=== PATIENT | female | born 1965 | race Caucasian/White ===

== ENCOUNTER 2019-12-19 11:20 | Outpatient (CLI) | payer OTHER, SELFPAY ==
--- NOTE | ~2019-12-19 | CT_ITS ---
EXAMINATION: CT lung screening EXAM DATE: 12/19/2019 12:18 INDICATION: Personal history of nicotine dependence. TECHNIQUE: Spiral low dose CT of the chest without contrast. Axial, coronal and sagittal images were reviewed. The dose-length product (DLP) for this examination was 58.56 mGy-cm. The exposure was ta ilored according to patient size (auto mA exposure control), and iterative reconstruction (ASIR) was used as additional dose reduction technique. Comparison is made to prior examination from 12/26/2017. FINDINGS: The lungs are clear. Tracheobronchial tree is patent. There is no mediastinal, hilar o r axillary lymphadenopathy. There are no pleural or pericardial effusions. There is no pneumothor ax. Heart normal in size. There is mild coronary arterial calcification, arterial sclerosis. Uppe r abdomen is unremarkable. There is mild to moderate thoracic spondylosis without osteoblastic or o steolytic lesions identified. IMPRESSION: Lung-RADS category 1, negative (<1%chance of malignancy); recommend continued LDCT screen ing in 1 year. Reviewed, dictated and finalized at location B. IMPRESSION: Lung-RADS category 1, negative (<1%chance of malignancy); recommend continued LDCT screening in 1 year.
== END 2019-12-19 11:21 | disposition home or self-care (01) ==
PROVIDERS: PCP Internal Medicine; Visit Provider Clinical Nurse Specialist
DX: Z12.2 Encounter for screening for malignant neoplasm of respiratory organs (principal); F17.210 Nicotine dependence, cigarettes, uncomplicated
CPT/HCPCS: G0297

== ENCOUNTER 2020-01-05 15:54 | Outpatient (CLI) | payer OTHER, SELFPAY ==
[2020-01-05 16:32] LABS: Basophils Absolute Auto 0.1 K/mm3 (0.0-0.1); Basophils Percent Auto 0.8 % (0.2-1.2); Eosinophils Absolute Auto 0.2 K/mm3 (0-0.3); Eosinophils Percent Auto 3.5 % (0-4.4); Hematocrit 35.7 % (37.0-47.0); Hemoglobin 12.1 g/dL (12.0-15.0); Immature Granulocyte Absolute 0.01 K/mm3 (0.00-0.031); Immature Granulocyte Percent A 0.2 % (0-0.5); Lymphocytes Absolute Auto 2.16 K/mm3 (0.9-3.2); Lymphocytes Percent Auto 32.9 % (18.3-44.2); Mean Corpuscular HGB Conc 33.9 g/dl (32-36); Mean Corpuscular Hemoglobin 33.6 pg (26-34); Mean Corpuscular Volume 99.2 fl (80-100); Monocytes Absolute Auto 0.7 K/mm3 (0.1-0.6); Monocytes Percent Auto 10.1 % (2.6-8.5); Neutrophils Absolute Auto 3.5 K/mm3 (1.3-6.7); Neutrophils Percent Auto 52.5 % (45.5-73.1); Platelet Count Result 352 k/mm3 (150-375); Red Cell Distribution Width 12.1 % (11.5-14.5); White Blood Count 6.6 K/mm3 (4.5-10.0)
[2020-01-05 16:42] LABS: Alanine Aminotransferase 24 U/L (4-35); Albumin Level 4.3 g/dL (3.5-5.1); Alkaline Phosphatase 68 U/L (38-126); Anion Gap 4 mmol/L (8-16); Aspartate Amino Transferase 31 U/L (14-36); Bilirubin,Total 0.3 mg/dL (0.2-1.3); Blood Urea Nitrogen 17 mg/dL (7-17); Calcium 9.4 mg/dL (8.4-10.2); Carbon Dioxide 31 mmol/L (22-30); Chloride 103 mmol/L (98-107); Cholesterol 207 mg/dL (0-200); Estimated Glomerular Filt Rate > 60; Glucose 113 mg/dL (65-105); HDL Direct 73 mg/dL; Potassium 4.8 mmol/L (3.4-5.0); Sodium 138 mmol/L (137-145); Triglycerides 124 mg/dL (<150)
[2020-01-05 16:46] LABS: Rheumatoid Factor < 8.6 IU/ML (<12)
[2020-01-05 16:53] LABS: LDL Cholesterol Direct 120 mg/dL
[2020-01-05 16:57] LABS: Erythrocyte Sedimentation Rate 26 mm/hr (0-20)
[2020-01-05 17:12] LABS: Thyroid Stimulating Hormone 0.169 uIU/mL (0.465-4.680)
[2020-01-05 17:30] LABS: Vitamin D 25 Hydroxy 46.4 ng/mL
== END 2020-01-05 15:55 | disposition home or self-care (01) ==
LOC: ANHLAB 15:59
PROVIDERS: PCP Internal Medicine; Visit Provider Clinical Nurse Specialist
DX: E03.9 Hypothyroidism, unspecified (principal); I10 Essential (primary) hypertension; E55.9 Vitamin D deficiency, unspecified; M25.50 Pain in unspecified joint
CPT/HCPCS: 36415; 80053; 80061; 82306; 84443; 85025; 85652; 86038; 86430

== ENCOUNTER → 2020-02-17 16:40 | Outpatient (CLI) | payer OTHER, SELFPAY ==
--- NOTE | ~2020-02-17 | MM_ITS ---
EXAMINATION: MM screening alesha BI w rita HISTORY: Screening mammogram TECHNIQUE: Craniocaudal and mediolateral oblique 3-D tomosynthesis images were obtained and synthetic 2-D images were generated. CAD analysis was submitted and interpreted. COMPARISON: 06/06/2018 bilateral digital screening mammogram BREAST PARENCHYMAL COMPOSITION: The breasts are heterogeneously dense, which may obscure small masses . FINDINGS: There is no evidence of suspicious mass, calcification, or architectural distortion to sugg est malignancy in either breast. There has been no suspicious interval change. IMPRESSION: 1. No mammographic evidence of malignancy. 2. Recommend routine screening mammography in one year. BI-RADS Category 1: Negative Reviewed, dictated and finalized at location A. F PROJECTIONIST
== END ==
PROVIDERS: PCP Internal Medicine; Visit Provider Obstetrics & Gynecology
DX: Z12.31 Encounter for screening mammogram for malignant neoplasm of breast (principal)
CPT/HCPCS: 77063; 77067

== ENCOUNTER 2020-02-18 16:16 | Outpatient (CLI) | payer OTHER, SELFPAY ==
[2020-02-18 17:21] LABS: Erythrocyte Sedimentation Rate 28 mm/hr (0-20)
== END 2020-02-18 16:17 | disposition home or self-care (01) ==
LOC: ANHLAB 16:17
PROVIDERS: PCP Internal Medicine; Visit Provider Clinical Nurse Specialist
DX: M25.50 Pain in unspecified joint (principal); E05.90 Thyrotoxicosis, unspecified without thyrotoxic crisis or storm
CPT/HCPCS: 36415; 84443; 85652

== ENCOUNTER 2020-02-23 16:11 | Outpatient (CLI) | payer OTHER, SELFPAY ==
[2020-02-23 16:43] LABS: CRP < 0.5 mg/dL (<1.0)
[2020-02-23 17:05] LABS: Erythrocyte Sedimentation Rate 44 mm/hr (0-20)
== END 2020-02-23 16:12 | disposition home or self-care (01) ==
LOC: ANHLAB 16:13
PROVIDERS: PCP Internal Medicine; Visit Provider Clinical Nurse Specialist
DX: R70.0 Elevated erythrocyte sedimentation rate (principal)
CPT/HCPCS: 36415; 85652; 86140

== ENCOUNTER 2020-05-16 16:54 | Outpatient (CLI) | payer OTHER, SELFPAY ==
[2020-05-16 17:44] LABS: Erythrocyte Sedimentation Rate 23 mm/hr (0-20)
[2020-05-16 18:18] LABS: Free T4 Free Thyroxine 1.24 ng/mL (0.78-2.19)
[2020-05-19 07:58] LABS: Triiodothyronine T3 Free 3.4 pg/mL (2.3-4.2)
== END 2020-05-16 16:55 | disposition home or self-care (01) ==
LOC: ANHLAB 16:56
PROVIDERS: PCP Internal Medicine; Visit Provider Clinical Nurse Specialist
DX: E03.9 Hypothyroidism, unspecified (principal); R70.0 Elevated erythrocyte sedimentation rate
CPT/HCPCS: 36415; 84439; 84443; 84481; 85652

== ENCOUNTER 2020-10-02 10:07 | Outpatient (NON) | payer OTHER, SELFPAY | END 2020-10-02 10:08 | disposition home or self-care (01) | LOC: ANHLAB 10:10 | PROVIDERS: PCP Internal Medicine; Visit Provider Obstetrics & Gynecology | DX: R39.9 Unspecified symptoms and signs involving the genitourinary system (principal) | CPT/HCPCS: 87077; 87086; 87088; 87186 ==

== ENCOUNTER 2020-10-05 14:30 | Outpatient (CLI) | payer OTHER, MEDICAID, SELFPAY ==
[2020-10-05 14:51] LABS: Basophils Absolute Auto 0.1 K/mm3 (0.0-0.1); Eosinophils Absolute Auto 0.1 K/mm3 (0-0.3); Eosinophils Percent Auto 1.2 % (0-4.4); Hematocrit 35.9 % (37.0-47.0); Hemoglobin 12.1 g/dL (12.0-15.0); Immature Granulocyte Absolute 0.01 K/mm3 (0.00-0.031); Immature Granulocyte Percent A 0.2 % (0-0.5); Lymphocytes Absolute Auto 1.17 K/mm3 (0.9-3.2); Lymphocytes Percent Auto 24.3 % (18.3-44.2); Mean Corpuscular HGB Conc 33.7 g/dl (32-36); Mean Corpuscular Hemoglobin 32.4 pg (26-34); Mean Corpuscular Volume 96.2 fl (80-100); Monocytes Absolute Auto 0.6 K/mm3 (0.1-0.6); Monocytes Percent Auto 12.7 % (2.6-8.5); Neutrophils Absolute Auto 2.9 K/mm3 (1.3-6.7); Neutrophils Percent Auto 60.6 % (45.5-73.1); Platelet Count Result 338 k/mm3 (150-375); Red Blood Count 3.73 M/mm3 (4.2-5.4); Red Cell Distribution Width 12.6 % (11.5-14.5); White Blood Count 4.8 K/mm3 (4.5-10.0)
[2020-10-05 15:01] LABS: Anion Gap 8 mmol/L (8-16); Blood Urea Nitrogen 8 mg/dL (7-17); Calcium 9.9 mg/dL (8.4-10.2); Carbon Dioxide 28 mmol/L (22-30); Chloride 98 mmol/L (98-107); Estimated Glomerular Filt Rate > 60; Glucose 126 mg/dL (65-110); Potassium 4.3 mmol/L (3.4-5.0); Sodium 134 mmol/L (137-145)
== END 2020-10-05 14:31 | disposition home or self-care (01) ==
LOC: ANHLAB 14:33
PROVIDERS: PCP Internal Medicine; Visit Provider Clinical Nurse Specialist
DX: E03.9 Hypothyroidism, unspecified (principal); I10 Essential (primary) hypertension
CPT/HCPCS: 36415; 80048; 84443; 85025

== ENCOUNTER 2020-10-10 07:47 | Observation (INO) | payer OTHER, MEDICAID, SELFPAY ==
[2020-10-10] VITALS (9 sets, daily range): BP systolic 132–148; BP diastolic 70–86; PULSE 65–94; RESP 15–18; TEMP 36.3–37.4; O2SAT 97–100
--- NOTE | ~2020-10-10 | CT_ITS ---
EXAMINATION: CT brain wo con DATE: 10/10/2020 12:37 INDICATION: Headache TECHNIQUE: Computed tomography (CT) of the head was performed without intravenous contrast. Sagittal and coronal reconstructions were performed. The mA was adjusted according to patient size. Iterative reconstruction technique was employed. The dose-length product was 605.33 mGy-cm. COMPARISON: None FINDINGS: No acute intracranial hemorrhage, acute infarction or abnormal extra axial fluid collection. There is mild scattered white matter hypoattenuation consistent with chronic small vessel ischemic disease. V entricles are normal and symmetric. No mass/mass effect. The orbits, paranasal sinuses and mastoid ai r cells are normal. IMPRESSION: 1. Mild scattered white matter hypoattenuation consistent with chronic small vessel ischemic disease. No other acute intracranial process. Reviewed, dictated and finalized at location A. IMPRESSION: 1. Mild scattered white matter hypoattenuation consistent with chronic small ve ssel ischemic disease. No other acute intracranial process.
--- NOTE | ~2020-10-10 | XR_ITS ---
XR knee RT min 4V 10/10/2020 09:09 Indication: Right knee pain. Cellulitis. Prior surgery in 2012. Procedure: 4 views right knee Comparison: Comparison to multiple prior studies sequentially, with oldest reviewed study dated 07/14. Findings: There are screws and cerclage wires transfixing the patella. There are multiple loose tay s superior to the patella. There is a small joint effusion. There is moderate prepatellar and infrapa tellar soft tissue. There is a punctate foreign body in the anterior soft tissues below the patella. This is unchanged. No acute fracture or traumatic malalignment. No soft tissue gas. There is mild ost eoarthritis of the right knee. Impression: 1: Moderate prepatellar and infrapatellar soft tissue swelling, consistent with history of cellulitis . 2: No acute osseous abnormality. Reviewed, dictated and finalized at location A. Impression: 1: Moderate prepatellar and infrapatellar soft tissue swelling, consistent with history of cellulitis. 2: No acute osseous abnormality.
--- NOTE | ~2020-10-10 | XR_ITS ---
EXAMINATION: XR chest 2V 10/10/2020 09:09 INDICATION: Macrobid allergic reaction. PROCEDURE: 2 view chest COMPARISON: 08/04/2019 FINDINGS: The lungs are clear. The cardiomediastinal silhouette is within normal limits. There are no pleural effusions. There is no pneumothorax suspected. The lungs are hyperinflated which is cons istent with, but not diagnostic of chronic obstructive pulmonary disease. IMPRESSION: 1: NO ACUTE CARDIOPULMONARY DISEASE. Reviewed, dictated and finalized at location A.
[2020-10-10] MEDS: KETOROLAC 30 MG/ML VIAL (*BKC) IV PUSH (08:58)
[2020-10-10] MEDS: SODIUM CHLORIDE 0.9% IV 1,000 ML 999 ML IV CONT (08:59)
--- NOTE | 2020-10-10 09:02 | ED.GENADULT ---
HPI - General Adult General Chief complaint: Headache Stated complaint: ?DEHYDRATED Time Seen by Provider: 10/10/20 08:16 Source: patient Limitations: no limitations History of Present Illness HPI narrative: Patient is 54 years old white female presented to the ED with headache, joints pain all over, neck pain, started immediately after starting Macrobid antibiotic for urinary tract infection 8 days ago. Patient is telling me that she is allergic to a long list of stuff. Patient denies any fever, chills, nausea, vomiting, shortness of breath, chest pain or abdominal pain. Patient also reports some redness and tenderness at the right knee anteriorly. Started 2 days ago. Patient is fully vaccinated for COVID-19. Related Data Home Medications Medication Instructions Recorded Confirmed cider vinegr-apple tablet PO 12/10/19 10/05/20 iwgxeg-wftukgr-B5-min#32 300 mg-50 mg-200 mg tablet cinnamon bark 500 mg capsule 500 mg PO DAILY 12/10/19 10/05/20 ibuprofen 200 mg capsule 200 mg PO Q6H PRN 12/10/19 10/05/20 metoprolol tartrate 25 mg tablet 25 mg PO BID tablet 12/10/19 10/05/20 milk thistle 175 mg tablet 175 mg PO DAILY tablet 12/10/19 10/05/20 goxiqxce-ymrsoyc-eadz-lutein tablet mcg PO 12/10/19 10/05/20 estradiol 4 mcg vaginal insert, in See Rx Instructions VAGINAL 07/31/20 10/05/20 a starter dose pack .COMPLEX Allergies Allergy/AdvReac Type Severity Reaction Status Date / Time ampicillin Allergy Unknown Hives Verified 10/10/20 07:56 cephalexin Allergy Unknown Hives Verified 10/10/20 07:56 clindamycin Allergy Unknown Anaphylaxis Verified 10/10/20 07:56 codeine Allergy Unknown Swelling Verified 10/10/20 07:56 Penicillins Allergy Unknown Hives Verified 10/10/20 07:56 Sulfa (Sulfonamide Allergy Unknown Hives Verified 10/10/20 07:56 Antibiotics) tetracycline Allergy Unknown Hives Verified 10/10/20 07:56 Tetracyclines Allergy Unknown Hives Verified 10/10/20 07:56 amlodipine AdvReac Intermediate joint pain Verified 10/10/20 07:56 lisinopril AdvReac Intermediate Cough Verified 10/10/20 07:56 losartan AdvReac Intermediate Joint pain Verified 08/18/20 09:09 BUPROPION HCL Allergy Unknown Hives Uncoded 08/18/20 09:09 Review of Systems Review of Systems: Narrative: CONSTITUTIONAL: Denies fever, chills, or sweats. EYES: Denies visual changes, redness, or discharge. ENT: Denies rhinorrhea, congestion, sore throat, or otalgia. CARDIOVASCULAR: Denies chest pain, palpitations, or edema. RESPIRATORY: Denies cough or dyspnea. GASTROINTESTINAL: Denies abdominal pain, nausea, vomiting, or diarrhea. GENITOURINARY: Denies dysuria or hematuria. SKIN: Denies rash or itching. MUSCULOSKELETAL: Denies back pain, joint pain, or myalgia. NEUROLOGIC: Denies headache, numbness, or weakness. PSYCHIATRIC: Denies anxiety or depression. [facility] Past Medical History Medical History Acid reflux Allergies Colitis ESR raised History of chronic bronchitis History of open fracture Right knee cap Hypertension Hypothyroidism IBS (irritable bowel syndrome) Inflammatory arthritis Thyroid disorder Surgical History Surgical History H/O section x 3 1984, 1986, 1990 H/O knee surgery Right knee x 2 History of adenoidectomy History of endometrial ablation History of placement of ear tubes History of tonsillectomy History of tubal ligation [place] teeth removed Family History Family History Father Family history of Parkinson's disease Lewy body dementia Hypertension Mother Family history of lupus erythematosus, Onset Age: 54 Sjogren-Tabatha syndrome Aneurysm Hypothyroidism Grandparent Acute myocardial infarction Family history of cardiac disorder Cervical cancer HIV (human immunodeficiency virus infection) Heart disease Hypertension Rheumatoid arthritis Si
[2020-10-10 09:09] LABS: Basophils Percent Auto 0.4 % (0.2-1.2); Eosinophils Percent Auto 0.3 % (0-4.4); Hematocrit 35.6 % (37.0-47.0); Hemoglobin 12.3 g/dL (12.0-15.0); Immature Granulocyte Absolute 0.03 K/mm3 (0.00-0.031); Immature Granulocyte Percent A 0.4 % (0-0.5); Lymphocytes Absolute Auto 0.85 K/mm3 (0.9-3.2); Lymphocytes Percent Auto 11.5 % (18.3-44.2); Mean Corpuscular HGB Conc 34.6 g/dl (32-36); Mean Corpuscular Hemoglobin 32.5 pg (26-34); Mean Corpuscular Volume 94.2 fl (80-100); Mean Platelet Volume 9.3 fl (7.4-10.4); Monocytes Absolute Auto 0.4 K/mm3 (0.1-0.6); Monocytes Percent Auto 5.1 % (2.6-8.5); Neutrophils Absolute Auto 6.1 K/mm3 (1.3-6.7); Neutrophils Percent Auto 82.3 % (45.5-73.1); Platelet Count Result 260 k/mm3 (150-375); Red Blood Count 3.78 M/mm3 (4.2-5.4); Red Cell Distribution Width 12.2 % (11.5-14.5); White Blood Count 7.4 K/mm3 (4.5-10.0)
[2020-10-10 09:26] LABS: Alanine Aminotransferase 48 U/L (4-35); Albumin Level 4.3 g/dL (3.5-5.1); Alkaline Phosphatase 80 U/L (38-126); Anion Gap 9 mmol/L (8-16); Aspartate Amino Transferase 38 U/L (14-36); Bilirubin,Total 0.6 mg/dL (0.2-1.3); Blood Urea Nitrogen 5 mg/dL (7-17); CRP 6.9 mg/dL (<1.0); Calcium 9.1 mg/dL (8.4-10.2); Carbon Dioxide 28 mmol/L (22-30); Chloride 90 mmol/L (98-107); Estimated CRCL calculation 74 ml/min; Estimated Glomerular Filt Rate > 60; Glucose 111 mg/dL (65-110); Potassium 3.3 mmol/L (3.4-5.0); Sodium 127 mmol/L (137-145)
[2020-10-10 10:07] LABS: Erythrocyte Sedimentation Rate 46 mm/hr (0-20)
[2020-10-10 10:07] LABS: Lactic Acid Reflex 0.6 mmol/L (0.7-2.1)
[2020-10-10 10:41] LABS: Add Urine Microscopic? YES; Appearance Urine Cloudy (Clear); Bacteria Urine Trace /hpf; Bilirubin Urine Negative (Negative); Blood Urine Negative (Negative); Color Urine Yellow (Yellow); Glucose Urine UA Negative (Negative); Ketones Urine 1+ mg/dL (Negative); Leukocyte Esterase Ur Negative LEU/UL (Negative); Mucus Urine Rare /lpf; Nitrate Urine Negative (Negative); Protein Urine 1+ mg/dL (Negative); RBC Urine 0-2 /hpf (0-2); Specific Grav Ur 1.015 (1.001-1.035); Squamous Epithelial Cell Urine Many /hpf (Few)
[2020-10-10] MEDS: POTASSIUM CHLORIDE 20 MEQ PACKET (FOR LIQUID) 40 MEQ PO (11:01)
--- NOTE | 2020-10-10 14:30 | PM.IMHP ---
H&P: HPI History of Present Illness Date/Time: 10/10/20 14:30 Chief Complaint: Multiple complaints. Narrative: This is a 54-year-old female with history of migraine headaches, hypertension, hypothyroidism, and anxiety presented to the emergency department earlier today via private vehicle with multiple complaints. She last felt in her usual state of health on Friday and spent the day using a push mower to cut her grass, estimating that she was outside for about 4 hours. Friday morning she was feeling dizzy and lightheaded and had dry heaves in addition to a diffuse headache and worsening of her chronic neck and back pain. She assumed that she was dehydrated from the day before and push the fluids, including drinking water, Pedialyte, and Gatorade. On Friday she developed chills and yesterday and while in the shower shaving she began having pain around the right knee at which time she noticed that it was red and swollen. She continues to have a pretty significant, throbbing headache with some light sensitivity as well. She has not had a fever to her knowledge. Appetite has been okay. No nausea or vomiting. She denies diarrhea and dysuria. No joint pain with flexion or extension of the right knee Though she mentions crepitus. She has no history of cellulitis or multidrug resistant organisms Review of Systems Review of Systems: Narrative: 12 systems were reviewed with pertinent positives and negatives as per HPI. No cold or flu symptoms. She denies exposure to those positive for COVID-19. No cough or shortness of breath. She has been taking ibuprofen and acetaminophen without a whole lot of benefit and her headache. Except as documented, all other systems were reviewed and are negative. [facility] Past Medical History Medical History (Updated 10/11/20 @ 19:18 by Rosenda Cruz PA-C) Acid reflux Allergies Colitis History of chronic bronchitis History of open fracture Right patella. Hypertension Hypothyroidism IBS (irritable bowel syndrome) Inflammatory arthritis Thyroid disorder Surgical History Surgical History H/O section x 3 1984, 1986, 1990 H/O knee surgery Right knee x 2 History of adenoidectomy History of endometrial ablation History of placement of ear tubes History of tonsillectomy History of tubal ligation [place] teeth removed Family History Family History Father Family history of Parkinson's disease Lewy body dementia Hypertension Mother Family history of lupus erythematosus, Onset Age: 54 Sjogren-Tabatha syndrome Aneurysm Hypothyroidism Grandparent Acute myocardial infarction Family history of cardiac disorder Cervical cancer HIV (human immunodeficiency virus infection) Heart disease Hypertension Rheumatoid arthritis Sibling Diabetes mellitus Hypertension Daughter Sjogren-Tabatha syndrome Rheumatoid arthritis Other Family history of arthritis Family history of cardiovascular disease Family history of rheumatoid arthritis Social History Social History Smoking packs per day: 0.5 Smoking cigarettes per day: 10.0 Smoking status: Current every day smoker Alcohol intake: never Substance use: never Gender identity (if verbalized by the patient): Female Spiritual care concerns: No Meds Home Medications and Allergies Home Medications Medication Instructions Recorded Confirmed Type cinnamon bark 500 mg capsule 500 mg PO DAILY 12/10/19 10/10/20 History metoprolol tartrate 25 mg tablet 25 mg PO BID tablet 12/10/19 10/10/20 History albuterol sulfate 90 mcg/actuation 1 puff INHALATION Q4H PRN #18 g 06/08/20 10/10/20 Rx aerosol inhaler omeprazole 40 mg capsule,delayed 40 mg PO DAILY #90 cap 08/07/20 10/10/20 Rx release levothyroxine 88 mcg tablet 88 mcg PO DAILY #90 ta
[2020-10-10] MEDS: SODIUM CHLORIDE 0.9% IV 1,000 ML 125 ML IV CONT (15:42)
--- NOTE | 2020-10-10 18:39 | ADMGEN ---
This patient, Claire Zayas, was admitted to 2 Medical Room 260-01. Patient/family oriented to hospital policies and general routines including ID bracelet, bed and alarms, visiting hours, pain management, procedures, bathroom and other care routines, personal items, smoking policy, room service/diet, and visiting hours. Information on how to activate the Rapid Response Team has been discussed. Patient/Family are encouraged to report perceived risks to care and to ask questions if they do not understand what they are told or what they should do.
[2020-10-10] MEDS: POTASSIUM CHLORIDE 20 MEQ TABLET.ER 40 MEQ PO (18:43)
[2020-10-10 19:58] LABS: Glucose Point of Care 151 mg/dl (65-105)
[2020-10-11] MEDS: SODIUM CHLORIDE 0.9% IV 1,000 ML 125 ML IV CONT (02:01)
[2020-10-11 05:25] VITALS: BP 143/82; PULSE 82; RESP 20; TEMP 36.1; O2SAT 99
[2020-10-11 05:56] LABS: Anion Gap 9 mmol/L (8-16); Blood Urea Nitrogen 4 mg/dL (7-17); Calcium 8.9 mg/dL (8.4-10.2); Carbon Dioxide 23 mmol/L (22-30); Chloride 101 mmol/L (98-107); Estimated CRCL calculation 87 ml/min; Estimated Glomerular Filt Rate > 60; Glucose 93 mg/dL (65-110); Magnesium 1.6 mg/dL (1.6-2.3); Sodium 133 mmol/L (137-145)
[2020-10-11] MEDS: LEVOTHYROXINE SODIUM 88 MCG TABLET PO (06:12)
[2020-10-11] MEDS: MAGNESIUM SULF 2 GM/WATER 50ML 2 GM/50 ML BAG IVPB (08:34)
[2020-10-11 08:35] VITALS: PULSE 63
[2020-10-11] MEDS: PANTOPRAZOLE 40 MG TABLET PO (08:35)
[2020-10-11] MEDS: FLUoxetine HCL 20 MG CAPSULE 40 MG PO (08:35)
[2020-10-11] MEDS: METOPROLOL TARTRATE 25 MG TABLET PO (08:35)
--- NOTE | 2020-10-11 12:15 | PM.DS ---
DS: Admitting Diagnosis Admitting Diagnosis cellulitis of right knee DS: Discharge Diagnosis Discharge Diagnosis (1) Cellulitis of knee, right: Code(s): L03.115 - Cellulitis of right lower limb Status: Acute Assessment and Plan: Started on IV vancomycin due to history of multiple drug allergies. On my evaluation, cellulitis was significantly improved with minimal erythema and no tenderness. Continue with p.o. Levaquin to complete a 7 day course. Encouraged close monitoring of the area to ensure improvement. (2) Headache: Qualifiers: Headache chronicity pattern: unspecified pattern Headache type: unspecified Intractability: not intractable Qualified Code(s): R51.9 - Headache, unspecified Code(s): R51.9 - Headache, unspecified Status: Acute Assessment and Plan: Head CT with no acute intracranial findings. May have been related to dehydration. Supportive care provided with headache improvement. (3) Hyponatremia: Code(s): E87.1 - Hypo-osmolality and hyponatremia Status: Acute Assessment and Plan: Sodium 127 on arrival. Improved with IV fluid rehydration. Encourage oral fluid intake. (4) Hypokalemia: Code(s): E87.6 - Hypokalemia Status: Acute Assessment and Plan: Improved with supplementation. (5) Hypertension: Qualifiers: Hypertension type: essential hypertension Qualified Code(s): I10 - Essential (primary) hypertension Code(s): I10 - Essential (primary) hypertension Status: Acute Assessment and Plan: Blood pressures reviewed and were generally stable. Continue metoprolol. (6) Hypothyroidism: Qualifiers: Hypothyroidism type: unspecified Qualified Code(s): E03.9 - Hypothyroidism, unspecified Code(s): E03.9 - Hypothyroidism, unspecified Status: Acute Assessment and Plan: TSH within normal limits. Continue levothyroxine. DS: Summary Hospital Course Hospital Course: Date of admission: 10/10/2020 date of discharge: 10/11/2020 Claire Zayas is a 54-year-old female with a history of multiple drug allergies, hypertension, IBS, and hypothyroidism who presented to the emergency department on 10/10/2020 with complaint of headache and right knee tenderness and redness. upon presentation to the emergency department, her vital signs were stable, WBC 7.4, additional CBC unremarkable, sodium 127, potassium 3.3, chloride 90, CO2 28, BUN 5, creatinine 0.6, glucose 111, lactic 0.6, CRP 6.9, CXR with no acute findings, knee x-ray with moderate soft tissue swelling and no acute osseous findings, and head CT with chronic small-vessel ischemic disease and no acute intracranial findings. She was admitted to the hospitalist service for further evaluation and management. Please see above for further details. She was treated with IV antibiotics for right knee cellulitis which did improve. She will continue oral antibiotics at home. Given her overall improvement, she was determined to no longer require inpatient care and was felt to be stable for discharge. We discussed worrisome signs and symptoms for which to return and she was educated on her medications. She was discharged in hemodynamically stable condition on 10/11/2020. Status at Discharge Functional status at discharge: independent ambulation Overall status at discharge: patient is back to baseline Time Spent with Patient Time attestation: Total time spent providing and/or coordinating discharge services: 45 minutes Time spent: Greater than 30 minutes Exam Narrative: Exam Narrative: Ms. Zayas is a well-nourished, well-appearing 54-year-old female who is lying supine in bed. She appears comfortable and is in NARD. Neuro: awake, alert and oriented x4, speech clear, no focal neuro deficits noted HEENMT: normocephalic, atraumatic, EOMI, sclerae anicteric, moist oral mucosa Neck: sup
== END 2020-10-11 13:58 | disposition home or self-care (01) ==
LOC: ANHED 12:21 → ANH3MEDSUR 14:33 → ANH2MED 16:32
PROVIDERS: Admitting Provider Internal Medicine; Emergency Provider Emergency Medicine; PCP Internal Medicine; Visit Provider Hospitalist
DX: L03.115 Cellulitis of right lower limb (principal); R51.9 Headache, unspecified; I10 Essential (primary) hypertension; E03.9 Hypothyroidism, unspecified; E87.1 Hypo-osmolality and hyponatremia; E87.6 Hypokalemia; F17.210 Nicotine dependence, cigarettes, uncomplicated
CPT/HCPCS: 36415; 70450; 71046; 73564; 80048; 80053; 81001; 82948; 83605; 83735; 85025; 85652; 86140; 87040; 96361; 96365; 96366; 96367; 96375; 99285; A9270; G0378; J0131; J1885; J3370; J3475; J7030

== ENCOUNTER 2020-10-18 08:04 | Outpatient (CLI) | payer OTHER, MEDICAID, SELFPAY ==
[2020-10-18 08:43] LABS: Add Urine Microscopic? YES; Appearance Urine Cloudy (Clear); Bacteria Urine Trace /hpf; Bilirubin Urine Negative (Negative); Blood Urine Negative (Negative); Color Urine Yellow (Yellow); Glucose Urine UA Negative (Negative); Ketones Urine Negative (Negative); Leukocyte Esterase Ur Negative LEU/UL (NEGATIVE); Mucus Urine Rare /lpf; Nitrate Urine Negative (Negative); Protein Urine Negative (Negative); RBC Urine 0-2 /hpf (0-2); Specific Grav Ur 1.017 (1.001-1.035); Squamous Epithelial Cell Urine Many /hpf (Few); Urobilinogen Urine Negative mg/dL (<2.0); WBC Urine 0-3 /hpf (0-3)
[2020-10-18 08:48] LABS: Anion Gap 8 mmol/L (8-16); Blood Urea Nitrogen 10 mg/dL (7-17); Calcium 9.5 mg/dL (8.4-10.2); Carbon Dioxide 26 mmol/L (22-30); Chloride 99 mmol/L (98-107); Estimated Glomerular Filt Rate > 60; Glucose 83 mg/dL (65-110); Magnesium 1.9 mg/dL (1.6-2.3); Potassium 4.6 mmol/L (3.4-5.0); Sodium 133 mmol/L (137-145)
[2020-10-18 10:17] LABS: Erythrocyte Sedimentation Rate 44 mm/hr (0-20)
== END 2020-10-18 08:05 | disposition home or self-care (01) ==
PROVIDERS: PCP Internal Medicine; Referring Provider Physician Assistant; Visit Provider Internal Medicine
DX: L03.115 Cellulitis of right lower limb (principal); E87.1 Hypo-osmolality and hyponatremia; E87.6 Hypokalemia; E83.42 Hypomagnesemia; N39.0 Urinary tract infection, site not specified
CPT/HCPCS: 36415; 80048; 81001; 83735; 85652

== ENCOUNTER 2020-10-27 14:25 | Outpatient (CLI) | payer OTHER, MEDICAID, SELFPAY ==
--- NOTE | ~2020-10-27 | XR_ITS ---
XR sacroiliac joints min 3V DATE: 10/27/2020 15:04 INDICATION: Low back pain TECHNIQUE: AP and bilateral oblique views of sacroiliac joints COMPARISON: None FINDINGS: Moderate degenerative disc disease at L3-4. Severe degenerative disc disease at L4-5 and L5-S1. The pubic symphysis and sacroiliac joints appear normal. No ankylosis or erosive change, fracture or dislocation at the sacroiliac joints. Hip joint spaces appear symmetric and relatively well preserved . IMPRESSION: Normal sacroiliac joints Multilevel degenerative disc disease of the lumbar/lumbosacral spine Reviewed, dictated and finalized at Location A. Reviewed, dictated and finalized at location A.
--- NOTE | ~2020-10-27 | XR_ITS ---
EXAMINATION: HAND-ESTEPHANIA ARTHRITIS 3+VIEWS DATE: 10/27/2020 15:03 INDICATION: Unspecified osteoarthritis. TECHNIQUE: Posteroanterior, lateral, and oblique views of the left and of the right hands as well as a ballcatchers view of both hands were obtained. COMPARISON: None. FINDINGS: There appears to be dorsal subluxation and fragmentation of the right lunate which could represent se quela of either chronic trauma or osteonecrosis. There is secondary proximal migration of the capitat e along the volar margin of the lunate. There appears to be volar intercalated segment instability (V DEEP) at the left carpus with decreased scapholunate angle and increased dorsal angulation of the capi warren relative to the lunate however specificities decreased by some obliquity to the wrist on the lat eral projection. Moderate osteoarthritis at the right wrist and first carpal metacarpal joints. Mild osteoarthritis at the right wrist and first carpal metacarpal, bilateral mid carpal joints and multip le bilateral metacarpophalangeal and interphalangeal joints. IMPRESSION: 1. Dorsal subluxation and fragmentation of the right lunate suggesting either sequela of old trauma o r osteonecrosis. 2. Suggestion of volar intercalated segment instability (VISI) at the left wrist although assessment is limited by suboptimal positioning on the lateral projection. Could consider dedicated radiographs of the left wrist for more definitive determination. 3. Moderate osteoarthritis at the right wrist and first carpal metacarpal joints and mild polyarticul ar osteoarthritis, much of the remaining left and right hands. Reviewed, dictated and finalized at location A. IMPRESSION: 1. Dorsal subluxation and fragmentation of the right lunate suggesting either s equela of old trauma or osteonecrosis. 2. Suggestion of volar intercalated segment instability (VISI) at the left wris t although assessment is limited by suboptimal positioning on the lateral proje ction. Could consider dedicated radiographs of the left wrist for more definiti ve determination. 3. Moderate osteoarthritis at the right wrist and first carpal metacarpal joint s and mild polyarticular osteoarthritis, much of the remaining left and right h ands.
[2020-10-27 15:20] LABS: CRP < 0.5 mg/dL (<1.0)
[2020-10-27 17:25] LABS: Erythrocyte Sedimentation Rate 26 mm/hr (0-20)
[2020-10-30 11:24] LABS: SM Antibody <1.0; SM/RNP Antibody <1.0; SS-A <1.0; SS-B <1.0
[2020-10-31 03:41] LABS: Thyroid Peroxidase Antibodies 259 IU/mL (<9)
[2020-11-01 10:32] LABS: Anti Cyclic Citrullinated Pept <16 Units (<20)
[2020-11-01 13:52] LABS: Thyroid Stimulating Immunoglob <89 % baseline (<140)
== END 2020-10-27 14:26 | disposition home or self-care (01) ==
PROVIDERS: PCP Internal Medicine; Visit Provider Internal Medicine
DX: M19.90 Unspecified osteoarthritis, unspecified site (principal); R70.0 Elevated erythrocyte sedimentation rate; M19.041 Primary osteoarthritis, right hand; M19.042 Primary osteoarthritis, left hand; M51.36 Other intervertebral disc degeneration, lumbar region
CPT/HCPCS: 36415; 72202; 73130; 84445; 85652; 86140; 86200; 86225; 86235; 86376

== ENCOUNTER 2020-11-03 09:36 | Outpatient (NON) | payer OTHER, MEDICAID, SELFPAY | END 2020-11-03 09:37 | disposition home or self-care (01) | PROVIDERS: PCP Internal Medicine; Visit Provider Obstetrics & Gynecology | DX: R39.9 Unspecified symptoms and signs involving the genitourinary system (principal) | CPT/HCPCS: 87077; 87086; 87088 ==

== ENCOUNTER 2020-11-27 16:24 | Outpatient (CLI) | payer OTHER, MEDICAID, SELFPAY ==
[2020-11-27 20:28] LABS: Anion Gap 9 mmol/L (8-16); Blood Urea Nitrogen 13 mg/dL (7-17); Calcium 9.2 mg/dL (8.4-10.2); Carbon Dioxide 27 mmol/L (22-30); Chloride 93 mmol/L (98-107); Estimated Glomerular Filt Rate > 60; Glucose 96 mg/dL (65-110); Potassium 4.6 mmol/L (3.4-5.0); Sodium 129 mmol/L (137-145)
== END 2020-11-27 16:25 | disposition home or self-care (01) ==
LOC: ANHLAB 16:27
PROVIDERS: PCP Internal Medicine; Visit Provider Internal Medicine
DX: E87.6 Hypokalemia (principal)
CPT/HCPCS: 36415; 80048

== ENCOUNTER 2020-12-19 16:18 | Outpatient (CLI) | payer OTHER, MEDICAID, SELFPAY ==
[2020-12-19 17:08] LABS: Anion Gap 9 mmol/L (8-16); Blood Urea Nitrogen 14 mg/dL (7-17); Calcium 9.9 mg/dL (8.4-10.2); Carbon Dioxide 29 mmol/L (22-30); Chloride 94 mmol/L (98-107); Estimated Glomerular Filt Rate > 60; Glucose 145 mg/dL (65-110); Potassium 4.4 mmol/L (3.4-5.0); Sodium 132 mmol/L (137-145)
== END 2020-12-19 16:19 | disposition home or self-care (01) ==
LOC: ANHLAB 16:21
PROVIDERS: PCP Internal Medicine; Visit Provider Clinical Nurse Specialist
DX: E87.1 Hypo-osmolality and hyponatremia (principal)
CPT/HCPCS: 36415; 80048

== ENCOUNTER 2020-12-30 12:16 | Outpatient (CLI) | payer OTHER, MEDICAID, SELFPAY ==
--- NOTE | ~2020-12-30 | MR_ITS ---
EXAMINATION: MR hand LT wo/w con DATE: 12/30/2020 14:56 INDICATION: Left hand osteoarthritis and pain. TECHNIQUE: Magnetic resonance imaging (MRI) of the left was performed without and with 11 mL MultiHan ce intravenous contrast. Sequences included axial T1-weighted FS FSE, axial, coronal, and sagittal T2 -weighted FS FSE and T1-weighted FSE, and postcontrast axial and coronal T1-weighted FS FSE. COMPARISON: Left hand radiographs 10/27/2020 FINDINGS: The proximal carpal row is not included in the imaging volume. Bone alignment is normal. No fracture. There is a type II lunate. There is chondromalacia involving proximal hamate with subchond ral edema-like marrow signal intensity. There is mild osteoarthritis of triscaphe joint and first car pometacarpal joint. There is enhancing synovitis involving the radiocarpal and midcarpal compartments , first carpometacarpal joint, and first metacarpophalangeal joint. The flexor tendons and pulleys ar e normal. The extensor tendons are normal. IMPRESSION: 1. Mild polyarticular osteoarthritis with enhancing synovitis. Reviewed, dictated and finalized at location A.
--- NOTE | ~2020-12-30 | MR_ITS ---
EXAMINATION: MR hand RT wo/w con DATE: 12/30/2020 14:56 INDICATION: Unspecified osteoarthritis, unspecified site. TECHNIQUE: Magnetic resonance imaging (MRI) of the right hand was performed without and with 11 mL Mu ltiHance intravenous contrast. Sequences included axial T1-weighted FS FSE and axial, coronal, and sa gittal T2-weighted FS FSE, T1-weighted FSE, and postcontrast T1-weighted FS FSE. COMPARISON: Right hand radiographs 10/27/2020 FINDINGS: The proximal carpal row is included on the outsoles channel opener images, but not the other sequences. Bone alignment is normal. There is volume loss and fragmentation of lunate. There is bone marrow edema inv olving most of the bones in the visualized portion of the carpus. There is enhancing synovitis involv ing the midcarpal compartment, first carpometacarpal joint, and first metacarpophalangeal joint. Ther e is severe osteoarthritis of first carpometacarpal joint with joint effusion. There is mild osteoart hritis of first metacarpophalangeal joint. The interphalangeal joints are unremarkable by MRI. The fl exor tendons and pulleys are normal. The extensor tendons are normal. IMPRESSION: 1. Osteonecrosis and fragmentation of lunate. 2. Polyarticular osteoarthritis, worst in the carpus, with enhancing synovitis. Note that the proxima l carpal row was not included in the imaging volume. Reviewed, dictated and finalized at location A. IMPRESSION: 1. Osteonecrosis and fragmentation of lunate. 2. Polyarticular osteoarthritis, worst in the carpus, with enhancing synovitis. Note that the proximal carpal row was not included in the imaging volume.
== END 2020-12-30 12:17 | disposition home or self-care (01) ==
PROVIDERS: PCP Internal Medicine; Visit Provider Internal Medicine
DX: M19.041 Primary osteoarthritis, right hand (principal); M19.042 Primary osteoarthritis, left hand
CPT/HCPCS: 73220; A9577

== ENCOUNTER 2021-01-17 11:38 | Outpatient (CLI) | payer OTHER, MEDICAID, SELFPAY ==
[2021-01-17 12:43] LABS: Sodium 133 mmol/L (137-145)
== END 2021-01-17 11:39 | disposition home or self-care (01) ==
LOC: ANHLAB 11:42
PROVIDERS: PCP Internal Medicine; Visit Provider Nurse Practitioner
DX: E87.6 Hypokalemia (principal)
CPT/HCPCS: 36415; 84295

== ENCOUNTER 2021-02-01 17:04 | Outpatient (CLI) | payer OTHER, MEDICAID, SELFPAY ==
[2021-02-01 17:32] LABS: Anion Gap 9 mmol/L (8-16); Blood Urea Nitrogen 15 mg/dL (7-17); Calcium 9.7 mg/dL (8.4-10.2); Carbon Dioxide 28 mmol/L (22-30); Chloride 91 mmol/L (98-107); Estimated Glomerular Filt Rate > 60; Glucose 95 mg/dL (65-110); Potassium 4.2 mmol/L (3.4-5.0); Sodium 128 mmol/L (137-145)
== END 2021-02-01 17:05 | disposition home or self-care (01) ==
LOC: ANHLAB 17:06
PROVIDERS: PCP Internal Medicine; Visit Provider Clinical Nurse Specialist
DX: E87.1 Hypo-osmolality and hyponatremia (principal)
CPT/HCPCS: 36415; 80048

== ENCOUNTER 2021-02-12 14:30 | Outpatient (RCR) | payer OTHER, MEDICAID, SELFPAY ==
--- NOTE | 2021-01-25 16:39 | PTOPEVAL ---
INITIAL PHYSICAL THERAPY EVALUATION and PLAN OF CARE Thank you for referring Claire Zayas to [facility].? Claire is scheduled to be seen for physical therapy? 1x/week for 6 weeks. Please review, sign, date and return this plan of care JERAMY. I agree with and certify that the following plan of care is medically necessary. Referring Physician Date Admitting Provider: Attending Provider: Rick Rose MD Referring Provider: *PT Outpatient Evaluation Start: 01/25/21 15:13 Freq: Status: Active Protocol: Document 01/25/21 15:10 SARIKA (Rec: 01/25/21 16:39 SARIKA [id number]) Therapy Assessment Status Assessment Status Assessment Status Evaluation Outpatient Past Medical History Past Medical History Source of Past Medical History Recalled from Previous Visit, Confirmed with Patient/Family Neurological History Hx Migraine Yes Cardiovascular History Hx Hypertension Yes Respiratory History Hx Pneumonia Yes Gastrointestinal History Hx Gastroesophageal Reflux Disease Yes Hx Irritable Bowel Yes: microscopic colitis Genitourinary History Hx Urinary Tract Infection Yes Musculoskeletal History Hx Orthopedic Surgery Yes: R patella ORIF 2011 Hematological History Hx Anemia Yes Endocrine History Hx Hypothyroidism Yes HEENT History Hx Tonsillectomy Yes: 1968 Integumentary History Hx Skin Disorders No Significant History Reproductive History Hx Section Yes: x3 - tubal ligation 1990 at last C section Hx Post Menopausal Yes Psychosocial History Hx Anxiety Yes Evaluation Information Problem Diagnosis dyspareunia, pelvic floor dysfunction, urinary frequency Onset within last 8 months Subjective Information When she began to have Query Text:As Reported By Patient/ intercourse again within last Family 8 months - noticed decrease in lubrication/discomfort present. With intercourse - will have discomfort with insertion and penetration - insertion is worse. Also getting increase in urinary frequency - mainly at night 3- 4 times/night. Usually no urinary leakage - but if waits too long may have difficulty getting to the bathroom without leaking. Occasionally
--- NOTE | 2021-02-19 16:52 | PCPTNOTE ---
PHYSICAL THERAPY DISCHARGE NOTE Attending Provider: Rick Rose MD Patient:Claire Zayas Date of :1965 Claire was participating in physical therapy with a diagnosis of pelvic floor dysfunction. She called and cancelled her remaining appointments because she is doing better. She will be discharged at this time. Patient?s initial visit was on 01/25/2021 had a total of 2 visits. Thank you for referring this patient to [facility]. Please review, sign, date and return this discharge summary JERAMY. I have been updated about the patient's current status and I agree with discharge from the above service at this time. Referring Physician Date
== END 2021-02-20 10:25 | disposition home or self-care (01) ==
LOC: ANHPT 14:30
PROVIDERS: PCP Internal Medicine; Visit Provider Urology
DX: N81.89 Other female genital prolapse (principal)
CPT/HCPCS: 97110; 97140; 97162

== ENCOUNTER 2021-03-01 17:30 | Outpatient (CLI) | payer OTHER, MEDICAID, SELFPAY ==
[2021-03-01 17:59] LABS: Anion Gap 9 mmol/L (8-16); Blood Urea Nitrogen 13 mg/dL (7-17); Calcium 9.8 mg/dL (8.4-10.2); Carbon Dioxide 32 mmol/L (22-30); Chloride 93 mmol/L (98-107); Estimated Glomerular Filt Rate > 60; Glucose 128 mg/dL (65-110); Potassium 4.2 mmol/L (3.4-5.0); Sodium 134 mmol/L (137-145)
== END 2021-03-01 17:31 | disposition home or self-care (01) ==
LOC: ANHLAB 17:31
PROVIDERS: PCP Internal Medicine; Visit Provider Clinical Nurse Specialist
DX: E87.1 Hypo-osmolality and hyponatremia (principal)
CPT/HCPCS: 36415; 80048

== ENCOUNTER → 2021-03-12 14:45 | Outpatient (CLI) | payer OTHER, MEDICAID, SELFPAY ==
--- NOTE | ~2021-03-12 | DEXA_ITS ---
Bone Density Report Name: JOSÉ DOUGLAS Age: 55 Sex: Female Ethnicity: White Date of : 1965 Indication: postmenopausal; screening for osteoporosis; height loss; prior fracture; Referring Provider: TO CARMEN Study: Bone densitometry was performed. Exam Date: March 12, 2021 Accession number: [id number] Bone Density: Region BMD T-score Z-score Classification AP Spine (L1-L4) 1.093 0.4 1.6 Normal Femoral Neck (Left) 0.728 -1.1 0.1 Osteopenia Total Hip (Left) 0.898 -0.4 0.4 Normal Femoral Neck (Right) 0.723 -1.1 0.0 Osteopenia Total Hip (Right) 0.858 -0.7 0.1 Normal Total Hip Mean 0.878 -0.6 0.3 Normal World Health Organization criteria for BMD impression classify patients as: Normal (T-score at or above -1.0), Osteopenia (T-score between -1.0 and -2.5), or Osteoporosis (T-score at or below -2.5). 10-year Fracture Risk(1): Major Osteoporotic Fracture 14% Hip Fracture 1.8% Reported Risk Factors: [place] (), Neck BMD=0.723, BMI=24.5, previous fracture, smoking, alcohol use (1) FRAX(R) Version 3.08. Fracture probability calculated for an untreated patient. Fracture probability may be lower if the patient has received treatment. Clinical Information Provided by Patient: Has had a low trauma fracture Smokes Has 3 or more alcoholic drinks per day Has used the following medications: Vitamin D, Calcium Patient maximum height was 63.5 Menopause Age: 34 Does not regularly consume dairy products Drinks caffeinated beverages Onset of menses at age 11 Number of children 3 Missed period for more than 6 months in a row Impression: The patient has low bone mass, based on the Left Femoral Neck T-score. The patient has an estimated ten-year risk of hip fracture of 1.8% and an estimated ten-year risk of major fracture of 14%, based on the WHO FRAX algorithm. The patient has risk factors, including: smoking, excessive alcohol use, previous fracture. Discussion: BONE DENSITY IS LOW AT ONE OR MORE SKELETAL SITES. This patient's lowest T-score is low at one or more skeletal sites. It meets the World Health Organization's (WHO) criteria for ?low bone mass? (T-score between -1.0 and -2.5). The patient's 10-year risk of fracture as calculated by FRAX is less than the threshold where pharmacological therapy is recommended by the National Osteoporosis Foundation (NOF). However, all treatment decisions require clinical judgment and consideration of individual patient factors, including patient preferences, comorbidities, previous drug use, risk factors not captured in the FRAX model (e.g., frailty, falls, vitamin D deficiency, increased bone turnover, interval significant decline in bone density) and possible under or overestimation of fracture risk by FRAX. The patient should follow a heal
--- NOTE | ~2021-03-12 | MM_ITS ---
EXAMINATION: MM screening alesha BI w rita HISTORY: Screening TECHNIQUE: Craniocaudal and mediolateral oblique 3-D tomosynthesis images were obtained and synthetic 2-D images were generated. CAD analysis was submitted and interpreted. COMPARISON: Comparison to multiple prior studies sequentially, with oldest reviewed study dated 06/06. BREAST PARENCHYMAL COMPOSITION: The breasts are heterogeneously dense, which may obscure small masses . FINDINGS: There is no evidence of suspicious mass, calcification, or architectural distortion to sugg est malignancy in either breast. There has been no suspicious interval change. IMPRESSION: 1. No mammographic evidence of malignancy. 2. Recommend routine screening mammography in one year. BI-RADS Category 1: Negative Reviewed, dictated and finalized at location A. ETENCY EVALUATED NURSE AIDE
== END ==
PROVIDERS: PCP Internal Medicine; Visit Provider Obstetrics & Gynecology
DX: Z12.31 Encounter for screening mammogram for malignant neoplasm of breast (principal); Z78.0 Asymptomatic menopausal state; M85.851 Other specified disorders of bone density and structure, right thigh; M85.852 Other specified disorders of bone density and structure, left thigh
CPT/HCPCS: 77063; 77067; 77080

== ENCOUNTER 2021-05-01 14:57 | Emergency (ER) | payer OTHER, MEDICAID, SELFPAY ==
[2021-05-01 15:06] VITALS: BP 127/81; PULSE 120; RESP 19; TEMP 36.4; O2SAT 100
[2021-05-01 17:32] VITALS: BP 132/87; PULSE 100; RESP 18; TEMP 36.6; O2SAT 98
--- NOTE | 2021-05-01 17:58 | ED.GENADULT ---
HPI - General Adult General Chief complaint: Recheck/Abnormal Lab/Rx Stated complaint: dehydration Time Seen by Provider: 05/01/21 17:49 Source: RN notes reviewed History of Present Illness HPI narrative: Patient presents emergency department from home for dehydration. Patient says she has a history of chronic diarrhea having approximately 15 episodes a day since last September she is followed by Dr. Mendez for this. States over the past several days she has been having muscle cramping and feeling more dehydrated she states this is consistent with her previous episodes of dehydration and hyponatremia she denies any fevers or chills chest pain shortness of breath vomiting or any other symptoms Related Data Home Medications Medication Instructions Recorded Confirmed cinnamon bark 500 mg capsule 500 mg PO DAILY 12/10/19 12/18/20 metoprolol tartrate 25 mg tablet 25 mg PO BID tablet 12/10/19 12/18/20 Allergies Allergy/AdvReac Type Severity Reaction Status Date / Time ampicillin Allergy Unknown Hives Verified 01/11/21 15:44 cephalexin Allergy Unknown Hives Verified 01/11/21 15:44 clindamycin Allergy Unknown Anaphylaxis Verified 01/11/21 15:44 codeine Allergy Unknown Swelling Verified 01/11/21 15:44 Penicillins Allergy Unknown Hives Verified 01/11/21 15:44 Sulfa (Sulfonamide Allergy Unknown Hives Verified 01/11/21 15:44 Antibiotics) tetracycline Allergy Unknown Hives Verified 01/11/21 15:44 Tetracyclines Allergy Unknown Hives Verified 01/11/21 15:44 amlodipine AdvReac Intermediate joint pain Verified 01/11/21 15:44 lisinopril AdvReac Intermediate Cough Verified 01/11/21 15:44 losartan AdvReac Intermediate Joint pain Verified 01/11/21 15:44 nitrofurantoin AdvReac Joint Pain Verified 01/11/21 15:44 [From Macrobid] BUPROPION HCL Allergy Unknown Hives Uncoded 01/11/21 15:44 Review of Systems Review of Systems: Gen.: Denies fevers or chills ENT: Denies congestion Respiratory: Denies shortness of breath or cough CV: Denies chest pain or palpitations GI: Reports lower abdominal pain and diarrhea denies nausea vomiting denies burning, urgency, frequency or hematuria Musculoskeletal: Denies back pain reports muscle cramping Neuro: Denies numbness, tingling, weakness or focal weakness Skin: Denies rash Except as documented, all other systems reviewed and negative [facility] Past Medical History Medical History Acid reflux Allergies Anxiety Arthritis Colitis Colon cancer screening GERD with esophagitis History of chronic bronchitis History of open fracture Right patella. Hypertension Hypothyroidism IBS (irritable bowel syndrome) Inflammatory arthritis Thyroid disorder Surgical History Surgical History H/O section x 3 1984, 1986, 1990 H/O knee surgery Right knee x 2 History of adenoidectomy History of endometrial ablation History of placement of ear tubes History of tonsillectomy History of tubal ligation [place] teeth removed Family History Family History Father Family history of Parkinson's disease Lewy body dementia Hypertension Mother Family history of lupus erythematosus, Onset Age: 54 Sjogren-Tabatha syndrome Aneurysm Hypothyroidism Grandparent Acute myocardial infarction Family history of cardiac disorder Cervical cancer HIV (human immunodeficiency virus infection) Heart disease Hypertension Rheumatoid arthritis Sibling Diabetes mellitus Hypertension Daughter Sjogren-Tabatha syndrome Rheumatoid arthritis Other Crohn disease Other Family history of arthritis Family history of cardiovascular disease Family history of rheumatoid arthritis Social History Social History Smoking packs per day: 0.5 Smoking cigarette
[2021-05-01 18:41] LABS: Basophils Absolute Auto 0.1 K/mm3 (0.0-0.1); Basophils Percent Auto 0.4 % (0.2-1.2); Eosinophils Percent Auto 0.2 % (0-4.4); Hematocrit 39.6 % (37.0-47.0); Hemoglobin 13.7 g/dL (12.0-15.0); Immature Granulocyte Absolute 0.04 K/mm3 (0.00-0.031); Immature Granulocyte Percent A 0.3 % (0-0.5); Lymphocytes Absolute Auto 0.37 K/mm3 (0.9-3.2); Lymphocytes Percent Auto 2.9 % (18.3-44.2); Mean Corpuscular HGB Conc 34.6 g/dl (32-36); Mean Corpuscular Hemoglobin 33.4 pg (26-34); Mean Corpuscular Volume 96.6 fl (80-100); Mean Platelet Volume 9.5 fl (7.4-10.4); Monocytes Absolute Auto 0.5 K/mm3 (0.1-0.6); Monocytes Percent Auto 4.1 % (2.6-8.5); Neutrophils Absolute Auto 11.6 K/mm3 (1.3-6.7); Neutrophils Percent Auto 92.1 % (45.5-73.1); Platelet Count Result 414 k/mm3 (150-375); Red Cell Distribution Width 12.6 % (11.5-14.5); White Blood Count 12.6 K/mm3 (4.5-10.0)
[2021-05-01] MEDS: SODIUM CHLORIDE 0.9% IV 1,000 ML 999 ML IV CONT (18:45)
[2021-05-01 18:47] LABS: Add Urine Microscopic? YES; Appearance Urine Clear (Clear); Bilirubin Urine Negative (Negative); Blood Urine Negative (Negative); Color Urine Amber (Yellow); Glucose Urine UA Negative (Negative); Hyaline Casts Urine 20-29 /lpf; Ketones Urine 1+ mg/dL (Negative); Leukocyte Esterase Ur Negative LEU/UL (Negative); Mucus Urine Moderate /lpf; Nitrate Urine Negative (Negative); Protein Urine 2+ mg/dL (Negative); Specific Grav Ur 1.025 (1.001-1.035); Squamous Epithelial Cell Urine Occasional /hpf (Few)
[2021-05-01 18:58] LABS: Alanine Aminotransferase 29 U/L (4-35); Albumin Level 4.9 g/dL (3.5-5.1); Alkaline Phosphatase 85 U/L (38-126); Anion Gap 12 mmol/L (8-16); Aspartate Amino Transferase 40 U/L (14-36); Bilirubin,Total 1.1 mg/dL (0.2-1.3); Blood Urea Nitrogen 17 mg/dL (7-17); Calcium 10.1 mg/dL (8.4-10.2); Carbon Dioxide 25 mmol/L (22-30); Chloride 96 mmol/L (98-107); Estimated CRCL calculation 56 ml/min; Estimated Glomerular Filt Rate > 60; Glucose 123 mg/dL (65-110); Lipase 41 U/L (23-300); Magnesium 1.5 mg/dL (1.6-2.3); Potassium 3.6 mmol/L (3.4-5.0); Sodium 133 mmol/L (137-145)
--- NOTE | 2021-05-01 19:20 | PC.NURSE ---
Assumed care of pt at this time. Pt alert and upright on stretcher, with c/o head and neck pain from her position of sleeping. Pt updated on POC.
[2021-05-01 19:25] VITALS: BP 115/72; PULSE 108; RESP 16; O2SAT 100
[2021-05-01] MEDS: MAGNESIUM SULF 2 GM/WATER 50ML 2 GM/50 ML BAG IVPB (19:25)
[2021-05-01 20:24] VITALS: BP 153/78; PULSE 102; RESP 16; O2SAT 100
== END 2021-05-01 20:27 | disposition home or self-care (01) ==
PROVIDERS: Emergency Provider Emergency Medicine; PCP Internal Medicine
DX: E86.0 Dehydration (principal); K52.9 Noninfective gastroenteritis and colitis, unspecified; E83.42 Hypomagnesemia; E03.9 Hypothyroidism, unspecified; I10 Essential (primary) hypertension; E07.9 Disorder of thyroid, unspecified; K21.00 Gastro-esophageal reflux disease with esophagitis, without bleeding; F17.210 Nicotine dependence, cigarettes, uncomplicated
CPT/HCPCS: 36415; 80053; 81001; 83690; 83735; 85025; 96361; 96365; 96367; 99284; J0131; J3475; J7030

== ENCOUNTER 2021-05-21 14:05 | Outpatient (CLI) | payer OTHER, MEDICAID, SELFPAY ==
[2021-05-21 16:33] LABS: Hemoglobin A1C 5.1 % (<5.7)
[2021-05-21 17:01] LABS: Free T4 Free Thyroxine 1.45 ng/mL (0.78-2.19); Vitamin D 25 Hydroxy 50.3 ng/mL
== END 2021-05-21 14:06 | disposition home or self-care (01) ==
LOC: ANHWCLAB 14:08
PROVIDERS: PCP Internal Medicine; Referring Provider Internal Medicine Endocrinology, Diabetes & Metabolism; Visit Provider Internal Medicine Endocrinology, Diabetes & Metabolism
DX: E03.9 Hypothyroidism, unspecified (principal); M85.80 Other specified disorders of bone density and structure, unspecified site; R79.89 Other specified abnormal findings of blood chemistry; R73.09 Other abnormal glucose
CPT/HCPCS: 36415; 82306; 83036; 84439; 84443

== ENCOUNTER 2021-06-04 00:46 | Day surgery (SDC) | payer OTHER, MEDICAID, SELFPAY ==
[2021-05-24 13:33] VITALS: BMI 23.8
--- NOTE | 2021-05-28 12:18 | PC.NURSE ---
SPOKE WITH PATIENT , NO CHANGES SINCE INTERVIEW. REVIEWED TIMES AND DATE.
--- NOTE | 2021-06-02 12:57 | WPDANESEPPF ---
Anes - Initial Pre Proc Eval Procedure: Operation Date: 06/04/21 13:00 Proposed Procedures p Colonoscopy - Iftikhar Abad MD Date/Time: 06/02/21 12:57 Surgeon: Iftikhar Abad MD Pre Op Diagnosis: Diarrhea Patient Data Age: 55 Gender: F Height: 1.57 m Weight: 59 kg Allergies Allergy/AdvReac Type Severity Reaction Status Date / Time ampicillin Allergy Unknown Hives Verified 06/04/21 10:20 cephalexin Allergy Unknown Hives Verified 06/04/21 10:20 clindamycin Allergy Unknown Anaphylaxis Verified 06/04/21 10:20 codeine Allergy Unknown Swelling Verified 06/04/21 10:20 Penicillins Allergy Unknown Hives Verified 06/04/21 10:20 Sulfa (Sulfonamide Allergy Unknown Hives Verified 06/04/21 10:20 Antibiotics) tetracycline Allergy Unknown Hives Verified 06/04/21 10:20 Tetracyclines Allergy Unknown Hives Verified 06/04/21 10:20 amlodipine AdvReac Intermediate joint pain Verified 06/04/21 10:20 lisinopril AdvReac Intermediate Cough Verified 06/04/21 10:20 losartan AdvReac Intermediate Joint pain Verified 06/04/21 10:20 nitrofurantoin AdvReac Joint Pain Verified 06/04/21 10:20 [From Macrobid] BUPROPION HCL Allergy Unknown Hives Uncoded 05/24/21 13:30 Home Medications Medication Instructions Recorded Confirmed Type cinnamon bark 500 mg capsule 500 mg PO DAILY 12/10/19 05/24/21 History metoprolol tartrate 25 mg tablet 25 mg PO BID tablet 12/10/19 05/24/21 History albuterol sulfate 90 mcg/actuation 1 puff INHALATION Q4H PRN #18 g 06/08/20 05/24/21 Rx aerosol inhaler magnesium oxide 400 mg PO DAILY #14 tablet 10/11/20 05/24/21 Rx cranberry extract 200 mg capsule 200 mg PO DAILY #30 cap 11/03/20 05/24/21 Rx ciprofloxacin HCl 250 mg tablet 250 mg PO ONCE #30 tablet 11/16/20 05/24/21 Rx omeprazole 40 mg capsule,delayed 40 mg PO DAILY #90 cap 02/07/21 05/24/21 Rx release levothyroxine 88 mcg tablet 88 mcg PO DAILY #90 tablet 03/12/21 05/24/21 Rx budesonide-formoterol HFA 160 2 puff INHALATION Q12H PRN #10.2 g 04/10/21 05/24/21 Rx mcg-4.5 mcg/actuation aerosol inhaler calcium carbonate 500 mg-vitamin 1 tablet PO DAILY #90 tablet 05/21/21 05/24/21 Rx D3 10 mcg (400 unit) tablet fluoxetine 40 mg capsule 40 mg PO DAILY 05/21/21 05/24/21 History Patient hx anesthesia problems: none Family hx anesthesia problems: none Results Review: All pre-operative results and documents have been reviewed as part of the pre-operative evaluation. [facility] Past Medical History Medical History (Updated 06/02/21 @ 12:57 by Thom Gutierrez DO) Acid reflux Allergies Anxiety Arthritis Colitis Colon cancer screening GERD with esophagitis History of chronic bronchitis History of open fracture Right patella. Hypertension Hypothyroidism IBS (irritable bowel syndrome) Inflammatory arthritis Tachycardia Thyroid disorder Surgical History Surgical History H/O section x 3 1984, 1986, 1990 H/O knee surgery Right knee x 2 History of adenoidectomy History of endometrial ablation History of placement of ear tubes History of tonsillectomy History of tubal ligation [place] teeth removed Family History Family History Father Family history of Parkinson's disease Lewy body dementia Hypertension Mother Family history of lupus erythematosus, Onset Age: 54 Sjogren-Tabatha syndrome Aneurysm Hypothyroidism Grandparent Acute myocardial infarction Family history of cardiac disorder Cervical cancer HIV (human immunodeficiency virus infection) Heart disease Hypertension Rheumatoid arthritis Sibling Diabetes mellitus Hypertension Daughter Sjogren-Tabatha syndrome Rheumatoid arthritis Other Crohn disease Other Family history of arthritis Family history of cardiovascular disease Family history of rheumatoid arthritis Social Hi
[2021-06-04 10:22] VITALS: BP 146/97; PULSE 94; RESP 20; TEMP 36.3; O2SAT 95
--- NOTE | 2021-06-04 10:34 | PM.HPGS ---
History of Present Illness History of Present Illness Consent: Risks, benefits, and alternatives have been discussed and questions answered. Patient agrees to proceed with procedure. Chief complaint: Diarrhea Narrative: Claire Zayas is a 55 year old female here for colonoscopy, had intermittent diarrhea since her 30's, had colonoscopy over 10 years ago and remembers that diagnosed with microscopic colitis, took a medication for 3 months but does not remember name Review of Systems Constitutional: Constitutional: Denies headache(s) and Denies weakness Eyes: Eyes: Denies blurry vision ENT: Reports Normal hearing present, Denies headache(s) and Denies neck pain Cardiovascular: Cardiovascular: Denies chest pain and Denies dyspnea Respiratory: Respiratory: Denies dyspnea Gastrointestinal: Gastrointestinal: Reports no additional gastrointestinal complaints Genitourinary: Genitourinary: Denies dysuria Musculoskeletal: Musculoskeletal: Denies neck pain Integumentary/Breasts: Skin/Breast: Denies dry skin Neurologic: Reports Normal hearing present, Denies headache(s) and Denies weakness Psychiatric: Psychiatric: Denies anxiety Endocrine: Endocrine: Denies change in body appearance Hematologic/Lymphatic: Hematologic/Lymphatic: Denies easy bleeding Allergic/Immunologic: Allergic/Immunologic: Denies urticaria PMFSH Past Medical History Medical History (Updated 06/02/21 @ 12:57 by Thom Gutierrez DO) Acid reflux Allergies Anxiety Arthritis Colitis Colon cancer screening GERD with esophagitis History of chronic bronchitis History of open fracture Right patella. Hypertension Hypothyroidism IBS (irritable bowel syndrome) Inflammatory arthritis Tachycardia Thyroid disorder Surgical History Surgical History H/O section x 3 1984, 1986, 1990 H/O knee surgery Right knee x 2 History of adenoidectomy History of endometrial ablation History of placement of ear tubes History of tonsillectomy History of tubal ligation [place] teeth removed Family History Family History Father Family history of Parkinson's disease Lewy body dementia Hypertension Mother Family history of lupus erythematosus, Onset Age: 54 Sjogren-Tabatha syndrome Aneurysm Hypothyroidism Grandparent Acute myocardial infarction Family history of cardiac disorder Cervical cancer HIV (human immunodeficiency virus infection) Heart disease Hypertension Rheumatoid arthritis Sibling Diabetes mellitus Hypertension Daughter Sjogren-Tabatha syndrome Rheumatoid arthritis Other Crohn disease Other Family history of arthritis Family history of cardiovascular disease Family history of rheumatoid arthritis Social History Social History Smoking packs per day: 0.5 Smoking cigarettes per day: 10.0 Years smoked: 30 Smoking pack-years: 15.00 Smoking status: Current every day smoker Tobacco type: cigarettes Alcohol intake: current Drinks per week: 28 Alcohol use details: 3-4 a day. Beer Substance use: never Substance use type: does not use Living arrangements: alone Gender identity (if verbalized by the patient): Female Spiritual care concerns: No Meds Home Medications and Allergies Home Medications Medication Instructions Recorded Confirmed Type cinnamon bark 500 mg capsule 500 mg PO DAILY 12/10/19 05/24/21 History metoprolol tartrate 25 mg tablet 25 mg PO BID tablet 12/10/19 05/24/21 History albuterol sulfate 90 mcg/actuation 1 puff INHALATION Q4H PRN #18 g 06/08/20 05/24/21 Rx aerosol inhaler magnesium oxide 400 mg PO DAILY #14 tablet 10/11/20 05/24/21 Rx cranberry extract 200 mg capsule 200 mg PO DAILY #30 cap 11/03/20 05/24/21 Rx ciprofloxacin HCl 250 mg tablet 250 mg PO ONCE #3
[2021-06-04] MEDS: LACTATED RINGERS 1,000 ML 150 ML IV CONT (10:37)
[2021-06-04 10:57] VITALS: BP 119/80; PULSE 76; RESP 12; O2SAT 100
[2021-06-04 11:07] VITALS: BP 147/84; PULSE 64; RESP 20; O2SAT 100
[2021-06-04 11:17] VITALS: BP 158/77; PULSE 66; RESP 17; O2SAT 100
== END 2021-06-04 11:25 | disposition home or self-care (01) ==
PROVIDERS: PCP Internal Medicine; Visit Provider Internal Medicine Gastroenterology
PROC: 0DJD8ZZ Inspection of Lower Intestinal Tract, Via Natural or Artificial Opening Endoscopic (ICD-10-PCS; CPT 45378; principal; 2021-06-04 13:00)
DX: Z12.11 Encounter for screening for malignant neoplasm of colon (principal); K52.831 Collagenous colitis; K52.832 Lymphocytic colitis; K64.8 Other hemorrhoids; I10 Essential (primary) hypertension; E03.9 Hypothyroidism, unspecified; K21.9 Gastro-esophageal reflux disease without esophagitis; F41.9 Anxiety disorder, unspecified; J42 Unspecified chronic bronchitis; Z79.51 Long term (current) use of inhaled steroids; F17.210 Nicotine dependence, cigarettes, uncomplicated
CPT/HCPCS: 45380; 88305; J7120

== ENCOUNTER 2021-06-11 10:38 | Outpatient (CLI) | payer OTHER, MEDICAID, SELFPAY ==
--- NOTE | ~2021-06-11 | US_ITS ---
EXAMINATION: US thyroid EXAM DATE: 06/11/2021 11:02 INDICATION: Evaluate thyroid. TECHNIQUE: Multiple grayscale and Doppler images of the thyroid were obtained (by a technologist who performed the scan) and subsequently reviewed. Individual nodules and recommendations may be reporte d in accordance with TI-RADS system as designated by the 2017 ACR White Paper TI-RADS committee. The re is no prior study for comparison. FINDINGS: The right thyroid lobe measures 3.9 x 0.8 x 0.9 cm, the left measuring 3.7 x 1.3 x 0.9 cm. There is d iffusely heterogeneous thyroid echogenicity with mildly hypervascular parenchyma. No definite focal n odule identified. IMPRESSION: 1. Mildly hypervascular but normal-sized thyroid. Reviewed, dictated and finalized at location B.
== END 2021-06-11 10:39 | disposition home or self-care (01) ==
LOC: ANHIMG 10:42
PROVIDERS: PCP Internal Medicine; Visit Provider Internal Medicine Endocrinology, Diabetes & Metabolism
DX: R13.10 Dysphagia, unspecified (principal); E03.9 Hypothyroidism, unspecified
CPT/HCPCS: 76536

== ENCOUNTER 2021-06-27 11:58 | Outpatient (CLI) | payer OTHER, MEDICAID, SELFPAY ==
[2021-06-27 18:20] LABS: Anion Gap 7 mmol/L (8-16); Blood Urea Nitrogen 7 mg/dL (7-17); Calcium 9.8 mg/dL (8.4-10.2); Carbon Dioxide 31 mmol/L (22-30); Chloride 91 mmol/L (98-107); Estimated Glomerular Filt Rate > 60; Glucose 105 mg/dL (65-110); Potassium 4.2 mmol/L (3.4-5.0); Sodium 129 mmol/L (137-145)
== END 2021-06-27 11:59 | disposition home or self-care (01) ==
LOC: ANHBWCLAB 12:00
PROVIDERS: PCP Internal Medicine; Visit Provider Clinical Nurse Specialist
DX: E87.1 Hypo-osmolality and hyponatremia (principal)
CPT/HCPCS: 36415; 80048

== ENCOUNTER 2021-07-04 16:52 | Outpatient (CLI) | payer OTHER, MEDICAID, SELFPAY ==
[2021-07-04 17:15] LABS: Anion Gap 6 mmol/L (8-16); Blood Urea Nitrogen 20 mg/dL (7-17); Carbon Dioxide 27 mmol/L (22-30); Chloride 97 mmol/L (98-107); Estimated Glomerular Filt Rate 57; Glucose 102 mg/dL (65-110); Potassium 4.1 mmol/L (3.4-5.0); Sodium 130 mmol/L (137-145)
== END 2021-07-04 16:53 | disposition home or self-care (01) ==
PROVIDERS: PCP Internal Medicine; Visit Provider Clinical Nurse Specialist
DX: E87.1 Hypo-osmolality and hyponatremia (principal)
CPT/HCPCS: 36415; 80048

== ENCOUNTER 2021-07-05 17:02 | Outpatient (CLI) | payer OTHER, MEDICAID, SELFPAY ==
[2021-07-05 18:04] LABS: Sodium Urine Random 36 meq/L
[2021-07-07 22:23] LABS: Osmolality, Urine 197 mOsm/kg (50-1200)
== END 2021-07-05 17:03 | disposition home or self-care (01) ==
LOC: ANHLAB 17:04
PROVIDERS: PCP Internal Medicine; Visit Provider Clinical Nurse Specialist
DX: E87.1 Hypo-osmolality and hyponatremia (principal)
CPT/HCPCS: 83935; 84300

== ENCOUNTER 2021-08-11 18:26 | Emergency (ER) | payer OTHER, MEDICAID, SELFPAY ==
[2021-08-11 18:27] VITALS: BP 181/94; PULSE 77; RESP 16; TEMP 35.7; O2SAT 100
--- NOTE | 2021-08-11 18:44 | ED.GENADULT ---
HPI - General Adult General Chief complaint: Unspecified Stated complaint: thinks sodium is low Time Seen by Provider: 08/11/21 18:34 History of Present Illness HPI narrative: 55-year-old female presents the emergency room for evaluation of feeling like her sodium is low . Patient states that she has a chronic hyponatremia, and has required IV fluids in the past. Patient states that prior to arrival, she was outside working on her yard. Patient states that she did not properly hydrate herself while she was outside. Presently patient states she is lightheaded, with a headache, has muscle cramps, nauseated, and is experiencing a dry mouth. Patient denies chest pain, shortness of breath, palpitations, abdominal pain. Patient states that she has never had a seizure related to her hyponatremia. Patient is currently alert and oriented x4. Related Data Home Medications Medication Instructions Recorded Confirmed cinnamon bark 500 mg capsule 500 mg PO DAILY 12/10/19 07/19/21 metoprolol tartrate 25 mg tablet 25 mg PO BID 12/10/19 07/19/21 Allergies Allergy/AdvReac Type Severity Reaction Status Date / Time ampicillin Allergy Unknown Hives Verified 08/11/21 18:53 cephalexin Allergy Unknown Hives Verified 08/11/21 18:53 clindamycin Allergy Unknown Anaphylaxis Verified 08/11/21 18:53 codeine Allergy Unknown Swelling Verified 08/11/21 18:53 Penicillins Allergy Unknown Hives Verified 08/11/21 18:53 Sulfa (Sulfonamide Allergy Unknown Hives Verified 08/11/21 18:53 Antibiotics) tetracycline Allergy Unknown Hives Verified 08/11/21 18:53 Tetracyclines Allergy Unknown Hives Verified 08/11/21 18:53 amlodipine AdvReac Intermediate joint pain Verified 08/11/21 18:53 lisinopril AdvReac Intermediate Cough Verified 08/11/21 18:53 losartan AdvReac Intermediate Joint pain Verified 07/19/21 15:28 nitrofurantoin AdvReac Joint Pain Verified 07/19/21 15:28 [From Macrobid] BUPROPION HCL Allergy Unknown Hives Uncoded 05/24/21 13:30 Review of Systems Review of Systems: CONSTITUTIONAL: Denies fever, chills, or sweats. EYES: Denies visual changes, redness, or discharge. ENT: Denies rhinorrhea, congestion, sore throat, or otalgia. CARDIOVASCULAR: Denies chest pain, palpitations, or edema. RESPIRATORY: Denies cough or dyspnea. GASTROINTESTINAL: Reports nausea GENITOURINARY: Denies dysuria or hematuria. SKIN: Denies rash or itching. MUSCULOSKELETAL: Reports myalgias NEUROLOGIC: Reports headache, dizziness PSYCHIATRIC: Denies anxiety or depression. [facility] Past Medical History Medical History Acid reflux Allergies Anxiety Arthritis Bloating Colitis Colon cancer screening GERD with esophagitis History of chronic bronchitis History of open fracture Right patella. Hypertension Hypothyroidism IBS (irritable bowel syndrome) Inflammatory arthritis Microscopic colitis Tachycardia Thyroid disorder Surgical History Surgical History H/O section x 3 1984, 1986, 1990 H/O knee surgery Right knee x 2 History of adenoidectomy History of endometrial ablation History of placement of ear tubes History of tonsillectomy History of tubal ligation [place] teeth removed Family History Family History Father Family history of Parkinson's disease Lewy body dementia Hypertension Mother Family history of lupus erythematosus, Onset Age: 54 Sjogren-Tabatha syndrome Aneurysm Hypothyroidism Grandparent Acute myocardial infarction Family history of cardiac disorder Cervical cancer HIV (human immunodeficiency virus infection) Heart disease Hypertension Rheumatoid arthritis Sibling Diabetes mellitus Hypertension Daughter Sjogren-Tabatha syndrome Rheumatoid arthritis Other Crohn disease Other Family history of arthritis Family history of cardiov
[2021-08-11 18:52] LABS: Basophils Absolute Auto 0.1 K/mm3 (0.0-0.1); Basophils Percent Auto 0.7 % (0.2-1.2); Eosinophils Absolute Auto 0.1 K/mm3 (0-0.3); Eosinophils Percent Auto 0.6 % (0-4.4); Hemoglobin 11.9 g/dL (12.0-15.0); Immature Granulocyte Absolute 0.04 K/mm3 (0.00-0.031); Immature Granulocyte Percent A 0.4 % (0-0.5); Lymphocytes Absolute Auto 2.07 K/mm3 (0.9-3.2); Lymphocytes Percent Auto 19.4 % (18.3-44.2); Mean Corpuscular Hemoglobin 33.4 pg (26-34); Mean Corpuscular Volume 95.5 fl (80-100); Monocytes Absolute Auto 0.6 K/mm3 (0.1-0.6); Monocytes Percent Auto 5.5 % (2.6-8.5); Neutrophils Absolute Auto 7.8 K/mm3 (1.3-6.7); Neutrophils Percent Auto 73.4 % (45.5-73.1); Platelet Count Result 344 k/mm3 (150-375); Red Blood Count 3.56 M/mm3 (4.2-5.4); Red Cell Distribution Width 12.9 % (11.5-14.5); White Blood Count 10.7 K/mm3 (4.5-10.0)
[2021-08-11] MEDS: ONDANSETRON INJ 4 MG/2 ML VIAL IV PUSH (19:01)
[2021-08-11 19:03] LABS: Appearance Urine Clear (Clear); Bilirubin Urine Negative (Negative); Color Urine Yellow (Yellow); Glucose Urine UA Negative (Negative); Ketones Urine Negative (Negative); Leukocyte Esterase Ur Negative LEU/UL (Negative); Nitrate Urine Negative (Negative); Protein Urine Negative (Negative); Specific Grav Ur 1.015 (1.001-1.035); Urobilinogen Urine 0.2 mg/dL (<2.0)
[2021-08-11 19:05] LABS: Alanine Aminotransferase 65 U/L (6-35); Alkaline Phosphatase 78 U/L (38-126); Anion Gap 11 mmol/L (8-16); Aspartate Amino Transferase 80 U/L (14-36); Bilirubin,Total 0.8 mg/dL (0.2-1.3); Blood Urea Nitrogen 9 mg/dL (7-17); Calcium 9.1 mg/dL (8.4-10.2); Carbon Dioxide 23 mmol/L (22-30); Chloride 89 mmol/L (98-107); Estimated CRCL calculation 60 ml/min; Estimated Glomerular Filt Rate > 60; Glucose 96 mg/dL (65-110); Potassium 4.2 mmol/L (3.4-5.0); Sodium 123 mmol/L (137-145)
[2021-08-11] MEDS: SODIUM CHLORIDE 0.9% IV 1,000 ML 999 ML (19:05)
[2021-08-11 19:09] LABS: RBC Urine 0-2 /hpf (0-2); Squamous Epithelial Cell Urine Occasional /hpf (Few); WBC Urine 0-3 /hpf
[2021-08-11 19:12] LABS: Add Urine Microscopic? YES; Blood Urine Trace-Intact (Negative)
--- NOTE | 2021-08-11 19:25 | PC.NURSE ---
Pt up to rest room. No c/o pain or discomfort cont waiting labs.
--- NOTE | 2021-08-11 19:30 | PC.NURSE ---
Pt cont to report nausea. ERMD advised.
--- NOTE | 2021-08-11 19:48 | ECG_ITS ---
Measurements Intervals [place] Rate: 84 P: 59 NC: 132 QRS: 54 QRSD: 85 T: 55 QT: 425 QTc: 502 Interpretive Statements SINUS RHYTHM VOLTAGE CRITERIA FOR LVH BORDERLINE ECG Electronically Signed On 08-11-2021 21:06:56 CDT by Chance Shepard D.O.
[2021-08-11 20:13] LABS: Troponin I < 0.012 ng/mL (0.000-0.034)
[2021-08-11 21:32] VITALS: BP 144/74; PULSE 81; RESP 20; O2SAT 100
[2021-08-11 21:36] LABS: Anion Gap 6 mmol/L (8-16); Blood Urea Nitrogen 8 mg/dL (7-17); Calcium 8.4 mg/dL (8.4-10.2); Carbon Dioxide 25 mmol/L (22-30); Chloride 99 mmol/L (98-107); Estimated CRCL calculation 60 ml/min; Estimated Glomerular Filt Rate > 60; Glucose 86 mg/dL (65-110); Potassium 4.4 mmol/L (3.4-5.0); Sodium 130 mmol/L (137-145)
[2021-08-11 22:16] VITALS: BP 148/80; PULSE 80; RESP 20; O2SAT 96
== END 2021-08-11 22:17 | disposition home or self-care (01) ==
PROVIDERS: Emergency Provider Nurse Practitioner Family; PCP Internal Medicine
DX: E87.1 Hypo-osmolality and hyponatremia (principal); I10 Essential (primary) hypertension; E03.9 Hypothyroidism, unspecified; K58.9 Irritable bowel syndrome, unspecified; K21.00 Gastro-esophageal reflux disease with esophagitis, without bleeding; M19.90 Unspecified osteoarthritis, unspecified site; F17.210 Nicotine dependence, cigarettes, uncomplicated; R94.31 Abnormal electrocardiogram [ECG] [EKG]
CPT/HCPCS: 36415; 80048; 80053; 81001; 84484; 85025; 93005; 96361; 96374; 99284; J2405; J7030

== ENCOUNTER 2021-08-17 16:49 | Outpatient (CLI) | payer OTHER, MEDICAID, SELFPAY ==
[2021-08-17 17:48] LABS: Basophils Absolute Auto 0.1 K/mm3 (0.0-0.1); Basophils Percent Auto 0.9 % (0.2-1.2); Eosinophils Absolute Auto 0.1 K/mm3 (0-0.3); Eosinophils Percent Auto 1.9 % (0-4.4); Hematocrit 33.1 % (37.0-47.0); Hemoglobin 11.4 g/dL (12.0-15.0); Immature Granulocyte Absolute 0.02 K/mm3 (0.00-0.031); Immature Granulocyte Percent A 0.3 % (0-0.5); Lymphocytes Absolute Auto 1.98 K/mm3 (0.9-3.2); Lymphocytes Percent Auto 30.7 % (18.3-44.2); Mean Corpuscular HGB Conc 34.4 g/dl (32-36); Mean Corpuscular Hemoglobin 33.5 pg (26-34); Mean Corpuscular Volume 97.4 fl (80-100); Mean Platelet Volume 9.8 fl (7.4-10.4); Monocytes Absolute Auto 0.7 K/mm3 (0.1-0.6); Monocytes Percent Auto 10.5 % (2.6-8.5); Neutrophils Absolute Auto 3.6 K/mm3 (1.3-6.7); Neutrophils Percent Auto 55.7 % (45.5-73.1); Platelet Count Result 341 k/mm3 (150-375); Red Cell Distribution Width 13.1 % (11.5-14.5); White Blood Count 6.5 K/mm3 (4.5-10.0)
[2021-08-17 17:58] LABS: Alanine Aminotransferase 36 U/L (6-35); Albumin Level 4.6 g/dL (3.5-5.1); Alkaline Phosphatase 66 U/L (38-126); Anion Gap 7 mmol/L (8-16); Aspartate Amino Transferase 38 U/L (14-36); Bilirubin,Total 0.3 mg/dL (0.2-1.3); Blood Urea Nitrogen 17 mg/dL (7-17); Calcium 10.5 mg/dL (8.4-10.2); Carbon Dioxide 31 mmol/L (22-30); Chloride 92 mmol/L (98-107); Estimated Glomerular Filt Rate > 60; Glucose 101 mg/dL (65-110); Potassium 4.4 mmol/L (3.4-5.0); Sodium 130 mmol/L (137-145)
== END 2021-08-17 16:50 | disposition home or self-care (01) ==
LOC: ANHLAB 16:50
PROVIDERS: PCP Internal Medicine; Visit Provider Clinical Nurse Specialist
DX: E87.1 Hypo-osmolality and hyponatremia (principal)
CPT/HCPCS: 36415; 80053; 85025

== ENCOUNTER 2021-09-03 11:59 | Outpatient (CLI) | payer OTHER, MEDICAID, SELFPAY ==
[2021-09-03 12:40] LABS: Anion Gap 4 mmol/L (8-16); Blood Urea Nitrogen 8 mg/dL (7-17); Calcium 9.3 mg/dL (8.4-10.2); Carbon Dioxide 32 mmol/L (22-30); Chloride 95 mmol/L (98-107); Estimated Glomerular Filt Rate > 60; Glucose 97 mg/dL (65-110); Potassium 4.2 mmol/L (3.4-5.0); Sodium 131 mmol/L (137-145)
== END 2021-09-03 12:00 | disposition home or self-care (01) ==
PROVIDERS: PCP Internal Medicine; Visit Provider Clinical Nurse Specialist
DX: E87.1 Hypo-osmolality and hyponatremia (principal)
CPT/HCPCS: 36415; 80048

== ENCOUNTER 2021-09-13 17:17 | Outpatient (CLI) | payer OTHER, MEDICAID, SELFPAY ==
--- NOTE | ~2021-09-13 | XR_ITS ---
EXAMINATION: XR chest 2V DATE: 09/13/2021 17:44 INDICATION: Hyponatremia TECHNIQUE: PA and lateral views of the chest are obtained. COMPARISON: 10/10/2020 FINDINGS: The lungs are free of acute opacities. No pleural effusion or pneumothorax. The cardiomedia stinal silhouette is normal. There is severe thoracic spondylosis. IMPRESSION: 1. No acute cardiopulmonary abnormality. Reviewed, dictated and finalized at location F.
[2021-09-13 18:11] LABS: Albumin Level 4.6 g/dL (3.5-5.1); Anion Gap 7 mmol/L (8-16); Blood Urea Nitrogen 16 mg/dL (7-17); Calcium 9.3 mg/dL (8.4-10.2); Carbon Dioxide 28 mmol/L (22-30); Chloride 96 mmol/L (98-107); Estimated Glomerular Filt Rate > 60; Glucose 92 mg/dL (65-110); Phosphorus 5.2 mg/dL (2.5-4.5); Potassium 4.1 mmol/L (3.4-5.0); Sodium 131 mmol/L (137-145)
[2021-09-13 18:43] LABS: Creatinine Urine 37.9 mg/dL; Total Protein Urine Random 14 mg/dL; Ur Ttl Prot Creatinine Ratio 0.37 mg/mg (0-0.20)
[2021-09-13 18:47] LABS: Sodium Urine Random 55 meq/L
[2021-09-13 19:23] LABS: Cortisol Random < 0.16 ug/dL
[2021-09-16 14:16] LABS: Kappa\\Lambda Light Chains 0.82 (0.26-1.65); Lambda Light Chain 21.5 mg/L (5.7-26.3); Osmolality, Urine 328 mOsm/kg (50-1200)
[2021-09-17 14:47] LABS: Total Protein/Creatinine Ratio 135 mg/g creat (21-161)
[2021-09-17 15:28] LABS: Albumin 4.3 g/dL (3.8-4.8); Alpha 1 Globulin 0.3 g/dL (0.2-0.3); Alpha 2 Globulin 0.6 g/dL (0.5-0.9); Beta 1 Globulin 0.5 g/dL (0.4-0.6); Gamma Globulin 1.1 g/dL (0.8-1.7); Protein, Total 7.1 g/dL (6.1-8.1)
== END 2021-09-13 17:18 | disposition home or self-care (01) ==
LOC: ANHLAB 17:20
PROVIDERS: PCP Internal Medicine; Visit Provider Internal Medicine Nephrology
DX: E87.1 Hypo-osmolality and hyponatremia (principal)
CPT/HCPCS: 36415; 71046; 80069; 82533; 82570; 83883; 83930; 83935; 84155; 84156; 84165; 84166; 84300

== ENCOUNTER 2021-09-21 13:04 | Outpatient (CLI) | payer OTHER, MEDICAID, SELFPAY | END 2021-09-21 13:05 | disposition home or self-care (01) | LOC: ANHBWCLAB 13:06 | PROVIDERS: PCP Internal Medicine; Visit Provider Student in an Organized Health Care Education/Training Program | DX: R39.9 Unspecified symptoms and signs involving the genitourinary system (principal) | CPT/HCPCS: 87086; 87088 ==

== ENCOUNTER 2021-10-23 17:13 | Outpatient (CLI) | payer OTHER, MEDICAID, SELFPAY ==
[2021-10-23 17:38] LABS: Alanine Aminotransferase 36 U/L (6-35); Albumin Level 4.7 g/dL (3.5-5.1); Alkaline Phosphatase 69 U/L (38-126); Anion Gap 6 mmol/L (8-16); Aspartate Amino Transferase 45 U/L (14-36); Bilirubin,Total 0.7 mg/dL (0.2-1.3); Blood Urea Nitrogen 14 mg/dL (7-17); Calcium 9.8 mg/dL (8.4-10.2); Carbon Dioxide 33 mmol/L (22-30); Chloride 90 mmol/L (98-107); Estimated Glomerular Filt Rate > 60; Glucose 108 mg/dL (65-110); Potassium 3.7 mmol/L (3.4-5.0); Sodium 129 mmol/L (137-145)
== END 2021-10-23 17:14 | disposition home or self-care (01) ==
PROVIDERS: PCP Internal Medicine; Visit Provider Obstetrics & Gynecology
DX: E83.52 Hypercalcemia (principal)
CPT/HCPCS: 36415; 80053

== ENCOUNTER 2021-11-29 11:50 | Outpatient (NON) | payer OTHER, MEDICAID, SELFPAY | END 2021-11-29 11:51 | disposition home or self-care (01) | PROVIDERS: PCP Internal Medicine; Referring Provider Obstetrics & Gynecology; Visit Provider Obstetrics & Gynecology | DX: R39.9 Unspecified symptoms and signs involving the genitourinary system (principal) | CPT/HCPCS: 87077; 87086; 87186 ==

== ENCOUNTER 2021-12-10 11:20 | Outpatient (CLI) | payer OTHER, MEDICAID, SELFPAY ==
[2021-12-10 19:27] LABS: Anion Gap 11 mmol/L (8-16); Blood Urea Nitrogen 9 mg/dL (7-17); Calcium 9.3 mg/dL (8.4-10.2); Carbon Dioxide 29 mmol/L (22-30); Chloride 96 mmol/L (98-107); Estimated Glomerular Filt Rate > 60; Glucose 84 mg/dL (65-110); Potassium 4.6 mmol/L (3.4-5.0); Sodium 136 mmol/L (137-145)
[2021-12-10 19:41] LABS: Free T4 Free Thyroxine 1.43 ng/mL (0.78-2.19)
[2021-12-10 20:50] LABS: Sodium Urine Random 57 meq/L
[2021-12-12 15:19] LABS: Osmolality, Urine 349 mOsm/kg (50-1200)
== END 2021-12-10 11:21 | disposition home or self-care (01) ==
LOC: ANHGOSHLAB 11:24
PROVIDERS: PCP Internal Medicine; Visit Provider Internal Medicine Endocrinology, Diabetes & Metabolism
DX: E03.9 Hypothyroidism, unspecified (principal); E87.1 Hypo-osmolality and hyponatremia
CPT/HCPCS: 36415; 80048; 83935; 84300; 84439; 84443

== ENCOUNTER 2021-12-31 06:27 | Outpatient (RCR) | payer OTHER, MEDICAID, SELFPAY | END 2022-03-31 23:59 | disposition home or self-care (01) | LOC: ANHVASCINF 06:27 | PROVIDERS: PCP Internal Medicine; Visit Provider Internal Medicine Endocrinology, Diabetes & Metabolism | DX: E87.1 Hypo-osmolality and hyponatremia (principal); E27.40 Unspecified adrenocortical insufficiency; R42 Dizziness and giddiness | CPT/HCPCS: J0834 ==

== ENCOUNTER 2021-12-31 07:57 | Outpatient (CLI) | payer OTHER, MEDICAID, SELFPAY ==
[2021-12-31 09:16] LABS: Cortisol Baseline 0.18 ug/dL
[2021-12-31 10:31] LABS: Cortisol 30 Minute 7.75 ug/dL
== END 2021-12-31 07:58 | disposition home or self-care (01) ==
LOC: ANHLAB 08:00
PROVIDERS: PCP Internal Medicine; Visit Provider Internal Medicine Endocrinology, Diabetes & Metabolism
DX: E87.1 Hypo-osmolality and hyponatremia (principal); E27.40 Unspecified adrenocortical insufficiency; R42 Dizziness and giddiness; R39.9 Unspecified symptoms and signs involving the genitourinary system
CPT/HCPCS: 36415; 82533; 87086; 87088; 96372

== ENCOUNTER 2022-01-08 07:01 | Outpatient (CLI) | payer OTHER, MEDICAID, SELFPAY ==
[2022-01-08 07:25] LABS: Anion Gap 8 mmol/L (8-16); Blood Urea Nitrogen 9 mg/dL (7-17); Calcium 9.9 mg/dL (8.4-10.2); Carbon Dioxide 29 mmol/L (22-30); Chloride 98 mmol/L (98-107); Estimated Glomerular Filt Rate > 60; Glucose 118 mg/dL (65-110); Potassium 4.5 mmol/L (3.4-5.0); Sodium 135 mmol/L (137-145)
[2022-01-11 11:51] LABS: DHEA-Sulfate 99 mcg/dL (8-188)
[2022-01-15 19:30] LABS: Adrenocorticotropic Hormone 94 pg/mL (6-50)
== END 2022-01-08 07:02 | disposition home or self-care (01) ==
LOC: ANHLAB 07:03
PROVIDERS: PCP Internal Medicine; Visit Provider Internal Medicine Endocrinology, Diabetes & Metabolism
DX: E27.40 Unspecified adrenocortical insufficiency (principal)
CPT/HCPCS: 36415; 80048; 82024; 82533; 82627

== ENCOUNTER → 2022-03-25 13:21 | Outpatient (CLI) | payer OTHER, MEDICAID, SELFPAY ==
--- NOTE | ~2022-03-25 | MM_ITS ---
EXAMINATION: MM screening alesha BI w rita HISTORY: Screening mammogram TECHNIQUE: Craniocaudal and mediolateral oblique 3-D tomosynthesis images were obtained and synthetic 2-D images were generated. CAD analysis was submitted and interpreted. COMPARISON: 03/12/2021, 02/17/2020, 06/06/2018 bilateral screening mammogram examinations BREAST PARENCHYMAL COMPOSITION: The breasts are heterogeneously dense, which may obscure small masses . FINDINGS: There is no evidence of suspicious mass, calcification, or architectural distortion to sugg est malignancy in either breast. There has been no suspicious interval change. IMPRESSION: 1. No mammographic evidence of malignancy. 2. Recommend routine screening mammography in one year. BI-RADS Category 1: Negative Reviewed, dictated and finalized at location A. COLLECTOR
== END ==
PROVIDERS: PCP Internal Medicine; Visit Provider Obstetrics & Gynecology
DX: Z12.31 Encounter for screening mammogram for malignant neoplasm of breast (principal)
CPT/HCPCS: 77063; 77067

== ENCOUNTER → 2022-04-09 13:27 | Outpatient (CLI) | payer OTHER, MEDICAID, SELFPAY ==
--- NOTE | ~2022-04-09 | XR_ITS ---
EXAMINATION: XR_CERV2-3V_CR DATE: 04/09/2022 13:55 INDICATION: Neck pain. Right arm pain. TECHNIQUE: 3 views of cervical spine were obtained. COMPARISON: None. FINDINGS: There is 11 degrees levoscoliosis of cervicothoracic spine. There is mild kyphosis of cervi kristyn spine. There is 1 mm anterolisthesis of C3 on C4 and C4 on C5 and 1 mm retrolisthesis of C5 on C6 and C6 on C7. Vertebral body heights are normal. There is mildly decreased disc height at C3-C4 and C4-C5 and severely decreased disc height at C5-C6 and C6-C7. There is multilevel uncovertebral joint osteoarthritis, severe on the left at C5-C6 and bilaterally at C6-C7. There is multilevel facet joint osteoarthritis, severe on the left at C3-C4 and on the right at C4-C5. There is mild central canal s tenosis at C3-C4, C4-C5, C5-C6, and C6-C7. No prevertebral soft tissue swelling. IMPRESSION: 1. Severe cervical spondylosis. 2. Cervicothoracic levoscoliosis. Reviewed, dictated and finalized at location A. GER CREDIT COLLECTIONS
== END ==
PROVIDERS: PCP Clinical Nurse Specialist; Visit Provider Clinical Nurse Specialist
DX: M47.812 Spondylosis without myelopathy or radiculopathy, cervical region (principal); M41.83 Other forms of scoliosis, cervicothoracic region
CPT/HCPCS: 72040

== ENCOUNTER → 2022-04-13 10:18 | Outpatient (CLI) | payer OTHER, MEDICAID, SELFPAY ==
--- NOTE | ~2022-04-13 | MR_ITS ---
EXAMINATION: MR cervical spine wo con DATE: 04/13/2022 11:01 INDICATION: Neck pain radiating to the right shoulder. Cervical spondylosis. TECHNIQUE: Magnetic resonance imaging (MRI) of the cervical spine was performed without intravenous c ontrast. Sequences included sagittal T2-weighted FSE, sagittal T2-weighted FS FSE, sagittal T1-weight ed FSE, axial MERGE, and axial T2-weighted FSE. COMPARISON: Cervical spine radiographs 04/09/2022 FINDINGS: There is 3 degrees levocurvature of cervicothoracic spine. There is mild kyphosis of cervic al spine. Vertebral body heights are normal. There is mildly decreased disc height at C3-C4 and sever marcio decreased disc height at C5-C6 and C6-C7. There is severe thoracic spondylosis. The spinal cord s ignal intensity is normal. The following disc levels are specifically discussed: C2-C3: The disc does not extend beyond the endplate margin. There is no uncovertebral joint osteoarth ritis. There is severe right and mild left facet joint osteoarthritis. There is mild right neural for aminal stenosis. There is no central canal stenosis. C3-C4: The disc is bulging. There is mild right and severe left uncovertebral joint osteoarthritis. T here is moderate right and severe left facet joint osteoarthritis. There is mild right and moderate l eft neural foraminal stenosis. There is mild central canal stenosis with ventral indentation of the s [place] cord. C4-C5: There is a central protrusion. There is severe right and mild left uncovertebral joint osteoar thritis. There is severe right and mild left facet joint osteoarthritis. There is moderate right neur al foraminal stenosis. There is mild central canal stenosis. C5-C6: The disc is bulging. There is moderate right and severe left uncovertebral joint osteoarthriti s. There is severe right and moderate left facet joint osteoarthritis. There is moderate left neural foraminal stenosis. There is mild central canal stenosis. C6-C7: The disc is bulging. There is severe bilateral uncovertebral joint osteoarthritis. There is mo derate right and severe left facet joint osteoarthritis. There is mild right and moderate left neural foraminal stenosis. There is mild central canal stenosis. C7-T1: The disc is bulging. There is severe bilateral uncovertebral joint osteoarthritis. There is se good bilateral facet joint osteoarthritis. There is mild bilateral neural foraminal stenosis. There i s no central canal stenosis. IMPRESSION: 1. Severe cervical spondylosis. Reviewed, dictated and finalized at location A. ROPOLOGIST PHYSICAL
== END ==
PROVIDERS: PCP Internal Medicine; Visit Provider Clinical Nurse Specialist
DX: M47.812 Spondylosis without myelopathy or radiculopathy, cervical region (principal)
CPT/HCPCS: 72141

== ENCOUNTER 2022-05-27 12:30 | Outpatient (RCR) | payer OTHER, MEDICAID, SELFPAY ==
--- NOTE | 2022-04-30 17:30 | BUPTOPEVAL1 ---
Assessment and note entered by Kalpana Turcios, PT Evaluation Information Assessment Status Evaluation Diagnosis cervical radiculopathy, spondylosis without myelopathy Onset recent flare up 5-6 weeks ago Subjective Information Pt states saw neurosurgery ~20 years ago for this issue but declined surgery at the time. Has not been back to surgeon since [place]. Pt has seen chiropractor for this issue most recently 3 years ago. Has not seen PT for this issue previously Reports issue goes down right side of neck, shoulder, into elbow and fingers. Tingling and pain Reported Pain Level Pain Score 4: Self Report Additional Pain Score Comments Doesn't really have much discomfort on left side Assessment PT Clinical Summary Pt presents with chronic history of cervical issues spanningback 20 years. States has sought chirpopractic in the past but not physical therapy . Recently reports had a flare up started 5-6 weeks ago without traumatic incident. Reports pain will start in right side of neck, into shoulder, down the back of the neck and into fingers. Evaluation shows poor quality of movement with cervical range of motion testing, decreased lateral flexion bilat, reduction of symptoms with manual cervical traction, poor scapular positioning, significant kyphotic and scolitic alignment in thoracic spine, likely leg length discrepancy effecting the kinematic chain superiorly. Pt will benefit from physical therapy for hands-on balancing of spinal mobility and neuromuscular reeducation to improve supportive postures, to reduce pain, and improve pt function with less pain. Plan of Care Interventions Electrical Stimulation,Hot Pack/Cold Pack,Manual Therapy,Mechanical Traction,Neuro Re-education, Patient/Caregiver Educati,Therapeutic Activities, Therapeutic Exercise,Self-Care/Home Management, Ultrasound PT Services Indicated Yes These treatments will address the objective and functional deficits as defined above. The patient will be advanced safely and appropriately in order for the patient to progress towards his/her prior level of function. Additional exercises will be introduced and as well as a comprehensive home exercise program upon discharge, if needed, ?to ensure carryover of functional gains achieved in the clinic. This treatment plan has been reviewed and agreement upon by the patient.
--- NOTE | 2022-04-30 17:31 | BUPTOPEVAL1 ---
Assessment and note entered by Kalpana Turcios, PT Evaluation Information Assessment Status Evaluation Diagnosis cervical radiculopathy, spondylosis without myelopathy Onset recent flare up 5-6 weeks ago Subjective Information Pt states saw neurosurgery ~20 years ago for this issue but declined surgery at the time. Has not been back to surgeon since this point. Pt has seen chiropractor for this issue most recently 3 years ago. Has not seen PT for this issue previously Reports issue goes down right side of neck, shoulder, into elbow and fingers. Tingling and pain Reported Pain Level Pain Score 4: Self Report Additional Pain Score Comments Doesn't really have much discomfort on left side Assessment PT Clinical Summary Pt presents with chronic history of cervical issues spanning back 20 years. States has sought chiropractic in the past but not physical therapy . Recently reports had a flare up started 5-6 weeks ago without traumatic incident. Reports pain will start in right side of neck, into shoulder, down the back of the neck and into fingers. Evaluation shows poor quality of movement with cervical range of motion testing, decreased lateral flexion bilat, reduction of symptoms with manual cervical traction, poor scapular positioning, significant kyphotic and scolitic alignment in thoracic spine, likely leg length discrepancy effecting the kinematic chain superiorly. Pt will benefit from physical therapy for hands-on balancing of spinal mobility and neuromuscular reeducation to improve supportive postures, to reduce pain, and improve pt function with less pain. Plan of Care Interventions Electrical Stimulation,Hot Pack/Cold Pack,Manual Therapy,Mechanical Traction,Neuro Re-education, Patient/Caregiver Educati,Therapeutic Activities, Therapeutic Exercise,Self-Care/Home Management, Ultrasound PT Services Indicated Yes Treatment Frequency and 2x weekly x 4 weeks Duration These treatments will address the objective and functional deficits as defined above. The patient will be advanced safely and appropriately in order for the patient to progress towards his/her prior level of function. Additional exercises will be introduced and as well as a comprehensive home exercise program upon discharge, if needed, ?to ensure carryover of functional gains achieved in the clini
--- NOTE | 2022-05-30 08:16 | PCPTNOTE ---
Patient called & cancelled scheduled appointment this date due to being unable to make it.
--- NOTE | 2022-06-03 15:28 | PCPTNOTE ---
pt called and canceled today's reevaluation; reason was not given;
--- NOTE | 2022-07-02 15:22 | PCPTNOTE ---
PHYSICAL THERAPY DISCHARGE 07-02-22 Attending Provider: MILES Ahuja Patient:Claire Zayas Date of :1965 Claire has not returned for any further treatments since 05/27/2022, therefore she will be discharged at this time. She has received 4 PT sessions, from April 30 to May 27, and called/canceled 2 treatment sessions. The goals were not addressed. Thank you for referring this patient to [facility].
== END 2022-07-29 23:59 | disposition home or self-care (01) ==
LOC: ANHPT 12:30
PROVIDERS: PCP Internal Medicine; Visit Provider Clinical Nurse Specialist
DX: M54.12 Radiculopathy, cervical region (principal); M47.812 Spondylosis without myelopathy or radiculopathy, cervical region
CPT/HCPCS: 97014; 97110; 97140; 97162; G0283

== ENCOUNTER 2022-06-05 08:12 | Emergency (ER) | payer OTHER, MEDICAID, SELFPAY ==
--- NOTE | ~2022-06-05 | XR_ITS ---
Clinical Indication: Hypertension, dizziness PA and lateral views of the chest: Comparison: 09/13/2021 Findings: The lungs are clear, without evidence of focal consolidation or pleural effusion. Cardiome diastinal silhouette is within normal limits. Bones and soft tissues are unremarkable. Impression: Normal chest. Reviewed, dictated and finalized at [facility]. Impression: Normal chest.
--- NOTE | 2022-06-05 08:25 | ED.DIZZY ---
HPI - Dizziness General Chief Complaint: Dizziness Stated Complaint: dizzy/lightheaded Time Seen by Provider: 06/05/22 08:17 Source: patient and RN notes reviewed Mode of arrival: ambulatory Limitations: no limitations History of Present Illness HPI Narrative: This is a 56 year old female with history of hypertension and chronic pain who presents for evaluation of dizziness. Patient states she was standing up in a meeting when she became dizzy. She felt like she was going to pass out, so she sat down. She reports feeling sweaty and having right leg pain that the time. She reports her right leg pain is from her chronic back pain. She denies chest pain, sob, palpitations at the time. She reports feeling better. She denies history of syncope or cardiac disease. Related Data Home Medications Medication Instructions Recorded Confirmed cinnamon bark 500 mg capsule 500 mg PO DAILY 12/10/19 05/27/22 metoprolol tartrate 25 mg tablet 37.5 mg PO BID 09/03/21 05/27/22 Allergies Allergy/AdvReac Type Severity Reaction Status Date / Time ampicillin Allergy Unknown Hives Verified 05/27/22 10:58 bupropion Allergy Unknown Hives Verified 06/05/22 08:32 cephalexin Allergy Unknown Hives Verified 05/27/22 10:58 clindamycin Allergy Unknown Anaphylaxis Verified 05/27/22 10:58 codeine Allergy Unknown Swelling Verified 05/27/22 10:58 Penicillins Allergy Unknown Hives Verified 05/27/22 10:58 Sulfa (Sulfonamide Allergy Unknown Hives Verified 05/27/22 10:58 Antibiotics) tetracycline Allergy Unknown Hives Verified 05/27/22 10:58 Tetracyclines Allergy Unknown Hives Verified 05/27/22 10:58 amlodipine AdvReac Intermediate joint pain Verified 05/27/22 10:58 lisinopril AdvReac Intermediate Cough Verified 05/27/22 10:58 losartan AdvReac Intermediate Joint pain Verified 05/27/22 10:58 nitrofurantoin AdvReac Joint Pain Verified 05/27/22 10:58 [From Macrobid] Review of Systems Constitutional: Constitutional: Denies weakness Cardiovascular: Cardiovascular: Denies syncope, Denies rapid heart rate, Denies irregular heart rhythm, Denies leg edema and Denies dyspnea Respiratory: Respiratory: Denies chest congestion, Denies hemoptysis, Denies excessive phlegm production and Denies dyspnea Gastrointestinal: Gastrointestinal: Denies abdominal pain, Denies hematochezia, Reports diarrhea (chronic diarrhea) and Denies vomiting Genitourinary: Genitourinary: Denies hematuria and Denies dysuria Musculoskeletal: Musculoskeletal: Denies joint swelling, Denies loss of height and Denies muscle weakness Neurologic: Reports dizziness, Denies syncope, Denies focal weakness and Denies weakness PMFSH Past Medical History Medical History Acid reflux Adrenal insufficiency Allergies Anxiety Arthritis Bloating Chondromalacia Colitis Colon cancer screening Essential hypertension GERD with esophagitis Heart palpitations History of chronic bronchitis History of open fracture Right patella. Hypertension Hypothyroidism IBS (irritable bowel syndrome) Inflammatory arthritis Lung nodule Microscopic colitis Other chronic pain Post-traumatic osteoarthritis of right knee Smoking Tachycardia Thyroid disorder Tobacco abuse Surgical History Surgical History H/O section x 3 1984, 1986, 1990 H/O knee surgery Right knee x 2 History of adenoidectomy History of endometrial ablation History of placement of ear tubes History of tonsillectomy History of tubal ligation [place] teeth removed Family History Family History Father Family history of Parkinson's disease Lewy body dementia Hypertension Mother Family history of lupus erythematosus, Onset Age: 54 Sjogren-Tabatha syndrome Aneurysm Hypothyroidism Grandparent Acute myocardial infarction Family history of cardiac diso
--- NOTE | 2022-06-05 08:30 | ECG_ITS ---
Measurements Intervals [place] Rate: 73 P: 41 NH: 121 QRS: 59 QRSD: 88 T: 60 QT: 410 QTc: 453 Interpretive Statements SINUS RHYTHM BASELINE WANDER- I, II, III, V5 NORMAL ECG COMPARED TO ECG 08/11/2021 20:28:31 NO SIGNIFICANT CHANGES Electronically Signed On 06-05-2022 8:52:29 CDT by Chance Shepard D.O.
[2022-06-05 08:31] VITALS: BP 103/70; PULSE 77; RESP 18; TEMP 36.7; O2SAT 99
[2022-06-05 08:53] VITALS: BP 142/73; BP 143/82; PULSE 76; PULSE 86
[2022-06-05 08:54] VITALS: BP 130/84; PULSE 89
[2022-06-05] MEDS: SODIUM CHLORIDE 0.9% IV 1,000 ML 999 ML IV CONT (08:56)
[2022-06-05 09:06] LABS: Basophils Absolute Auto 0.1 K/mm3 (0.0-0.1); Basophils Percent Auto 1.4 % (0.2-1.2); Eosinophils Absolute Auto 0.2 K/mm3 (0-0.3); Eosinophils Percent Auto 2.2 % (0-4.4); Hematocrit 31.9 % (37.0-47.0); Immature Granulocyte Absolute 0.02 K/mm3 (0.00-0.031); Immature Granulocyte Percent A 0.3 % (0-0.5); Lymphocytes Absolute Auto 1.85 K/mm3 (0.9-3.2); Mean Corpuscular HGB Conc 34.5 g/dl (32-36); Mean Corpuscular Hemoglobin 33.3 pg (26-34); Mean Corpuscular Volume 96.7 fl (80-100); Mean Platelet Volume 9.1 fl (7.4-10.4); Monocytes Absolute Auto 0.6 K/mm3 (0.1-0.6); Monocytes Percent Auto 8.6 % (2.6-8.5); Neutrophils Absolute Auto 4.6 K/mm3 (1.3-6.7); Neutrophils Percent Auto 62.5 % (45.5-73.1); Platelet Count Result 318 k/mm3 (150-375); Red Cell Distribution Width 12.9 % (11.5-14.5); White Blood Count 7.4 K/mm3 (4.5-10.0)
[2022-06-05 09:16] LABS: Alanine Aminotransferase 28 U/L (6-35); Albumin Level 4.5 g/dL (3.5-5.1); Alkaline Phosphatase 61 U/L (38-126); Anion Gap 5 mmol/L (8-16); Aspartate Amino Transferase 34 U/L (14-36); Bilirubin,Total 0.6 mg/dL (0.2-1.3); Blood Urea Nitrogen 10 mg/dL (7-17); Calcium 9.4 mg/dL (8.4-10.2); Carbon Dioxide 30 mmol/L (22-30); Chloride 102 mmol/L (98-107); Estimated CRCL calculation 53 ml/min; Estimated Glomerular Filt Rate > 60; Glucose 76 mg/dL (65-110); Magnesium 1.6 mg/dL (1.6-2.3); Potassium 4.1 mmol/L (3.4-5.0); Sodium 137 mmol/L (137-145)
[2022-06-05 09:17] LABS: Partial Thromboplastin Time 29.6 SECONDS (22.3-36.8); Prothrombin Time 13.1 Seconds (11.1-14.7)
[2022-06-05 09:27] LABS: Troponin I < 0.012 ng/mL (0.000-0.034)
[2022-06-05 10:16] VITALS: BP 163/83; PULSE 70; RESP 15; O2SAT 100
== END 2022-06-05 11:18 | disposition home or self-care (01) ==
PROVIDERS: Emergency Provider General Practice; PCP Internal Medicine
DX: R42 Dizziness and giddiness (principal); K21.9 Gastro-esophageal reflux disease without esophagitis; I10 Essential (primary) hypertension; F17.210 Nicotine dependence, cigarettes, uncomplicated; Z79.51 Long term (current) use of inhaled steroids
CPT/HCPCS: 36415; 71046; 80053; 83735; 84484; 85025; 85610; 85730; 93005; 96360; 96361; 99283; J7030

== ENCOUNTER 2022-06-17 07:30 | Outpatient (CLI) | payer OTHER, MEDICAID, SELFPAY ==
[2022-06-17 08:30] LABS: Anion Gap 6 mmol/L (8-16); Blood Urea Nitrogen 9 mg/dL (7-17); Calcium 9.2 mg/dL (8.4-10.2); Carbon Dioxide 29 mmol/L (22-30); Chloride 100 mmol/L (98-107); Estimated Glomerular Filt Rate > 60; Glucose 88 mg/dL (65-110); Sodium 135 mmol/L (137-145)
[2022-06-17 08:46] LABS: Sodium Urine Random 106 meq/L
[2022-06-17 08:47] LABS: Free T4 Free Thyroxine 1.54 ng/mL (0.78-2.19)
[2022-06-17 08:59] LABS: Thyroid Stimulating Hormone 0.895 uIU/mL (0.465-4.680)
[2022-06-19 19:07] LABS: Osmolality, Urine 497 mOsm/kg (50-1200)
[2022-06-20 05:03] LABS: Adrenocorticotropic Hormone <5 pg/mL (6-50)
== END 2022-06-17 07:31 | disposition home or self-care (01) ==
LOC: ANHLAB 07:31
PROVIDERS: PCP Internal Medicine; Visit Provider Internal Medicine Endocrinology, Diabetes & Metabolism
DX: E03.9 Hypothyroidism, unspecified (principal); E87.1 Hypo-osmolality and hyponatremia; K52.839 Microscopic colitis, unspecified; R19.7 Diarrhea, unspecified
CPT/HCPCS: 36415; 80048; 82024; 82533; 83930; 83935; 84300; 84439; 84443

== ENCOUNTER → 2022-07-17 17:00 | Outpatient (CLI) | payer OTHER, MEDICAID, SELFPAY ==
--- NOTE | ~2022-07-17 | XR_ITS ---
Lumbosacral Spine: AP and lateral views Clinical History: Pain Findings: The normal lordotic curve is maintained. No fracture or subluxation evident. There is sever e degenerative disc narrowing at L4-L5 and L5-S1, with facet arthropathy at these levels. The sacroil iac joints are normally outlined. Impression: Advanced degenerative spondylosis at L4-L5 and L5-S1, as detailed above. Reviewed, dictated and finalized at location . Impression: Advanced degenerative spondylosis at L4-L5 and L5-S1, as detailed above.
== END ==
PROVIDERS: PCP Internal Medicine; Visit Provider Nurse Practitioner Family
DX: M47.896 Other spondylosis, lumbar region (principal); M47.897 Other spondylosis, lumbosacral region
CPT/HCPCS: 72100

== ENCOUNTER 2022-07-27 13:28 | Outpatient (CLI) | payer OTHER, MEDICAID, SELFPAY ==
--- NOTE | ~2022-07-27 | MR_ITS ---
EXAMINATION: MR lumbar spine wo con DATE: 07/27/2022 14:08 INDICATION: LUMBAR RADICULOPATHY . TECHNIQUE: Magnetic resonance imaging (MRI) of the lumbar spine was performed without intravenous con trast. Sequences included sagittal T2-weighted FSE, sagittal T2-weighted FS FSE, sagittal T1-weighted FSE, and axial T2-weighted FSE. COMPARISON: X-ray L-spine 07/17/2022 FINDINGS: The last fully formed and hydrated disc is designated L5-S1. The marrow signal is benign an d inhomogenous, possibly due to an element of red marrow conversion. Conus terminates at L1. Multilev el loss of disc height and hydration, severe at L4-5 and L5-S1. Clumping of the distal nerve roots. T he following disc levels are specifically discussed: T11-T12: Moderate diffuse bulge. There is mild facet joint osteoarthritis. There is no neural foramin al stenosis. There is no central canal stenosis. T12-L1: Moderate diffuse bulge with a 5 mm left paracentral extrusion. There is mild facet joint oste oarthritis. There is no right and mild left neural foraminal stenosis. There is no central canal sten osis. L1-L2: Moderate diffuse bulge with a 6 mm left paracentral extrusion. There is moderate facet joint o steoarthritis. There is no right and moderate left neural foraminal stenosis. There is no central can al stenosis. L2-L3: Moderate diffuse bulge. There is moderate facet joint osteoarthritis. There is mild bilateral neural foraminal stenosis. There is mild central canal stenosis. L3-L4: Severe diffuse bulge. There is moderate facet joint osteoarthritis. There is mild bilateral ne ural foraminal stenosis. There is moderate central canal stenosis. L4-L5: Moderate diffuse bulge. There is moderate facet joint osteoarthritis. There is severe right an d moderate left neural foraminal stenosis. There is moderate central canal stenosis. L5-S1: Moderate diffuse bulge There is mild facet joint osteoarthritis. There is severe bilateral david ral foraminal stenosis. There is moderate central canal stenosis. IMPRESSION: 1. Moderate central canal stenosis at L3-4 through L5-S1. 2. Severe neural foraminal narrowing on the right at L4-5 and bilaterally at L5-S1. 3. Lumbar arachnoiditis. 4. Multilevel moderate facet arthropathy. 5. Multilevel moderate-severe degenerative disc disease. 6. Left paracentral disc extrusions at T12-L1 and L1-L2 Reviewed, dictated and finalized at location K. IMPRESSION: 1. Moderate central canal stenosis at L3-4 through L5-S1. 2. Severe neural foraminal narrowing on the right at L4-5 and bilaterally at L5 -S1. 3. Lumbar arachnoiditis. 4. Multilevel moderate facet arthropathy. 5. Multilevel moderate-severe degenerative disc disease. 6. Left paracentral disc extrusions at T12-L1 and L1-L2
== END 2022-07-27 13:29 | disposition home or self-care (01) ==
PROVIDERS: PCP Internal Medicine; Visit Provider Nurse Practitioner Family
DX: M54.16 Radiculopathy, lumbar region (principal); M51.36 Other intervertebral disc degeneration, lumbar region
CPT/HCPCS: 72148

== ENCOUNTER 2022-08-01 11:15 | Outpatient (RCR) | payer OTHER, MEDICAID, SELFPAY ==
--- NOTE | 2022-07-25 14:49 | PTOPEVAL1 ---
Assessment and note entered by Christofer Turcios, PT Evaluation Information Assessment Status Evaluation Diagnosis lumbar radiculopathy Subjective Information Patient reports her back being a chronic issue, but the patient and her boyfriend, Ko took a 5 mile walk and since then the pain has been more severe and started to go down the L hip. Patient has been using heating pads, TENs unit, IBU, and doctor recently gave her Cyclobenzaprine, which is helping her sleep, all other activities bother her. Has an MRI scheduled for FridayJuly 27. Assessment PT Clinical Summary Claire is a 56 year old female coming into the clinic with a diagnosis of lumbar radiculopathy. She has weakness in her hips, tight back muscles and painful palpation of the L PSIS. Patient had a leg length discrepancy until corrected with a Muscle energy technique. Physical therapist will work on back stretches, core and hip strengthening , along with modalities and manual therapy for pain control and alignment correction. Plan of Care Interventions Electrical Stimulation,Gait Training,Hot Pack/Cold Pack,Manual Therapy,Neuro Re-education,Patient/ Caregiver Education,Therapeutic Activities, Therapeutic Exercise,Ultrasound Other Interventions cupping, taping, and IASTM PT Services Indicated Yes Treatment Frequency and 1-2x/wk for 4 weeks Duration These treatments will address the objective and functional deficits as defined above. The patient will be advanced safely and appropriately in order for the patient to progress towards his/her prior level of function. Additional exercises will be introduced and as well as a comprehensive home exercise program upon discharge, if needed, ?to ensure carryover of functional gains achieved in the clinic. This treatment plan has been reviewed and agreement upon by the patient.
--- NOTE | 2022-08-08 14:31 | PTOPDC ---
Assessment and note entered by Christofer Turcios, PT Evaluation Information Assessment Status Discharge - Pt Not Presen Diagnosis lumbar radiculopathy Subjective Information Patient calls in and states her HEP is working and she would like to cancel all of her remaining scheduled appointments. Assessment PT Clinical Summary Claire is a 56 year old female coming into the clinic with back pain with radiating symptoms on the LLE. She was evaluated on 07/24/22 and attended one other visit. Unable to assess goals. Discharged from physical therapy per her request . Plan of Care PT Services Indicated No
== END 2022-08-09 09:00 | disposition home or self-care (01) ==
LOC: ANHPT 11:15
PROVIDERS: PCP Internal Medicine; Visit Provider Clinical Nurse Specialist
DX: M54.16 Radiculopathy, lumbar region (principal); M54.59 Other low back pain
CPT/HCPCS: 97110; 97140; 97161

== ENCOUNTER 2022-12-10 09:11 | Outpatient (CLI) | payer OTHER, MEDICAID, SELFPAY ==
[2022-12-10 09:35] LABS: Basophils Absolute Auto 0.1 K/mm3 (0.0-0.1); Basophils Percent Auto 1.1 % (0.2-1.2); Eosinophils Absolute Auto 0.2 K/mm3 (0-0.3); Eosinophils Percent Auto 2.7 % (0-4.4); Hematocrit 34.9 % (37.0-47.0); Hemoglobin 11.8 g/dL (12.0-15.0); Immature Granulocyte Absolute 0.02 K/mm3 (0.00-0.031); Immature Granulocyte Percent A 0.3 % (0-0.5); Lymphocytes Absolute Auto 1.94 K/mm3 (0.9-3.2); Lymphocytes Percent Auto 29.6 % (18.3-44.2); Mean Corpuscular HGB Conc 33.8 g/dl (32-36); Mean Corpuscular Volume 97.5 fl (80-100); Mean Platelet Volume 9.2 fl (7.4-10.4); Monocytes Absolute Auto 0.8 K/mm3 (0.1-0.6); Monocytes Percent Auto 11.7 % (2.6-8.5); Neutrophils Absolute Auto 3.6 K/mm3 (1.3-6.7); Neutrophils Percent Auto 54.6 % (45.5-73.1); Platelet Count Result 331 k/mm3 (150-375); Red Blood Count 3.58 M/mm3 (4.2-5.4); Red Cell Distribution Width 11.8 % (11.5-14.5); White Blood Count 6.6 K/mm3 (4.5-10.0)
[2022-12-10 09:43] LABS: Alanine Aminotransferase 26 U/L (6-35); Albumin Level 4.9 g/dL (3.5-5.1); Alkaline Phosphatase 72 U/L (38-126); Anion Gap 8 mmol/L (8-16); Aspartate Amino Transferase 36 U/L (14-36); Bilirubin,Total 1.1 mg/dL (0.2-1.3); Blood Urea Nitrogen 9 mg/dL (7-17); Calcium 9.6 mg/dL (8.4-10.2); Carbon Dioxide 29 mmol/L (22-30); Chloride 94 mmol/L (98-107); Cholesterol 266 mg/dL (0-200); Estimated Glomerular Filt Rate > 60; Glucose 108 mg/dL (65-110); HDL Direct 100 mg/dL; Potassium 3.6 mmol/L (3.4-5.0); Sodium 131 mmol/L (137-145); Triglycerides 73 mg/dL (<150)
[2022-12-10 09:54] LABS: LDL Cholesterol Direct 138 mg/dL
[2022-12-10 10:08] LABS: Free T4 Free Thyroxine 1.63 ng/mL (0.78-2.19); Vitamin D 25 Hydroxy 66.5 ng/mL
== END 2022-12-10 09:12 | disposition home or self-care (01) ==
LOC: ANHLAB 09:14
PROVIDERS: PCP Internal Medicine; Visit Provider Clinical Nurse Specialist
DX: E03.9 Hypothyroidism, unspecified (principal); I10 Essential (primary) hypertension; R79.89 Other specified abnormal findings of blood chemistry
CPT/HCPCS: 36415; 80053; 80061; 82306; 84439; 84443; 85025

== ENCOUNTER 2023-05-08 15:43 | Outpatient (CLI) | payer OTHER, SELFPAY ==
--- NOTE | ~2023-05-08 | MM_ITS ---
EXAMINATION: MM screening alesha BI w rita HISTORY: Screening TECHNIQUE: Craniocaudal and mediolateral oblique 3-D tomosynthesis images were obtained and synthetic 2-D images were generated. CAD analysis was submitted and interpreted. COMPARISON: Comparison to multiple prior studies sequentially, with oldest reviewed study dated 06/06. BREAST PARENCHYMAL COMPOSITION: There are scattered areas of fibroglandular density. FINDINGS: There is no evidence of suspicious mass, calcification, or architectural distortion to sugg est malignancy in either breast. There has been no suspicious interval change. IMPRESSION: 1. No mammographic evidence of malignancy. 2. Recommend routine screening mammography in one year. BI-RADS Category 1: Negative Reviewed, dictated and finalized at location A. REL SALES LEADER
== END 2023-05-08 15:44 | disposition home or self-care (01) ==
PROVIDERS: PCP Internal Medicine; Visit Provider Internal Medicine Endocrinology, Diabetes & Metabolism
DX: Z12.31 Encounter for screening mammogram for malignant neoplasm of breast (principal)
CPT/HCPCS: 77063; 77067

== ENCOUNTER 2023-05-12 12:45 | Outpatient (CLI) | payer OTHER, SELFPAY ==
--- NOTE | ~2023-05-12 | DEXA_ITS ---
Bone Density Report Name: JOSÉ DOUGLAS Age: 57 Sex: Female Ethnicity: White Date of : 1965 Indication: postmenopausal; screening for osteoporosis; height loss; inflammatory bowel disease; Referring Provider: MANE MOTT Study: Bone densitometry was performed. Exam Date: May 12, 2023 Accession number: [id number] Bone Density: Region BMD T-score Z-score Classification AP Spine(L1-L4) 1.143 0.9 2.2 Normal Femoral Neck (Left) 0.632 -2.0 -0.7 Osteopenia Total Hip (Left) 0.811 -1.1 -0.2 Osteopenia Femoral Neck (Right) 0.620 -2.1 -0.8 Osteopenia Total Hip (Right) 0.750 -1.6 -0.7 Osteopenia Total Hip Mean 0.780 -1.4 -0.5 Osteopenia World Health Organization criteria for BMD impression classify patients as: Normal (T-score at or above -1.0), Osteopenia (T-score between -1.0 and -2.5), or Osteoporosis (T-score at or below -2.5). 10-year Fracture Risk(1): Major Osteoporotic Fracture 12% Hip Fracture 3.2% Reported Risk Factors: [place] (), Neck BMD=0.620, BMI=24.9, smoking, alcohol use (1) FRAX(R) Version 3.08. Fracture probability calculated for an untreated patient. Fracture probability may be lower if the patient has received treatment. Clinical Information Provided by Patient: Smokes Has 3 or more alcoholic drinks per day Has used the following medications: Vitamin D, Calcium Has the following medical conditions: Inflammatory bowel diseases Patient maximum height was 63.5 Menopause Age: 33 Drinks caffeinated beverages Onset of menses at age 11 Number of children 3 Missed period for more than 6 months in a row Impression: The patient has low bone mass, based on the Right Femoral Neck T-score. The patient has an estimated ten-year risk of hip fracture of 3.2% and an estimated ten-year risk of major fracture of 12%, based on the WHO FRAX algorithm. The patient has risk factors, including: smoking, excessive alcohol use. Discussion: BONE DENSITY IS LOW AT ONE OR MORE SKELETAL SITES. THE PATIENT'S BMD AND CLINICAL RISK FACTORS CONTRIBUTE TO THIS PATIENT'S INCREASED RISK OF FRACTURE. This patient's lowest T-score is low at one or more skeletal sites. It meets the World Health Organization's (WHO) criteria for ?low bone mass? (T-score between -1.0 and -2.5). The patient's 10-year risk of hip fracture as calculated by FRAX exceeds the threshold where pharmacological therapy is recommended by the National Osteoporosis Foundation (NOF). However, all treatment decisions require clinical judgment and consideration of individual patient factors, including patient preferences, comorbidities, previous drug use, risk factors not captured in the FRAX model (e.g., frailty, falls, vitamin D deficiency, increased bone turnover, interval significant decline in bone density) a
== END 2023-05-12 12:46 | disposition home or self-care (01) ==
LOC: ANHIMG 12:48
PROVIDERS: PCP Internal Medicine; Visit Provider Internal Medicine Endocrinology, Diabetes & Metabolism
DX: M85.80 Other specified disorders of bone density and structure, unspecified site (principal); M85.852 Other specified disorders of bone density and structure, left thigh; M85.851 Other specified disorders of bone density and structure, right thigh
CPT/HCPCS: 77080

== ENCOUNTER 2023-09-29 16:55 | Outpatient (CLI) | payer BC, MEDICAID, SELFPAY ==
[2023-09-29 19:03] LABS: Anion Gap 9 mmol/L (4-12); Blood Urea Nitrogen 15 mg/dL (7-17); Calcium 9.6 mg/dL (8.4-10.2); Carbon Dioxide 25 mmol/L (22-30); Chloride 98 mmol/L (98-107); Estimated Glomerular Filt Rate > 60; Glucose 97 mg/dL (65-110); Potassium 3.9 mmol/L (3.4-5.0); Sodium 132 mmol/L (137-145)
== END 2023-09-29 16:56 | disposition home or self-care (01) ==
LOC: ANHLAB 16:57
PROVIDERS: PCP Internal Medicine; Visit Provider Clinical Nurse Specialist
DX: E87.1 Hypo-osmolality and hyponatremia (principal)
CPT/HCPCS: 36415; 80048

== ENCOUNTER 2023-11-13 10:05 | Emergency (ER) | payer BC, MEDICAID, SELFPAY ==
[2023-11-13 10:24] VITALS: BP 184/86; PULSE 76; RESP 16; TEMP 36.6; O2SAT 100
[2023-11-13 10:56] LABS: Basophils Absolute Auto 0.1 K/mm3 (0.0-0.1); Basophils Percent Auto 0.7 % (0.2-1.2); Eosinophils Absolute Auto 0.2 K/mm3 (0-0.3); Hemoglobin 11.7 g/dL (12.0-15.0); Immature Granulocyte Absolute 0.02 K/mm3 (0.00-0.031); Immature Granulocyte Percent A 0.2 % (0-0.5); Lymphocytes Absolute Auto 1.76 K/mm3 (0.9-3.2); Lymphocytes Percent Auto 20.6 % (18.3-44.2); Mean Corpuscular HGB Conc 34.4 g/dl (32-36); Mean Corpuscular Hemoglobin 33.7 pg (26-34); Mean Platelet Volume 9.5 fl (7.4-10.4); Monocytes Absolute Auto 0.7 K/mm3 (0.1-0.6); Monocytes Percent Auto 7.8 % (2.6-8.5); Neutrophils Absolute Auto 5.9 K/mm3 (1.3-6.7); Neutrophils Percent Auto 68.7 % (45.5-73.1); Platelet Count Result 333 k/mm3 (150-375); Red Blood Count 3.47 M/mm3 (4.2-5.4); White Blood Count 8.6 K/mm3 (4.5-10.0)
[2023-11-13 11:09] LABS: Alanine Aminotransferase 15 U/L (6-35); Albumin Level 4.7 g/dL (3.5-5.1); Alkaline Phosphatase 71 U/L (38-126); Anion Gap 10 mmol/L (4-12); Aspartate Amino Transferase 27 U/L (14-36); Bilirubin,Total 0.6 mg/dL (0.2-1.3); Blood Urea Nitrogen 15 mg/dL (7-17); Calcium 9.6 mg/dL (8.4-10.2); Carbon Dioxide 27 mmol/L (22-30); Chloride 93 mmol/L (98-107); Estimated CRCL calculation 52 ml/min; Estimated Glomerular Filt Rate > 60; Glucose 103 mg/dL (65-110); Potassium 4.4 mmol/L (3.4-5.0); Sodium 130 mmol/L (137-145)
[2023-11-13 11:19] LABS: Add Urine Microscopic? NO; Appearance Urine Clear (Clear); Bilirubin Urine Negative (Negative); Blood Urine Negative (Negative); Color Urine Yellow (Yellow); Glucose Urine UA Negative (Negative); Ketones Urine Negative (Negative); Leukocyte Esterase Ur Negative LEU/UL (Negative); Nitrate Urine Negative (Negative); Protein Urine Negative (Negative); Specific Grav Ur 1.005 (1.001-1.035); Urobilinogen Urine 0.2 mg/dL (<2.0)
[2023-11-13] MEDS: SODIUM CHLORIDE 0.9% IV 1,000 ML 999 ML IV CONT (11:34)
[2023-11-13 11:39] LABS: Influenza A QL RT-PCR Negative (Negative); Influenza B QL RT-PCR Negative (Negative); RSV RNA, RT-PCR Negative (Negative); SARS-CoV-2 RNA PCR Negative (Negative)
[2023-11-13 13:07] VITALS: BP 150/88; BP 152/81; PULSE 68; PULSE 74
[2023-11-13 13:08] VITALS: BP 147/87; PULSE 71
--- NOTE | 2023-11-13 13:12 | ED.GENADULT ---
HPI - General Adult General Chief complaint: Recheck/Abnormal Lab/Rx Stated complaint: I have a chronic low sodium problem Time Seen by Provider: 11/13/23 10:27 History of Present Illness HPI narrative: 57-year-old female with history of hyponatremia present to the emergency department for evaluation for intermittent lightheaded dizziness. Patient states this morning she had onset of a headache that was behind her left eye. Patient states symptoms lasted approximately 30 minutes. Patient states her sodium is always below 135. patient states she follows a low-sodium diet order control her blood pressure. Patient states she normally has a blood pressure with a systolic of 150 and is unable to take blood pressure medications. Related Data Allergies Allergy/AdvReac Type Severity Reaction Status Date / Time ampicillin Allergy Unknown Hives Verified 11/13/23 10:05 bupropion Allergy Unknown Hives Verified 11/13/23 10:05 cephalexin Allergy Unknown Hives Verified 11/13/23 10:05 clindamycin Allergy Unknown Anaphylaxis Verified 11/13/23 10:05 codeine Allergy Unknown Swelling Verified 11/13/23 10:05 Penicillins Allergy Unknown Hives Verified 11/13/23 10:05 Sulfa (Sulfonamide Allergy Unknown Hives Verified 11/13/23 10:05 Antibiotics) tetracycline Allergy Unknown Hives Verified 11/13/23 10:05 Tetracyclines Allergy Unknown Hives Verified 11/13/23 10:05 amlodipine AdvReac Intermediate joint pain Verified 11/13/23 10:05 lisinopril AdvReac Intermediate Cough Verified 11/13/23 10:05 losartan AdvReac Intermediate Joint pain Verified 11/13/23 10:05 nitrofurantoin AdvReac Joint Pain Verified 11/13/23 10:05 [From Macrobid] Review of Systems Review of Systems: All systems reviewed & are unremarkable except as noted in HPI and below PMFSH Past Medical History Medical History Acid reflux Adrenal insufficiency Allergies Anxiety Arthritis Bloating Chondromalacia Colitis Colon cancer screening Contusion of knee, left Essential hypertension GERD with esophagitis Heart palpitations History of chronic bronchitis History of open fracture Right patella. Hypertension Hypothyroidism IBS (irritable bowel syndrome) Inflammatory arthritis Lung nodule Microscopic colitis NSAID long-term use Other chronic pain Patellofemoral arthritis of left knee Patellofemoral arthritis of right knee Post-traumatic osteoarthritis of right knee Smoking Tachycardia Thyroid disorder Tobacco abuse Surgical History Surgical History H/O section x 3 1984, 1986, 1990 H/O knee surgery Right knee x 2 History of adenoidectomy History of endometrial ablation History of placement of ear tubes History of tonsillectomy History of tubal ligation [place] teeth removed Family History Family History Father Family history of Parkinson's disease Lewy body dementia Hypertension Mother Family history of lupus erythematosus, Onset Age: 54 Sjogren-Tabatha syndrome Aneurysm Hypothyroidism Grandparent Acute myocardial infarction Family history of cardiac disorder Cervical cancer HIV (human immunodeficiency virus infection) Heart disease Hypertension Rheumatoid arthritis Sibling Diabetes mellitus Hypertension Daughter Sjogren-Tabatha syndrome Rheumatoid arthritis Other Crohn disease Other Family history of arthritis Family history of cardiovascular disease Family history of rheumatoid arthritis Social History Social History Smoking packs per day: 0.5 Smoking cigarettes per day: 10.0 Years smoked: 30 Smoking pack-years: 15.00 Smoking status: Former smoker Tobacco type: cigarettes Alcohol intake: current Drinks per week: 28 Alcohol use details: 3-4 a day. B
--- NOTE | 2023-11-13 13:21 | PC.NURSE ---
Patient ambulating in hallway on cellphone with steady gait.
[2023-11-13 13:30] VITALS: RESP 18; O2SAT 100
[2023-11-13 13:31] VITALS: RESP 18
== END 2023-11-13 13:32 | disposition home or self-care (01) ==
PROVIDERS: Emergency Provider Emergency Medicine; PCP Internal Medicine
DX: G44.009 Cluster headache syndrome, unspecified, not intractable (principal); E87.1 Hypo-osmolality and hyponatremia; Z20.822 Contact with and (suspected) exposure to COVID-19; I10 Essential (primary) hypertension; E27.40 Unspecified adrenocortical insufficiency; E03.9 Hypothyroidism, unspecified; K21.00 Gastro-esophageal reflux disease with esophagitis, without bleeding; K58.9 Irritable bowel syndrome, unspecified; M19.90 Unspecified osteoarthritis, unspecified site; Z87.891 Personal history of nicotine dependence
CPT/HCPCS: 36415; 80053; 81003; 85025; 87637; 96360; 99283; J7030

== ENCOUNTER 2023-12-12 11:23 | Outpatient (CLI) | payer BC, MEDICAID, SELFPAY ==
[2023-12-12 14:30] LABS: Erythrocyte Sedimentation Rate 19 mm/hr (0-20)
[2023-12-12 14:37] LABS: CRP < 0.5 mg/dL (<1.0)
[2023-12-12 14:38] LABS: Rheumatoid Factor < 12.0 IU/ML (<12)
[2023-12-12 15:12] LABS: Parathyroid Intact < 14.5 pg/mL (14.5-75.2)
[2023-12-12 17:10] LABS: Vitamin D 25 Hydroxy 55.8 ng/mL
[2023-12-15 15:33] LABS: ANA Cascade Screen NEGATIVE (NEGATIVE)
== END 2023-12-12 11:24 | disposition home or self-care (01) ==
LOC: ANHGOSHLAB 11:25
PROVIDERS: Internal Medicine Endocrinology, Diabetes & Metabolism; PCP Internal Medicine; Visit Provider Clinical Nurse Specialist
DX: M19.90 Unspecified osteoarthritis, unspecified site (principal); E03.9 Hypothyroidism, unspecified; E87.1 Hypo-osmolality and hyponatremia; M85.80 Other specified disorders of bone density and structure, unspecified site; R79.89 Other specified abnormal findings of blood chemistry; Z91.89 Other specified personal risk factors, not elsewhere classified; G62.9 Polyneuropathy, unspecified
CPT/HCPCS: 36415; 82306; 83970; 85652; 86038; 86140; 86225; 86235; 86364; 86430

== ENCOUNTER 2024-01-08 12:40 | Outpatient (CLI) | payer BC, MEDICAID, SELFPAY ==
--- NOTE | ~2024-01-08 | MR_ITS ---
Procedure: MR lumbar spine wo con Ordering provider: MILES Ahuja History: . M54.16 - Radiculopathy, lumbar region . Comparison: July 31, 2022---* Technique: MRI thoracic spine without contrast. FINDINGS: SPINAL CORD: Normal. The cord ends at the level of L1. VERTEBRAL BODIES: Normal height and alignment. No compression fracture. Normal marrow signal. Endplat e changes are seen at the level of L1-L2. DISK SPACES: Narrowing at the levels of T11-T12, L1-L2, L2-L3, L4-L5 and L5-S1. T12-L1: No spinal canal stenosis. Thickening of the ligamenta flava. L1-L2: No spinal canal stenosis. L2-L3: No spinal canal stenosis. Thickening of the Ligamenta flava. L3-L4: moderate spinal canal stenosis. Mild diffuse disc bulge with thickening of the ligamenta flava . L4-L5: Severe spinal canal stenosis. Diffuse disc bulge with thickening of the ligamenta flava. Bilat eral narrowing of the foramina with root compression. L5-S1: Moderate spinal canal stenosis. Central disc protrusion. Bilateral nerve root compression the foramina. PARASPINOUS SOFT TISSUES: Normal. IMPRESSION: No compression fracture Multilevel degenerative disc disease with variable degrees of spinal canal stenosis, intervertebral f oraminal narrowing and with nerve root compression. No significant change from previous examination. Reviewed, dictated and finalized at location A. IMPRESSION: No compression fracture Multilevel degenerative disc disease with variable degrees of spinal canal sten osis, intervertebral foraminal narrowing and with nerve root compression. No significant change from previous examination.
--- NOTE | ~2024-01-08 | MR_ITS ---
EXAMINATION: MR cervical spine wo con DATE: 01/08/2024 13:22 INDICATION: Cervical radiculopathy. TECHNIQUE: Magnetic resonance imaging (MRI) of the cervical spine was performed without intravenous c ontrast. COMPARISON: Cervical spine MRI 04/13/2022 FINDINGS: There is 2 mm anterolisthesis of C3 on C4 and C4 on C5. Vertebral body heights are normal. There is severely decreased disc height at C5-C6, C6-C7, and C7 on T1. The spinal cord signal intensi ty is normal. The following disc levels are specifically discussed: C2-C3: The disc does not extend beyond the endplate margin. There is no uncovertebral joint osteoarth ritis. There is severe right and mild left facet joint osteoarthritis. There is mild right neural for aminal stenosis. There is no central canal stenosis. C3-C4: The disc is bulging. There is moderate right and severe left uncovertebral joint osteoarthriti s. There is moderate right and severe left facet joint osteoarthritis. There is moderate bilateral ne ural foraminal stenosis. There is mild central canal stenosis. C4-C5: There is a central extrusion. There is mild bilateral uncovertebral joint osteoarthritis. Ther e is severe right and mild left facet joint osteoarthritis. There is mild right neural foraminal sten osis. There is mild central canal stenosis. C5-C6: The disc is bulging. There is moderate right and severe left uncovertebral joint osteoarthriti s. There is severe right and moderate left facet joint osteoarthritis. There is moderate left neural foraminal stenosis. There is mild central canal stenosis. C6-C7: The disc is bulging. There is severe bilateral uncovertebral joint osteoarthritis. There is mi ld right and severe left facet joint osteoarthritis. There is mild right and moderate left neural for aminal stenosis. There is mild central canal stenosis. C7-T1: The disc is bulging. There is severe bilateral uncovertebral joint osteoarthritis. There is se good bilateral facet joint osteoarthritis. There is moderate right and mild left neural foraminal amanda nosis. There is mild central canal stenosis. IMPRESSION: 1. Severe cervical spondylosis, stable from 04/13/2022. Reviewed, dictated and finalized at location A.
== END 2024-01-08 12:41 | disposition home or self-care (01) ==
LOC: MICIMG 12:41
PROVIDERS: PCP Internal Medicine; Visit Provider Clinical Nurse Specialist
DX: M47.22 Other spondylosis with radiculopathy, cervical region (principal); M51.369 Other intervertebral disc degeneration, lumbar region without mention of lumbar back pain or lower extremity pain
CPT/HCPCS: 72141; 72148

== ENCOUNTER 2024-01-16 16:14 | Outpatient (CLI) | payer BC, MEDICAID, SELFPAY ==
[2024-01-16 16:38] LABS: Albumin Level 4.5 g/dL (3.5-5.1); Anion Gap 8 mmol/L (4-12); Blood Urea Nitrogen 17 mg/dL (7-17); Calcium 9.5 mg/dL (8.4-10.2); Carbon Dioxide 26 mmol/L (22-30); Chloride 98 mmol/L (98-107); Estimated Glomerular Filt Rate 46; Glucose 94 mg/dL (65-110); Phosphorus 4.8 mg/dL (2.5-4.5); Potassium 4.2 mmol/L (3.4-5.0); Sodium 132 mmol/L (137-145)
[2024-01-16 16:49] LABS: Parathyroid Intact 18.2 pg/mL (14.5-75.2)
[2024-01-19 09:59] LABS: Ionized Calcium 5.1 mg/dL (4.7-5.5)
== END 2024-01-16 16:15 | disposition home or self-care (01) ==
LOC: ANHLAB 16:16
PROVIDERS: PCP Internal Medicine; Visit Provider Internal Medicine Endocrinology, Diabetes & Metabolism
DX: R79.89 Other specified abnormal findings of blood chemistry (principal)
CPT/HCPCS: 36415; 80069; 82330; 83970

== ENCOUNTER 2024-04-02 13:28 | Outpatient (CLI) | payer OTHER, MEDICAID, SELFPAY ==
[2024-04-02 17:48] LABS: Basophils Absolute Auto 0.1 K/mm3 (0.0-0.1); Basophils Percent Auto 1.2 % (0.2-1.2); Eosinophils Absolute Auto 0.2 K/mm3 (0-0.3); Eosinophils Percent Auto 1.7 % (0-4.4); Hematocrit 32.7 % (37.0-47.0); Hemoglobin 10.7 g/dL (12.0-15.0); Immature Granulocyte Absolute 0.02 K/mm3 (0.00-0.031); Immature Granulocyte Percent A 0.2 % (0-0.5); Immature Reticulocyte Fraction 11.8 % (3.0-15.9); Lymphocytes Absolute Auto 2.64 K/mm3 (0.9-3.2); Lymphocytes Percent Auto 27.1 % (18.3-44.2); Mean Corpuscular HGB Conc 32.7 g/dl (32-36); Mean Corpuscular Hemoglobin 32.1 pg (26-34); Mean Corpuscular Volume 98.2 fl (80-100); Mean Platelet Volume 10.6 fl (7.4-10.4); Monocytes Absolute Auto 0.7 K/mm3 (0.1-0.6); Monocytes Percent Auto 6.7 % (2.6-8.5); Neutrophils Absolute Auto 6.1 K/mm3 (1.3-6.7); Neutrophils Percent Auto 63.1 % (45.5-73.1); Platelet Count Result 283 k/mm3 (150-375); Red Blood Count 3.33 M/mm3 (4.2-5.4); Red Cell Distribution Width 12.4 % (11.5-14.5); Reticulocyte Hemoglobin Conten 36.7 pg (28.2-36.6); Reticulocyte Percent 1.15 % (0.7-4.3); Reticulocytes Absolute 0.04 10^6/uL (0.02-0.10); White Blood Count 9.7 K/mm3 (4.5-10.0)
[2024-04-02 18:53] LABS: Iron 104 ug/dL (37-170)
[2024-04-02 19:03] LABS: Percent Iron Saturation 30 % (20-50)
[2024-04-02 20:00] LABS: Folic Acid 14.8 ng/mL (2.76->20)
[2024-04-05 10:03] LABS: Anion Gap 11 mmol/L (4-12); Blood Urea Nitrogen 13 mg/dL (7-17); Calcium 9.6 mg/dL (8.4-10.2); Carbon Dioxide 23 mmol/L (22-30); Chloride 101 mmol/L (98-107); Estimated Glomerular Filt Rate 53; Glucose 112 mg/dL (65-110); Potassium 4.5 mmol/L (3.4-5.0); Sodium 135 mmol/L (137-145)
--- OUTSIDE RECORDS SUMMARY | 2024-04-08 06:57 | XMS_ITS | Data Portability ---
Author Organization DIANNA Milli [facility]AEFFER Address [address] [place] [address] Assessment No assessment recorded. Plan of Treatment Reminders Order Date Submit Date Provider Last Modified By Organization Details Last Modified Time Details Appointments None recorded. Lab TSH + free T4, serum 2015 016 [facility], [address] [place] [address], [id number], 6 04:30:57 Referral None recorded. Procedures None recorded. Surgeries None recorded. Imaging None recorded. Medication Orders naproxen 500 mg tablet 2015 016 [facility] [place], [address], 6 04:31:12 Patient TargetsNo targets recorded. Patient InstructionsNo instructions recorded. Reason for Referral None Reported. Results Created Date Observation Date Name Description Value Unit Range Abnormal Flag Note LastModifiedBy Organization Detail LastModifiedTime 01/17/20 16 01/18/2016 TSH + free T4, serum TSH 0.510 uIU/m L 0.450- 4.500 Not Available [facility] ([facility]) [address] [place], [address], 01/18/2016 06:12:42 01/17/20 16 01/18/2016 TSH + free T4, serum T4,free(dire ct) 1.64 NG/dL 0.82-1 .77 Not Available [facility] ([facility]) [address] [place], [address], 01/18/2016 06:12:42 01/17/20 16 01/17/2016 nayeli javier note please note COMMEN T THE DATE AND/O R TIME OF COLLE CTION WAS NOT INDIC ATED ON THE REQUI SITIO N REQUI RED BY STATE AND [place] LAW. THE DATE OF RECEI PT OF THE SPECI MEN WAS USED THE COLLE CTION DATE IF NOT SUPPL IED. Not Available [facility] ([facility]) [address] [facility], [place], [address], 01/18/2016 06:12:42 01/12/20 16 01/07/2016 XR, chest , 2 view No observ ation record ed. [email or web address] Not Available 2015 16:31:43 Result Notes None recorded. Problems Name Problem SNOMED Code Status Onset Date Resolution Date Notes Provider Name and Address Organization Details Recorded Time Crohn's disease of large bowel 8558856 Active 2011 Location : None;Sev erity: Moderate ;Progres s: Stable;A dded By: Brennen Beaver;Add to Current Problems : NO Not Available [facility] 7 08:03:24 Allergic rhinitis caused by pollen 15710736 Completed 201110/24/2011 Location : None;Sev erity: Moderate ;Progres s: Stable;A dded By: Brennen Beaver;Add to Current Problems : NO Not Available [facility] 7 08:03:24 Displace ment of lumbar interver tebral disc without myelopat hy 95565321 Active 2011 Location : None;Sev erity: Moderate ;Progres s: Stable;A dded By: Brennen Beaver;Add to Current Problems : NO [facility] Available [facility] 7 08:03:24 Acute upper respirat ory infectio n of multiple sites Completed 201507/27/2015 Location : None;Sev erity: Moderate ;Progres s: Stable;A dded By: Sandhya Kaur;Add to Current Problems : YES Not Available [facility] 7 08:03:24 Eruption [id number] Completed 201111/15/2011 Location : None;Sev erity: Moderate ;Progres s: Stable;A dded By: Sydney Knight;Add to Current Problems : NO Not Available [facility] 7 08:03:24 Contact dermatit is 79026340 Completed 201111/15/2011 Location : None;Sev erity: Moderate ;Progres s: Stable;A dded By: Sydney Knight;Add to Current Problems : NO Not Available [facility] 7 08:03:24 Elevated blood-pr essure reading without diagnosi s of hyperten oanh 122761934 Completed 201309/11/2013 Location : None;Sev erity: Moderate ;Progres s: Stable;A dded By: Sydney Knight;Add to Current Problems : NO Not Available [facility] 7 08:03:24 Anal fissure [id number] Completed 201112/27/2011 Location : None;Sev erity: Moderate ;Progres s: Stable;A dded By: Brennen Beaver;Add to Current Problems : NO Not Available [facility] 7 08:03:25 Acute upper respirat ory infectio n 29398429 Completed 201212/26/2012 Location : None;Sev erity: Moderate ;Progres s: Stable;A dded By: Brennen Beaver;Add to Current Problems : NO Not Available [facility] 7 08:03:25 Palpitat ions 05776530 Completed 201212/26/2012 Location : None;Sev erity: Moderate ;Progres s: Stable;A dded By: Brennen Beaver;Add to Current Problems : NO Not Available [facility] 7 08:03:25 Screenin g for malignan t neoplasm of colon Active 2014 Location : None;Sev erity: Moderate ;Progres s: Stable;A dded By: Brennen Beaver;Add to Current Problems : YES Not Available [facility] 7 08:03:25 Viral screenin g Completed 201407/31/2014 Location : None;Sev erity: Moderate ;Progres s: Stable;A dded By: Brennen Beaver;Add to Current Problems : YES Not Available [facility] 7 08:03:25 Hypothyr oidism 67691872 Active 2015 Location : None;Sev erity: Moderate ;Progres s: Stable;A dded By: Brennen Beaver;Add to Current Problems : YES Not Available [facility] 7 08:03:25 Tobacco dependen ce syndrome 75779586 Completed 201508/25/2015 Location : None;Sev erity: Moderate ;Progres s: Stable;A dded By: Brennen Beaver;Add to Current Problems : YES Not Available [facility] 7 08:03:25 Cough 51865699 Completed 201508/25/2015 Location : None;Sev erity: Moderate ;Progres s: Stable;A dded By: Brennen Beaver;Add to Current Problems : YES Not Available [facility] 7 08:03:25 Precordi al pain 76870561 Completed 201508/25/2015 Location : None;Sev erity: Moderate ;Progres s: Stable;A dded By: Brennen Beaver;Add to Current Problems : YES Not Available [facility] 7 08:03:25 Acute frontal sinusiti s 22188232 Completed 201508/25/2015 Location : None;Sev erity: Moderate ;Progres s: Stable;A dded By: Brennen Beaver;Add to Current Problems : YES Not Available [facility] 7 08:03:25 Precordi al pain [id number] Completed 201212/26/2012 Location : None;Sev erity: Moderate ;Progres s: Stable;A dded By: Hillary Seth; Add to Current Problems : NO Not Available [facility] 7 08:03:26 Benign essentia l hyperten oanh 5856072 Active 2015 Location : None;Sev erity: Moderate ;Progres s: Stable;A dded By: Trina Torres i;Otto dd to Current Problems : NO Not Available [facility] 7 08:03:26 Multiple joint pain 63559763 Active 2011 Location : None;Sev erity: Moderate ;Progres s: Stable;A dded By: Trina Torres i;A dd to Current Problems : YES Not Available [facility] 7 08:03:26 Chronic ulcerati ve enteroco litis 38997308 Active 2011 Location : None;Sev erity: Moderate ;Progres s: Stable;A dded By: Karma Palencia;Add to Current Problems : NO Not Available [facility] 7 08:03:26 Hypo-osm olality and or hyponatr emia 547696902 Completed 201410/28/2014 Location : None;Sev erity: Moderate ;Progres s: Stable;A dded By: Karma Palencia;Add to Current Problems : YES Not Available [facility] 7 08:03:26 Pain in thoracic spine 071043985 Completed 201411/06/2014 Location : None;Sev erity: Moderate ;Progres s: Stable;A dded By: Karma Palencia;Add to Current Problems : YES Not Available [facility] 7 08:03:26 Tobacco dependen ce syndrome 34845034 Completed 201411/06/2014 Location : None;Sev erity: Moderate ;Progres s: Stable;A dded By: Karma Palencia;Add to Current Problems : YES Not Available [facility] 7 08:03:26 Essentia l hyperten oanh 43839899 Active 2014 Location : None;Sev erity: Moderate ;Progres s: Stable;A dded By: Karma Palencia;Add to Current Problems : YES Not Available [facility] 7 08:03:26 Gastroes ophageal reflux disease 703832076 Active 2011 Location : None;Sev erity: Moderate ;Progres s: Stable;A dded By: Karma Palencia;Add to Current Problems : YES Not Available [facility] 7 08:03:26 Dysuria 82882471 Completed 201206/26/2012 Location : None;Sev erity: Moderate ;Progres s: Stable;A dded By: Sandhya Gaming;Add to Current Problems : NO Not Available [facility] 7 08:03:27 Elevated blood-pr essure reading without diagnosi s of hyperten oanh 957085411 Active 2012 Location : None;Sev erity: Moderate ;Progres s: Stable;A dded By: Sandhya Gaming;Add to Current Problems : NO Not Available [facility] 7 08:03:27 Ra hematuri a 783952657 Active 2012 Location : None;Sev erity: Moderate ;Progres s: Stable;A dded By: Nabila Salmeron;Add to Current Problems : NO Not Available [facility] 7 08:03:27 Knee pain Completed 201211/09/2012 Location : None;Sev erity: Moderate ;Progres s: Stable;A dded By: Nabila Salmeron;Add to Current Problems : NO Not Available [facility] 7 08:03:27 Problem Notes None recorded. Procedures Surgical History Date Name Laterality Status Provider Name and Address Organization Details Recorded Time Knee Surgery completed [place] - [facility] 01/17/2016 11:29:04 Tubal Ligation completed [place] [facility] [place] 01/17/2016 11:29:25 delivery completed [place] - [facility] 01/17/2016 11:29:33 Imaging Results Imaging Date Name Status LastModified by Organiz ation Details LastModified Time 01/07/2016 XR, chest, 2 view completed [email or web address] Information not available 01/12/2016 16:31:43 Procedure Notes None recorded. Medical Equipment None Reported. Allergies Allergen ID Allergen Name Allergen Category Reaction Reaction Severity Criticality Documentation Date Start Date Code Code System Note Provider Name and Address Organization Details Recorded Time [id number] 2824e cephalexi n monohydra te medicatio n Not available Not available Not available 03/20/20162011 24120 8 RxNorm Sever ity: Moder ate; Comme nt: Aller gy Type: Aller gy; Not Available Not Available Not Available [id number] [id number] 2824e tetracycl ine hydrochlo ride medicatio n Not available Not available Not available 03/20/20162011 07713 6 RxNorm Sever ity: Moder ate; Comme nt: Aller gy Type: Aller gy; Not Available Not Available Not Available [id number] [id number] 2824e Feldene medicatio n Not available Not available Not available 03/20/20162011 93475 8 RxNorm Sever ity: Moder ate; Comme nt: Aller gy Type: Aller gy; Not Available Not Available Not Available [id number] 076914835 [id number] 2824e Wellbutri n medicatio n Not available Not available Not available 03/20/20162011 44490 RxNorm Sever ity: Moder ate; Comme nt: Aller gy Type: Aller gy; Not Available Not Available Not Available [id number] [id number] [id number] 2824e Effexor medicatio n Not available Not available Not available 03/20/20162011 66072 2 RxNorm Sever ity: Moder ate; Comme nt: Aller gy Type: Adver se React ion; Not Available Not Available Not Available [id number] [id number] 2824e clindamyc in hydrochlo ride medicatio n Not available Not available Not available 03/20/20162011 72739 RxNorm Sever ity: Moder ate; Comme nt: Aller gy Type: Aller gy; Not Available Not Available Not Available [id number] 078913204 [id number] 2824e iodine medicatio n Not available Not available Not available 03/20/20162011 5933 RxNorm Sever ity: Moder ate; Comme nt: Aller gy Type: Aller gy; Not Available Not Available Not Available [id number] 7667585m4 2824e Product containin g penicilli n and antibioti c (product) medicatio n Not available Not available Not available 03/20/20162012 26221 05 SNOMED Sever ity: Moder ate; Comme nt: Aller gy Type: Aller gy; Not Available Not Available Not Available [id number] lisinopri l medicatio n cough rash moderate moderate Not available 03/20/20162014 75313 RxNorm React ion: cough ;Gen[place] rity: Moder ate; Comme nt: Aller gy Type: Adver se React ion; Not Available Not Available Not Available [id number] 2824e Norvasc medicatio n Not available Not available Not available 03/20/20162014 67813 RxNorm React ion: nause a, vomit ing;S everi ty: Moder ate; Comme nt: Aller gy Type: Aller gy; Not Available Not Available Not Available [id number] [id number] 2824e ampicilli n trihydrat e medicatio n Not available Not available Not available 03/20/20162011 32786 5 RxNorm Sever ity: Moder ate; Comme nt: Aller gy Type: Aller gy; Not Available Not Available Not Available Medications Name Sig Start Date Stop Date Status Note LastModified by Organization Details LastModified Time hydrochlo rothiazid e 50 mg tablet Take 1 tablet(s ) by mouth daily 09/01 completed RxNorm: 909402;A llow Substitu tion: True Not Available Not Available Not Available ranitidin e 300 mg tablet TAKE ONE TABLET BY MOUTH TWICE DAILY 2015 active Not Available Not Available Not Avai lable lisinopri l 20 mg tablet ONE DAILY 10/27 completed RxNorm: 876520;A llow Substitu tion: True Not Available Not Available Not Available Synthroid 125 mcg tablet Take 1 tablet(s ) by mouth daily 01/01 completed Allow Substitu tion: True Not Available Not Available Not Available Nifedical XL 30 mg tablet,ex tended release Take 1 tablet every day by oral route. active Not Available Not Available No t Available Zithromax Z-Luis 250 mg tablet Take 2 tablet(s ) by mouth on day 1 then 1 tablet every day for the next 4 days. 09/23 completed Allow Substitu tion: True Not Available Not Available Not Available Diflucan 150 mg tablet Take 1 tablet(s ) by mouth once 07/25 completed RxNorm: 244800;A llow Substitu tion: True Not Available Not Available Not Available nifedipin e ER 30 mg tablet,ex tended release TAKE ONE TABLET BY MOUTH ONCE DAILY 2017 active Routine appt and ok Not Available Not Available Not Available amlodipin e 5 mg tablet Take 1 tablet(s ) by mouth daily 09/07 completed RxNorm: 992993;A llow Substitu tion: True Not Available Not Available Not Available omeprazol e 40 mg capsule,d elayed release TAKE ONE CAPSULE BY MOUTH ONCE DAILY 2016 active Appt within 3 mos Not Available Not Available Not Available meloxicam 7.5 mg tablet Take 1 tab twice daily 10/09 completed RxNorm: 895058;A llow Substitu tion: True Not Available Not Available Not Available levothyro xine 100 mcg tablet TAKE ONE TABLET BY MOUTH ONCE DAILY IN THE MORNING ON AN EMPTY STOMACH. 2016 active Appt in 6 mos Not Available Not Available Not Available Cipro 500 mg tablet Take 1 tablet(s ) by mouth q12h for 7 days 07/02 completed RxNorm: 698660;A llow Substitu tion: True Not Available Not Available Not Available ranitidin e 300 mg capsule Take 1 capsule every day by oral route. active Not Available Not Available No t Available lisinopri l 10 mg tablet Take 1 tab daily 09/22 completed RxNorm: 176557;A llow Substitu tion: True Not Available Not Available Not Available ibuprofen 400 mg tablet Take bid 2012 active RxNorm: 755904;A llow Substitu tion: True Not Available Not Available Not Available hydrochlo rothiazid e 12.5 mg capsule Take 1 capsule( s) by mouth daily 09/08 completed RxNorm: 956177;A llow Substitu tion: True Not Available Not Available Not Available hydrochlo rothiazid e 25 mg tablet one po daily 06/01 completed RxNorm: 930079;A llow Substitu tion: True Not Available Not Available Not Available fluticaso ne propionat e 50 mcg/actua tion nasal spray,rosa pension 2 spray(s) in each nostril daily 2015 active RxNorm: 047447;A llow Substitu tion: True Not Available Not Available Not Available naproxen 500 mg tablet Take 1 tablet twice a day by oral route. 2015 active Not Available Not Available Not Avai lable levothyro xine 112 mcg tablet Take 1 tablet(s ) by mouth daily 11/26 completed RxNorm: 797357;A llow Substitu tion: True Not Available Not Available Not Available Cozaar 50 mg tablet Take 1 tablet(s ) by mouth daily 04/24 completed RxNorm: 771167;A llow Substitu tion: True Not Available Not Available Not Available cyclobenz aprine 5 mg tablet TAKE ONE TABLET BY MOUTH ONCE DAILY AT BEDTIME NEEDED 2015 active Not Available Not Available Not Avai lable Zyrtec 10 mg chewable tablet I tab daily prn 10/09 completed RxNorm: 219961;A llow Substitu tion: True Not Available Not Available Not Available Pentasa 500 mg capsule,c ontrolled release Take 2 capsule( s) by mouth qid 06/01 completed RxNorm: 681240;A llow Substitu tion: True Not Available Not Available Not Available levothyro xine 125 mcg capsule Take 1 capsule( s) by mouth daily before breakfas t. 11/26 completed Allow Substitu tion: True Not Available Not Available Not Available levothyro xine 112 mcg capsule Take 1 capsule( s) by mouth daily before breakfas t. 11/23 completed Allow Substitu tion: True Not Available Not Available Not Available levothyro xine 100 mcg capsule Take 1 capsule every day by oral route. active Not Available Not Available No t Available Vitals Date Recorded Body weight Provider Name an d Address Organization Details Last Updated DateTime 01/17/2016 70702.79 [facility] 11:32:33 Date Recorded Body height Body mass index (BMI) Provider Name and Address Organization Details Last Updated DateTime 01/17/2016 162.56 cm 24.6 kg/m2 [facility] 11:32:45 Date Recorded Heart rate Provider Name an d Address Organization Details Last Updated DateTime 01/17/2016 104 /min [facility] 01/17/2016 11:33:29 Date Recorded Systolic blood pressure Diastolic blood pressure Provider Name and Address Organization Details Last Updated DateTime 01/17/2016 130 mm[Hg] 80 mm[Hg] [facility] 11:33:24 Social History None recorded. Functional Status None recorded. Mental Status None recorded. Family History Relationship Description Onset Age of this Age Resolved Age Notes LastModified by Organization Details LastModified Time Brother Hypertensive disorder hreedma Not available 2015 11:30:17 Father Hypertensive disorder hreedma Not available 2015 11:30:17 Medical History Condition Response Acid Reflux (GERD) Y High Blood Pressure Y Thyroid Problems Y Gynecological HistoryNo gynecological history recorded. Obstetrics History GPAL:G 0 P 0 0 0 0 Immunizations Vaccine Type Date Status Note Provider Nam e and Address Organization Details Recorded Time Td (adult), 2 Lf tetanus toxoid, preservative free, adsorbed 2 completed Not Available [facility] 03/20/2016 05:55:53 Influenza, split virus, trivalent, preservative 8 completed Not Available [facility] 03/20/2016 05:55:53 Past Encounters Encounter ID Performer Location Encounter Start Date Encounter Closed Date Diagnosis/Indication Diagnosis SNOMED-CT Code Diagnosis ICD10 Code Diagnosis [id number] [facility] [address] [place]AN[place] ORTIZ [id number] 01/17/2016 11:20:52 01/22/2016 16:36:42 Hypothyroidism 82909157 E03.9 Chronic back pain 127731 002 M54.9 Health Concerns Section Related Observation LastModified by Organization Detai ls LastModified Time None Recorded Concern Status LastModified by Organization Details LastModified Time None Recorded Advance Directives Directive None Recorded Payers Encounter Date Sequence Insurance Name Policy Number Policy Heart Covered Member ID Heart Member ID Guarantor Name 01/17/2016 1 [employer] - DOS PRIOR TO 20 - [facility] [employer] [id number] [id number] Notes Date Note Type Note Provider Name and Address Organization Details Recorded Time 01/17/2016 text/html Hypertension F/UReported bypatient.Associat ed Symptoms:no dizziness; no lightheadedness; no chest pain; no shortness of breath; no palpitations; no edema; no calf pain with exertion Lifestyle:regular exercise; limiting/avoiding salt Medications:taking medications as directed; no side effects from medicationNotes:We nt to ER twice, cardiac enzymes and CXR clear. CMP and CBC normal, second xray clear. Urinalysis normal. Pain was bilateral thoracic paraspinal muscles. Taking 3 otc naproxyn QHS and 2 in AM. Takes it with omeprazole and ranitidine DIANNA Calderon - [facility] [place] 01/17/2016 12:22:22 OBGyn Episode No OBEpisode recorded.
== END 2024-04-02 13:29 | disposition home or self-care (01) ==
LOC: ANHGOSHLAB 13:30
PROVIDERS: PCP Internal Medicine; Visit Provider Clinical Nurse Specialist
DX: R74.8 Abnormal levels of other serum enzymes (principal); D64.9 Anemia, unspecified; E87.5 Hyperkalemia
CPT/HCPCS: 36415; 80048; 82607; 82728; 82746; 83540; 83550; 85025; 85046

== ENCOUNTER 2024-04-16 13:44 | Outpatient (CLI) | payer OTHER, MEDICAID, SELFPAY ==
--- NOTE | ~2024-04-16 | CT_ITS ---
EXAMINATION:CT lung screening DATE: 04/16/2024 14:15 INDICATION: Personal history of nicotine dependence. Smoker who quit 1 year ago with 33 pack year his tory. TECHNIQUE: Computed tomography (CT) of the chest was performed without intravenous contrast. Automate d exposure control and iterative reconstruction technique were employed. The dose-length product (DLP ) was 56.33 mGy-cm. COMPARISON: Chest CT 12/19/2019 FINDINGS: There is mild emphysema. There are a few 1-2 mm nodules in the lungs. There is minimal atel ectasis on the right. No pleural effusion. The heart size is normal. There are coronary artery calcif ications. No pericardial effusion. There is severe cervical and thoracic spondylosis. IMPRESSION: 1. Lung-RADS category 2: Benign appearance or behavior. Continue annual screening with noncontrast lo w-dose chest CT in 12 months. Reviewed, dictated and finalized at location A. [facility] IMPRESSION: 1. Lung-RADS category 2: Benign appearance or behavior. Continue annual screeni ng with noncontrast low-dose chest CT in 12 months.
--- OUTSIDE RECORDS SUMMARY | 2024-04-16 13:55 | XMS_ITS | Data Portability ---
Author Organization [facility] Address [address] [place] [address] Care Team Providers Care [employer]ed [employer] Boards Pinner Name Role Phone OSIRIS RAMIREZSEY Primary Care Provider Assessment No assessment recorded. Plan of Treatment Reminders Order Date Submit Date Provider Last Modified By Organization Details Last Modified Time Details Appointments None recorded. Lab None recorded. Referral None recorded. Procedures None recorded. Surgeries None recorded. Imaging None recorded. Medication Orders Imvexxy Maintenance Pack 10 mcg vaginal insert 2023 024 [id number], [address], [place], [place], [id number], 4 16:16:34 Patient TargetsNo targets recorded. Patient InstructionsNo instructions recorded. Reason for Referral None Reported. Results Created Date Observation Date Name Description Value Unit Range Abnormal Flag Note LastModifiedBy Organization Detail LastModifiedTime 07/18/19 24 07/18/2023 IMAGE GUIDE D PAP AND HPV REGAR DLESS image guided Pap, HPV regardless of Pap result SEE RESULT S BELOW abnormal CASE REPOR T: Cytol ogy Gynec ologi kelly Repor t Case: [id number] [place] g Provi oniel: Oziel Marie MD Colle cted: 07/17 1524 Order ing Locat ion: [place] [facility] Recei melody: 07/20 0752 First Scree n: [place] [facility] Patho logis t: Adeel souza , Melissa Bergeron MD Speci men: Rita ying Pap - Image d, Cervi x STATE MENT OF ADEQU ACY: Satis facto ry for evalu ation Trans forma tion zone compo nent absen t ----- ----- ----- ----- ----- ----- ----- ----- ----- ----- ----- ----- ----- ----- ----- ----- ----- ---- FINAL DIAGN OSIS: Epith elial Cell Abnor malit y, Squam ous Cell: Atypi kelly Squam ous Cells of Undet ermin ed Cara tanner (ASC- [place]). Elect antonina andersen by Melissa Palma MD on 024 at 1:29 PM ----- ----- ----- ----- ----- ----- ----- ----- ----- ----- ----- ----- ----- ----- ----- ----- ----- ---- HPV RESUL TS: HPV mRNA E6/E7 : No HPV mRNA Detec mandy NOTE: This high risk HPV mRNA assay detec ts fourt een high- risk HPV types (16, 18, 31, 33, 35, 39, 45, 51, 52, 56, 58, 59, 66, 68) witho ut diffe renti ation . COMME NT: This speci men was revie wed by a Cytot echno logis t and/o r Patho logis t (as indic ated in this repor t) after evalu ation using the Thinp rep Imagi ng Syste m. CLINI KELLY INFOR MATIO N: Menst rual Statu s: LMP (if appli cable ): Clini kelly Histo ry/Pr eviou s Pap: Type of Neopl sandoval (if appli cable ): Cara marie Clini kelly Findi ngs: Other Histo ry: Hormo chloe (if appli cable ): SUGGE STED FOLLO W-UP: Follo w up as warra nted, based on curre nt guide lines and indiv idual patie nt consi derat ions. Not Available [facility] (Lab) [address], [place], [address], 07/23/2023 14:32:52 07/18/19 24 07/18/2023 TRICH OMONA S VAGIN FATOUMATA (RRNA ) trichomonas vaginalis ribosomal RNA (rrna) Negati ve negati ve Not Available [facility] (Lab) [address], [place], [address], 07/23/2023 14:32:53 07/18/19 24 07/18/2023 CT/GC (ANUPAM) , THINP REP VIAL chlamydia trachomatis, PCR Negati ve negati ve Not Available [facility] (Lab) [address], [place], [address], 07/23/2023 14:32:54 07/18/19 24 07/18/2023 CT/GC (ANUPAM) , THINP REP VIAL neisseria gonorrhoeae, PCR Negati ve negati ve Not Available [facility] (Lab) [address], [place], [address], 07/23/2023 14:32:54 Result Notes None recorded. Procedures Surgical History Date Name Laterality Status Provider Name and Address Organization Details Recorded Time 4 Date of Last Mammogram completed [facility] 07/18/2023 12:06:52 4 Most Recent Bone Density completed [facility] 07/18/2023 12:06:52 3 completed [facility] 07/18/2023 12:06:52 3 Date of Last Colonoscopy completed [facility] 07/18/2023 12:06:52 2 Date of Last Pap Smear completed [facility] 07/18/2023 12:06:52 5 Caesarean Section completed [facility] 07/18/2023 12:07:20 Colposcopy completed [facility] 07/18/2023 12:07:20 tonsilectomy/ad enoids completed [facility] 07/18/2023 12:07:20 Imaging Results None recorded. Procedure Notes None recorded. Medical Equipment None Reported. Allergies Allergen ID Allergen Name Allergen Category Reaction Reaction Severity Criticality Documentation Date Start Date Code Code System Note Provider Name and Address Organization Details Recorded Time 22232 ampicilli n medicatio n rash Not available Not available 07/18/2023 733 RxNorm Augustina Swayne [facility] 4 12:05:54 44364 cephalexi n medicatio n rash Not available Not available 07/18/2023 2231 RxNorm Augustina Swayne [facility] 4 12:05:54 72985 nitrofura ntoin medicatio n anaphylax is Not available Not available 07/18/2023 7454 RxNorm Augustina Swayne [facility] 4 12:05:54 03519 Bactrim medicatio n rash Not available Not available 07/18/2023 13332 9 RxNorm Augustina Swayne [facility] 4 12:05:54 20409 Macrobid medicatio n anaphylax is Not available Not available 07/18/2023 59882 1 RxNorm Augustina Swayne [facility] 4 12:07:42 Medications Name Sig Start Date Stop Date Status Note LastModified by Organization Details LastModified Time cyclobenzap rine 10 mg tablet TAKE 1 TABLET BY MOUTH AT BEDTIME NEEDED 07/17 completed Not Available Not Available Not Available sulfasalazi ne 500 mg tablet TAKE 1/2 A TABLET EVERY 6 HOURS WITH FOOD 07/17 completed Not Available Not Available Not Available azithromyci n 250 mg tablet TAKE 2 TABLETS BY MOUTH TODAY, THEN TAKE 1 TABLET DAILY FOR 4 DAYS DIRECTED 07/17 completed Not Available Not Available Not Available amlodipine 5 mg tablet TAKE 1 TABLET (5 MG TOTAL) BY MOUTH DAILY. 07/17 completed Not Available Not Available Not Available omeprazole 40 mg capsule,del ayed release TAKE 1 CAPSULE BY MOUTH EVERY DAY active Not Available Not Available No t Available levothyroxi ne 88 mcg tablet TAKE 1 TABLET BY MOUTH ONCE DAILY active Not Available Not Available No t Available diclofenac sodium 75 mg tablet,celina yed release TAKE 1 TABLET BY MOUTH TWICE A DAY FOR 30 DAYS 07/17 completed Not Available Not Available Not Available methylpredn isolone 4 mg tablets in a dose pack TAKE 6 TABLETS ON DAY 1 DIRECTED ON PACKAGE AND DECREASE BY 1 TAB EACH DAY FOR A TOTAL OF 6 DAYS 07/17 completed Not Available Not Available Not Available albuterol sulfate HFA 90 mcg/actuati on aerosol inhaler INHALE 1 PUFF BY MOUTH EVERY 4 HOURS NEEDED FOR SHORTNESS OF BREATH OR WHEEZING active Not Available Not Available No t Available fluticasone propionate 50 mcg/actuati on nasal spray,suspe nsion INSTILL 1 SPRAY INTRANASA LLY EVERY 12 HRS INTO EACH NOSTRIL active Not Available Not Available No t Available cyclobenzap rine 5 mg tablet TAKE 1 TABLET BY MOUTH EVERYDAY AT BEDTIME active Not Available Not Available No t Available cholestyram ine (with sugar) 4 gram powder for susp in a packet PLEASE SEE ATTACHED FOR DETAILED DIRECTION S 07/17 completed Not Available Not Available Not Available metoprolol tartrate 25 mg tablet TAKE ONE AND ONE-HALF TABLETS BY MOUTH TWICE DAILY active Not Available Not Available No t Available milk thistle active Not Available Not Available Not Available metoprolol succinate active Not Available Not Available No t Available apple cider vinegar active Not Available Not Available Not Available Symbicort 160 mcg-4.5 mcg/actuati on HFA aerosol inhaler INHALE 2 PUFFS BY MOUTH EVERY 12 HOURS NEEDED FOR SHORTNESS OF BREATH active Not Available Not Available No t Available levothyroxi ne (bulk) 07/17 completed Not Available Not Available Not Available Acid Wall Taper Helper (omeprazole ) active Not Available Not Available Not Available Adult One Daily Multivitami n active Not Available Not Available Not Available Imvexxy Maintenance Pack 10 mcg vaginal insert active Not Available Not Available Not Available Vitals Date Recorded Body height Body weight Systolic blood pressure Diastolic blood pressure Provider Name and Address Organization Details Last Updated DateTime 07/18/2023 156.21 cm 46768.41 g 133 mm[Hg] 84 mm[Hg] Augustina Yen [facility] 07/18/2023 12:05:44 Social History Question Answer Notes LastModified by Organizat ion Details LastModified Time What Is Your Level Of Alcohol Consumption? Occasional Information not available 07/18/2023 Are You Blind Or Do You Have Difficulty Seeing? No Information n ot available 07/18/2023 What Is Your Level Of Caffeine Consumption? Moderate Information not available 07/18/2023 How Much Tobacco Do You Chew? None Information not available 07/18/2023 In The 14 Days Before Symptom Onset, Have You Had Close Contact With A Laboratory-confirm ed COVID-19 While That Case Was Ill? No Information n ot available 07/18/2023 In The 14 Days Before Symptom Onset, Have You Had Close Contact With A Person Who Is Under Investigation For COVID-19 While That Person Was Ill? No Information not available 07/18/2023 Have You Been To An Area Known To Be High Risk For COVID-19? No Information not available 07/18/2023 Are You Deaf Or Do You Have Serious Difficulty Hearing? Yes Information not available 07/18/2023 What Type Of Diet Are You Following? REGULAR Information n ot available 07/18/2023 What Is The Highest Grade Or Level Of School You Have Completed Or The Highest Degree You Have Received? 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 No Information not available 07/18/2023 Do You Use Protection During Sex? No Information not available 07/18/2023 Do You Use Your Seat Belt Or Car Seat Routinely? Yes Information not available 07/18/2023 Do You Have Smoke And Carbon Monoxide Detectors In Your Home? Yes Information not available 07/18/2023 At What Age Did You Start Smoking Tobacco? 28 Information not available 07/18/2023 How Much Tobacco Do You Smoke? 0.5 PPD Information not available 07/18/2023 Do You Feel Stressed (tense, Restless, Nervous, Or Anxious, Or Unable To Sleep At Night)? [id number] Information not available 07/18/2023 Do You Use Any Illicit Or Recreational Drugs? No Information not available 07/18/2023 Do You Use Sunscreen Routinely? Yes Information not available 07/18/2023 How Many Years Have You Smoked Tobacco? 28 Information not available 07/18/2023 Have You Used IV Drugs? No Information not available 07/18/2023 Sex: Unknown Functional Status Question Answer Note LastModified by Organization D etails LastModified Time Are you able to walk? YESWOREST Information not available 07/18/2023 What is your exercise level? Moderate Information not available 07/18/2023 Mental Status None recorded. Family History Relationship Description Onset Age of this Age Resolved Age Notes LastModified by Organization Details LastModified Time Mother Disorder of thyroid gland dswayne Not available 2023 12:06:04 Mother Anxiety disorder dswayne Not available 2023 12:06:04 Mother Hypertensive disorder dswayne Not available 2023 12:06:04 Maternal Aunt Disorder of thyroid gland dswayne Not available 2023 12:06:04 Maternal Grandmother Disorder of thyroid gland dswayne Not available 2023 12:06:04 Brother Hypertensive disorder dswayne Not available 2023 12:06:04 Father Hypertensive disorder dswayne Not available 2023 12:06:04 Medical History Condition Response Allergies (Food, seasonal, environmental ) N Other N Blood Transfusion N Breast Cancer N Drug/Latex Allergies/Reactions N Lung Disease N Dermatologic Disorders N Defects or Inherited Disease N Breast Problem N Gestational Diabetes N Hematologic disorders N Anesthesia Complications N History of STI N Deep Vein Thrombosis N Polycystic ovary syndrome N Anxiety Disorder N Autoimmune disease N Arthritis N Polyps N Infertility N History of abnormal pap N Acid Reflux (GERD) N Cancer N Varicosities N Stroke N Neurologic/Epilepsy N Endometriosis N High Cholesterol N Headaches N Fibromyalgia N Kidney Disease N Heart Problems N Thyroid Problems N Kidney or Bladder Problems N GI Problems N Eating Disorder N Anemia N Art (IVF or FET) N Psychiatric Illness N Ovarian Cancer N Diabetes N Pulmonary (TB, Asthma) N Hepatitis/Liver Disease N No Past Medical History N Eczema N Urinary Tract Infection N Abuse/Domestic Violence N Asthma N Trauma/Violence N Depression/ depression N Heart Disease N Pre-Eclampsia N Hypertension N Osteoporosis N Thrombophilias N Gynecological History Statement/Question Response Date of Last Mammogram 04/18/2023 On BCP's at Conception? N N STIs/STDs N HPV Vaccine N Current Control Method Tubal Ligat ion Age at First Child 18 Date of Last Colonoscopy 03/17/2022 Most Recent Bone Density 04/18/2023 Sexually Active? Y Date of DEXA bone scan 04/18/2023 Age of first menstrual cycle 11 Date of Last Pap Smear 10/15/2021 Sexual Problems? N 03/17/2022 N 10/16/2019 Obstetrics History GPAL:G 3 P 3 0 0 3 Type Value Full Term 3 Living 3 Total 3 Past Encounters Encounter ID Performer Location Encounter Start Date Encounter Closed Date Diagnosis/Indication Diagnosis SNOMED-CT Code Diagnosis ICD10 Code Diagnosis Note [id number] MARVIN MEADE MD [facility] [address] [address] 07/18/2023 11:27:06 07/21/2023 06:38:43 Postmenopausal osteopenia 506312051 M85.80 - DEXA stable 04/2023- discussed Ca supplement and weight bearing exercise- repeat in 2 years Vaginal dryness 46429165 N89.8 - normal atrophy on exam- continue Imvexxy suppositor ies Gynecologi c examination 63807116 Z01.419 Z11.51 Well woman care- Cervical cancer screening: Pap smear obtained today, will follow up on the results with the patient as they become available- Breast cancer screening: mammogram completed 03/2023- Colon cancer screening: up to date- HPV immunizati on: does not qualify- STD testing: sent on Pap- hereditary cancer screening: does not qualify for testing Health Concerns Section Related Observation LastModified by Organization Detai ls LastModified Time None Recorded Concern Status LastModified by Organization Details LastModified Time None Recorded Advance Directives Directive None Recorded Payers Encounter Date Sequence Insurance Name Policy Number Policy Heart Covered Member ID Heart Member ID Guarantor Name 07/18/2023 1 [place] [id number] Claire Mitchelljessy [id number] Claire Chana 07/18/2023 2 [place] [facility] Claire Chana [id number] Claire Zayas Notes Date Note Type Note Provider Name and Address Organization Details Recorded Time 07/18/2023 text/html Presents today f or her annual well-woman exam. Denies abnormal vaginal discharge. She is sexually active and denies dyspareunia when using Imvexxy. She has not noticed any changes or masses in her breasts. No hx of abnormal mammograms. Had mammogram 03/2023. DEXA 04/2023 with osteopenia. Taking multivitamin Had an abnormal pap in , ASCUS/+HPV; normal colposcopy. Normal paps since that time Has been on Imvexxy for 3 years, improved dyspareunia and vaginal dryness. Would like to continue. Had endometrial ablation in mid to early 30s. No bleeding since that time. MARVIN MEADE MD [address], [place], [address], [facility] 07/18/2023 16:16:41 OBGyn Episode Ob Episode Information Episode Created Date Number of Fetuses Patient Bloodtype Patient rh Status Prepregnancy Weight lbs Domestic Partner Domestic Partner Phone Father Name Registered Midwife Status 07/18/19 24 1 CLOSED Fetus Data First Name Last Name Admitted to NICU Weight (g) Sex Living Outcome Pediatric Complications Fetus ID Race Codes Race Delivery Type F Full Term [id number] Primary Elia Calculation Initial Elia Date Initial Exam Date Initial Exam Provider Initial Ultrasound Date Last Menstrual Period Date Ultra Sound Weeks Gestation 0 Eighteen To Twenty Week Elia Update Ultra Sound Date Fundal Height At Umbil Quickening Date Ultra Sound Latest Weeks Gestation Final Elia Confirmed By Final Elia Confirmed Date Final Elia Date Ultra Sound Latest Days Gestation 0 0 Menstrual History Last Menstrual Date Menses Monthly On Bcp Conception Prior Menses Frequency Hcg Plus Date Menarche Onset Age Delivery Information Delivery Date Delivery Type Labor Anesthesia Weeks Gestation Incision Type Labor Labor Length Hrs Delivered By Post Complications Tubal Sterilization Discharge Date Comments 5 Discharge Information Feeding Method Contraceptive Method Maternal HG B and HCT Levels Ob Episode Information Episode Created Date Number of Fetuses Patient Bloodtype Patient rh Status Prepregnancy Weight lbs Domestic Partner Domestic Partner Phone Father Name Registered Midwife Status 07/18/19 24 1 CLOSED Fetus Data First Name Last Name Admitted to NICU Weight (g) Sex Living Outcome Pediatric Complications Fetus ID Race Codes Race Delivery Type F Full Term [id number] Repeat Elia Calculation Initial Elia Date Initial Exam Date Initial Exam Provider Initial Ultrasound Date Last Menstrual Period Date Ultra Sound Weeks Gestation 0 Eighteen To Twenty Week Elia Update Ultra Sound Date Fundal Height At Umbil Quickening Date Ultra Sound Latest Weeks Gestation Final Elia Confirmed By Final Elia Confirmed Date Final Elia Date Ultra Sound Latest Days Gestation 0 0 Menstrual History Last Menstrual Date Menses Monthly On Bcp Conception Prior Menses Frequency Hcg Plus Date Menarche Onset Age Delivery Information Delivery Date Delivery Type Labor Anesthesia Weeks Gestation Incision Type Labor Labor Length Hrs Delivered By Post Complications Tubal Sterilization Discharge Date Comments 1 Discharge Information Feeding Method Contraceptive Method Maternal HG B and HCT Levels Ob Episode Information Episode Created Date Number of Fetuses Patient Bloodtype Patient rh Status Prepregnancy Weight lbs Domestic Partner Domestic Partner Phone Father Name Registered Midwife Status 07/18/19 24 1 CLOSED Fetus Data First Name Last Name Admitted to NICU Weight (g) Sex Living Outcome Pediatric Complications Fetus ID Race Codes Race Delivery Type M Full Term [id number] Repeat Elia Calculation Initial Elia Date Initial Exam Date Initial Exam Provider Initial Ultrasound Date Last Menstrual Period Date Ultra Sound Weeks Gestation 0 Eighteen To Twenty Week Elia Update Ultra Sound Date Fundal Height At Umbil Quickening Date Ultra Sound Latest Weeks Gestation Final Elia Confirmed By Final Elia Confirmed Date Final Elia Date Ultra Sound Latest Days Gestation 0 0 Menstrual History Last Menstrual Date Menses Monthly On Bcp Conception Prior Menses Frequency Hcg Plus Date Menarche Onset Age Delivery Information Delivery Date Delivery Type Labor Anesthesia Weeks Gestation Incision Type Labor Labor Length Hrs Delivered By Post Complications Tubal Sterilization Discharge Date Comments 7 Discharge Information Feeding Method Contraceptive Method Maternal HG B and HCT Levels
--- OUTSIDE RECORDS SUMMARY | 2024-04-16 13:55 | XMS_ITS | Encounter Summary ---
Author Organization [facility] Care Team Providers Care Wet Machine Operator Name Role Phone Marisol Caban Primary Care Provider [phone]- [phone] Fidel Krueger DO Primary Care Provider [phone]- [phone] Encounter Details Date Type Department Care Team (Latest Contact Info) Description 07/07/2017 Orders Only [facility] ProviderJaren MD [address] [place] [id number] Social History Tobacco Use Types Packs/Day Years Used Date Smoking Tobacco: Every Day Cigarettes Smokeless Tobacco: Never Alcohol Use Standard Drinks/Week Comments Yes 0 (1 standard drink = 0.6 oz pur e alcohol) socially Comments Unknown Sex and Gender Information Value Date Recorded Sex Assigned at Not on file Legal Sex Female 12:39 AM RAW SAMPLER Gender Identity Not on file Sexual Orientation Not on file documented as of this encounter Plan of Treatment Not on file documented as of this encounter Procedures Procedure Name Priority Date/Time Associated Diagnosis Comments CARDIOLOGY REPORT 07/07/2017 12: 00 AM CDT documented in this encounter Results * CARDIOLOGY REPORT (07/07/2017 12:00 AM CDT) Anatomical Region Laterality Modality Other Narrative 07/07/2017 12:00 AM CDT Ordered by an unspecified provider. Historical Provider [facility] NEHAL AVERY Final Result documented in this encounter Visit Diagnoses Not on filedocumented in this encounter Care Teams Wet Machine Operator Relationship Specialty Start Date End Date Marisol Caban PA [address] [place] [address] PCP - General Internal Medicine 08/04/18 01/31/20 Fidel Krueger DO [address] [place] [address] PCP - General Internal Medicine 04/10/20 documented as of this encounter
--- OUTSIDE RECORDS SUMMARY | 2024-04-16 13:55 | XMS_ITS | Clinical Summary ---
Author Organization [facility] Address [address] [place] [id number] Phone Care Team Providers Care Mmi Teacher Name Role Phone LeeFidel cifuentes Primary Care Provider Allergies Active Allergy Reactions Criticality Noted Date Comments Amlodipine Unknown 09/07/2014 Bupropion Unknown 09/30/2011 Cephalexin Unknown 09/30/2011 Clindamycin Unknown 09/30/2011 Hydrochlorothiazide Other (see comments) High 06/18/2017 Electrolyte abnormalities Iodine Unknown 09/30/2011 Lisinopril Cough,Rash Medium 10/27/2014 Losartan Joint Pain Medium 06/18/2017 Nitrofurantoin Other (see comments) Low 01/02/2021 unknown Penicillins Unknown 09/30/2011 Piroxicam Unknown 09/30/2011 Tetracycline Unknown 09/30/2011 Venlafaxine Unknown 09/30/2011 Medications Medication Sig Dispensed Refills Start Date End Date Status albuterol HFA (PROVENTIL HFA) 108 (90 Base) MCG/ACT inhaler INHALE 1 PUFF BY MOUTH EVERY 4 HOURS NEEDED FOR SHORTNESS OF BREATH OR WHEEZING 08/09/2021 Active benzonatate (TESSALON) 100 MG capsule TAKE 1 CAPSULE BY MOUTH THREE TIMES A DAY NEEDED FOR COUGH 07/21/2021 Active budesonide EC (ENTOCORT EC) 3 MG 24 hr capsule 09/10/2021 Active Symbicort 160-4.5 MCG/ACT inhaler INHALE 2 PUFFS EVERY 12 HOURS NEEDED FOR SHORTNESS OF BREATH 08/13/2021 Active cyclobenzaprine (FLEXERIL) 5 MG tablet cyclobenzaprine 5 mg tablet TAKE ONE TABLET BY MOUTH ONCE DAILY AT BEDTIME NEEDED Active fluticasone (FLONASE) 50 MCG/ACT nasal spray INSTILL 1 SPRAY INTRANASALLY EVERY 12 HRS INTO EACH NOSTRIL 09/03/2021 Active ibuprofen (ADVIL) 400 MG tablet ibuprofen 400 mg tablet Take bid 05/26/2012 Active Euthyrox 88 MCG tablet Take 88 mcg by mouth 1 (one) time each day 06/28/2021 Active metoprolol tartrate (LOPRESSOR) 25 MG tablet TAKE 1&1/2 TABLETS BY MOUTH TWICE A DAY 08/17/2021 Active omeprazole (PriLOSEC) [address] capsule Take 40 mg by mouth 1 (one) time each day 08/20/2021 Active ondansetron ODT (ZOFRAN-ODT) 4 MG dispersible tablet Take 4 mg by mouth every 8 (eight) hours 08/12/2021 Active Active Problems Problem Noted Date Diagnosed Date Body mass index 25-29 - overweight 04/28/2019 Overview (09/13/2021): Last Assessment & Plan: Weight/BMI is in healthy range. Continue healthy lifestyle to maintain. Chronic low back pain 02/12/2019 Overview (09/13/2021): Last Assessment & Plan: Encouraged stretching, ice/heat and NSAIDs. Start PT. Monitor closely and if sxs persist she is to followup. Otalgia 02/12/2019 Overview (09/13/2021): Last Assessment & Plan: Monitor this area behind her left ear. Appears to be resolving. If persists, may need further followup. Alcohol dependence 01/04/2019 Obstructive sleep apnea syndrome 01/04/2019 Other chest pain 01/04/2019 Bronchitis 10/31/2018 Overview (09/13/2021): Last Assessment & Plan: Bronchitis vs early pneumonia? Start antibiotic, antihistamine (Claritin OR Zyrtec), Mucinex 12hour and Steroid nasal spray (Flonase). Push fluids. Rest. Supportive care. If sxs worsen or don\'t improve, pt is to followup in the office. Start Symbicort. Cigarette smoker 10/27/2018 Overview (09/13/2021): Last Assessment & Plan: Encouraged smoking cessation. Discussed 3 minutes. Reviewed options for assistance with cessation. Reviewed ferry terminal agent sequela associated with smoking. Pt declines assistance at this time but may contact the office at anytime for further help as they desire. States she quit a few days ago. Encouraged to continue the cessation effort Palpitations 06/18/2017 Acquired hypothyroidism 04/24/2015 Overview (09/13/2021): Last Assessment & Plan: Stable. Check labs Essential hypertension 09/07/2014 Overview (09/13/2021): Last Assessment & Plan: Bp is stable/in acceptable range for any co-morbidities. Encouraged to limit sodium intake and exercise for weight control. Pain of knee region 10/21/2012 Elevated blood-pressure read ing without diagnosis of hypertension 05/26/2012 Ra hematuria 05/26/2012 Chronic ulcerative enterocolitis 01/17/2012 Multiple joint pain 01/17/2012 Crohn's disease of large bowel 09/23/2011 Displacement of lumbar inter vertebral disc without myelopathy 09/23/2011 Gastroesophageal reflux disease 09/23/2011 Immunizations Name Administration Dates Next Due Influenza TIV (IM) 03/17/2007 Influenza, Quadrivalent 01/06/2017 Influenza, Unspecified 12/29/2018 Sars-cov-2, Unspecified 05/23/2021,01/17/2021,,06/21/2020 Td 06/10/2011 Tdap 08/07/2018 Family History Medical History Relation Comments Rheumatoid arthritis Daughter Dementia Father Hypertension Father Parkinson's disease Father Hypothyroidism Mother Systemic lupus erythematosus Mother Relation Status Comments Daughter Father Mother Social History Tobacco Use Types Packs/Day Years Used Date Smoking Tobacco: Former Cigarettes 0.5 30 Smokeless Tobacco: Never Alcohol Use Standard Drinks/Week Comments Yes 28 (1 standard drink = 0.6 oz pu re alcohol) 3 - 4 beers/day Sex and Gender Information Value Date Recorded Sex Assigned at Not on file Gender Identity Not on file Sexual Orientation Not on file Last Filed Vital Signs Vital Sign Reading Time Taken Comments Blood Pressure 134/70 12/10/2021 10:12 AM CDT Pulse - - Temperature 36.1 ??C (97 ??F) 12/10/2021 10:12 AM CDT Respiratory Rate 18 12/10/2021 10:12 AM CDT Oxygen Saturation - - Inhaled Oxygen Concentration - - Weight 59 kg (130 lb) 12/10/2021 10:12 AM CDT Height 157.5 cm (5' 2 ) 12/10/2021 10:12 AM CDT Body Mass Index 23.78 12/10/2021 10:12 AM CDT Plan of Treatment Health Maintenance Due Date Last Done Comments Influenza Vaccine (#1) 2023 12/29/2018, 2007 Care Teams Mmi Teacher Relationship Specialty Start Date End Date Fidel Krueger DO [address] [place] [address] PCP - General Internal Medicine 08/20/21
--- OUTSIDE RECORDS SUMMARY | 2024-04-16 13:55 | XMS_ITS | Data Portability ---
Author Organization [facility] Address [address] [place] [address] Assessment No assessment recorded. Plan of Treatment Reminders Order Date Submit Date Provider Last Modified By Organization Details Last Modified Time Details Appointments None recorded. Lab TSH + free T4, serum 2015 016 [facility], [address] [place] [address], [id number], 6 04:30:57 Referral None recorded. Procedures None recorded. Surgeries None recorded. Imaging None recorded. Medication Orders naproxen 500 mg tablet 2015 016 [facility] [place], [address], 6 04:31:12 Patient TargetsNo targets recorded. Patient InstructionsNo instructions recorded. Reason for Referral None Reported. Results Created Date Observation Date Name Description Value Unit Range Abnormal Flag Note LastModifiedBy Organization Detail LastModifiedTime 01/17/20 16 01/18/2016 TSH + free T4, serum TSH 0.510 uIU/m L 0.450- 4.500 Not Available [facility] ([facility]) [address] [place], [address], 01/18/2016 06:12:42 01/17/20 16 01/18/2016 TSH + free T4, serum T4,free(dire ct) 1.64 NG/dL 0.82-1 .77 Not Available [facility] ([facility]) [address] [facility], [address], 01/18/2016 06:12:42 01/17/20 16 01/17/2016 nayeli javier note please note COMMEN T THE DATE AND/O R TIME OF COLLE CTION WAS NOT INDIC ATED ON THE REQUI SITIO N REQUI RED BY STATE AND [place] LAW. THE DATE OF RECEI PT OF THE SPECI MEN WAS USED THE COLLE CTION DATE IF NOT SUPPL IED. Not Available [facility] ([facility]) [address] [facility], [place], [address], 01/18/2016 06:12:42 01/12/20 16 01/07/2016 XR, chest , 2 view No observ ation record ed. [email or web address] Not Available 2015 16:31:43 Result Notes None recorded. Problems Name Problem SNOMED Code Status Onset Date Resolution Date Notes Provider Name and Address Organization Details Recorded Time Crohn's disease of large bowel 9945996 Active 2011 Location : None;Sev erity: Moderate ;Progres s: Stable;A dded By: Brennen Beaver;Add to Current Problems : NO Not Available [facility] 7 08:03:24 Allergic rhinitis caused by pollen 05831334 Completed 201110/24/2011 Location : None;Sev erity: Moderate ;Progres s: Stable;A dded By: Brennen Beaver;Add to Current Problems : NO Not Available [facility] 7 08:03:24 Displace ment of lumbar interver tebral disc without myelopat hy 87650039 Active 2011 Location : None;Sev erity: Moderate ;Progres s: Stable;A dded By: Brennen Beaver;Add to Current Problems : NO Not Available [facility] 7 08:03:24 Acute upper respirat ory infectio n of multiple sites Completed 201507/27/2015 Location : None;Sev erity: Moderate ;Progres s: Stable;A dded By: Sandhya Kaur;Add to Current Problems : YES Not Available [facility] 7 08:03:24 Eruption [id number] Completed 201111/15/2011 Location : None;Sev erity: Moderate ;Progres s: Stable;A dded By: Sydney Knight;Add to Current Problems : NO Not Available [facility] 7 08:03:24 Contact dermatit is [id number] Completed 201111/15/2011 Location : None;Sev erity: Moderate ;Progres s: Stable;A dded By: Sydney Knight;Add to Current Problems : NO Not Available [facility] 7 08:03:24 Elevated blood-pr essure reading without diagnosi s of hyperten oanh 383047252 Completed 201309/11/2013 Location : None;Sev erity: Moderate ;Progres s: Stable;A dded By: Sydney Knight;Add to Current Problems : NO Not Available [facility] 7 08:03:24 Anal fissure [id number] Completed 201112/27/2011 Location : None;Sev erity: Moderate ;Progres s: Stable;A dded By: Brennen Beaver;Add to Current Problems : NO Not Available [facility] 7 08:03:25 Acute upper respirat ory infectio n 04272590 Completed 201212/26/2012 Location : None;Sev erity: Moderate ;Progres s: Stable;A dded By: Brennen Beaver;Add to Current Problems : NO Not Available [facility] 7 08:03:25 Palpitat ions 47194025 Completed 201212/26/2012 Location : None;Sev erity: Moderate ;Progres s: Stable;A dded By: Brennen Beaver;Add to Current Problems : NO Not Available [facility] 7 08:03:25 Screenin g for malignan t neoplasm of colon Active 2014 Location : None;Sev erity: Moderate ;Progres s: Stable;A dded By: Brennen Beaver;Add to Current Problems : YES Not Available [facility] 7 08:03:25 Viral screenin g Completed 201407/31/2014 Location : None;Sev erity: Moderate ;Progres s: Stable;A dded By: Brennen Beaver;Add to Current Problems : YES Not Available [facility] 7 08:03:25 Hypothyr oidism 79139204 Active 2015 Location : None;Sev erity: Moderate ;Progres s: Stable;A dded By: Brennen Beaver;Add to Current Problems : YES Not Available [facility] 7 08:03:25 Tobacco dependen ce syndrome 21523205 Completed 201508/25/2015 Location : None;Sev erity: Moderate ;Progres s: Stable;A dded By: Brennen Beaver;Add to Current Problems : YES Not Available [facility] 7 08:03:25 Cough 75329291 Completed 201508/25/2015 Location : None;Sev erity: Moderate ;Progres s: Stable;A dded By: Brennen Beaver;Add to Current Problems : YES Not Available [facility] 7 08:03:25 Precordi al pain 64693118 Completed 201508/25/2015 Location : None;Sev erity: Moderate ;Progres s: Stable;A dded By: Brennen Beaver;Add to Current Problems : YES Not Available [facility] 7 08:03:25 Acute frontal sinusiti s 16647516 Completed 201508/25/2015 Location : None;Sev erity: Moderate ;Progres s: Stable;A dded By: Brennen Beaver;Add to Current Problems : YES Not Available [facility] 7 08:03:25 Precordi al pain 69637031 Completed 201212/26/2012 Location : None;Sev erity: Moderate ;Progres s: Stable;A dded By: Hillary Seth; Add to Current Problems : NO Not Available [facility] 7 08:03:26 Benign essentia l hyperten oanh 0473989 Active 2015 Location : None;Sev erity: Moderate ;Progres s: Stable;A dded By: Trina Torres i;Otto dd to Current Problems : NO Not Available [facility] 7 08:03:26 Multiple joint pain 38247779 Active 2011 Location : None;Sev erity: Moderate ;Progres s: Stable;A dded By: Trina Torres i;A dd to Current Problems : YES Not Available [facility] 7 08:03:26 Chronic ulcerati ve enteroco litis 99603419 Active 2011 Location : None;Sev erity: Moderate ;Progres s: Stable;A dded By: Karma Palencia;Add to Current Problems : NO Not Available [facility] 7 08:03:26 Hypo-osm olality and or hyponatr emia 357558981 Completed 201410/28/2014 Location : None;Sev erity: Moderate ;Progres s: Stable;A dded By: Karma Palencia;Add to Current Problems : YES Not Available [facility] 7 08:03:26 Pain in thoracic spine 217572614 Completed 201411/06/2014 Location : None;Sev erity: Moderate ;Progres s: Stable;A dded By: Karma Palencia;Add to Current Problems : YES Not Available [facility] 7 08:03:26 Tobacco dependen ce syndrome 98831892 Completed 201411/06/2014 Location : None;Sev erity: Moderate ;Progres s: Stable;A dded By: Karma Palencia;Add to Current Problems : YES Not Available [facility] 7 08:03:26 Essentia l hyperten oanh 80747761 Active 2014 Location : None;Sev erity: Moderate ;Progres s: Stable;A dded By: Karma Palencia;Add to Current Problems : YES Not Available [facility] 7 08:03:26 Gastroes ophageal reflux disease 713387141 Active 2011 Location : None;Sev erity: Moderate ;Progres s: Stable;A dded By: Karma Palencia;Add to Current Problems : YES Not Available [facility] 7 08:03:26 Dysuria 97310573 Completed 201206/26/2012 Location : None;Sev erity: Moderate ;Progres s: Stable;A dded By: Sandhya Gaming;Add to Current Problems : NO Not Available [facility] 7 08:03:27 Elevated blood-pr essure reading without diagnosi s of hyperten oanh 123069414 Active 2012 Location : None;Sev erity: Moderate ;Progres s: Stable;A dded By: Sandhya Gaming;Add to Current Problems : NO Not Available [facility] 7 08:03:27 Ra hematuri a 203144297 Active 2012 Location : None;Sev erity: Moderate ;Progres s: Stable;A dded By: Nabila Salmeron;Add to Current Problems : NO Not Available [facility] 7 08:03:27 Knee pain Completed 201211/09/2012 Location : None;Sev erity: Moderate ;Progres s: Stable;A dded By: Nabila Salmeron;Add to Current Problems : NO Not Available [facility] 7 08:03:27 Problem Notes None recorded. Procedures Surgical History Date Name Laterality Status Provider Name and Address Organization Details Recorded Time Knee Surgery completed Hillary Reedmn [place] [facility] 01/17/2016 11:29:04 Tubal Ligation completed [place] Reedmn [place] [facility] [place] 01/17/2016 11:29:25 delivery completed Hillary Reedmn [place] [facility] 01/17/2016 11:29:33 Imaging Results [...] Name and Address Organization Details Recorded Time [id number] 2824e cephalexi n monohydra te medicatio n Not available Not available Not available 03/20/20162011 57428 8 RxNorm Sever ity: Moder ate; Comme nt: Aller gy Type: Aller gy; Not Available Not Available Not Available [id number] [id number] 2824e tetracycl ine hydrochlo ride medicatio n Not available Not available Not available 03/20/20162011 30276 6 RxNorm Sever ity: Moder ate; Comme nt: Aller gy Type: Aller gy; Not Available Not Available Not Available [id number] [id number] 2824e Feldene medicatio n Not available Not available Not available 03/20/20162011 08146 8 RxNorm Sever ity: Moder ate; Comme nt: Aller gy Type: Aller gy; Not Available Not Available Not Available [id number] [id number] 2824e Wellbutri n medicatio n Not available Not available Not available 03/20/20162011 53862 RxNorm Sever ity: Moder ate; Comme nt: Aller gy Type: Aller gy; Not Available Not Available Not Available [id number] [id number] 2824e Effexor medicatio n Not available Not available Not available 03/20/20162011 35512 2 RxNorm Sever ity: Moder ate; Comme nt: Aller gy Type: Adver se React ion; Not Available Not Available Not Available [id number] 2824e clindamyc in hydrochlo ride medicatio n Not available Not available Not available 03/20/20162011 42396 RxNorm Sever ity: Moder ate; Comme nt: Aller gy Type: Aller gy; Not Available Not Available Not Available [id number] [id number] 2824e iodine medicatio n Not available Not available Not available 03/20/20162011 5933 RxNorm Sever ity: Moder ate; Comme nt: Aller gy Type: Aller gy; Not Available Not Available Not Available [id number] 2824e Product containin g penicilli n and antibioti c (product) medicatio n Not available Not available Not available 03/20/20162012 35794 05 SNOMED Sever ity: Moder ate; Comme nt: Aller gy Type: Aller gy; Not Available Not Available Not Available [id number] lisinopri l medicatio n cough rash moderate moderate Not available 03/20/20162014 48411 RxNorm React ion: cough ;[place] rity: Moder ate; Comme nt: Aller gy Type: Adver se React ion; Not Available Not Available Not Available [id number] [id number] 2824e Norvasc medicatio n Not available Not available Not available 03/20/20162014 40760 RxNorm React ion: nause a, vomit ing;S everi ty: Moder ate; Comme nt: Aller gy Type: Aller gy; Not Available Not Available Not Available [id number] 2824e ampicilli n trihydrat e medicatio n Not available Not available Not available 03/20/20162011 78367 5 RxNorm Sever ity: Moder ate; Comme nt: Aller gy Type: Aller gy; Not Available Not Available Not Available Medications Name Sig Start Date Stop Date Status Note LastModified by Organization Details LastModified Time hydrochlo rothiazid e 50 mg tablet Take 1 tablet(s ) by mouth daily 09/01 completed RxNorm: 503288;A llow Substitu tion: True Not Available Not Available Not Available ranitidin e 300 mg tablet TAKE ONE TABLET BY MOUTH TWICE DAILY 2015 active Not Available Not Available Not Avai lable lisinopri l 20 mg tablet ONE DAILY 10/27 completed RxNorm: 538201;A llow Substitu tion: True Not Available Not [...] ) by mouth once 07/25 completed RxNorm: 646309;A llow Substitu tion: True Not Available Not Available Not Available nifedipin e ER 30 mg tablet,ex tended release TAKE ONE TABLET BY MOUTH ONCE DAILY 2017 active Routine appt and ok Not Available Not Available Not Available amlodipin e 5 mg tablet Take 1 tablet(s ) by mouth daily 09/07 completed RxNorm: 943193;A llow Substitu tion: True Not Available Not Available Not Available omeprazol e 40 mg capsule,d elayed release TAKE ONE CAPSULE BY MOUTH ONCE DAILY 2016 active Appt within 3 mos Not Available Not Available Not Available meloxicam 7.5 mg tablet Take 1 tab twice daily 10/09 completed RxNorm: 200575;A llow Substitu tion: True Not Available Not Available Not Available levothyro xine 100 mcg tablet TAKE ONE TABLET BY MOUTH ONCE DAILY IN THE MORNING ON AN EMPTY STOMACH. 2016 active Appt in 6 mos Not Available Not Available Not Available Cipro 500 mg tablet Take 1 tablet(s ) by mouth q12h for 7 days 07/02 completed RxNorm: 843165;A llow Substitu tion: True Not Available Not Available Not Available ranitidin e 300 mg capsule Take 1 capsule every day by oral route. active Not Available Not Available No t Available lisinopri l 10 mg tablet Take 1 tab daily 09/22 completed RxNorm: 576392;A llow Substitu tion: True Not Available Not Available Not Available ibuprofen 400 mg tablet Take bid 2012 active RxNorm: 372917;A llow Substitu tion: True Not Available Not Available Not Available hydrochlo rothiazid e 12.5 mg capsule Take 1 capsule( s) by mouth daily 09/08 completed RxNorm: 815961;A llow Substitu tion: True Not Available Not Available Not Available hydrochlo rothiazid e 25 mg tablet one po daily 06/01 completed RxNorm: 425080;A llow Substitu tion: True Not Available Not Available Not Available fluticaso ne propionat e 50 mcg/actua tion nasal spray,rosa pension 2 spray(s) in each nostril daily 2015 active RxNorm: 621822;A llow Substitu tion: True Not Available Not Available Not Available naproxen 500 mg tablet Take 1 tablet twice a day by oral route. 2015 active Not Available Not Available Not Avai lable levothyro xine 112 mcg tablet Take 1 tablet(s ) by mouth daily 11/26 completed RxNorm: 696486;A llow Substitu tion: True Not Available Not Available Not Available Cozaar 50 mg tablet Take 1 tablet(s ) by mouth daily 04/24 completed RxNorm: 653805;A llow Substitu tion: True Not Available Not Available Not Available cyclobenz aprine 5 mg tablet TAKE ONE TABLET BY MOUTH ONCE DAILY AT BEDTIME NEEDED 2015 active Not Available Not Available Not Avai lable Zyrtec 10 mg chewable tablet I tab daily prn 10/09 completed RxNorm: 104172;A llow Substitu tion: True Not Available Not Available Not Available Pentasa 500 mg capsule,c ontrolled release Take 2 capsule( s) by mouth qid 06/01 completed RxNorm: 011279;A llow Substitu tion: True Not Available Not [...] Address Organization Details Last Updated DateTime 01/17/2016 60020.79 [facility] 11:32:33 Date Recorded Body height Body mass index (BMI) Provider Name and Address Organization Details Last Updated DateTime 01/17/2016 162.56 cm 24.6 kg/m2 [facility] 11:32:45 Date Recorded Heart rate Provider Name an d Address Organization Details Last Updated DateTime 01/17/2016 104 /min [facility] 01/17/2016 11:33:29 Date Recorded Systolic blood pressure Diastolic blood pressure Provider Name and Address Organization Details Last Updated DateTime 01/17/2016 130 mm[Hg] 80 mm[Hg] [facility]/2016 11:33:24 Social History None recorded. Functional [...] preservative free, adsorbed 2 completed Not Available [facility] 03/20/2016 05:55:53 Influenza, split virus, trivalent, preservative 8 completed Not Available [facility] 03/20/2016 05:55:53 Past Encounters Encounter ID Performer Location Encounter Start Date Encounter Closed Date Diagnosis/Indication Diagnosis SNOMED-CT Code Diagnosis ICD10 Code Diagnosis [facility] [id number] [facility] [address] [place]AN[place] ORTIZ [id number] 01/17/2016 11:20:52 01/22/2016 16:36:42 Hypothyroidism 06975185 E03.9 Chronic back pain 557268 002 M54.9 Health Concerns Section Related Observation LastModified by Organization Detai ls LastModified Time None Recorded Concern Status LastModified by Organization Details LastModified Time None Recorded Advance Directives Directive None Recorded Payers Encounter Date Sequence Insurance Name Policy Number Policy Heart Covered Member ID Heart Member ID Guarantor Name 01/17/2016 1 [employer] - DOS PRIOR TO 20 - [facility] [employer] [id number] [id number] Notes Date Note Type Note Provider Name [...] with omeprazole and ranitidine DIANNA Calderon - [facility] 01/17/2016 12:22:22 OBGyn Episode No OBEpisode recorded.
--- OUTSIDE RECORDS SUMMARY | 2024-04-16 13:55 | XMS_ITS | Encounter Summary ---
Author Organization [facility] Address [address] [place] [address] Care Team Providers Care Supervisor Porcelain Department Name Role Phone Marisol Caban Primary Care Provider +1- [phone] Fidel Krueger DO Primary Care Provider +1- [phone] Encounter Details Date Type Department Care Team (Late st Contact Info) Description 12/16/2012 Orders Only [facility] Health Information Management [address] [place] [address] Scanning, Provider Social History Tobacco Use Types Packs/Day Years Used Date Smoking Tobacco: Never Assessed Comments Unknown Sex and Gender Information Value Date Recorded Sex Assigned at Not on file Legal Sex Female 12:39 AM 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 Gender Identity Not on file Sexual Orientation Not on file documented as of this encounter Plan of Treatment Not on file documented as of this encounter Procedures Procedure Name Priority Date/Time Associated Diagnosis Comments CARDIOLOGY DOCUMENT SCAN 12/16/2012 documented in this encounter Results * SCAN - CARDIOLOGY (12/16/2012) Anatomical Region Laterality Modality Other us Provider Scanning [facility] PROCEDURES Final Result documented in this encounter Visit Diagnoses Not on filedocumented in this encounter Care Teams Supervisor Porcelain Department Relationship Specialty Start Date End Date Marisol Caban PA [address] [place] [address] PCP - General Internal Medicine 08/04/18 01/31/20 Fidel Krueger DO [address] [place] [address] PCP - General Internal Medicine 04/10/20 documented as of this encounter
--- OUTSIDE RECORDS SUMMARY | 2024-04-16 13:55 | XMS_ITS | Encounter Summary ---
Author Organization [facility] Facility Care Team Providers Care Metal Coater Name Role Phone Marisol Caban Primary Care Provider +1- [phone] Fidel Krueger DO Primary Care Provider +1- [phone] Encounter Details Date Type Department Care Team (Latest Contact Info) Description 12/22/2017 Orders Only [facility]IN[facility] ProviderJaren MD [address] [place] [address] Social History Tobacco Use Types Packs/Day Years Used Date Smoking Tobacco: Every Day Cigarettes Smokeless Tobacco: Never Alcohol Use Standard Drinks/Week Comments Yes 0 (1 standard drink = 0.6 oz pur e alcohol) socially Comments Unknown Sex and Gender Information Value Date Recorded Sex Assigned at Not on file Legal Sex Female 12:39 AM SUPERVISOR CLAM BED Gender Identity Not on file Sexual Orientation Not on file documented as of this encounter Plan of Treatment Not on file documented as of this encounter Procedures Procedure Name Priority Date/Time Associated Diagnosis Comments CARDIOLOGY REPORT 12/23/2017 12: 00 AM CDT documented in this encounter Results * CARDIOLOGY REPORT (12/23/2017 12:00 AM CDT) Anatomical Region Laterality Modality Other Narrative 12/23/2017 12:00 AM CDT Ordered by an unspecified provider. Historical Provider [facility] NEHAL AVERY Final Result documented in this encounter Visit Diagnoses Not on filedocumented in this encounter Care Teams Metal Coater Relationship Specialty Start Date End Date Marisol Caban PA [address] [place] [address] PCP - General Internal Medicine 08/04/18 01/31/20 Fidel Krueger DO [address] [place] [address] PCP - General Internal Medicine 04/10/20 documented as of this encounter
--- OUTSIDE RECORDS SUMMARY | 2024-04-16 13:55 | XMS_ITS | Continuity of Care Document ---
Author Organization [facility] Address [address] [place] [address] Phone Care Team Providers Care New Accounts Banking Representative Name Role Phone Brooke OD, Del Unavailable Unavailable Procedures Procedure Date Eye Exam & Treatment Refraction SV Plastic Sphcyl Mcewen +/-4d, .12-2d Miscellaneous Vision Service - Supplies Tax - Medical SV Poly Carb Sph +/- 7.12 To +/- 20 D Miscellaneous Vision Service - Supplies Tax - Medical Advance Directives Directive Yes / No Effective Date File Name No Information Encounters Encounter Description Practice Location Reason(s) For Visit Diagnoses Date Provider Providers Copied on Encounter [facility], [address] [place] [address] [address], [place], [place], [id number], tel:[phone] [facility] No Information 1-201 0 Brooke OD Del. [address], [place], [address], [place]. tel:[phone] [facility], [address], [place], [place], [id number], [place] tel:[phone] [facility] No Information 3-200 7 [facility] . [address], [address], [place], [place], [id number], [place]. tel:[phone] Referring Provider: Attila Menjivar [address] [place] [address] [address], [place], [address]. tel:[phone] hernandez Provider: Fay [facility], [place], [address]. tel:[phone] [facility], [address], [place], [place], [id number], [place] tel:[phone] [facility] No Information 7 [facility] . [address], [address], [place], [place], [id number], [place]. tel:[phone] Referring Provider: Attila Menjivar [address] [place] [address] [address], [place], [address]. tel:[phone] hernandez Provider: Fay [facility], [place], [address]. tel:[phone] Family History Family Member Type Diagnosis Age At Onset No Information Payers Payer name Insurance type Covered alliance party ID Authoriza tion(s) No Information Social History Type Description Quantity Date Captured Comments Sex Female Smoking Status No Information Chief Complaint And Reason For Visit No Information Reason For Referral Reason For Referral No Information History Of Present Illness Encounter Date Complaint History Of Prese nt Illness No Information Functional Status Date Functional Assessmen t No Information Instructions Date Instruction Additional Infor mation No Information Assessments Type Assessment Date No Information Patient Care Teams Name Effective Dates (start - stop) Status Members No Information
--- OUTSIDE RECORDS SUMMARY | 2024-04-16 13:57 | XMS_ITS | Clinical Summary ---
Author Organization [facility] [address] Address [address] [place] [address] Care Team Providers Care Track Superintendent Name Role Phone Fidel Krueger DO Primary Care Provider +1- [phone] Allergies Active Allergy Reactions Criticality Noted Date Comments Amlodipine Unknown 09/07/2014 Ampicillin Unknown 09/30/2011 Bupropion Unknown 09/30/2011 Cephalexin Unknown 09/30/2011 Clindamycin Clindamycin Hcl Unknown 09/30/2011 Hydrochlorothiazide Other (See comments) High 06/18/2017 Electrolyte abnormalities Iodine Unknown 09/30/2011 Lisinopril Cough Medium 10/27/2014 Losartan Joint pain Medium 06/18/2017 Nitrofurantoin Other (See comments) Low 01/02/2021 unknown Penicillins Unknown 05/26/2012 Piroxicam Unknown 09/30/2011 Tetracycline Hcl Unknown 09/30/2011 Tetracyclines Venlafaxine Unknown 09/30/2011 Medications Ventolin HFA 90 mcg/actuation inhaler INHALE 2 PUFFS EVERY 4 (FOUR) HOURS NEEDED FOR WHEEZING OR SHORTNESS OF BREATH 18 Inhaler 0 Active budesonide-form oteroL (Symbicort) 160-4.5 mcg/actuation inhaler Inhale 2 puffs 2 (two) times a day Rinse mouth with water after use. Do not swallow. 3 Inhaler 1 0 Active omeprazole (PriLOSEC) 40 mg capsule Take 1 capsule (40 mg total) by mouth daily 90 capsule 3 0 Active levothyroxine (SYNTHROID) 88 mcg tablet Take 1 tablet (88 mcg total) by mouth automotive tire tester before breakfast Active metoprolol tartrate (LOPRESSOR) 25 mg immediate release tablet TAKE 1 AND 1/2 TABLETS BY MOUTH TWICE DAILY 270 tablet 3 4 Active Active Problems Problem Noted Date Diagnosed Date Mixed hyperlipidemia 06/13/2023 Medication side effects 07/29/2022 BMI 25.0-25.9,adult 04/28/2019 Assessment & Plan (04/28/2019 11:40 AM PROJECT MANAGER INTERIOR DESIGN): Weight/BMI is in healthy range. Continue healthy lifestyle to maintain. Chronic low back pain 02/12/2019 Assessment & Plan (02/12/2019 5:57 PM PROJECT MANAGER INTERIOR DESIGN): Encouraged stretching, ice/heat and NSAIDs. Start PT. Monitor closely and if sxs persist she is to followup. Colon cancer screening 02/12/2019 Assessment & Plan (02/12/2019 5:56 PM PROJECT MANAGER INTERIOR DESIGN): Refer to GI for colonoscopy Otalgia 02/12/2019 Assessment & Plan (02/12/2019 5:55 PM PROJECT MANAGER INTERIOR DESIGN): Monitor this area behind her left ear. Appears to be resolving. If persists, may need further followup. Other chest pain 01/04/2019 BO (obstructive sleep apnea) 01/04/2019 Uncomplicated alcohol dependence (CMS/HCC) 01/04 Bronchitis 10/31/2018 Assessment & Plan (05/30/2019 11:14 PM CDT): Bronchitis vs early pneumonia? Start antibiotic, antihistamine (Claritin OR Zyrtec), Mucinex 12hour and Steroid nasal spray (Flonase). Push fluids. Rest. Supportive care. If sxs worsen or don\'t improve, pt is to followup in the office. Start Symbicort. Assessment & Plan (10/31/2018 10:25 PM CDT): Probable viral illness. Has some wheezing possible bronchitis. Is a penitentiary smoker. Has failed multiple antibiotics. STOP smoking. Start antihistamine and Mucinex and Flonase nasal spray. Start prednisone 5 days surge. Oscar Palacios to pharmacy for cough and drainage. ProAir inhaler available p.r.n.. Push fluids. Rest. Supportive care. If sxs worsen or don\'t improve, pt is to followup in the office. Cigarette smoker 10/27/2018 Assessment & Plan (05/30/2019 11:14 PM CDT): Encouraged smoking cessation. Discussed 3 minutes. Reviewed options for assistance with cessation. Reviewed penitentiary sequela associated with smoking. Pt declines assistance at this time but may contact the office at anytime for further help as they desire. States she quit a few days ago. Encouraged to continue the cessation effort Assessment & Plan (02/12/2019 5:55 PM PROJECT MANAGER INTERIOR DESIGN): Encouraged smoking cessation. Discussed 3 minutes. Reviewed options for assistance with cessation. Reviewed terminal operations supervisor sequela associated with smoking. Pt declines assistance at this time but may contact the office at anytime for further help as they desire. Assessment & Plan (10/31/2018 10:23 PM CDT): Encouraged LDCT Pt declines at this time. Need for vaccination 08/07/2018 Assessment & Plan (08/07/2018 8:42 PM CDT): Tdap updated in office Acquired hypothyroidism 07/30/2017 Assessment & Plan (08/07/2018 8:42 PM CDT): Stable. Check labs Palpitations 06/18/2017 Essential hypertension 06/18/2017 Assessment & Plan (08/07/2018 8:42 PM CDT): Bp is stable/in acceptable range for any co-morbidities. Encouraged to limit sodium intake and exercise for weight control. Knee pain 10/21/2012 Resolved Problems Problem Noted Date Diagnosed Date Resolved Date BMI 23.0-23.9, adult 10/27/2018 020 Assessment & Plan (10/27/2018 4:34 PM CDT): Weight/BMI is in healthy range. Continue healthy lifestyle to maintain. Annual physical exam 08/07/2018 019 Assessment & Plan (08/07/2018 8:41 PM CDT): Encouraged healthy lifestyle, good nutrition and exercise. Encouraged Calcium and Vitamin D and weight bearing exercise for bone health. Reviewed immunizations Reviewed age appropirate screenings. Lipid screening 06/18/2017 08/07/2018 Immunizations Name Administration Dates Next Due Influenza, Quadrivalent, Split, Intramuscular Influenza, Trivalent, IM (MDV) 03/17/2007 Influenza, Unspecified 12/29/2018 Td, adsorbed 06/10/2011 Tdap 08/07/2018 Surgical History Surgery Date Site/Laterality Comments SECTION KNEE SURGERY TONSILLECTOMY Medical History Medical History Date Comments Hypertension Thyroid disease Acid indigestion Family History Medical History Relation Name Comments Dementia Father Brain Aneurysm Mother Relation Name Status Comments Father (Age 76) Mother (Age 55) Social History Tobacco Use Types Packs/Day Years Used Date Smoking Tobacco: Every Day Cigarettes Smokeless Tobacco: Never Tobacco Cessation:Ready to Q uit: Not Asked; Counseling Given: Not Answered Alcohol Use Standard Drinks/Week Comments Yes 0 (1 standard drink = 0.6 oz pur e alcohol) socially PHQ-2 Answer Date Recorded PHQ-2 Score 0 11/06/2018 Personal Safety Answer Date Recorded Getting School Help Needed Not on file 04/07 Comments Unknown Sex and Gender Information Value Date Recorded Sex Assigned at Not on file Legal Sex Female 12:39 AM PROJECT MANAGER INTERIOR DESIGN Gender Identity Not on file Sexual Orientation Not on file 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 file Not on file Not on file Obstetrics History Last Filed Vital Signs Vital Sign Reading Time Taken Comments Blood Pressure 128/80 06/13/2023 11:46 AM CDT Pulse 80 06/13/2023 11:46 AM CDT Temperature 36.8 ??C (98.3 ??F) 04/28/2019 11:[address] Respiratory Rate 18 01/06/2019 1:39 PM CDT Oxygen Saturation 99% 06/13/2023 11:46 AM CDT Inhaled Oxygen Concentration - - Weight 61.3 kg (135 lb 1.6 oz) 06/13/2023 11:46 AM CDT Height 160 cm (5' 3 ) 06/13/2023 11:46 AM CDT Body Mass Index 23.93 06/13/2023 11:46 AM CDT Plan of Treatment Health Maintenance Due Date Last Done Comments Colon Cancer Screening-Colonoscopy 1965 Hepatitis C Screening 1965 Pneumococcal vaccine <65 (1 of 2 - PCV) 11/22/1969 Hepatitis B Screening 11/22/1981 Cervical Cancer Screening 11/25/2012 11/26/2011 Zoster Vaccine (1 of 2) 11/22/2013 Breast Cancer Screening-Mammogram 06/07/2019 019 Depression Screening 08/08/2019 08/07/2018 Regular Well Visit/Exam 18-64 08/08/2019 08/07/2018 Influenza Vaccine (#1) 2023 9, 01/06/2017, 01/06/2017, Additional history exists DTaP/Tdap/Td Vaccine (2 - Td or Tdap) 08/07/2028 08/07/2018, 06/10/2011 Procedures Procedure Name Priority Date/Time Associated Diagnosis Comments MAMMOGRAPHY Routine 06/06/2018 PAP SMEAR WITH HPV Routine 11/26/2011 from Last 3 Months or Most Recently Relevant to Health Maintenance Results * MAMMOGRAPHY (06/06/2018) Mammogram Normal Comment:Trevor Cabrera -- Bir ads 1 Historical Provider HEALTH MAINTENANCE Final Result * PAP SMEAR WITH HPV (11/26/2011) Pap smear Normal Historical Provider HEALTH MAINTENANCE Final Result from Last 3 Months or Most Recently Relevant to Health Maintenance Insurance [employer] Care Teams Track Superintendent Relationship Specialty Start Date End Date Fidel Krueger DO PCP - General Internal Medicine 04/10/20
--- OUTSIDE RECORDS SUMMARY | 2024-04-16 13:57 | XMS_ITS | Referral Summary ---
Author Organization [facility] [address] Address [address] [place] [address] Care Team Providers Care Inspector Name Role Phone Fidel Krueger DO Primary Care Provider +1- [phone] Allergies Active Allergy Reactions Criticality Noted Date [...] 1 tablet (88 mcg total) by mouth television journalist before breakfast Active metoprolol tartrate (LOPRESSOR) 25 mg immediate release tablet TAKE 1 AND 1/2 TABLETS BY MOUTH TWICE DAILY 270 tablet 3 4 Active Active Problems Problem Noted Date Diagnosed Date Mixed hyperlipidemia 06/13/2023 Medication side effects 07/29/2022 BMI 25.0-25.9,adult 04/28/2019 Assessment & Plan (04/28/2019 11:40 AM ELECTRIC DISTRIBUTION CHECKER): Weight/BMI is in healthy range. Continue healthy lifestyle to maintain. Chronic low back pain 02/12/2019 Assessment & Plan (02/12/2019 5:57 PM ELECTRIC DISTRIBUTION CHECKER): Encouraged stretching, ice/heat and NSAIDs. Start PT. Monitor closely and if sxs persist she is to followup. Colon cancer screening 02/12/2019 Assessment & Plan (02/12/2019 5:56 PM ELECTRIC DISTRIBUTION CHECKER): Refer to GI for colonoscopy Otalgia 02/12/2019 Assessment & Plan (02/12/2019 5:55 PM ELECTRIC DISTRIBUTION CHECKER): Monitor this area behind her left ear. [...] Has some wheezing possible bronchitis. Is a group home smoker. Has failed multiple antibiotics. STOP smoking. [...] Reviewed options for assistance with cessation. Reviewed group home sequela associated with smoking. Pt declines assistance at this time but may contact the office at anytime for further help as they desire. States she quit a few days ago. Encouraged to continue the cessation effort Assessment & Plan (02/12/2019 5:55 PM ELECTRIC DISTRIBUTION CHECKER): Encouraged smoking cessation. Discussed 3 minutes. Reviewed options for assistance with cessation. Reviewed extermination supervisor sequela associated with smoking. 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
== END 2024-04-16 13:45 | disposition home or self-care (01) ==
PROVIDERS: PCP Internal Medicine; Visit Provider Clinical Nurse Specialist
DX: Z12.2 Encounter for screening for malignant neoplasm of respiratory organs (principal); Z87.891 Personal history of nicotine dependence
CPT/HCPCS: 71271

== ENCOUNTER 2024-06-11 10:52 | Outpatient (CLI) | payer OTHER, MEDICAID, SELFPAY ==
--- OUTSIDE RECORDS SUMMARY | 2024-06-11 11:54 | XMS_ITS | Encounter Summary ---
Author Organization [facility] Facility Care Team Providers Care Credit Union Manager Name Role Phone Marisol Caban Primary Care Provider +1- [phone] Fidel Krueger DO Primary Care Provider +1- [phone] Encounter Details Date Type Department Care Team (Latest Contact Info) Description 12/22/2017 Orders Only [facility]IN[facility] Provider, MD Jaren [address] [place] [address] Social History Tobacco Use Types Packs/Day Years Used Date Smoking Tobacco: Every Day Cigarettes Smokeless Tobacco: Never Alcohol Use Standard Drinks/Week Comments Yes 0 (1 standard drink = 0.6 oz pur e alcohol) socially Comments Unknown Sex and Gender Information Value Date Recorded Sex Assigned at Not on file Legal Sex Female 12:39 AM RUG CLEANER HAND Gender Identity Not on file Sexual Orientation [...] Ordered by an unspecified provider. Historical Provider MD [facility] NEHAL AVERY Final Result documented in this encounter Visit Diagnoses Not on filedocumented in this encounter Care Teams Credit Union Manager Relationship Specialty Start Date End Date Marisol Caban PA [address] [place] [address] PCP - General Internal Medicine 08/04/18 01/31/20 Fidel Krueger DO [address] [place] [address] PCP - General Internal Medicine 04/10/20 documented as of this encounter
--- OUTSIDE RECORDS SUMMARY | 2024-06-11 11:54 | XMS_ITS | Encounter Summary ---
Author Organization [facility] Facility Care Team Providers Care Log Chain Worker Name Role Phone Marisol Caban Primary Care Provider +1- [phone] Fidel Krueger DO Primary Care Provider +1- [phone] Encounter Details Date Type Department Care Team (Latest Contact Info) Description 07/07/2017 Orders Only [facility] CLINCONV Provider, MD Jaren [address] [place] [address] Social History Tobacco Use Types Packs/Day Years Used Date Smoking Tobacco: Every Day Cigarettes Smokeless Tobacco: Never Alcohol Use Standard Drinks/Week Comments Yes 0 (1 standard drink = 0.6 oz pur e alcohol) socially Comments Unknown Sex and Gender Information Value Date Recorded Sex Assigned at Not on file Legal Sex Female 12:39 AM SHOE LASTER Gender Identity Not on file Sexual Orientation [...] on filedocumented in this encounter Care Teams Log Chain Worker Relationship Specialty Start Date End Date Marisol Caban PA [address] [place] [address] PCP - General Internal Medicine 08/04/18 01/31/20 Fidel Krueger DO [address] [place] [address] PCP - General Internal Medicine 04/10/20 documented as of this encounter
--- OUTSIDE RECORDS SUMMARY | 2024-06-11 11:54 | XMS_ITS | Data Portability ---
Author Organization [facility] Address [address] [place] [address] Care Team Providers Care Lift Mechanic Name Role Phone OSIRIS RAMIREZSEY Primary Care Provider Assessment No assessment recorded. Plan of Treatment Reminders Order Date Submit Date Provider Last Modified By Organization Details Last Modified Time Details Appointments None recorded. Lab None recorded. Referral None recorded. Procedures None recorded. Surgeries None recorded. Imaging None recorded. Medication Orders Imvexxy Maintenance Pack 10 mcg vaginal insert 2023 024 [id number], [address], [place], [place], [id number], 4 16:16:34 Patient TargetsNo targets recorded. Patient [...] patie nt consi derat ions. Not Available [facility] (Lab) [address], [place], [address], 07/23/2023 14:32:52 07/18/19 24 07/18/2023 TRICH OMONA S VAGIN FATOUMATA (RRNA ) trichomonas vaginalis ribosomal RNA (rrna) Negati ve negati ve Not Available [facility] (Lab) [address], [place], [address], 07/23/2023 14:32:53 07/18/19 24 07/18/2023 CT/GC (ANUPAM) , THINP REP VIAL chlamydia trachomatis, PCR Negati ve negati ve Not Available [facility] (Lab) [address], [place], [address], 07/23/2023 14:32:54 07/18/19 24 07/18/2023 CT/GC (ANUPAM) , THINP REP VIAL neisseria gonorrhoeae, PCR Negati ve negati ve Not Available [facility] (Lab) [address], [place], [address], 07/23/2023 14:32:54 Result Notes None recorded. Procedures Surgical History Date Name Laterality Status Provider Name and Address Organization Details Recorded Time 4 Date of Last Mammogram completed [facility] 07/18/2023 12:06:52 4 Most Recent Bone Density completed [facility] 07/18/2023 12:06:52 3 completed [facility] 07/18/2023 12:06:52 3 Date of Last Colonoscopy completed [facility] 07/18/2023 12:06:52 2 Date of Last Pap Smear completed [facility] 07/18/2023 12:06:52 5 Caesarean Section completed [facility] 07/18/2023 12:07:20 Colposcopy completed [facility] 07/18/2023 12:07:20 tonsilectomy/ad enoids completed [facility] 07/18/2023 12:07:20 Imaging Results None recorded. Procedure Notes None recorded. Medical Equipment None Reported. Allergies Allergen ID Allergen Name Allergen Category Reaction Reaction Severity Criticality Documentation Date Start Date Code Code System Note Provider Name and Address Organization Details Recorded Time 69462 ampicilli n medicatio n rash Not available Not available 07/18/2023 733 RxNorm Augustina Swayne [facility] 4 12:05:54 50382 cephalexi n medicatio n rash Not available Not available 07/18/2023 2231 RxNorm Augustina Swayne [facility] 4 12:05:54 45571 nitrofura ntoin medicatio n anaphylax is Not available Not available 07/18/2023 7454 RxNorm Augustina Swayne [facility] 4 12:05:54 53113 Bactrim medicatio n rash Not available Not available 07/18/2023 10059 9 RxNorm Augustina Swayne [facility] 4 12:05:54 82571 Macrobid medicatio n anaphylax is Not available Not available 07/18/2023 27951 1 RxNorm Augustina Swayne [facility] 4 12:07:42 Medications Name Sig Start [...] Not Available Not Available Not Available Acid Occupational Therapy Professor (omeprazole ) active Not Available Not Available Not Available Adult One Daily Multivitami n active Not Available Not Available Not Available Imvexxy Maintenance Pack 10 mcg vaginal insert active Not Available Not Available Not Available Vitals Date Recorded Body height Body weight Systolic blood pressure Diastolic blood pressure Provider Name and Address Organization Details Last Updated DateTime 07/18/2023 156.21 cm 88863.41 g 133 mm[Hg] 84 mm[Hg] Augustina Yen [facility] 07/18/2023 12:05:44 Social History Question Answer [...] Or The Highest Degree You Have Received? [id number] Information not available 07/18/2023 What Is Your [...] Anxious, Or Unable To Sleep At Night)? [id number] Information not available 07/18/2023 Do You Use [...] (Food, seasonal, environmental ) N Other N Breast Cancer N Drug/Latex Allergies/Reactions N Blood Transfusion N Lung Disease N Dermatologic Disorders N [...] Neurologic/Epilepsy N Endometriosis N High Cholesterol N Fibromyalgia N Headaches N Kidney Disease N Heart Problems N Kidney or Bladder Problems N Thyroid Problems N GI Problems N Eating Disorder [...] SNOMED-CT Code Diagnosis ICD10 Code Diagnosis Note [id number] MARVIN MEADE MD [place] [address] [address] 07/18/2023 11:27:06 07/21/2023 06:38:43 Postmenopausal osteopenia 333414123 M85.80 - DEXA stable 04/2023- discussed Ca supplement and weight bearing exercise- repeat in 2 years Vaginal dryness 72708446 N89.8 - normal atrophy on exam- continue Imvexxy suppositor ies Gynecologi c examination 58824876 Z01.419 Z11.51 Well woman care- Cervical cancer [...] ID Guarantor Name 07/18/2023 1 [place] [id number] Claire Mitchelljessy [id number] Claire Chana 07/18/2023 2 [place] [facility] Claire Chana [id number] Claire Zayas Notes Date Note Type Note [...] time. MARVIN MEADE MD [address], [place], [address], [facility] 07/18/2023 16:16:41 OBGyn Episode Ob Episode Information Episode Created Date Number of Fetuses Patient Bloodtype Patient rh Status Prepregnancy Weight lbs Domestic Partner Domestic Partner Phone Father Name Job Putter Up And Ticket Preparer Status 07/18/19 24 1 CLOSED Fetus Data First Name Last Name Admitted to NICU Weight (g) Sex Living Outcome Pediatric Complications Fetus ID Race Codes Race Delivery Type F Full Term 03721 Primary Elia Calculation Initial Elia Date Initial [...] Domestic Partner Domestic Partner Phone Father Name Job Putter Up And Ticket Preparer Status 07/18/19 24 1 CLOSED Fetus Data First Name Last Name Admitted to NICU Weight (g) Sex Living Outcome Pediatric Complications Fetus ID Race Codes Race Delivery Type F Full Term 36799 Repeat Elia Calculation Initial Elia Date Initial [...] Domestic Partner Domestic Partner Phone Father Name Job Putter Up And Ticket Preparer Status 07/18/19 24 1 CLOSED Fetus Data First Name Last Name Admitted to NICU Weight (g) Sex Living Outcome Pediatric Complications Fetus ID Race Codes Race Delivery Type M Full Term 26464 Repeat Elia Calculation Initial Elia Date Initial [...]
--- OUTSIDE RECORDS SUMMARY | 2024-06-11 11:54 | XMS_ITS | Clinical Summary ---
Author Organization [facility] Address [address] [place] [address] Phone Care Team Providers Care Glass Toughening Operator Name Role Phone LeeFidel cifuentes Primary Care Provider [phone] Allergies Active Allergy Reactions Criticality Noted Date [...] Reviewed options for assistance with cessation. Reviewed longterm sequela associated with smoking. Pt declines assistance [...] AM CDT Pulse - - Temperature 36.1 C (97 F) 12/10/2021 10:12 AM CDT Respiratory Rate 18 [...] Vaccine (#1) 2023 12/29/2018, 2007 Care Teams Glass Toughening Operator Relationship Specialty Start Date End Date Fidel Krueger DO [address] [place] [address] PCP - General Internal Medicine 08/20/21
--- OUTSIDE RECORDS SUMMARY | 2024-06-11 11:54 | XMS_ITS | Encounter Summary ---
Author Organization [facility] Address [address] [place] [address] Care Team Providers Care Social Services Aide Name Role Phone Marisol Caban Primary Care Provider [phone] Fidel Krueger DO Primary Care Provider [phone] Encounter Details Date Type Department Care Team (Late st Contact Info) Description 12/16/2012 Orders Only [facility] [address] [place] [address] Scanning, Provider Social History Tobacco Use Types Packs/Day Years Used Date Smoking Tobacco: Never Assessed Comments Unknown Sex and Gender Information Value Date Recorded Sex Assigned at Not on file Legal Sex Female 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
--- OUTSIDE RECORDS SUMMARY | 2024-06-11 11:54 | XMS_ITS | Continuity of Care Document ---
[facility] Organization [facility] Address [address] [place] [address] Phone Care Team Providers Care Scheduling Manager Name Role Phone González Garcia MD Unavailable Unavailable Allergies, Adverse Reactions, Alerts Substance Reaction Status Criticality sulfanilamide Rash Active No Information tetracycline Rash Active No Information Penicillins Rash Active No Information ampicillin Rash Active No Information Medications Medication Instructions Dosage Effective Dates (start - stop) Status Comments omeprazole 40 mg Cap, delayed release take 1 capsule (40MG) by oral route every day before a meal 40 MG - Active EpiPen 0.3 mg/0.3 mL (1:1,000) IM Injector inject dose (0.3MG) intramuscularly into thigh once then call 911 as needed - Active Please fill with [facility] cetirizine 10 mg Tab take 1 tablet (10MG ) by oral route every day 10 MG - Active levothyroxine 125 mcg Cap take 1 capsule (125MCG) by oral route every day 125 MCG - Active diphenhydramine 25 mg Tab take 2 tablet (50MG) by oral route 4 - 6 hours as needed 50 MG - Active Advance Directives Directive Yes / No Effective Date File Name No Information Encounters Encounter Description Practice Location Reason(s) For Visit Diagnoses Date Provider Providers Copied on Encounter [facility], [address], [place], [place], [id number], [place] tel:[phone] [facility] No Information Jose Claudio. [address], [id number], [place]. tel:[phone] [facility], [address], [place], [place], [address], [place] tel:[phone] [facility] Other specified urticaria Jose Claudio. [address] [facility], [facility] [address], [place], [place], [id number], [place]. tel:[phone] Referring Provider: Domingo Beaver, [address] [facility] [address], [place], [address]. tel:[phone] Family History Family Member Type Diagnosis Age At Onset Mother Problem (finding) Allergies Payers Payer name Insurance type Covered alliance party ID Authoriza tion(s) [facility] [id number] Social History Type Description Quantity Date Captured [...]
--- OUTSIDE RECORDS SUMMARY | 2024-06-11 11:54 | XMS_ITS | Data Portability ---
Author Organization [facility] Address [address] [place] [address] Assessment No assessment recorded. Plan of Treatment Reminders Order Date Submit Date Provider Last Modified By Organization Details Last Modified Time Details Appointments None recorded. Lab TSH + free T4, serum 2015 016 [facility], [address] [place] [address], [id number], 6 04:30:57 Referral None recorded. Procedures None recorded. Surgeries None recorded. Imaging None recorded. Medication Orders naproxen 500 mg tablet 2015 016 [facility] [place], [address], 6 04:31:12 Patient TargetsNo targets recorded. Patient InstructionsNo instructions recorded. Reason for Referral None Reported. Results Created Date Observation Date Name Description Value Unit Range Abnormal Flag Note LastModifiedBy Organization Detail LastModifiedTime 01/17/20 16 01/18/2016 TSH + free T4, serum TSH 0.510 uIU/m L 0.450- 4.500 Not Available [facility] ([facility]) [address] [place], [address], 01/18/2016 06:12:42 01/17/20 16 01/18/2016 TSH + free T4, serum T4,free(dire ct) 1.64 NG/dL 0.82-1 .77 Not Available [facility] ([facility]) [address] [facility] [place], [address], 01/18/2016 06:12:42 01/17/20 16 01/17/2016 [email or web address] javier note please note COMMEN T THE DATE AND/O R TIME OF COLLE CTION WAS NOT INDIC ATED ON THE REQUI SITIO N REQUI RED BY STATE AND [place] LAW. THE DATE OF RECEI PT OF THE SPECI MEN WAS USED THE COLLE CTION DATE IF NOT SUPPL IED. Not Available [facility] ([facility]) [address] [facility], [place], [address], 01/18/2016 06:12:42 01/12/20 16 01/07/2016 XR, chest , 2 view No observ ation record ed. [email or web address] Not Available 2015 16:31:43 Result Notes None recorded. Problems Name Problem SNOMED Code Status Onset Date Resolution Date Notes Provider Name and Address Organization Details Recorded Time Crohn's disease of large bowel 5974445 Active 2011 Location : None;Sev erity: Moderate ;Progres s: Stable;A dded By: Brennen Beaver;Add to Current Problems : NO Not Available [facility] 7 08:03:24 Allergic rhinitis caused by pollen 34406045 Completed 201110/24/2011 Location : None;Sev erity: Moderate ;Progres s: Stable;A dded By: Brennen Beaver;Add to Current Problems : NO Not Available [facility] 7 08:03:24 Displace ment of lumbar interver tebral disc without myelopat hy 56426547 Active 2011 Location : None;Sev erity: Moderate ;Progres s: Stable;A dded By: Brennen Beaver;Add to Current Problems : NO Not Available [facility] 7 08:03:24 Acute upper respirat ory infectio n of multiple sites Completed 201507/27/2015 Location : None;Sev erity: Moderate ;Progres s: Stable;A dded By: Sandhya Kaur;Add to Current Problems : YES Not Available [facility] 7 08:03:24 Eruption [id number] Completed 201111/15/2011 Location : None;Sev erity: Moderate ;Progres s: Stable;A dded By: Sydney Knight;Add to Current Problems : NO Not Available [facility] 7 08:03:24 Contact dermatit is [id number] Completed 201111/15/2011 Location : None;Sev erity: Moderate ;Progres s: Stable;A dded By: Sydney Knight;Add to Current Problems : NO Not Available [facility] 7 08:03:24 Elevated blood-pr essure reading without diagnosi s of hyperten oanh [id number] Completed 201309/11/2013 Location : None;Sev erity: Moderate ;Progres s: Stable;A dded By: Sydney Knight;Add to Current Problems : NO Not Available [facility] 7 08:03:24 Anal fissure [id number] Completed 201112/27/2011 Location : None;Sev erity: Moderate ;Progres s: Stable;A dded By: Brennen Beaver;Add to Current Problems : NO Not Available [facility] 7 08:03:25 Acute upper respirat ory infectio n [id number] Completed 201212/26/2012 Location : None;Sev erity: Moderate ;Progres s: Stable;A dded By: Brennen Beaver;Add to Current Problems : NO Not Available [facility] 7 08:03:25 Palpitat ions [id number] Completed 201212/26/2012 Location : None;Sev erity: Moderate ;Progres s: Stable;A dded By: Brennen Beaver;Add to Current Problems : NO Not Available [facility] 7 08:03:25 Screenin g for malignan t neoplasm of colon Active 2014 Location : None;Sev erity: Moderate ;Progres s: Stable;A dded By: Brennen Beaver;Add to Current Problems : YES Not Available [facility] 7 08:03:25 Viral screenin g Completed 201407/31/2014 Location : None;Sev erity: Moderate ;Progres s: Stable;A dded By: Brennen Beaver;Add to Current Problems : YES Not Available [facility] 7 08:03:25 Hypothyr oidism 79937511 Active 2015 Location : None;Sev erity: Moderate ;Progres s: Stable;A dded By: Brennen Beaver;Add to Current Problems : YES Not Available [facility] 7 08:03:25 Tobacco dependen ce syndrome 57488649 Completed 201508/25/2015 Location : None;Sev erity: Moderate ;Progres s: Stable;A dded By: Brennen Beaver;Add to Current Problems : YES Not Available [facility] 7 08:03:25 Cough 36039523 Completed 201508/25/2015 Location : None;Sev erity: Moderate ;Progres s: Stable;A dded By: Brennen Beaver;Add to Current Problems : YES Not Available [facility] 7 08:03:25 Precordi al pain [id number] Completed 201508/25/2015 Location : None;Sev erity: Moderate ;Progres s: Stable;A dded By: Brennen Beaver;Add to Current Problems : YES Not Available [facility] 7 08:03:25 Acute frontal sinusiti s 64416096 Completed 201508/25/2015 Location : None;Sev erity: Moderate ;Progres s: Stable;A dded By: Brennen Beaver;Add to Current Problems : YES Not Available [facility] 7 08:03:25 Precordi al pain [id number] Completed 201212/26/2012 Location : None;Sev erity: Moderate ;Progres s: Stable;A dded By: Hillary Seth; Add to Current Problems : NO Not Available [facility] 7 08:03:26 Benign essentia l hyperten oanh 5339447 Active 2015 Location : None;Sev erity: Moderate ;Progres s: Stable;A dded By: Trina Torres i;Otto dd to Current Problems : NO Not Available [facility] 7 08:03:26 Multiple joint pain 61710712 Active 2011 Location : None;Sev erity: Moderate ;Progres s: Stable;A dded By: Trina Torres i;A dd to Current Problems : YES Not Available [facility] 7 08:03:26 Chronic ulcerati ve enteroco litis 01330254 Active 2011 Location : None;Sev erity: Moderate ;Progres s: Stable;A dded By: Karma Palencia;Add to Current Problems : NO Not Available [facility] 7 08:03:26 Hypo-osm olality and or hyponatr emia 074535994 Completed 201410/28/2014 Location : None;Sev erity: Moderate ;Progres s: Stable;A dded By: Karma Palencia;Add to Current Problems : YES Not Available [facility] 7 08:03:26 Pain in thoracic spine 308254417 Completed 201411/06/2014 Location : None;Sev erity: Moderate ;Progres s: Stable;A dded By: Karma Palencia;Add to Current Problems : YES Not Available [facility] 7 08:03:26 Tobacco dependen ce syndrome 11836727 Completed 201411/06/2014 Location : None;Sev erity: Moderate ;Progres s: Stable;A dded By: Karma Palencia;Add to Current Problems : YES Not Available [facility] 7 08:03:26 Essentia l hyperten oanh 79720834 Active 2014 Location : None;Sev erity: Moderate ;Progres s: Stable;A dded By: Karma Palencia;Add to Current Problems : YES Not Available [facility] 7 08:03:26 Gastroes ophageal reflux disease 533390919 Active 2011 Location : None;Sev erity: Moderate ;Progres s: Stable;A dded By: Karma Palencia;Add to Current Problems : YES Not Available [facility] 7 08:03:26 Dysuria 62930629 Completed 201206/26/2012 Location : None;Sev erity: Moderate ;Progres s: Stable;A dded By: Sandhya Gaming;Add to Current Problems : NO Not Available [facility] 7 08:03:27 Elevated blood-pr essure reading without diagnosi s of hyperten oanh 987392397 Active 2012 Location : None;Sev erity: Moderate ;Progres s: Stable;A dded By: Sandhya Gaming;Add to Current Problems : NO Not Available [facility] 7 08:03:27 Ra hematuri a 890281959 Active 2012 Location : None;Sev erity: Moderate ;Progres s: Stable;A dded By: Nabila Salmeron;Add to Current Problems : NO Not Available [facility] 7 08:03:27 Knee pain Completed 201211/09/2012 Location : None;Sev erity: Moderate ;Progres s: Stable;A dded By: Nabila Salmeron;Add to Current Problems : NO Not Available [facility] 7 08:03:27 Problem Notes None recorded. Procedures Surgical History Date Name Laterality Status Provider Name and Address Organization Details Recorded Time Knee Surgery completed Hillary [place] [facility] 01/17/2016 11:29:04 Tubal Ligation completed [place] [facility] [place] 01/17/2016 11:29:25 delivery completed [place] [facility] 01/17/2016 11:29:33 Imaging Results [...] Name and Address Organization Details Recorded Time 88840 cephalexi n monohydra te medicatio n Not available Not available Not available 03/20/20162011 10717 8 RxNorm Sever ity: Moder ate; Comme nt: Aller gy Type: Aller gy; Not Available Not Available Not Available 47486 tetracycl ine hydrochlo ride medicatio n Not available Not available Not available 03/20/20162011 01329 6 RxNorm Sever ity: Moder ate; Comme nt: Aller gy Type: Aller gy; Not Available Not Available Not Available 12232 Feldene medicatio n Not available Not available Not available 03/20/20162011 34423 8 RxNorm Sever ity: Moder ate; Comme nt: Aller gy Type: Aller gy; Not Available Not Available Not Available 80700 Wellbutri n medicatio n Not available Not available Not available 03/20/20162011 17129 RxNorm Sever ity: Moder ate; Comme nt: Aller gy Type: Aller gy; Not Available Not Available Not Available 62307 Effexor medicatio n Not available Not available Not available 03/20/20162011 28635 2 RxNorm Sever ity: Moder ate; Comme nt: Aller gy Type: Adver se React ion; Not Available Not Available Not Available 81210 clindamyc in hydrochlo ride medicatio n Not available Not available Not available 03/20/20162011 67744 RxNorm Sever ity: Moder ate; Comme nt: Aller gy Type: Aller gy; Not Available Not Available Not Available 51268 iodine medicatio n Not available Not available Not available 03/20/20162011 5933 RxNorm Sever ity: Moder ate; Comme nt: Aller gy Type: Aller gy; Not Available Not Available Not Available 65485 Product containin g penicilli n (product) medicatio n Not available Not available Not available 03/20/20162012 72565 8001 SNOMED Sever ity: Moder ate; Comme nt: Aller gy Type: Aller gy; Not Available Not Available Not Available 00002 lisinopri l medicatio n cough rash moderate moderate Not available 03/20/20162014 20097 RxNorm React ion: cough ;Gen[place] rity: Moder ate; Comme nt: Aller gy Type: Adver se React ion; Not Available Not Available Not Available 39797 [facility] Not available Not available Not available 03/20/20162014 06140 RxNorm React ion: nause a, vomit ing;S everi ty: Moder ate; Comme nt: Aller gy Type: Aller gy; Not Available Not Available Not Available 27367 ampicilli n trihydrat e medicatio n Not available Not available Not available 03/20/2016201111 5 RxNorm Sever ity: Moder ate; Comme nt: Aller gy Type: Aller gy; Not Available Not Available Not Available Medications Name Sig Start Date Stop Date Status Note LastModified by Organization Details LastModified Time hydrochlo rothiazid e 50 mg tablet Take 1 tablet(s ) by mouth daily 09/01 completed RxNorm: 815689;A llow Substitu tion: True Not Available Not Available Not Available ranitidin e 300 mg tablet TAKE ONE TABLET BY MOUTH TWICE DAILY 2015 active Not Available Not Available Not Avai lable lisinopri l 20 mg tablet ONE DAILY 10/27 completed RxNorm: 642733;A llow Substitu tion: True Not Available Not [...] ) by mouth once 07/25 completed RxNorm: 927501;A llow Substitu tion: True Not Available Not Available Not Available nifedipin e ER 30 mg tablet,ex tended release TAKE ONE TABLET BY MOUTH ONCE DAILY 2017 active Routine appt and ok Not Available Not Available Not Available amlodipin e 5 mg tablet Take 1 tablet(s ) by mouth daily 09/07 completed RxNorm: 089252;A llow Substitu tion: True Not Available Not Available Not Available omeprazol e 40 mg capsule,d elayed release TAKE ONE CAPSULE BY MOUTH ONCE DAILY 2016 active Appt within 3 mos Not Available Not Available Not Available meloxicam 7.5 mg tablet Take 1 tab twice daily 10/09 completed RxNorm: 738582;A llow Substitu tion: True Not Available Not Available Not Available levothyro xine 100 mcg tablet TAKE ONE TABLET BY MOUTH ONCE DAILY IN THE MORNING ON AN EMPTY STOMACH. 2016 active Appt in 6 mos Not Available Not Available Not Available Cipro 500 mg tablet Take 1 tablet(s ) by mouth q12h for 7 days 07/02 completed RxNorm: 769962;A llow Substitu tion: True Not Available Not Available Not Available ranitidin e 300 mg capsule Take 1 capsule every day by oral route. active Not Available Not Available No t Available lisinopri l 10 mg tablet Take 1 tab daily 09/22 completed RxNorm: 168768;A llow Substitu tion: True Not Available Not Available Not Available ibuprofen 400 mg tablet Take bid 2012 active RxNorm: 289486;A llow Substitu tion: True Not Available Not Available Not Available hydrochlo rothiazid e 12.5 mg capsule Take 1 capsule( s) by mouth daily 09/08 completed RxNorm: 760089;A llow Substitu tion: True Not Available Not Available Not Available hydrochlo rothiazid e 25 mg tablet one po daily 06/01 completed RxNorm: 707979;A llow Substitu tion: True Not Available Not Available Not Available fluticaso ne propionat e 50 mcg/actua tion nasal spray,rosa pension 2 spray(s) in each nostril daily 2015 active RxNorm: 640874;A llow Substitu tion: True Not Available Not Available Not Available naproxen 500 mg tablet Take 1 tablet twice a day by oral route. 2015 active Not Available Not Available Not Avai lable levothyro xine 112 mcg tablet Take 1 tablet(s ) by mouth daily 11/26 completed RxNorm: 402150;A llow Substitu tion: True Not Available Not Available Not Available Cozaar 50 mg tablet Take 1 tablet(s ) by mouth daily 04/24 completed RxNorm: 513688;A llow Substitu tion: True Not Available Not Available Not Available cyclobenz aprine 5 mg tablet TAKE ONE TABLET BY MOUTH ONCE DAILY AT BEDTIME NEEDED 2015 active Not Available Not Available Not Avai lable Zyrtec 10 mg chewable tablet I tab daily prn 10/09 completed RxNorm: 124889;A llow Substitu tion: True Not Available Not Available Not Available Pentasa 500 mg capsule,c ontrolled release Take 2 capsule( s) by mouth qid 06/01 completed RxNorm: 137427;A llow Substitu tion: True Not Available Not [...] t Available Vitals Date Recorded Body weight Body height Body mass index (BMI) Heart rate Systolic blood pressure Diastolic blood pressure Provider Name and Address Organization Details Last Updated DateTime 6 59190.7 9 g 162.56 cm 24.6 kg/m2 104 /min 130 mm[Hg] 80 mm[Hg] Hillary Perez [place] - [facility] 6 11:33:24 Social History None recorded. Functional Status [...] preservative free, adsorbed 2 completed Not Available [facility] 03/20/2016 05:55:53 Influenza, split virus, trivalent, preservative 8 completed Not Available [facility] 03/20/2016 05:55:53 Past Encounters Encounter ID Performer Location Encounter Start Date Encounter Closed Date Diagnosis/Indication Diagnosis SNOMED-CT Code Diagnosis ICD10 Code Diagnosis Note [id number] [facility] [address] [place] [address] 01/17/2016 11:20:52 01/22/2016 16:36:42 Hypothyroidism 28756537 E03.9 Chronic back pain 161747 002 M54.9 Health Concerns Section Related Observation LastModified by Organization Detai ls LastModified Time None Recorded Concern Status LastModified by Organization Details LastModified Time None Recorded Advance Directives Directive None Recorded Payers Encounter Date Sequence Insurance Name Policy Number Policy Heart Covered Member ID Heart Member ID Guarantor Name 01/17/2016 1 [employer] - DOS PRIOR TO 20 - [facility] [employer] [id number]as [id number] Notes Date Note Type Note Provider Name [...] AM. Takes it with omeprazole and ranitidine Hillary carroll, [place] - [facility] 01/17/2016 12:22:22 OBGyn Episode No OBEpisode recorded.
--- OUTSIDE RECORDS SUMMARY | 2024-06-11 11:55 | XMS_ITS | Clinical Summary ---
Author Organization [facility] [address] Address [address] [place] [address] Care Team Providers Care Medical Associate Name Role Phone Fidel Krueger DO Primary Care Provider [phone] Allergies Active Allergy Reactions Criticality Noted Date [...] use. Do not swallow. 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 Continue healthy lifestyle to maintain. Chronic low back pain 02/12/2019 Assessment & Plan (02/12/2019 5:57 PM MORTUARY OPERATIONS MANAGER): Encouraged stretching, ice/heat and NSAIDs. Start PT. Monitor closely and if sxs persist she is to followup. Colon cancer screening 02/12/2019 Assessment & Plan (02/12/2019 5:56 PM MORTUARY OPERATIONS MANAGER): Refer to GI for colonoscopy Otalgia 02/12/2019 Assessment & Plan (02/12/2019 5:55 PM MORTUARY OPERATIONS MANAGER): Monitor this area behind her left ear. Appears to be resolving. If persists, may need further followup. Other chest pain 01/04/2019 BO (obstructive sleep apnea) 01/04/2019 Uncomplicated alcohol dependence 01/04/2019 Bronchitis 10/31/2018 Assessment & Plan (05/30/2019 11:14 PM CDT): Bronchitis vs early pneumonia? Start antibiotic, antihistamine (Claritin OR Zyrtec), Mucinex 12hour and Steroid nasal spray (Flonase). Push fluids. Rest. Supportive care. If sxs worsen or don\'t improve, pt is to followup in the office. Start Symbicort. Assessment & Plan (10/31/2018 10:25 PM CDT): Probable viral illness. Has some wheezing possible bronchitis. Is a shelter smoker. Has failed multiple antibiotics. STOP smoking. [...] Reviewed options for assistance with cessation. Reviewed oil heaterman sequela associated with smoking. Pt declines assistance at this time but may contact the office at anytime for further help as they desire. States she quit a few days ago. Encouraged to continue the cessation effort Assessment & Plan (02/12/2019 5:55 PM MORTUARY OPERATIONS MANAGER): Encouraged smoking cessation. Discussed 3 minutes. Reviewed options for assistance with cessation. Reviewed oil heaterman sequela associated with smoking. Pt declines assistance [...] appropirate screenings. 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 file Not on file Not on file Obstetrics History Last Filed Vital Signs Vital Sign Reading Time Taken Comments Blood Pressure 128/80 06/13/2023 11:46 AM CDT Pulse 80 06/13/2023 11:46 AM CDT Temperature 36.8 C (98.3 F) 04/28/2019 11:35 AM MORTUARY OPERATIONS MANAGER Respiratory Rate 18 01/06/2019 1:39 PM CDT [...] Cancer Screening-Colonoscopy 1965 Hepatitis C Screening 1965 Hepatitis B Screening 11/22/1981 Pneumococcal vaccine <65 (1 of 2 - PCV) 11/22/1982 Cervical Cancer Screening 11/25/2012 11/26/2011 Zoster Vaccine [...] SMEAR WITH HPV (11/26/2011) Pap smear Normal us Historical Provider HEALTH MAINTENANCE Final Result from Last 3 Months or Most Recently Relevant to Health Maintenance Insurance [employer] [facility] Care Teams Medical Associate Relationship Specialty Start Date End Date Fidel Krueger DO PCP - General Internal Medicine 04/10/20
--- OUTSIDE RECORDS SUMMARY | 2024-06-11 11:55 | XMS_ITS | Referral Summary ---
Author Organization [facility] [address] Address [address] [place] [address] Care Team Providers Care Business Support Coordinator Name Role Phone Fidel Krueger DO Primary Care Provider [phone]- [phone] Allergies Active Allergy Reactions Criticality Noted Date [...] 1 tablet (88 mcg total) by mouth stack matcher before breakfast Active metoprolol tartrate (LOPRESSOR) 25 mg immediate release tablet TAKE 1 AND 1/2 TABLETS BY MOUTH TWICE DAILY 270 tablet 3 4 Active Active Problems Problem Noted Date Diagnosed Date Mixed hyperlipidemia 06/13/2023 Medication side effects 07/29/2022 BMI 25.0-25.9,adult 04/28/2019 Assessment & Plan (04/28/2019 11:40 AM LEARNING DISABLED TEACHER): Weight/BMI is in healthy range. Continue healthy lifestyle to maintain. Chronic low back pain 02/12/2019 Assessment & Plan (02/12/2019 5:57 PM LEARNING DISABLED TEACHER): Encouraged stretching, ice/heat and NSAIDs. Start PT. Monitor closely and if sxs persist she is to followup. Colon cancer screening 02/12/2019 Assessment & Plan (02/12/2019 5:56 PM LEARNING DISABLED TEACHER): Refer to GI for colonoscopy Otalgia 02/12/2019 Assessment & Plan (02/12/2019 5:55 PM LEARNING DISABLED TEACHER): Monitor this area behind her left ear. [...] Has some wheezing possible bronchitis. Is a jail sm[facility]. Has failed multiple antibiotics. STOP smoking. [...] Reviewed options for assistance with cessation. Reviewed long term care pharmacist sequela associated with smoking. Pt declines assistance at this time but may contact the office at anytime for further help as they desire. States she quit a few days ago. Encouraged to continue the cessation effort Assessment & Plan (02/12/2019 5:55 PM LEARNING DISABLED TEACHER): Encouraged smoking cessation. Discussed 3 minutes. Reviewed options for assistance with cessation. Reviewed long term care pharmacist sequela associated with smoking. 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 file Not on file Not on file Last Filed Vital Signs Vital Sign Reading Time Taken Comments Blood Pressure 128/80 06/13/2023 11:46 AM CDT Pulse 80 06/13/2023 11:46 AM CDT Temperature 36.8 C (98.3 F) 04/28/2019 11:35 AM LEARNING DISABLED TEACHER Respiratory Rate 18 01/06/2019 1:39 PM CDT [...] Cabrera -- Bir ads 1 Historical Provider MD HEALTH MAINTENANCE Final Result * PAP SMEAR WITH HPV (11/26/2011) Pap smear Normal Historical Provider HEALTH MAINTENANCE Final Result from Last 3 Months or Most Recently Relevant to Health Maintenance Insurance [facility] Care Teams Business Support Coordinator Relationship Specialty Start Date End Date Fidel Krueger DO PCP - General Internal Medicine 04/10/20
--- OUTSIDE RECORDS SUMMARY | 2024-06-11 11:55 | XMS_ITS | Continuity of Care Document ---
Author Organization [facility] Address [address] [place] [address] Phone Care Team Providers Care Tufting Creeler Name Role Phone Brooke OD, Del Unavailable Unavailable Procedures Procedure Date Eye Exam & Treatment Refraction SV Plastic Sphcyl Kane +/-4d, .12-2d Miscellaneous Vision Service - Supplies Tax - Medical SV Poly Carb Sph +/- 7.12 To +/- 20 D Miscellaneous Vision Service - Supplies Tax - Medical Advance Directives Directive Yes / No Effective Date File Name No Information Encounters Encounter Description Practice Location Reason(s) For Visit Diagnoses Date Provider Providers Copied on Encounter [facility], [address] [place] [address] [address], [place], [place], [id number], tel:[phone] [facility] No Information 1-201 0 Brooke OD Del. [address] , [address], [place], [address], [place]. tel:[phone] [facility], [address], [place], [place], [id number], [place] tel:[phone] [facility] No Information 3-200 7 [facility] . [address], [address], [place], [place], [address], [place]. tel:[phone] Referring Provider: Attila Menjivar [address] [place] [address] [address], [place], [address]. tel:[phone] hernandez Provider: Fay Francisco [facility], [place], [address]. tel:[phone] [facility], [address], [place], [place], [address], [place] tel:[phone] [facility] No Information 7 [facility] . [address], [address], [place], [place], [address], [place]. tel:[phone] Referring Provider: Attila Menjivar [address] [place] [address] [address], [place], [address]. tel:[phone] hernandez Provider: Fay Francisco [facility], [place], [address]. tel:[phone] Family History Family Member Type Diagnosis Age At Onset No Information Payers Payer name Insurance type Covered green party ID Authoriza tion(s) No Information Social [...]
[2024-06-11 12:54] LABS: Basophils Absolute Auto 0.1 K/mm3 (0.0-0.1); Basophils Percent Auto 1.1 % (0.2-1.2); Eosinophils Absolute Auto 0.2 K/mm3 (0-0.3); Eosinophils Percent Auto 2.6 % (0-4.4); Hematocrit 32.2 % (37.0-47.0); Hemoglobin 10.7 g/dL (12.0-15.0); Immature Granulocyte Absolute 0.05 K/mm3 (0.00-0.031); Immature Granulocyte Percent A 0.6 % (0-0.5); Lymphocytes Absolute Auto 2.17 K/mm3 (0.9-3.2); Lymphocytes Percent Auto 25.5 % (18.3-44.2); Mean Corpuscular HGB Conc 33.2 g/dl (32-36); Mean Corpuscular Hemoglobin 32.7 pg (26-34); Mean Corpuscular Volume 98.5 fl (80-100); Mean Platelet Volume 9.7 fl (7.4-10.4); Monocytes Absolute Auto 0.7 K/mm3 (0.1-0.6); Monocytes Percent Auto 7.8 % (2.6-8.5); Neutrophils Absolute Auto 5.3 K/mm3 (1.3-6.7); Neutrophils Percent Auto 62.4 % (45.5-73.1); Platelet Count Result 376 k/mm3 (150-375); Red Blood Count 3.27 M/mm3 (4.2-5.4); Red Cell Distribution Width 12.5 % (11.5-14.5); White Blood Count 8.5 K/mm3 (4.5-10.0)
[2024-06-11 13:02] LABS: Anion Gap 11 mmol/L (4-12); Blood Urea Nitrogen 13 mg/dL (7-17); Calcium 9.6 mg/dL (8.4-10.2); Carbon Dioxide 26 mmol/L (22-30); Chloride 98 mmol/L (98-107); Estimated Glomerular Filt Rate > 60; Glucose 108 mg/dL (65-110); Sodium 135 mmol/L (137-145)
== END 2024-06-11 10:53 | disposition home or self-care (01) ==
PROVIDERS: PCP Clinical Nurse Specialist; Visit Provider Clinical Nurse Specialist
DX: D64.9 Anemia, unspecified (principal); I10 Essential (primary) hypertension
CPT/HCPCS: 36415; 80048; 85025

== ENCOUNTER 2024-06-21 10:31 | Outpatient (CLI) | payer OTHER, MEDICAID, SELFPAY ==
--- NOTE | ~2024-06-21 | US_ITS ---
EXAMINATION: US arterial duplex LE DATE: 06/21/2024 11:29 INDICATION: Decreased pulses in the lower limbs. TECHNIQUE: Multiple grayscale and Doppler ultrasound images of the arteries of the bilateral lower li mbs were obtained. COMPARISON: None FINDINGS: Small amount of scattered nonhemodynamically significant atherosclerotic plaque throughout the arteri es in both lower limbs. No evident focal hemodynamically significant stenosis on grayscale imaging or focal significant elevation of peak systolic velocities to suggest significant arterial occlusive di sease in either lower limb. Arterial waveforms are triphasic in the right external iliac, common femo ral, profunda femoral, superficial femoral and popliteal arteries and biphasic in the right posterior tibial, peroneal, anterior tibial and dorsalis pedis arteries all with brisk systolic upstrokes. In the left lower limb arterial waveforms are triphasic in the left external iliac, common femoral, prof unda femoral and superficial femoral arteries and biphasic in the left popliteal, posterior tibial, p eroneal, anterior tibial and dorsalis pedis arteries all with brisk systolic upstrokes. IMPRESSION: 1. Small amount of scattered atherosclerotic plaque in the arteries of both lower limbs without evide nt hemodynamically significant stenosis. Reviewed, dictated and finalized at location A. IMPRESSION: 1. Small amount of scattered atherosclerotic plaque in the arteries of both low er limbs without evident hemodynamically significant stenosis.
--- OUTSIDE RECORDS SUMMARY | 2024-06-21 12:08 | XMS_ITS | Encounter Summary ---
Author Organization [facility] Facility Care Team Providers Care Analytic Programmer Name Role Phone Marisol Caban Primary Care Provider [phone] Fidel Krueger DO Primary Care Provider [phone]- [phone] Encounter Details Date Type Department Care Team (Latest Contact Info) Description 07/07/2017 Orders Only [facility]INCONV Provider, MD Jaren [address] [place] [address] Social History Tobacco Use Types Packs/Day Years Used Date Smoking Tobacco: Every Day Cigarettes Smokeless Tobacco: Never Alcohol Use Standard Drinks/Week Comments Yes 0 (1 standard drink = 0.6 oz pur e alcohol) socially Comments Unknown Sex and Gender Information Value Date Recorded Sex Assigned at Not on file 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
--- OUTSIDE RECORDS SUMMARY | 2024-06-21 12:08 | XMS_ITS | Data Portability ---
Author Organization [facility] Address [address] [place] [address] Assessment No assessment recorded. Plan of Treatment Reminders Order Date Submit Date Provider Last Modified By Organization Details Last Modified Time Details Appointments None recorded. Lab TSH + free T4, serum 2015 016 [facility], [address] [place] [address], [id number], 6 04:30:57 Referral None recorded. Procedures None recorded. Surgeries None recorded. Imaging None recorded. Medication Orders naproxen 500 mg tablet 2015 016 [facility] [place], [address], 6 04:31:12 Patient TargetsNo targets recorded. Patient InstructionsNo instructions recorded. Reason for Referral None Reported. Results Created Date Observation Date Name Description Value Unit Range Abnormal Flag Note LastModifiedBy Organization Detail LastModifiedTime 01/17/20 16 01/18/2016 TSH + free T4, serum TSH 0.510 uIU/m L 0.450- 4.500 Not Available [facility] ([facility]) [address] [place], [address], 01/18/2016 06:12:42 01/17/20 16 01/18/2016 TSH + free T4, serum T4,free(dire ct) 1.64 NG/dL 0.82-1 .77 Not Available [facility] ([facility]) [address] [place], [address], 01/18/2016 06:12:42 01/17/20 16 01/17/2016 nayeli javier note please note COMMEN T THE DATE AND/O R TIME OF COLLE CTION WAS NOT INDIC ATED ON THE REQUI SITIO N REQUI RED BY STATE AND [place] LAW. THE DATE OF RECEI PT OF THE SPECI MEN WAS USED THE COLLE CTION DATE IF NOT SUPPL IED. Not Available [facility] ([facility]) [address] [facility], [place], [address], 01/18/2016 06:12:42 01/12/20 16 01/07/2016 XR, chest , 2 view No observ ation record ed. [email or web address] Not Available 2015 16:31:43 Result Notes None recorded. Problems Name Problem SNOMED Code Status Onset Date Resolution Date Notes Provider Name and Address Organization Details Recorded Time Crohn's disease of large bowel 6195931 Active 2011 Location : None;Sev erity: Moderate ;Progres s: Stable;A dded By: Brennen Beaver;Add to Current Problems : NO Not Available [facility] 7 08:03:24 Allergic rhinitis caused by pollen 73619848 Completed 201110/24/2011 Location : None;Sev erity: Moderate ;Progres s: Stable;A dded By: Brennen Beaver;Add to Current Problems : NO Not Available [facility] 7 08:03:24 Displace ment of lumbar interver tebral disc without myelopat hy 46462547 Active 2011 Location : None;Sev erity: Moderate ;Progres s: Stable;A dded By: Brennen Beaver;Add to Current Problems : NO Not Available [facility] 7 08:03:24 Acute upper respirat ory infectio n of multiple sites Completed 201507/27/2015 Location : None;Sev erity: Moderate ;Progres s: Stable;A dded By: Sandhya Kaur;Add to Current Problems : YES Not Available [facility] 7 08:03:24 Eruption [id number] Completed 201111/15/2011 Location : None;Sev erity: Moderate ;Progres s: Stable;A dded By: Sydney Knight;Add to Current Problems : NO Not Available [facility] 7 08:03:24 Contact dermatit is 01991803 Completed 201111/15/2011 Location : None;Sev erity: Moderate ;Progres s: Stable;A dded By: Sydney Knight;Add to Current Problems : NO Not Available [facility] 7 08:03:24 Elevated blood-pr essure reading without diagnosi s of hyperten oanh [id number] Completed 201309/11/2013 Location : None;Sev erity: Moderate ;Progres s: Stable;A dded By: Sydney Knight;Add to Current Problems : NO Not Available [facility] 7 08:03:24 Anal fissure 06134546 Completed 201112/27/2011 Location : None;Sev erity: Moderate ;Progres s: Stable;A dded By: Brennen Beaver;Add to Current Problems : NO Not Available [facility] 7 08:03:25 Acute upper respirat ory infectio n 55685957 Completed 201212/26/2012 Location : None;Sev erity: Moderate ;Progres s: Stable;A dded By: Brennen Beaver;Add to Current Problems : NO Not Available [facility] 7 08:03:25 Palpitat ions 94121390 Completed 201212/26/2012 Location : None;Sev erity: Moderate ;Progres s: Stable;A dded By: Brennen Beaver;Add to Current Problems : NO Not Available [facility] 7 08:03:25 Screenin g for malignan t neoplasm of colon Active 2014 Location : None;Sev erity: Moderate ;Progres s: Stable;A dded By: Brennen Beaver;Add to Current Problems : YES Not Available [facility] 7 08:03:25 Viral screenin g Completed 201407/31/2014 Location : None;Sev erity: Moderate ;Progres s: Stable;A dded By: Brennen Beaver;Add to Current Problems : YES Not Available [facility] 7 08:03:25 Hypothyr oidism 65982862 Active 2015 Location : None;Sev erity: Moderate ;Progres s: Stable;A dded By: Brennen Beaver;Add to Current Problems : YES Not Available [facility] 7 08:03:25 Tobacco dependen ce syndrome 66354069 Completed 201508/25/2015 Location : None;Sev erity: Moderate ;Progres s: Stable;A dded By: Brennen Beaver;Add to Current Problems : YES Not Available [facility] 7 08:03:25 Cough 99847519 Completed 201508/25/2015 Location : None;Sev erity: Moderate ;Progres s: Stable;A dded By: Brennen Beaver;Add to Current Problems : YES Not Available [facility] 7 08:03:25 Precordi al pain 30671387 Completed 201508/25/2015 Location : None;Sev erity: Moderate ;Progres s: Stable;A dded By: Brennen Beaver;Add to Current Problems : YES Not Available [facility] 7 08:03:25 Acute frontal sinusiti s 97921910 Completed 201508/25/2015 Location : None;Sev erity: Moderate ;Progres s: Stable;A dded By: Brennen Beaver;Add to Current Problems : YES Not Available [facility] 7 08:03:25 Precordi al pain 37281263 Completed 201212/26/2012 Location : None;Sev erity: Moderate ;Progres s: Stable;A dded By: Hillary Seth; Add to Current Problems : NO Not Available [facility] 7 08:03:26 Benign essentia l hyperten oanh 2651542 Active 2015 Location : None;Sev erity: Moderate ;Progres s: Stable;A dded By: Trina Torres i;Otto dd to Current Problems : NO Not Available [facility] 7 08:03:26 Multiple joint pain 78379703 Active 2011 Location : None;Sev erity: Moderate ;Progres s: Stable;A dded By: Trina Torres i;A dd to Current Problems : YES Not Available [facility] 7 08:03:26 Chronic ulcerati ve enteroco litis 15458404 Active 2011 Location : None;Sev erity: Moderate ;Progres s: Stable;A dded By: Karma Palencia;Add to Current Problems : NO Not Available [facility] 7 08:03:26 Hypo-osm olality and or hyponatr emia 069438578 Completed 201410/28/2014 Location : None;Sev erity: Moderate ;Progres s: Stable;A dded By: Karma Palencia;Add to Current Problems : YES Not Available [facility] 7 08:03:26 Pain in thoracic spine 649918120 Completed 201411/06/2014 Location : None;Sev erity: Moderate ;Progres s: Stable;A dded By: Karma Palencia;Add to Current Problems : YES Not Available [facility] 7 08:03:26 Tobacco dependen ce syndrome 59043439 Completed 201411/06/2014 Location : None;Sev erity: Moderate ;Progres s: Stable;A dded By: Karma Palencia;Add to Current Problems : YES Not Available [facility] 7 08:03:26 Essentia l hyperten oanh 46982932 Active 2014 Location : None;Sev erity: Moderate ;Progres s: Stable;A dded By: Karma Palencia;Add to Current Problems : YES Not Available [facility] 7 08:03:26 Gastroes ophageal reflux disease 625158720 Active 2011 Location : None;Sev erity: Moderate ;Progres s: Stable;A dded By: Karma Palencia;Add to Current Problems : YES Not Available [facility] 7 08:03:26 Dysuria 18457344 Completed 201206/26/2012 Location : None;Sev erity: Moderate ;Progres s: Stable;A dded By: Sandhya Gaming;Add to Current Problems : NO Not Available [facility] 7 08:03:27 Elevated blood-pr essure reading without diagnosi s of hyperten oanh 171491583 Active 2012 Location : None;Sev erity: Moderate ;Progres s: Stable;A dded By: Sandhya Gaming;Add to Current Problems : NO Not Available [facility] 7 08:03:27 Ra hematuri a 204568077 Active 2012 Location : None;Sev erity: Moderate ;Progres s: Stable;A dded By: Nabila Salmeron;Add to Current Problems : NO Not Available [facility] 7 08:03:27 Knee pain Completed 201211/09/2012 Location : None;Sev erity: Moderate ;Progres s: Stable;A dded By: Nabila Salmeron;Add to Current Problems : NO Not Available [facility] 7 08:03:27 Problem Notes None recorded. Procedures Surgical History Date Name Laterality Status Provider Name and Address Organization Details Recorded Time Knee Surgery completed Hillary [place] - [facility] 01/17/2016 11:29:04 Tubal Ligation completed [place] [facility] F 01/17/2016 11:29:25 delivery completed Hillary [place] - [facility] 01/17/2016 11:29:33 Imaging Results [...] Name and Address Organization Details Recorded Time 86692 cephalexi n monohydra te medicatio n Not available Not available Not available 03/20/20162011 77848 8 RxNorm Sever ity: Moder ate; Comme nt: Aller gy Type: Aller gy; Not Available Not Available Not Available 47422 tetracycl ine hydrochlo ride medicatio n Not available Not available Not available 03/20/20162011 16023 6 RxNorm Sever ity: Moder ate; Comme nt: Aller gy Type: Aller gy; Not Available Not Available Not Available 25153 Feldene medicatio n Not available Not available Not available 03/20/20162011 55940 8 RxNorm Sever ity: Moder ate; Comme nt: Aller gy Type: Aller gy; Not Available Not Available Not Available 49902 Wellbutri n medicatio n Not available Not available Not available 03/20/20162011 03320 RxNorm Sever ity: Moder ate; Comme nt: Aller gy Type: Aller gy; Not Available Not Available Not Available 31023 Effexor medicatio n Not available Not available Not available 03/20/20162011 97903 2 RxNorm Sever ity: Moder ate; Comme nt: Aller gy Type: Adver se React ion; Not Available Not Available Not Available 19450 clindamyc in hydrochlo ride medicatio n Not available Not available Not available 03/20/20162011 18145 RxNorm Sever ity: Moder ate; Comme nt: Aller gy Type: Aller gy; Not Available Not Available Not Available 13068 iodine medicatio n Not available Not available Not available 03/20/20162011 5933 RxNorm Sever ity: Moder ate; Comme nt: Aller gy Type: Aller gy; Not Available Not Available Not Available 95949 Product containin g penicilli n (product) medicatio n Not available Not available Not available 03/20/20162012 50550 8001 SNOMED Sever ity: Moder ate; Comme nt: Aller gy Type: Aller gy; Not Available Not Available Not Available 89345 lisinopri l medicatio n cough rash moderate moderate Not available 03/20/20162014 02843 RxNorm React ion: cough ;Geneva rity: Moder ate; Comme nt: Aller gy Type: Adver se React ion; Not Available Not Available Not Available 78625 [facility] medicatio n Not available Not available Not available 03/20/20162014 80746 RxNorm React ion: nause a, vomit ing;S everi ty: Moder ate; Comme nt: Aller gy Type: Aller gy; Not Available Not Available Not Available 19616 ampicilli n trihydrat e medicatio n Not available Not available Not available 03/20/2016201111 5 RxNorm Sever ity: Moder ate; Comme nt: Aller gy Type: Aller gy; Not Available Not Available Not Available Medications Name Sig Start Date Stop Date Status Note LastModified by Organization Details LastModified Time hydrochlo rothiazid e 50 mg tablet Take 1 tablet(s ) by mouth daily 09/01 completed RxNorm: 655422;A llow Substitu tion: True Not Available Not Available Not Available ranitidin e 300 mg tablet TAKE ONE TABLET BY MOUTH TWICE DAILY 2015 active Not Available Not Available Not Avai lable lisinopri l 20 mg tablet ONE DAILY 10/27 completed RxNorm: 380232;A llow Substitu tion: True Not Available Not [...] ) by mouth once 07/25 completed RxNorm: 982062;A llow Substitu tion: True Not Available Not Available Not Available nifedipin e ER 30 mg tablet,ex tended release TAKE ONE TABLET BY MOUTH ONCE DAILY 2017 active Routine appt and ok Not Available Not Available Not Available amlodipin e 5 mg tablet Take 1 tablet(s ) by mouth daily 09/07 completed RxNorm: 427236;A llow Substitu tion: True Not Available Not Available Not Available omeprazol e 40 mg capsule,d elayed release TAKE ONE CAPSULE BY MOUTH ONCE DAILY 2016 active Appt within 3 mos Not Available Not Available Not Available meloxicam 7.5 mg tablet Take 1 tab twice daily 10/09 completed RxNorm: 161079;A llow Substitu tion: True Not Available Not Available Not Available levothyro xine 100 mcg tablet TAKE ONE TABLET BY MOUTH ONCE DAILY IN THE MORNING ON AN EMPTY STOMACH. 2016 active Appt in 6 mos Not Available Not Available Not Available Cipro 500 mg tablet Take 1 tablet(s ) by mouth q12h for 7 days 07/02 completed RxNorm: 469552;A llow Substitu tion: True Not Available Not Available Not Available ranitidin e 300 mg capsule Take 1 capsule every day by oral route. active Not Available Not Available No t Available lisinopri l 10 mg tablet Take 1 tab daily 09/22 completed RxNorm: 442844;A llow Substitu tion: True Not Available Not Available Not Available ibuprofen 400 mg tablet Take bid 2012 active RxNorm: 071238;A llow Substitu tion: True Not Available Not Available Not Available hydrochlo rothiazid e 12.5 mg capsule Take 1 capsule( s) by mouth daily 09/08 completed RxNorm: 219119;A llow Substitu tion: True Not Available Not Available Not Available hydrochlo rothiazid e 25 mg tablet one po daily 06/01 completed RxNorm: 940380;A llow Substitu tion: True Not Available Not Available Not Available fluticaso ne propionat e 50 mcg/actua tion nasal spray,rosa pension 2 spray(s) in each nostril daily 2015 active RxNorm: 200408;A llow Substitu tion: True Not Available Not Available Not Available naproxen 500 mg tablet Take 1 tablet twice a day by oral route. 2015 active Not Available Not Available Not Avai lable levothyro xine 112 mcg tablet Take 1 tablet(s ) by mouth daily 11/26 completed RxNorm: 938103;A llow Substitu tion: True Not Available Not Available Not Available Cozaar 50 mg tablet Take 1 tablet(s ) by mouth daily 04/24 completed RxNorm: 553939;A llow Substitu tion: True Not Available Not Available Not Available cyclobenz aprine 5 mg tablet TAKE ONE TABLET BY MOUTH ONCE DAILY AT BEDTIME NEEDED 2015 active Not Available Not Available Not Avai lable Zyrtec 10 mg chewable tablet I tab daily prn 10/09 completed RxNorm: 526206;A llow Substitu tion: True Not Available Not Available Not Available Pentasa 500 mg capsule,c ontrolled release Take 2 capsule( s) by mouth qid 06/01 completed RxNorm: 092891;A llow Substitu tion: True Not Available Not [...] Address Organization Details Last Updated DateTime 6 70385.7 9 g 162.56 cm 24.6 kg/m2 104 [...] preservative free, adsorbed 2 completed Not Available [facility] 03/20/2016 05:55:53 Influenza, split virus, trivalent, preservative 8 completed Not Available [facility] 03/20/2016 05:55:53 Past Encounters Encounter ID Performer Location Encounter Start Date Encounter Closed Date Diagnosis/Indication Diagnosis SNOMED-CT Code Diagnosis ICD10 Code Diagnosis Note [id number] [facility] [address] [place] [address] 01/17/2016 11:20:52 01/22/2016 16:36:42 Hypothyroidism 00351471 E03.9 Chronic back pain 710535 002 M54.9 Health Concerns Section Related Observation LastModified by Organization Detai ls LastModified Time None Recorded Concern Status LastModified by Organization Details LastModified Time None Recorded Advance Directives Directive None Recorded Payers Encounter Date Sequence Insurance Name Policy Number Policy Heart Covered Member ID Heart Member ID Guarantor Name 01/17/2016 1 [id number] - DOS PRIOR TO 20 - [facility] [employer] [id number] Claire Zayas [id number] Notes Date Note Type Note Provider Name [...] it with omeprazole and ranitidine Hillary carroll, [place] - [facility] 01/17/2016 12:22:22 OBGyn Episode No OBEpisode recorded.
--- OUTSIDE RECORDS SUMMARY | 2024-06-21 12:08 | XMS_ITS | Encounter Summary ---
Author Organization [facility] Address [address] [place] [address] Care Team Providers Care Newborn Hearing Screener Name Role Phone Marisol Caban Primary Care Provider +1- [phone] Fidel Krueger DO Primary Care Provider +1- [phone] Encounter Details Date Type Department Care Team (Late st Contact Info) Description 12/16/[address] 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
--- OUTSIDE RECORDS SUMMARY | 2024-06-21 12:08 | XMS_ITS | Data Portability ---
Author Organization [facility] Address [address] [place] [address] Care Team Providers Care Laborer Vegetable Farm Name Role Phone OSIRIS RAMIREZSEY Primary Care Provider [phone] Assessment No assessment recorded. Plan of Treatment Reminders Order Date Submit Date Provider Last Modified By Organization Details Last Modified Time Details Appointments None recorded. Lab None recorded. Referral None recorded. Procedures None recorded. Surgeries None recorded. Imaging None recorded. Medication Orders Imvexxy Maintenance Pack 10 mcg vaginal insert 2023 024 [id number], [address], [place], [place], [id number], 4 16:16:34 Patient TargetsNo targets recorded. Patient [...] patie nt consi derat ions. Not Available [facility] (Lab) [address], [place], [address], 07/23/2023 14:32:52 07/18/19 24 07/18/2023 TRICH OMONA S VAGIN FATOUMATA (RRNA ) trichomonas vaginalis ribosomal RNA (rrna) Negati ve negati ve Not Available [facility] (Lab) [address], [place], [address], 07/23/2023 14:32:53 07/18/19 24 07/18/2023 CT/GC (ANUPAM) , THINP REP VIAL chlamydia trachomatis, PCR Negati ve negati ve Not Available [facility] (Lab) [address], [place], [address], 07/23/2023 14:32:54 07/18/19 24 07/18/2023 CT/GC (ANUPAM) , THINP REP VIAL neisseria gonorrhoeae, PCR Negati ve negati ve Not Available [facility] (Lab) [address], [place], [address], 07/23/2023 14:32:54 Result Notes None recorded. Procedures Surgical History Date Name Laterality Status Provider Name and Address Organization Details Recorded Time 4 Date of Last Mammogram completed [facility] 07/18/2023 12:06:52 4 Most Recent Bone Density completed [facility] 07/18/2023 12:06:[address] [facility] 07/18/2023 12:06:52 3 Date of Last Colonoscopy completed [facility] 07/18/2023 12:06:52 2 Date of Last Pap Smear completed [facility] 07/18/2023 12:06:52 5 Caesarean Section completed [facility] 07/18/2023 12:07:[address] [facility] 07/18/2023 12:07:20 tonsilectomy/ad enoids completed [facility] 07/18/2023 12:07:20 Imaging Results None recorded. Procedure Notes None recorded. Medical Equipment None Reported. Allergies Allergen ID Allergen Name Allergen Category Reaction Reaction Severity Criticality Documentation Date Start Date Code Code System Note Provider Name and Address Organization Details Recorded Time 71113 ampicilli n medicatio n rash Not available Not available 07/18/2023 733 RxNorm Augustina Swayne [facility] 4 12:05:54 72298 cephalexi n medicatio n rash Not available Not available 07/18/2023 2231 RxNorm Augustina Swayne [facility] 4 12:05:54 63673 nitrofura ntoin medicatio n anaphylax is Not available Not available 07/18/2023 7454 RxNorm Augustina Swayne [facility] 4 12:05:54 82877 Bactrim medicatio n rash Not available Not available 07/18/2023 04869 9 RxNorm Augustina Swayne [facility] 4 12:05:54 17246 Macrobid medicatio n anaphylax is Not available Not available 07/18/2023 55631 1 RxNorm Augustina Swayne [facility] 4 12:07:42 Medications Name Sig Start [...] Not Available Not Available Not Available Acid Portable Feed Mill Operator (omeprazole ) active Not Available Not Available Not Available Adult One Daily Multivitami n active Not Available Not Available Not Available Imvexxy Maintenance Pack 10 mcg vaginal insert active Not Available Not Available Not Available Vitals Date Recorded Body height Body weight Systolic blood pressure Diastolic blood pressure Provider Name and Address Organization Details Last Updated DateTime 07/18/2023 156.21 cm 32350.41 g 133 mm[Hg] 84 mm[Hg] Augustina Yen [facility] 07/18/2023 12:05:44 Social History Question Answer [...] Or The Highest Degree You Have Received? HI98765-5 Information not available 07/18/2023 What Is Your [...] Anxious, Or Unable To Sleep At Night)? AN8019-8 Information not available 07/18/2023 Do You Use [...] Disorder N Autoimmune disease N Arthritis N Infertility N Polyps N Acid Reflux (GERD) N History of abnormal pap N Cancer N Stroke N Varicosities N Neurologic/Epilepsy N Endometriosis N High Cholesterol [...] SNOMED-CT Code Diagnosis ICD10 Code Diagnosis Note [id number] MARVIN MEADE MD Wilmer [address] [address] 07/18/2023 11:27:06 07/21/2023 06:38:43 Postmenopausal osteopenia 040491913 M85.80 - DEXA stable 04/2023- discussed Ca supplement and weight bearing exercise- repeat in 2 years Vaginal dryness 93296815 N89.8 - normal atrophy on exam- continue Imvexxy suppositor ies Gynecologi c examination 79049361 Z01.419 Z11.51 Well woman care- Cervical cancer [...] ID Guarantor Name 07/18/2023 1 [place] [id number] Claire Mitchelljessy [id number] Claire Chana 07/18/2023 2 [place] [facility] Claire Chana [id number] Claire Zayas Notes Date Note Type Note [...] time. MARVIN MEADE MD [address], [place], [address], [facility] 07/18/2023 16:16:41 OBGyn Episode Ob Episode Information Episode Created Date Number of Fetuses Patient Bloodtype Patient rh Status Prepregnancy Weight lbs Domestic Partner Domestic Partner Phone Father Name Spare Parts Clerk Status 07/18/19 24 1 CLOSED Fetus Data First Name Last Name Admitted to NICU Weight (g) Sex Living Outcome Pediatric Complications Fetus ID Race Codes Race Delivery Type F Full Term [id number] Primary Elia Calculation Initial Elia Date Initial [...] Domestic Partner Domestic Partner Phone Father Name Spare Parts Clerk Status 07/18/19 24 1 CLOSED Fetus Data First Name Last Name Admitted to NICU Weight (g) Sex Living Outcome Pediatric Complications Fetus ID Race Codes Race Delivery Type F Full Term 43470 Repeat Elia Calculation Initial Elia Date Initial [...] Domestic Partner Domestic Partner Phone Father Name Spare Parts Clerk Status 07/18/19 24 1 CLOSED Fetus Data First Name Last Name Admitted to NICU Weight (g) Sex Living Outcome Pediatric Complications Fetus ID Race Codes Race Delivery Type M Full Term 97321 Repeat Elia Calculation Initial Elia Date Initial [...]
--- OUTSIDE RECORDS SUMMARY | 2024-06-21 12:08 | XMS_ITS | Continuity of Care Document ---
Author Organization [facility] Address [address] [place] [address] Phone Care Team Providers Care Automotive Tire Technician Name Role Phone Brooke OD, Del Unavailable Unavailable Procedures Procedure Date Eye Exam & Treatment Refraction SV Plastic Sphcyl Oxford +/-4d, .12-2d Miscellaneous Vision Service - Supplies Tax - Medical SV Poly Carb Sph +/- 7.12 To +/- 20 D Miscellaneous Vision Service - Supplies Tax - Medical Advance Directives Directive Yes / No Effective Date File Name No Information Encounters Encounter Description Practice Location Reason(s) For Visit Diagnoses Date Provider Providers Copied on Encounter [facility], [address] [place] [address] [address], [place], [place], [id number], tel:[phone] SEC [facility] No Information 1-201 0 Brooke OD Del. [address] , [address], [place], [address], [place]. tel:[phone] [facility], [address], [place], [place], [address], [place] tel:[phone] SEC [facility] No Information 3-200 [address] [facility] . [address], [address], [place], [place], [address], [place]. tel:[phone] Referring Provider: Attila Menjivar [address] [place] [address] [address], [place], [address]. tel:[phone] hernandez Provider: Fay Francisco [facility], [place], [address]. tel:[phone] [facility], [address], [place], [place], [address], [place] tel:[phone] SEC [facility] No Information [facility] . [address], [address], [place], [place], [address], [place]. tel:[phone] Referring Provider: Attila Menjivar [address] [place] [address] [address], [place], [address]. tel:[phone] hernandez Provider: Fay Francisco [facility], [place], [address]. tel:[phone] Family History Family Member Type Diagnosis Age At Onset No Information Payers Payer name Insurance type Covered libertarian ID Authoriza tion(s) No Information Social History [...]
--- OUTSIDE RECORDS SUMMARY | 2024-06-21 12:08 | XMS_ITS | Encounter Summary ---
Author Organization [facility] Care Team Providers Care Grout Pump Operator Name Role Phone Marisol Caban Primary Care Provider [phone] Fidel Krueger DO Primary Care Provider [phone]- [phone] Encounter Details Date Type Department Care Team (Latest Contact Info) Description 12/22/2017 Orders Only [facility]INCONV Provider, MD Jaren [address] [place] [address] Social History Tobacco Use Types Packs/Day Years Used Date Smoking Tobacco: Every Day Cigarettes Smokeless Tobacco: Never Alcohol Use Standard Drinks/Week Comments Yes 0 (1 standard drink = 0.6 oz pur e alcohol) socially Comments Unknown Sex and Gender Information Value Date Recorded Sex Assigned at Not on file Legal Sex Female 12:39 AM GREENKEEPER Gender Identity Not on file Sexual Orientation [...] on filedocumented in this encounter Care Teams Grout Pump Operator Relationship Specialty Start Date End Date Marisol Caban PA [address] [place] [address] PCP - General Internal Medicine 08/04/18 01/31/20 Fidel Krueger DO [address] [place] [address] PCP - General Internal Medicine 04/10/20 documented as of this encounter
--- OUTSIDE RECORDS SUMMARY | 2024-06-21 12:08 | XMS_ITS | Continuity of Care Document ---
[facility] Organization [facility] Address [address] [place] [address] Phone Care Team Providers Care Autism Specialist Name Role Phone González Garcia MD Unavailable [...] Diagnoses Date Provider Providers Copied on Encounter [facility], [address], [place], [place], [address], [place] tel:[phone] [facility] No Information Jose Claudio. [address], [id number], [place]. tel:[phone] [facility], [address], [place], [place], [address], [place] tel:[phone] [facility] Other specified urticaria Jose Claudio. [address] [facility] [facility] [address] [facility] [address], [place], [place], [address], [place]. tel:[phone] Referring Provider: Domingo Beaver, [address] [facility] [address], [place], [address]. tel:[phone] Family History Family Member Type Diagnosis Age At Onset Mother Problem (finding) Allergies Payers Payer name Insurance type Covered libertarian ID Authoriza tion(s) [facility] [id number] Social History Type Description Quantity Date Captured [...]
--- OUTSIDE RECORDS SUMMARY | 2024-06-21 12:08 | XMS_ITS | Clinical Summary ---
Author Organization [facility] Address [address] [place] [address] Phone Care Team Providers Care Plate Grainer Name Role Phone LeeFidel cifuentes Primary Care Provider [phone] Allergies Active Allergy Reactions Criticality Noted Date [...] Reviewed options for assistance with cessation. Reviewed equipment operator intermodal yard sequela associated with smoking. Pt declines assistance [...] Due Date Last Done Comments Influenza Vaccine (Season Ended) 2024 12/30/19, 03/17/2007 Care Teams Plate Grainer Relationship Specialty Start Date End Date Fidel Krueger DO [address] [place] [address] PCP - General Internal Medicine 08/20/21
--- OUTSIDE RECORDS SUMMARY | 2024-06-21 12:09 | XMS_ITS | Clinical Summary ---
Author Organization [facility] [address] Address [address] [place] [address] Care Team Providers Care Business Machine Operator Name Role Phone Fidel Krueger DO Primary Care Provider [phone]- [phone] Allergies Active Allergy Reactions Criticality Noted Date [...] 1 tablet (88 mcg total) by mouth centerless grinder set up operator before breakfast Active metoprolol tartrate (LOPRESSOR) 25 mg immediate release tablet TAKE 1 AND 1/2 TABLETS BY MOUTH TWICE DAILY 270 tablet 3 4 Active Active Problems Problem Noted Date Diagnosed Date Mixed hyperlipidemia 06/13/2023 Medication side effects 07/29/2022 BMI 25.0-25.9,adult 04/28/2019 Assessment & Plan (04/28/2019 11:40 AM [facility] Weight/BMI is in healthy range. Continue healthy lifestyle to maintain. Chronic low back pain 02/12/2019 Assessment & Plan (02/12/2019 5:57 PM [facility]): Encouraged stretching, ice/heat and NSAIDs. Start PT. Monitor closely and if sxs persist she is to followup. Colon cancer screening 02/12/2019 Assessment & Plan (02/12/2019 5:56 PM [facility]): Refer to GI for colonoscopy Otalgia 02/12/2019 Assessment & Plan (02/12/2019 5:55 PM [facility]): Monitor this area behind her left ear. [...] Has some wheezing possible bronchitis. Is a custodial smoker. Has failed multiple antibiotics. STOP smoking. [...] Reviewed options for assistance with cessation. Reviewed intermediate card tender sequela associated with smoking. Pt declines assistance at this time but may contact the office at anytime for further help as they desire. States she quit a few days ago. Encouraged to continue the cessation effort Assessment & Plan (02/12/2019 5:55 PM [facility]): Encouraged smoking cessation. Discussed 3 minutes. Reviewed options for assistance with cessation. Reviewed custodial sequela associated with smoking. 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 file Not on file Not on file Obstetrics History Last Filed Vital Signs Vital Sign Reading Time Taken Comments Blood Pressure 128/80 06/13/2023 11:46 AM CDT Pulse 80 06/13/2023 11:46 AM CDT Temperature 36.8 C (98.3 F) 04/28/2019 11:35 AM [facility] Respiratory Rate 18 01/06/2019 1:39 PM CDT [...] Well Visit/Exam 18-64 08/08/2019 08/07/2018 Influenza Vaccine (Season Ended) 2024 12/29/2018, 01/06/2017, 01/06/2017, Additional history exists DTaP/Tdap/Td Vaccine [...] Most Recently Relevant to Health Maintenance Insurance [facility]UE [facility] Care Teams Business Machine Operator Relationship Specialty Start Date End Date Fidel Krueger DO PCP - General Internal Medicine 04/10/20
--- OUTSIDE RECORDS SUMMARY | 2024-06-21 12:09 | XMS_ITS | Referral Summary ---
Author Organization [facility] [address] Address [address] [place] [address] Care Team Providers Care Maintenance Helper Name Role Phone Fidel Krueger DO Primary Care Provider [phone] Allergies Active Allergy Reactions Criticality Noted Date [...] 1 tablet (88 mcg total) by mouth electro winning operator before breakfast Active metoprolol tartrate (LOPRESSOR) 25 mg immediate release tablet TAKE 1 AND 1/2 TABLETS BY MOUTH TWICE DAILY 270 tablet 3 4 Active Active Problems Problem Noted Date Diagnosed Date Mixed hyperlipidemia 06/13/2023 Medication side effects 07/29/2022 BMI 25.0-25.9,adult 04/28/2019 Assessment & Plan (04/28/2019 11:40 AM STEAM FRAME OPERATOR): Weight/BMI is in healthy range. Continue healthy lifestyle to maintain. Chronic low back pain 02/12/2019 Assessment & Plan (02/12/2019 5:57 PM STEAM FRAME OPERATOR): Encouraged stretching, ice/heat and NSAIDs. Start PT. Monitor closely and if sxs persist she is to followup. Colon cancer screening 02/12/2019 Assessment & Plan (02/12/2019 5:56 PM STEAM FRAME OPERATOR): Refer to GI for colonoscopy Otalgia 02/12/2019 Assessment & Plan (02/12/2019 5:55 PM STEAM FRAME OPERATOR): Monitor this area behind her left ear. [...] Has some wheezing possible bronchitis. Is a [facility]p smoker. Has failed multiple antibiotics. STOP smoking. Start antihistamine and Mucinex and Flonase nasal spray. Start prednisone 5 days surge. Oscar Palacois to pharmacy for cough and drainage. ProAir inhaler available p.r.n.. Push fluids. Rest. Supportive care. If sxs worsen or don\'t improve, pt is to followup in the office. Cigarette smoker 10/27/2018 Assessment & Plan (05/30/2019 11:14 PM CDT): Encouraged smoking cessation. Discussed 3 minutes. Reviewed options for assistance with cessation. Reviewed adjunct faculty for medical terminology sequela associated with smoking. Pt declines assistance at this time but may contact the office at anytime for further help as they desire. States she quit a few days ago. Encouraged to continue the cessation effort Assessment & Plan (02/12/2019 5:55 PM STEAM FRAME OPERATOR): Encouraged smoking cessation. Discussed 3 minutes. Reviewed options for assistance with cessation. Reviewed mcfp sequela associated with smoking. 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
== END 2024-06-21 10:32 | disposition home or self-care (01) ==
PROVIDERS: PCP Clinical Nurse Specialist; Visit Provider Clinical Nurse Specialist
DX: R09.89 Other specified symptoms and signs involving the circulatory and respiratory systems (principal); I73.9 Peripheral vascular disease, unspecified
CPT/HCPCS: 93925

== ENCOUNTER 2024-06-21 15:32 | Outpatient (CLI) | payer OTHER, MEDICAID, SELFPAY ==
[2024-06-21 15:50] LABS: Basophils Absolute Auto 0.1 K/mm3 (0.0-0.1); Eosinophils Absolute Auto 0.1 K/mm3 (0-0.3); Eosinophils Percent Auto 1.3 % (0-4.4); Immature Granulocyte Absolute 0.01 K/mm3 (0.00-0.031); Immature Granulocyte Percent A 0.1 % (0-0.5); Lymphocytes Absolute Auto 2.16 K/mm3 (0.9-3.2); Lymphocytes Percent Auto 27.5 % (18.3-44.2); Mean Corpuscular HGB Conc 34.4 g/dl (32-36); Mean Corpuscular Hemoglobin 33.1 pg (26-34); Mean Corpuscular Volume 96.4 fl (80-100); Mean Platelet Volume 8.7 fl (7.4-10.4); Monocytes Absolute Auto 0.8 K/mm3 (0.1-0.6); Monocytes Percent Auto 9.8 % (2.6-8.5); Neutrophils Absolute Auto 4.7 K/mm3 (1.3-6.7); Neutrophils Percent Auto 60.3 % (45.5-73.1); Platelet Count Result 383 k/mm3 (150-375); Red Blood Count 3.32 M/mm3 (4.2-5.4); Red Cell Distribution Width 12.5 % (11.5-14.5); White Blood Count 7.9 K/mm3 (4.5-10.0)
[2024-06-21 16:36] LABS: Alanine Aminotransferase 18 U/L (6-35); Albumin Level 4.8 g/dL (3.5-5.1); Alkaline Phosphatase 87 U/L (38-126); Anion Gap 12 mmol/L (4-12); Aspartate Amino Transferase 35 U/L (14-36); Bilirubin,Total 0.5 mg/dL (0.2-1.3); Blood Urea Nitrogen 21 mg/dL (7-17); Calcium 10.1 mg/dL (8.4-10.2); Carbon Dioxide 24 mmol/L (22-30); Chloride 98 mmol/L (98-107); Estimated Glomerular Filt Rate 37; Glucose 114 mg/dL (65-110); Lactate Dehydrogenase 141 U/L (120-246); Potassium 5.3 mmol/L (3.4-5.0); Sodium 134 mmol/L (137-145)
[2024-06-21 16:47] LABS: Iron 126 ug/dL (37-170)
[2024-06-21 16:56] LABS: Percent Iron Saturation 35 % (20-50)
--- OUTSIDE RECORDS SUMMARY | 2024-06-21 17:33 | XMS_ITS | Clinical Summary ---
Author Organization [facility] [address] Address [address] [place] [address] Care Team Providers Care Industrial Relations Counselor Name Role Phone Fidel Krueger DO Primary Care Provider [phone]- [phone] Allergies Active Allergy Reactions Criticality Noted Date [...] 1 tablet (88 mcg total) by mouth lpn rn before breakfast Active metoprolol tartrate (LOPRESSOR) 25 mg immediate release tablet TAKE 1 AND 1/2 TABLETS BY MOUTH TWICE DAILY 270 tablet 3 4 Active Active Problems Problem Noted Date Diagnosed Date Mixed hyperlipidemia 06/13/2023 Medication side effects 07/29/2022 BMI 25.0-25.9,adult 04/28/2019 Assessment & Plan (04/28/2019 11:40 AM RN ALLERGY): Weight/BMI is in healthy range. Continue healthy lifestyle to maintain. Chronic low back pain 02/12/2019 Assessment & Plan (02/12/2019 5:57 PM RN ALLERGY): Encouraged stretching, ice/heat and NSAIDs. Start PT. Monitor closely and if sxs persist she is to followup. Colon cancer screening 02/12/2019 Assessment & Plan (02/12/2019 5:56 PM RN ALLERGY): Refer to GI for colonoscopy Otalgia 02/12/2019 Assessment & Plan (02/12/2019 5:55 PM RN ALLERGY): Monitor this area behind her left ear. [...] Has some wheezing possible bronchitis. Is a halfway smoker. Has failed multiple antibiotics. STOP smoking. [...] assistance with cessation. Reviewed long term care phlebotomist sequela associated with smoking. Pt declines assistance at this time but may contact the office at anytime for further help as they desire. States she quit a few days ago. Encouraged to continue the cessation effort Assessment & Plan (02/12/2019 5:55 PM RN ALLERGY): Encouraged smoking cessation. Discussed 3 minutes. Reviewed options for assistance with cessation. Reviewed halfway sequela associated with smoking. 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 Care Teams Industrial Relations Counselor Relationship Specialty Start Date End Date Fidel Krueger DO PCP - General Internal Medicine 04/10/20
--- OUTSIDE RECORDS SUMMARY | 2024-06-21 17:33 | XMS_ITS | Encounter Summary ---
Author Organization [facility] Facility Care Team Providers Care Egg Processing Supervisor Name Role Phone Marisol Caban Primary Care Provider [phone]- [phone] Fidel Krueger DO Primary Care Provider +1- [phone] Encounter Details Date Type Department Care Team (Latest Contact Info) Description 12/22/2017 Orders Only [facility] CLINCONV Provider, MD Jaren [address] [place] [address] Social History Tobacco Use Types Packs/Day Years Used Date Smoking Tobacco: Every Day Cigarettes Smokeless Tobacco: Never Alcohol Use Standard Drinks/Week Comments Yes 0 (1 standard drink = 0.6 oz pur e alcohol) socially Comments Unknown Sex and Gender Information Value Date Recorded Sex Assigned at Not on file Legal Sex Female 12:39 AM MOUNTAIN SERVICES MANAGER Gender Identity Not on file Sexual [...] on filedocumented in this encounter Care Teams Egg Processing Supervisor Relationship Specialty Start Date End Date Marisol Caban PA [address] [place] [address] PCP - General Internal Medicine 08/04/18 01/31/20 Fidel Krueger DO [address] [place] [address] PCP - General Internal Medicine 04/10/20 documented as of this encounter
--- OUTSIDE RECORDS SUMMARY | 2024-06-21 17:33 | XMS_ITS | Referral Summary ---
Author Organization [facility] [address] Address [address] [place] [address] Care Team Providers Care Play Writer Name Role Phone Fidel Krueger DO Primary Care Provider [phone]- [phone] Allergies Active Allergy Reactions Criticality Noted Date [...] 1 tablet (88 mcg total) by mouth electrician second before breakfast Active metoprolol tartrate (LOPRESSOR) 25 mg immediate release tablet TAKE 1 AND 1/2 TABLETS BY MOUTH TWICE DAILY 270 tablet 3 4 Active Active Problems Problem Noted Date Diagnosed Date Mixed hyperlipidemia 06/13/2023 Medication side effects 07/29/2022 BMI 25.0-25.9,adult 04/28/2019 Assessment & Plan (04/28/2019 11:40 AM ENTRY LEVEL PROJECT COORDINATOR): Weight/BMI is in healthy range. Continue healthy lifestyle to maintain. Chronic low back pain 02/12/2019 Assessment & Plan (02/12/2019 5:57 PM ENTRY LEVEL PROJECT COORDINATOR): Encouraged stretching, ice/heat and NSAIDs. Start PT. Monitor closely and if sxs persist she is to followup. Colon cancer screening 02/12/2019 Assessment & Plan (02/12/2019 5:56 PM ENTRY LEVEL PROJECT COORDINATOR): Refer to GI for colonoscopy Otalgia 02/12/2019 Assessment & Plan (02/12/2019 5:55 PM ENTRY LEVEL PROJECT COORDINATOR): Monitor this area behind her left ear. [...] Has some wheezing possible bronchitis. Is a skilled nursing smoker. Has failed multiple antibiotics. STOP smoking. [...] Reviewed options for assistance with cessation. Reviewed intermodal dispatcher sequela associated with smoking. Pt declines assistance at this time but may contact the office at anytime for further help as they desire. States she quit a few days ago. Encouraged to continue the cessation effort Assessment & Plan (02/12/2019 5:55 PM ENTRY LEVEL PROJECT COORDINATOR): Encouraged smoking cessation. Discussed 3 minutes. Reviewed options for assistance with cessation. Reviewed skilled nursing sequela associated with smoking. 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
--- OUTSIDE RECORDS SUMMARY | 2024-06-21 17:33 | XMS_ITS | Clinical Summary ---
Author Organization [facility] Address [address] [place] [address] Phone Care Team Providers Care Sales Planner Name Role Phone LeeFidel cifuentes Primary Care [...] Reviewed options for assistance with cessation. Reviewed watermaster sequela associated with smoking. Pt declines assistance [...] (Season Ended) 2024 12/30/19, 03/17/2007 Care Teams Sales Planner Relationship Specialty Start Date End Date Fidel Krueger DO [address] [place] [address] PCP - General Internal Medicine 08/20/21
--- OUTSIDE RECORDS SUMMARY | 2024-06-21 17:33 | XMS_ITS | Continuity of Care Document ---
Author Organization [facility] Address [address] [place] [address] Phone Care Team Providers Care Salad Counter Attendant Name Role Phone González Garcia MD Unavailable [...] Diagnoses Date Provider Providers Copied on Encounter [facility], [address], [place], [place], [address], [place] tel:[phone] [facility] No Information Jose Claudio. [address], [id number], [place]. tel:[phone] [facility], [address], [place], [place], [address], [place] tel:[phone] [facility] Other specified urticaria Jose Claudio. [address] [facility], [facility] [address], [place], [place], [address], [place]. tel:[phone] Referring Provider: Domingo Beaver, [address] [facility] [address], [place], [address]. tel:[phone] Family History Family Member Type Diagnosis Age At Onset Mother Problem (finding) Allergies Payers Payer name Insurance type Covered republican ID Authoriza tion(s) [facility] [id number] Social History Type Description Quantity Date Captured [...]
--- OUTSIDE RECORDS SUMMARY | 2024-06-21 17:33 | XMS_ITS | Continuity of Care Document ---
Author Organization [facility] Address [address] [place] [address] Phone Care Team Providers Care Pediatric Audiologist Name Role Phone Brooke OD, Del Unavailable Unavailable Procedures Procedure Date Eye Exam & Treatment Refraction SV Plastic Sphcyl [place] +/-4d, .12-2d Miscellaneous Vision Service - Supplies Tax - Medical SV Poly Carb Sph +/- 7.12 To +/- 20 D Miscellaneous Vision Service - Supplies Tax - Medical Advance Directives Directive Yes / No Effective Date File Name No Information Encounters Encounter Description Practice Location Reason(s) For Visit Diagnoses Date Provider Providers Copied on Encounter [facility], [address] [place] [address] [address], [place], [place], [id number], tel:[phone] [facility] No Information 1-201 0 Brooke OD Del. [address], [place], [address], [place]. tel:[phone] [facility], [address], [place], [place], [id number], [place] tel:[phone] SEC [facility] No Information 3-200 7 [facility] . [address] [facility], [address], [place], [place], [address], [place]. tel:[phone] Referring Provider: Attila Menjivar [address] [place] [address] [address], [place], [address]. tel:[phone] hernandez Provider: Fay Francisco [facility], [place], [address]. tel:[phone] [facility], [address], [place], [place], [address], [place] tel:[phone] [facility] No Information 7 [facility] . [address] [facility], [address], [place], [place], [address], [place]. tel:[phone] Referring Provider: Attila Menjivar [address] [place] [address] [address], [place], [address]. tel:[phone] hernandez Provider: Fay Francisco [facility], [place], [address]. tel:[phone] Family History Family Member Type Diagnosis Age At Onset No Information Payers Payer name Insurance type Covered constitution party ID Authoriza tion(s) No Information Social [...]
--- OUTSIDE RECORDS SUMMARY | 2024-06-21 17:33 | XMS_ITS | Clinical Summary ---
Author Organization [facility] Address [address] [place] [address] Care Team Providers Care Baker Pastry Name Role Phone Unavailable Primary Care Provider Unavailabl e Allergies Active Allergy Reactions Criticality Noted Date Comments Bupropion Hcl Hives,Rash High 06/21/2024 Sulfa (Sulfonamide Antibiotics) Hives,Rash High 09/2024 Medications MAGNESIUM CITRATE-LEMON BALM ORAL Take by mouth daily. Active MILK THISTLE ORAL Take by mouth daily. Active APPLE CIDER VINEGAR ORAL Take by mouth daily. Active CINNAMON BARK ORAL Take by mouth daily. Active MULTIVITAMIN ORAL Take by mouth daily. Active amLODIPine (NORVASC) 2.5 mg tablet Take 2.5 mg by mouth daily. 04/22/2024 Active omeprazole (PriLOSEC) 40 mg Capsule, Delayed Release(E.C.) Take 40 mg by mouth daily. 06/18/2024 Active levothyroxine 88 mcg tablet Take 88 mcg by mouth daily in the morning. Active metoprolol tartrate 37.5 mg Tablet Take by mouth daily. Active Active Problems No known active problems Encounters Date Type Department Care Team Description 06/21/2024 3:00 PM CDT Office Visit [facility] Oncology and Hematology - [address] [place] [address] Onur Benton MD Chronic anemia (Primary Dx) from Last 3 Months Family History Medical History Relation Name Comments Diabetes Brother 1 No Known Problems Brother 2 No Known Problems Brother 3 No Known Problems Child 1 No Known Problems Child 2 No Known Problems Child 3 No Known Problems Father No Known Problems Mother Relation Name Status Comments Brother 1 Alive Brother 2 Alive Brother 3 Alive Child 1 Alive Child 2 Alive Child 3 Alive Father Mother Social History Tobacco Use Types Packs/Day Years Used Date Smoking Tobacco: Former Cigarettes Smokeless Tobacco: Never Alcohol Use Standard Drinks/Week Comments Yes 0 (1 standard drink = 0.6 oz pur e alcohol) Everyday Comments Unknown Sex and Gender Information Value Date Recorded Sex Assigned at Not on file 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 Gender Identity Not on file Sexual Orientation Not on file Last Filed Vital Signs Vital Sign Reading Time Taken Comments Blood Pressure 124/73 06/21/2024 2:53 PM CDT Pulse 96 06/21/2024 2:53 PM CDT Temperature 36.4 C (97.5 F) 06/21/2024 2:53 PM CDT Respiratory Rate 16 06/21/2024 2:53 PM CDT Oxygen Saturation 94% 06/21/2024 2:53 PM CDT Inhaled Oxygen Concentration - - Weight 62.5 kg (137 lb 12.8 oz) 06/21/2024 2:53 PM CDT Height 157.5 cm (5' 2 ) 06/21/2024 2:53 PM CDT Body Mass Index 25.2 06/21/2024 2:53 PM CDT Plan of Treatment Upcoming Encounters Date Type Department Care Team (Late st Contact Info) Description 07/23/2024 1:15 PM CDT Office Visit [facility] Oncology and Hematology [facility] [address] [facility] [address] [place] [address] Onur Benton MD [address] [facility] [address] [place] [address] Health Maintenance Due Date Last Done Comments DTAP/TDAP/TD VACCINES (1 - Tdap) 11/22/1982 HPV/Cotest (21-29) 11/22/1984 CERVICAL CANCER SCREENING 11/22/1993 HPV/Cotest (30-65) 11/22/1993 PAP SMEAR 11/22/1993 BREAST CANCER SCREENING 2003 COLORECTAL SCREENING 11/22/2008 Colorectal Cancer Screening 11/22/2008 FIT-DNA Q 3 years 11/22/2008 FIT/FOBT Q 1 year 11/22/2008 Flex Sig/CT Colonography Q 5 years 11/22/2008 ZOSTER VACCINE (1 of 2) 11/22/2013 INFLUENZA VACCINE (#1) 2023 Preventative Visit- Commercial 03/17/2024 RSV VACCINE (60+ or ) (1 - 1-dose 75+ series) 11/22/2038 HEPATITIS B VACCINES Aged Out No long er eligible based on patient's age to complete this topic Insurance [facility] CHOICE [id number] MEDICAID [place]
--- OUTSIDE RECORDS SUMMARY | 2024-06-21 17:33 | XMS_ITS | Encounter Summary ---
Author Organization [facility] Care Team Providers Care Dairy Tester Name Role Phone Marisol Caban Primary Care Provider [phone] Fidel Krueger DO Primary Care Provider [phone]- [phone] Encounter Details Date Type Department Care Team (Latest Contact Info) Description 07/07/2017 Orders Only [facility] Provider, MD Jaren [address] [place] [address] Social History Tobacco Use Types Packs/Day Years Used Date Smoking Tobacco: Every Day Cigarettes Smokeless Tobacco: Never Alcohol Use Standard Drinks/Week Comments Yes 0 (1 standard drink = 0.6 oz pur e alcohol) socially Comments Unknown Sex and Gender Information Value Date Recorded Sex Assigned at Not on file 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
--- OUTSIDE RECORDS SUMMARY | 2024-06-21 17:33 | XMS_ITS | Encounter Summary ---
Author Organization [facility] [employer] [facility] Address [address] [place] [address] Care Team Providers Care Optical Systems Engineer Name Role Phone Unavailable Primary Care Provider Unavailabl e Reason for Visit * Reason Comments Establish Care Encounter Details Date Type Department Care Team (Late st Contact Info) Description 06/21/2024 3:00 PM CDT Office Visit [facility] Oncology and Hematology - Den [address] [facility] [address] [place] [address] Onur Benton MD [address] [facility] [address] [place] [address] Chronic anemia (Primary Dx) Social History Tobacco Use Types Packs/Day Years Used Date Smoking Tobacco: Former Cigarettes Smokeless Tobacco: Never Alcohol Use Standard Drinks/Week Comments Yes 0 (1 standard drink = 0.6 oz pur e alcohol) Everyday Comments Unknown Sex and Gender Information Value Date Recorded Sex Assigned at Not on file 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 Problem list There is no problem list on file for this patient. Previous TREATMENT ? Measurable Disease ? Reason for Visit Claire Zayas is a 58 y.o. female who was referred for consultation for chronic anemia. History of present illness This is a pleasant 58-year-old female with history of hypertension, GERD and hypothyroidism referred to me for chronic anemia. Patient denies any melena or hematochezia but has occasional blood on the toilet paper. She has been dealing with allergies and having some sinusitis with occasional nosebleed. She has been complaining of extreme tired and fatigue. She denies being a vegetarian.Denies having any previous stomach surgeries. Patient had last colonoscopy done in May 2021 that showed internal hemorrhoids without any bleeding. The patient has a previous history of microscopic colitis. She take budesonide as needed. She has gained 5 to 6 pound weight recently. Complain of chronic bone pain. She is taking ibuprofen 1600 mg a day. No other new complaint. Past Medical History Past Medical History: Diagnosis Date GERD (gastroesophageal reflux disease) Hypertension Hypothyroidism Surgical History No past surgical history on file. Medications Current Outpatient Medications Medication Sig Dispense Refill MAGNESIUM CITRATE-LEMON BALM ORAL Take by mouth daily. MILK THISTLE ORAL Take by mouth daily. APPLE CIDER VINEGAR ORAL Take by mouth daily. CINNAMON BARK ORAL Take by mouth daily. MULTIVITAMIN ORAL Take by mouth daily. amLODIPine (NORVASC) 2.5 mg tablet Take 2.5 mg by mouth daily. omeprazole (PriLOSEC) 40 mg Capsule, Delayed Release(E.C.) Take 40 mg by mouth daily. levothyroxine 88 mcg tablet Take 88 mcg by mouth daily in the morning. metoprolol tartrate 37.5 mg Tablet Take by mouth daily. No current facility-administered medications for this visit. Allergies Allergies Allergen Reactions Bupropion Hcl Hives and Rash Sulfa (Sulfonamide Antibiotics) Hives and Rash Immunizations: There is no immunization history on file for this patient. Family History Family History Problem Relation Name Age of Onset No Known Problems Father No Known Problems Mother Diabetes Brother No Known Problems Brother No Known Problems Brother No Known Problems Child No Known Problems Child No Known Problems Child Social History Social History Tobacco Use Smoking status: Former Types: Cigarettes Smokeless tobacco: Never Substance Use Topics Alcohol use: Yes Comment: Everyday Review of Systems Constitutional: Patient did not mention fever; no night sweats; no anorexia; no weight loss; complain of generalized tiredness and fatigue NEENT: Patient did not mention headache; no change in vision; no change in hearing; no sore throat;no dysphagia Respiratory: Patient did not mention shortness of breath; no pleuritic chest pain; no cough; no hemoptysis Cardiac: Patient did not mention cardiac-like chest pain; no palpitations; no orthopnea; no PND; noDOE Breasts: Patient did not mention tenderness; no masses GI: Patient did not mention abdominal pain; no nausea; no vomiting; no diarrhea; no hematochezia; no melena : Patient did not mention dysuria; no frequency; no hesitancy; no hematuria WORKING SUPERVISOR: Musculosketetal: Complain of generalized musculoskeletal discomfort Skin: Patient did not mention pruritis; no rash; no petechiae; no ecchymoses Endocrine: Patient did not mention polydipsia; no polyuria; no unusual weight gain Neuro: Patient did not mention headache; no change in vision; no sensory changes; no muscle weakness; no confusion; no seizures Psych: Patient did not mention anxiety; no depression; Physical Exam Vitals: As per nursing note Constitutional: Well developed, well nourished, no acute distress, non-toxic appearance Teeth and gum. No signs of infection or swelling. Eyes: PERRL, conjunctiva normal HEENT: Atraumatic, external ears normal, nose normal, oropharynx moist, no pharyngeal exudates. no sinus tenderness Neck- normal range of motion, no tenderness, supple Respiratory: No respiratory distress, normal breath sounds, no rales, no wheezing Cardiovascular: Normal rate, normal rhythm, no murmurs, no gallops, no rubs GI: Soft, nondistended, normal bowel sounds, nontender, no splenomegaly, no hepatomegaly, no mass, no rebound, no guarding : No costovertebral angle tenderness Musculoskeletal: No edema, no tenderness, no deformities. Back- no tenderness Integument: Well hydrated, no rash, Digits and nails inspection normal Lymphatic: No lymphadenopathy noted Neurologic: Alert & oriented x 3, CN 2-12 normal, normal motor function, normal sensory function, no focal deficits noted Psychiatric: Speech and behavior appropriate ? labs No results found for this or any previous visit (from the past 24 hours). Labs from June 11 showed WBC 8.5 hemoglobin 10.7 MCV 98.5 platelet 376,000 neutrophils 62% # 25% creatinine 0.9 Pathology ? Imaging & Other Studies Performance Status? Assessment / Plan: ? Chronic anemia. Patient is a pleasant 58-year-old female with history of microscopic colitis, hypertension, hypothyroidism and GERD referred to me for chronic anemia. According to the patient she was diagnosed with anemia in 1999 2021. Patient had colonoscopy done in May 2021 that showed internal hemorrhoids without any bleeding. She denies being a vegetarian. She denies anything any previous stomach surgeries. Currently she is taking Centrum multivitamin for woman's. She is quite symptomatic with tiredness and fatigue along with musculoskeletal discomfort. She is taking [id number] mg a day. I will order the comprehensive workup for anemia that will include CBC with differential, CMP, soluble transferrin receptor, methylmalonic acid level, serum protein electrophoresis with immunofixation and vitamin B12 and folic acid level. Based on the initial testing will decide about need role for bone marrow biopsy. Follow-up with me in 4 weeks. I have answered all the questions to patient's satisfaction. Hypothyroidism. Patient is on levothyroxine. Patient is on amlodipine. Thank you very much for allowing me to participate in Claire Zayas's evaluation and management. Please feel free to contact if I can be of any further assistance in your patient???s care requiringhematology or oncology evaluation. Sincerely, ? ? Onur Benton M.D. cell TOBACCO COUNSELING She is not a tobacco/nicotine user. Onur Benton MD ,06/21/2024 3:59 PM ? Total time spent 60 minutes, two third of the total time spent counseling patient [id number]. CC:? documented in this encounter Plan of Treatment Upcoming Encounters Date Type Department Care Team (Late st Contact Info) Description 07/23/2024 1:15 PM CDT Office Visit [facility] Oncology and Hematology - Den [address] [facility] [address] [place] [address] Onur Benton MD [address] [facility] [address] [place] [address] Scheduled Orders Name Type Priority Associated Diagnoses Orde r Schedule COMPREHENSIVE METABOLIC PANEL Lab Stat Chronic anemia Expected: 06/21/2024, Expires: 06/21/2025 FERRITIN Lab Routine Chronic anemia Expected: 06/21/2024, Expires: 06/21/2025 IRON, TIBC, AND PERCENT SATURATION Lab Routine Chronic anemia Expected: 06/21/2024, Expires: 06/21/2025 LACTATE DEHYDROGENASE Lab Routine Chronic anemia Expected: 06/21/2024, Expires: 06/21/2025 METHYLMALONIC ACID Lab Routine Chronic anemia Expected: 06/21/2024, Expires: 06/21/2025 TRANSFERRIN RECEPTOR TFR SOLUBLE Lab Routine Chronic anemia Expected: 06/21/2024, Expires: 06/21/2025 VITAMIN B12 AND FOLATE Lab Routine Chronic anemia Expected: 06/21/2024, Expires: 06/21/2025 PROTEIN ELECTROPHORESIS W/REFLEX,SERUM Lab Routine Chronic anemia Expected: 06/21/2024, Expires: 06/21/2025 CBC WITH DIFFERENTIAL Lab Routine Chronic anemia Expected: 06/21/2024, Expires: 06/21/2025 documented as of this encounter Visit Diagnoses Diagnosis Chronic anemia- Primary Anemia, unspecified documented in this encounter
--- OUTSIDE RECORDS SUMMARY | 2024-06-21 17:33 | XMS_ITS | Encounter Summary ---
Author Organization [facility] Address [address] [place] [address] Care Team Providers Care Customer Account Coordinator Name Role Phone Marisol Caban Primary Care Provider +1- [phone] Fidel Krueger DO Primary Care Provider +1- [phone] Encounter Details Date Type Department Care Team (Late st Contact Info) Description 12/16/2012 Orders Only [facility] [address] [place] [address] Scanning, Provider Social History Tobacco Use Types Packs/Day Years Used Date Smoking Tobacco: Never Assessed Comments Unknown Sex and Gender Information Value Date Recorded Sex Assigned at Not on file 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 [place] [address] PCP - General Internal Medicine 04/10/20 documented as of this encounter
[2024-06-21 17:51] LABS: Folic Acid > 20.0 ng/mL (2.76->20)
[2024-06-22 08:34] LABS: Protein, Total 8.3 g/dL (6.1-8.1)
[2024-06-22 18:54] LABS: Albumin 4.9 g/dL (3.8-4.8); Alpha 1 Globulin 0.3 g/dL (0.2-0.3); Alpha 2 Globulin 0.7 g/dL (0.5-0.9); Beta 1 Globulin 0.5 g/dL (0.4-0.6); Gamma Globulin 1.5 g/dL (0.8-1.7)
[2024-06-24 22:03] LABS: Methylmalonic Acid 259 nmol/L (69-390)
== END 2024-06-21 15:33 | disposition home or self-care (01) ==
LOC: ANHLAB 15:33
PROVIDERS: PCP Clinical Nurse Specialist; Visit Provider Internal Medicine Hematology & Oncology
DX: D64.9 Anemia, unspecified (principal)
CPT/HCPCS: 36415; 80053; 82607; 82728; 82746; 83540; 83550; 83615; 83921; 84155; 84165; 84238; 85025

== ENCOUNTER 2024-06-29 16:57 | Outpatient (CLI) | payer OTHER, MEDICAID, SELFPAY ==
--- OUTSIDE RECORDS SUMMARY | 2024-06-29 17:08 | XMS_ITS | Clinical Summary ---
Author Organization [facility] Address [address] [place] [address] Phone Care Team Providers Care Telephone Ad Taker Name Role Phone LeeFidel cifuentes Primary Care [...] Tetracycline Unknown 09/30/2011 Venlafaxine Unknown 09/30/2011 Medications albuterol HFA (PROVENTIL HFA) 108 (90 Base) MCG/ACT inhaler INHALE 1 PUFF BY MOUTH EVERY 4 HOURS NEEDED FOR SHORTNESS OF BREATH OR WHEEZING 08/10/19 22 Active benzonatate (TESSALON) 100 MG capsule TAKE 1 CAPSULE BY MOUTH THREE TIMES A DAY NEEDED FOR COUGH 07/22/19 22 Active budesonide EC (ENTOCORT EC) 3 MG 24 hr capsule 09/11/19 22 Active Symbicort 160-4.5 MCG/ACT inhaler INHALE 2 PUFFS EVERY 12 HOURS NEEDED FOR SHORTNESS OF BREATH 08/14/19 22 Active cyclobenzaprine (FLEXERIL) 5 MG tablet cyclobenzaprine 5 mg tablet TAKE ONE TABLET BY MOUTH ONCE DAILY AT BEDTIME NEEDED Active fluticasone (FLONASE) 50 MCG/ACT nasal spray INSTILL 1 SPRAY INTRANASALLY EVERY 12 HRS INTO EACH NOSTRIL 09/04/19 Active ibuprofen (ADVIL) 400 MG tablet ibuprofen 400 mg tablet Take bid 05/27/19 13 Active Euthyrox 88 MCG tablet Take 88 mcg by mouth 1 (one) time each day 06/29/19 22 Active metoprolol tartrate (LOPRESSOR) 25 MG tablet TAKE 1&1/2 TABLETS BY MOUTH TWICE A DAY 08/18/19 22 Active omeprazole (PriLOSEC) [address] capsule Take 40 mg by mouth 1 (one) time each day 08/21/19 22 Active ondansetron ODT (ZOFRAN-ODT) 4 MG dispersible tablet Take 4 mg by mouth every 8 (eight) hours 08/13/19 22 Active Active Problems Problem Noted Date Diagnosed [...] myelopathy 09/23/2011 Gastroesophageal reflux disease 09/23/2011 Immunizations Immunization Administration Dates Next Due Influenza TIV (IM) [...] pu re alcohol) 3 - 4 beers/day Comments Unknown Sex and Gender Information Value Date Recorded Sex Assigned at Not on file Legal Sex Female 9:44 AM MDT Gender Identity Not on file Sexual Orientation [...] Influenza Vaccine (Season Ended) 2024 12/30/19, 03/17/2007 Insurance [facility] Care Teams Telephone Ad Taker Relationship Specialty Start Date End Date Fidel Krueger DO [address] [place] [address] PCP - General Internal Medicine 08/20/21
--- OUTSIDE RECORDS SUMMARY | 2024-06-29 17:08 | XMS_ITS | Continuity of Care Document ---
Author Organization [facility] Address [address] [place] [address] Phone Care Team Providers Care Aviation Ordnance Officer Name Role Phone González Garcia MD Unavailable [...] Diagnoses Date Provider Providers Copied on Encounter [facility] [facility] [employer], [address], [place], [place], [id number], [place] tel:[phone] [facility] No Information Jose Claudio. [address], [id number], [place]. tel:[phone] [employer], [address], [place], [place], [address], [place] tel:[phone] [facility] Other specified urticaria Jose Claudio. [address] [facility] [address], [place], [place], [address], [place]. tel:[phone] Referring Provider: Domingo Beaver, [address] [facility] [address], [place], [address]. tel:[phone] Family History Family Member Type Diagnosis Age At Onset Mother Problem (finding) Allergies Payers Payer name Insurance type Covered democrat ID Authoriza tion(s) [facility] [id number] Social History Type Description Quantity Date Captured [...]
--- OUTSIDE RECORDS SUMMARY | 2024-06-29 17:08 | XMS_ITS | Encounter Summary ---
Author Organization [facility] Care Team Providers Care Head Animal Trainer Name Role Phone Marisol Caban Primary Care Provider +1- [phone] Fidel Krueger DO Primary Care Provider +1- [phone] Encounter Details Date Type Department Care Team (Latest Contact Info) Description 07/07/2017 Orders Only [facility] Provider, MD Jaren [address] [place] [address] Social History Tobacco Use Types Packs/Day Years Used Date Smoking Tobacco: Every Day Cigarettes Smokeless Tobacco: Never Alcohol Use Standard Drinks/Week Comments Yes 0 (1 standard drink = 0.6 oz pur e alcohol) socially Comments Unknown Sex and Gender Information Value Date Recorded Sex Assigned at Not on file 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
--- OUTSIDE RECORDS SUMMARY | 2024-06-29 17:08 | XMS_ITS | Encounter Summary ---
Author Organization [facility] Care Team Providers Care Sheet Music Salesperson Name Role Phone Marisol Caban Primary Care Provider +1- [phone] Fidel Krueger DO Primary Care Provider +1- [phone] Encounter Details Date Type Department Care Team (Latest Contact Info) Description 12/22/2017 Orders Only [facility]INCONV Provider, MD Jaren [address] [place] [address] Social History Tobacco Use Types Packs/Day Years Used Date Smoking Tobacco: Every Day Cigarettes Smokeless Tobacco: Never Alcohol Use Standard Drinks/Week Comments Yes 0 (1 standard drink = 0.6 oz pur e alcohol) socially Comments Unknown Sex and Gender Information Value Date Recorded Sex Assigned at Not on file 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
--- OUTSIDE RECORDS SUMMARY | 2024-06-29 17:08 | XMS_ITS | Data Portability ---
Author Organization [facility] Address [address] [place] [address] Care Team Providers Care Automotive Exhaust Emissions Technician Name Role Phone OSIRIS RAMIREZSEY Primary Care Provider Assessment No assessment recorded. Plan of Treatment Reminders Order Date Submit Date Provider Last Modified By Organization Details Last Modified Time Details Appointments None recorded. Lab None recorded. Referral None recorded. Procedures None recorded. Surgeries None recorded. Imaging None recorded. Medication Orders Imvexxy Maintenance Pack 10 mcg vaginal insert 2023 024 [id number], [address], [place], [place], [id number], 4 16:16:34 Patient TargetsNo targets recorded. Patient [...] patie nt consi derat ions. Not Available [facility] (Lab) [address], [place], [address], 07/23/2023 14:32:52 07/18/19 24 07/18/2023 TRICH OMONA S VAGIN FATOUMATA (RRNA ) trichomonas vaginalis ribosomal RNA (rrna) Negati ve negati ve Not Available [facility] (Lab) [address], [place], [address], 07/23/2023 14:32:53 07/18/19 24 07/18/2023 CT/GC (ANUPAM) , THINP REP VIAL chlamydia trachomatis, PCR Negati ve negati ve Not Available [facility] (Lab) [address], [place], [address], 07/23/2023 14:32:54 07/18/19 24 07/18/2023 CT/GC (ANUPAM) , THINP REP VIAL neisseria gonorrhoeae, PCR Negati ve negati ve Not Available [facility] (Lab) [address], [place], [address], 07/23/2023 14:32:54 Result Notes None recorded. Procedures Surgical History Date Name Laterality Status Provider Name and Address Organization Details Recorded Time 4 Date of Last Mammogram completed [facility] 07/18/2023 12:06:52 4 Most Recent Bone Density completed [facility] 07/18/2023 12:06:[address] [facility] 07/18/2023 12:06:52 3 Date of Last Colonoscopy completed [facility] 07/18/2023 12:06:52 2 Date of Last Pap Smear completed [facility] 07/18/2023 12:06:52 [address] [facility] 07/18/2023 12:07:[address] [facility] 07/18/2023 12:07:20 tonsilectomy/ad enoids completed [facility] 07/18/2023 12:07:20 Imaging Results None recorded. Procedure Notes None recorded. Medical Equipment None Reported. Allergies Allergen ID Allergen Name Allergen Category Reaction Reaction Severity Criticality Documentation Date Start Date Code Code System Note Provider Name and Address Organization Details Recorded Time 67160 ampicilli n medicatio n rash Not available Not available 07/18/2023 733 RxNorm Augustina [address] [facility] 4 12:05:54 53874 cephalexi n medicatio n rash Not available Not available 07/18/2023 2231 RxNorm [address] [facility] 4 12:05:54 59125 nitrofura ntoin medicatio n anaphylax is Not available Not available 07/18/2023 7454 RxNorm [address] [facility] 4 12:05:54 94567 Bactrim medicatio n rash Not available Not available 07/18/2023 19150 9 RxNorm [address] [facility] 4 12:05:54 86747 Macrobid medicatio n anaphylax is Not available Not available 07/18/2023 54613 1 RxNorm [address] [facility] 4 12:07:42 Medications Name Sig [...] Not Available Not Available Not Available Acid Yardage Control Operator Forming (omeprazole ) active Not Available Not Available Not Available Adult One Daily Multivitami n active Not Available Not Available Not Available Imvexxy Maintenance Pack 10 mcg vaginal insert active Not Available Not Available Not Available Vitals Date Recorded Body height Body weight Systolic blood pressure Diastolic blood pressure Provider Name and Address Organization Details Last Updated DateTime 07/18/2023 156.21 cm 04691.41 g 133 mm[Hg] 84 mm[Hg] Augustina Yen [facility] 07/18/2023 12:05:44 Social History Question [...] Or The Highest Degree You Have Received? [id number] Information not available 07/18/2023 What Is Your [...] Anxious, Or Unable To Sleep At Night)? [id number] Information not available 07/18/2023 Do You Use [...] available 2023 12:06:04 Medical History Condition Response Other N Blood Transfusion N Dermatologic Disorders N Gestational Diabetes N Anxiety Disorder N Autoimmune disease N Arthritis N Polyps N Infertility N Acid Reflux (GERD) N Cancer N Varicosities N Stroke N Neurologic/Epilepsy N Fibromyalgia N Headaches N Kidney Disease N Heart Problems N Kidney or Bladder Problems N Eating Disorder N Art (IVF or FET) N Hepatitis/Liver Disease N No Past Medical History N Urinary Tract Infection N Asthma N Trauma/Violence N Thrombophilias N Allergies (Food, seasonal, environmental ) N Breast Cancer N Drug/Latex Allergies/Reactions N Lung Disease N Defects or Inherited Disease N Breast Problem N Hematologic disorders N Anesthesia Complications N History of STI N Deep Vein Thrombosis N Polycystic ovary syndrome N History of abnormal pap N Endometriosis N High Cholesterol N Thyroid Problems N GI Problems N Anemia N Psychiatric Illness N Ovarian Cancer N Diabetes N Pulmonary (TB, Asthma) N Eczema N Abuse/Domestic Violence N Depression/ depression N Heart Disease N Pre-Eclampsia N Hypertension N Osteoporosis N Gynecological History Statement/Question Response Date of [...] SNOMED-CT Code Diagnosis ICD10 Code Diagnosis Note [id number] MARVIN MEADE MD [place] [address] [address] 07/18/2023 11:27:06 07/21/2023 06:38:43 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 MARVIN MEADE MD [address], [place], [address], [facility] 07/18/2023 16:16:41 OBGyn Episode Ob Episode Information Episode Created Date Number of Fetuses Patient Bloodtype Patient rh Status Prepregnancy Weight lbs Domestic Partner Domestic Partner Phone Father Name Sports Lawyer Status 07/18/19 24 1 CLOSED Fetus Data First Name Last Name Admitted to NICU Weight (g) Sex Living Outcome Pediatric Complications Fetus ID Race Codes Race Delivery Type F Full Term [id number] Primary Elia Calculation Initial Elia Date Initial [...] Domestic Partner Domestic Partner Phone Father Name Sports Lawyer Status 07/18/19 24 1 CLOSED Fetus Data First Name Last Name Admitted to NICU Weight (g) Sex Living Outcome Pediatric Complications Fetus ID Race Codes Race Delivery Type F Full Term 37974 Repeat Elia Calculation Initial Elia Date Initial [...] Domestic Partner Domestic Partner Phone Father Name Sports Lawyer Status 07/18/19 24 1 CLOSED Fetus Data First Name Last Name Admitted to NICU Weight (g) Sex Living Outcome Pediatric Complications Fetus ID Race Codes Race Delivery Type M Full Term 47682 Repeat Elia Calculation Initial Elia Date Initial [...]
--- OUTSIDE RECORDS SUMMARY | 2024-06-29 17:08 | XMS_ITS | Clinical Summary ---
Author Organization [facility] Eloise da silva Patrick Address [address] [place] [address] Care Team Providers Care Compensation And Benefits Administrator Name Role Phone Unavailable Primary Care Provider [...] Encounters Date Type Department Care Team Description 06/25/2024 Orders Only [facility] Oncology and Hematology - [place] [address] [address] Onur Benton MD 06/22/2024 External Device Data STL ABSTRACTION Provider, Abstract 06/22/2024 External Device Data STL ABSTRACTION Provider, Abstract 06/22/2024 External Device Data STL ABSTRACTION Provider, Abstract 06/22/2024 Orders Only [facility] Oncology and Hematology - [place] [address] [place] [address] Onur Benton MD 06/21/2024 3:00 PM CDT Office Visit [facility] Oncology and Hematology - [address] [place] [address] Onur Benton MD Chronic anemia (Primary [...] on file Legal Sex Female 11:48 AM 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 Gender Identity Not on file Sexual Orientation [...] Description 07/23/2024 1:15 PM CDT Office Visit [facility] Oncology and Hematology - [address] [place] [address] Onur Benton MD [address] [facility] [employer] [address] [place] [address] Health Maintenance Due Date Last Done Comments Pre-Diabetes and Diabetes Screening 1965 DTAP/TDAP/TD VACCINES (1 - Tdap) 11/22/1982 HPV/Cotest (21-29) 11/22/1984 CERVICAL CANCER SCREENING 11/22/1993 HPV/Cotest (30-65) 11/22/1993 PAP SMEAR 11/22/1993 BREAST CANCER SCREENING 2003 COLORECTAL SCREENING 11/22/2008 Colorectal Cancer Screening 11/22/2008 FIT-DNA Q 3 years 11/22/2008 FIT/FOBT Q 1 year 11/22/2008 Flex Sig/CT Colonography Q 5 years 11/22/2008 ZOSTER VACCINE (1 of 2) 11/22/2013 INFLUENZA VACCINE (#1) 2023 RSV VACCINE (60+ or ) (1 - 1-dose 75+ series) 11/22/2038 HEPATITIS B VACCINES Aged Out No long er eligible based on patient's age to complete this topic Procedures Procedure Name Priority Date/Time Associated Diagnosis Comments TRANSFERRIN RECEPTOR TFR SOLUBLE Routine 06/21/2024 3:18 PM CDT COMPREHENSIVE METABOLIC PANEL Routine 06/21/2024 12:32 PM CDT from Last 3 Months Results * TRANSFERRIN RECEPTOR TFR SOLUBLE (06/21/2024 3:18 PM CDT) Blood Onur Benton MD CHEMISTRY ORDERABLES Final Resu lt * COMPREHENSIVE METABOLIC PANEL (06/21/2024 12:32 PM CDT) Blood Onur Benton MD CHEMISTRY ORDERABLES Final Resu lt from Last 3 Months Insurance [facility] CHOICE [id number] MEDICAID [place]
--- OUTSIDE RECORDS SUMMARY | 2024-06-29 17:08 | XMS_ITS | Encounter Summary ---
Author Organization [facility] Address [address] [place] [address] Care Team Providers Care Sound Mixer Name Role Phone Unavailable Primary Care Provider Unavailabl e Encounter Details Date Type Department Care Team (Late Contact Info) Description 06/25/2024 Orders Only [facility] Oncology [place] [address] [address] [place] [address] Onur Benton MD [address] [place], [place] [address] [address] [place] [address] Social History Tobacco Use Types Packs/Day Years Used Date Smoking Tobacco: Former Cigarettes Smokeless Tobacco: Never Alcohol Use Standard Drinks/Week Comments Yes 0 (1 standard drink = 0.6 oz pur e alcohol) Everyday Comments Unknown Sex and Gender Information Value Date Recorded Sex Assigned at Not on file 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 Gender Identity Not on file Sexual Orientation Not on file documented as of this encounter Plan of Treatment Upcoming Encounters Date Type Department Care Team (Late st Contact Info) Description 07/23/2024 1:15 PM CDT Office Visit [facility] Oncology [facility] [address] [place] [address] Onur Benton MD [address] [employer] [address] [place] [address] documented as of this encounter Procedures Procedure Name Priority Date/Time Associated Diagnosis Comments TRANSFERRIN RECEPTOR TFR SOLUBLE Routine 06/21/2024 3:18 PM CDT documented in this encounter Results * TRANSFERRIN RECEPTOR TFR SOLUBLE (06/21/2024 3:18 PM CDT) Blood us Onur Benton MD CHEMISTRY ORDERABLES Final Resu lt documented in this encounter Visit Diagnoses Not on filedocumented in this encounter
--- OUTSIDE RECORDS SUMMARY | 2024-06-29 17:08 | XMS_ITS | Encounter Summary ---
Author Organization [facility] Address [address] [place] [address] Care Team Providers Care Seed Sales Manager Name Role Phone Marisol Caban Primary Care Provider +1- [phone] Fidel Krueger DO Primary Care Provider +1- [phone] Encounter Details Date Type Department Care Team (Late st Contact Info) Description 12/16/2012 Orders Only [facility] Health Information Management [address] [place] [address] Scanning, Provider Social History Tobacco Use Types Packs/Day Years Used Date Smoking Tobacco: Never Assessed Comments Unknown Sex and Gender Information Value Date Recorded Sex Assigned at Not on file 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 [place] [address] PCP - General Internal Medicine 04/10/20 documented as of this encounter
--- OUTSIDE RECORDS SUMMARY | 2024-06-29 17:09 | XMS_ITS | Data Portability ---
Author Organization [facility]AN[facility] M[facility]AE[facility] Address [address] [place] [address] Assessment No assessment recorded. Plan of Treatment Reminders Order Date Submit Date Provider Last Modified By Organization Details Last Modified Time Details Appointments None recorded. Lab TSH + free T4, serum 2015 016 [facility], [address] [place] [address], [phone], 6 04:30:57 Referral None recorded. Procedures None recorded. Surgeries None recorded. Imaging None recorded. Medication Orders naproxen 500 mg tablet 2015 016 [facility] [place], [address], 6 04:31:12 Patient TargetsNo targets recorded. Patient InstructionsNo instructions recorded. Reason for Referral None Reported. Results Created Date Observation Date Name Description Value Unit Range Abnormal Flag Note LastModifiedBy Organization Detail LastModifiedTime 01/17/20 16 01/18/2016 TSH + free T4, serum TSH 0.510 uIU/m L 0.450- 4.500 Not Available [facility] ([facility]) [address] [place], [address], 01/18/2016 06:12:42 01/17/20 16 01/18/2016 TSH + free T4, serum T4,free(dire ct) 1.64 NG/dL 0.82-1 .77 Not Available [facility] ([facility]) [address] [place], [address], 01/18/2016 06:12:42 01/17/20 16 01/17/2016 [email or web address] javier note please note COMMEN T THE DATE AND/O R TIME OF COLLE CTION WAS NOT INDIC ATED ON THE REQUI SITIO N REQUI RED BY STATE AND [place] LAW. THE DATE OF RECEI PT OF THE SPECI MEN WAS USED THE COLLE CTION DATE IF NOT SUPPL IED. Not Available [facility] ([facility]) [address] [facility], [place], [address], 01/18/2016 06:12:42 01/12/20 16 01/07/2016 XR, chest , 2 view No observ ation record ed. [email or web address] Not Available 2015 16:31:43 Result Notes None recorded. Problems Name Problem SNOMED Code Status Onset Date Resolution Date Notes Provider Name and Address Organization Details Recorded Time Crohn's disease of large bowel 3206582 Active 2011 Location : None;Sev erity: Moderate ;Progres s: Stable;A dded By: Brennen Beaver;Add to Current Problems : NO Not Available [facility] 7 08:03:24 Allergic rhinitis caused by pollen 09561981 Completed 201110/24/2011 Location : None;Sev erity: Moderate ;Progres s: Stable;A dded By: Brennen Beaver;Add to Current Problems : NO Not Available [facility] 7 08:03:24 Displace ment of lumbar interver tebral disc without myelopat hy 32561735 Active 2011 Location : None;Sev erity: Moderate ;Progres s: Stable;A dded By: Brennen Beaver;Add to Current Problems : NO Not Available [facility] 7 08:03:24 Acute upper respirat ory infectio n of multiple sites Completed 201507/27/2015 Location : None;Sev erity: Moderate ;Progres s: Stable;A dded By: Sandhya Kaur;Add to Current Problems : YES Not Available [facility] 7 08:03:24 Eruption [id number] Completed 201111/15/2011 Location : None;Sev erity: Moderate ;Progres s: Stable;A dded By: Sydney Knight;Add to Current Problems : NO Not Available [facility] 7 08:03:24 Contact dermatit is [id number] Completed 201111/15/2011 Location : None;Sev erity: Moderate ;Progres s: Stable;A dded By: Sydney Knight;Add to Current Problems : NO Not Available [facility] 7 08:03:24 Elevated blood-pr essure reading without diagnosi s of hyperten oanh [id number] Completed 201309/11/2013 Location : None;Sev erity: Moderate ;Progres s: Stable;A dded By: Sydney Knight;Add to Current Problems : NO Not Available [facility] 7 08:03:24 Anal fissure [id number] Completed 201112/27/2011 Location : None;Sev erity: Moderate ;Progres s: Stable;A dded By: Brennen Beaver;Add to Current Problems : NO Not Available [facility] 7 08:03:25 Acute upper respirat ory infectio n [id number] Completed 201212/26/2012 Location : None;Sev erity: Moderate ;Progres s: Stable;A dded By: Brennen Beaver;Add to Current Problems : NO Not Available [facility] 7 08:03:25 Palpitat ions [id number] Completed 201212/26/2012 Location : None;Sev erity: Moderate ;Progres s: Stable;A dded By: Brennen Beaver;Add to Current Problems : NO Not Available [facility] 7 08:03:25 Screenin g for malignan t neoplasm of colon Active 2014 Location : None;Sev erity: Moderate ;Progres s: Stable;A dded By: Brennen Beaver;Add to Current Problems : YES Not Available [facility] 7 08:03:25 Viral screenin g Completed 201407/31/2014 Location : None;Sev erity: Moderate ;Progres s: Stable;A dded By: Brennen Beaver;Add to Current Problems : YES Not Available [facility] 7 08:03:25 Hypothyr oidism 28722647 Active 2015 Location : None;Sev erity: Moderate ;Progres s: Stable;A dded By: Brennen Beaver;Add to Current Problems : YES Not Available [facility] 7 08:03:25 Tobacco dependen ce syndrome [id number] Completed 201508/25/2015 Location : None;Sev erity: Moderate ;Progres s: Stable;A dded By: Brennen Beaver;Add to Current Problems : YES Not Available [facility] 7 08:03:25 Cough [id number] Completed 201508/25/2015 Location : None;Sev erity: Moderate ;Progres s: Stable;A dded By: Brennen Beaver;Add to Current Problems : YES Not Available [facility] 7 08:03:25 Precordi al pain [id number] Completed 201508/25/2015 Location : None;Sev erity: Moderate ;Progres s: Stable;A dded By: Brennen Beaver;Add to Current Problems : YES Not Available [facility] 7 08:03:25 Acute frontal sinusiti s [id number] Completed 201508/25/2015 Location : None;Sev erity: Moderate ;Progres s: Stable;A dded By: Brennen Beaver;Add to Current Problems : YES Not Available [facility] 7 08:03:25 Precordi al pain [id number] Completed 201212/26/2012 Location : None;Sev erity: Moderate ;Progres s: Stable;A dded By: Hillary Seth; Add to Current Problems : NO Not Available [facility] 7 08:03:26 Benign essentia l hyperten oanh 6910797 Active 2015 Location : None;Sev erity: Moderate ;Progres s: Stable;A dded By: Trina Torres i;Otto dd to Current Problems : NO Not Available [facility] 7 08:03:26 Multiple joint pain 15592417 Active 2011 Location : None;Sev erity: Moderate ;Progres s: Stable;A dded By: Trina Torres i;A dd to Current Problems : YES Not Available [facility] 7 08:03:26 Chronic ulcerati ve enteroco litis 91040032 Active 2011 Location : None;Sev erity: Moderate ;Progres s: Stable;A dded By: Karma Palencia;Add to Current Problems : NO Not Available [facility] 7 08:03:26 Hypo-osm olality and or hyponatr emia 424785589 Completed 201410/28/2014 Location : None;Sev erity: Moderate ;Progres s: Stable;A dded By: Karma Palencia;Add to Current Problems : YES Not Available [facility] 7 08:03:26 Pain in thoracic spine 746677993 Completed 201411/06/2014 Location : None;Sev erity: Moderate ;Progres s: Stable;A dded By: Karma Palencia;Add to Current Problems : YES Not Available [facility] 7 08:03:26 Tobacco dependen ce syndrome 78899628 Completed 201411/06/2014 Location : None;Sev erity: Moderate ;Progres s: Stable;A dded By: Karma Palencia;Add to Current Problems : YES Not Available [facility] 7 08:03:26 Essentia l hyperten oanh 44821070 Active 2014 Location : None;Sev erity: Moderate ;Progres s: Stable;A dded By: Karma Palencia;Add to Current Problems : YES Not Available [facility] 7 08:03:26 Gastroes ophageal reflux disease 122588770 Active 2011 Location : None;Sev erity: Moderate ;Progres s: Stable;A dded By: Karma Palencia;Add to Current Problems : YES Not Available [facility] 7 08:03:26 Dysuria [id number] Completed 201206/26/2012 Location : None;Sev erity: Moderate ;Progres s: Stable;A dded By: Sandhya Gaming;Add to Current Problems : NO Not Available [facility] 7 08:03:27 Elevated blood-pr essure reading without diagnosi s of hyperten oanh 471251758 Active 2012 Location : None;Sev erity: Moderate ;Progres s: Stable;A dded By: Sandhya Gaming;Add to Current Problems : NO Not Available [facility] 7 08:03:27 Ra hematuri a 750062573 Active 2012 Location : None;Sev erity: Moderate ;Progres s: Stable;A dded By: Nabila Salmeron;Add to Current Problems : NO Not Available [facility] 7 08:03:27 Knee pain Completed 201211/09/2012 Location : None;Sev erity: Moderate ;Progres s: Stable;A dded By: Nabila Salmeron;Add to Current Problems : NO Not Available [facility] 7 08:03:27 Problem Notes None recorded. Procedures Surgical History Date Name Laterality Status Provider Name and Address Organization Details Recorded Time Knee Surgery completed Hillary [place] - [facility] 01/17/2016 11:29:04 Tubal Ligation completed [place] [facility] [place] 01/17/2016 11:29:25 delivery completed [place] [facility] 01/17/2016 11:29:33 Imaging Results [...] Name and Address Organization Details Recorded Time 26963 cephalexi n monohydra te medicatio n Not available Not available Not available 03/20/20162011 79341 8 RxNorm Sever ity: Moder ate; Comme nt: Aller gy Type: Aller gy; Not Available Not Available Not Available 78162 tetracycl ine hydrochlo ride medicatio n Not available Not available Not available 03/20/20162011 08268 6 RxNorm Sever ity: Moder ate; Comme nt: Aller gy Type: Aller gy; Not Available Not Available Not Available 24925 Feldene medicatio n Not available Not available Not available 03/20/20162011 00357 8 RxNorm Sever ity: Moder ate; Comme nt: Aller gy Type: Aller gy; Not Available Not Available Not Available 14182 Wellbutri n medicatio n Not available Not available Not available 03/20/20162011 58524 RxNorm Sever ity: Moder ate; Comme nt: Aller gy Type: Aller gy; Not Available Not Available Not Available 30554 Effexor medicatio n Not available Not available Not available 03/20/20162011 84090 2 RxNorm Sever ity: Moder ate; Comme nt: Aller gy Type: Adver se React ion; Not Available Not Available Not Available 87403 clindamyc in hydrochlo ride medicatio n Not available Not available Not available 03/20/20162011 67947 RxNorm Sever ity: Moder ate; Comme nt: Aller gy Type: Aller gy; Not Available Not Available Not Available 00929 iodine medicatio n Not available Not available Not available 03/20/20162011 5933 RxNorm Sever ity: Moder ate; Comme nt: Aller gy Type: Aller gy; Not Available Not Available Not Available 31882 Product containin g penicilli n (product) medicatio n Not available Not available Not available 03/20/20162012 63016 8001 SNOMED Sever ity: Moder ate; Comme nt: Aller gy Type: Aller gy; Not Available Not Available Not Available 42008 lisinopri l medicatio n cough rash moderate moderate Not available 03/20/20162014 16902 RxNorm React ion: cough ;Geneva rity: Moder ate; Comme nt: Aller gy Type: Adver se React ion; Not Available Not Available Not Available 17321 [facility] medicatio n Not available Not available Not available 03/20/20162014 59993 RxNorm React ion: nause a, vomit ing;S everi ty: Moder ate; Comme nt: Aller gy Type: Aller gy; Not Available Not Available Not Available 80112 ampicilli n trihydrat e medicatio n Not available Not available Not available 03/20/2016201111 5 RxNorm Sever ity: Moder ate; Comme nt: Aller gy Type: Aller gy; Not Available Not Available Not Available Medications Name Sig Start Date Stop Date Status Note LastModified by Organization Details LastModified Time hydrochlo rothiazid e 50 mg tablet Take 1 tablet(s ) by mouth daily 09/01 completed RxNorm: 492281;A llow Substitu tion: True Not Available Not Available Not Available ranitidin e 300 mg tablet TAKE ONE TABLET BY MOUTH TWICE DAILY 2015 active Not Available Not Available Not Avai lable lisinopri l 20 mg tablet ONE DAILY 10/27 completed RxNorm: 335640;A llow Substitu tion: True Not Available Not [...] ) by mouth once 07/25 completed RxNorm: 070167;A llow Substitu tion: True Not Available Not Available Not Available nifedipin e ER 30 mg tablet,ex tended release TAKE ONE TABLET BY MOUTH ONCE DAILY 2017 active Routine appt and ok Not Available Not Available Not Available amlodipin e 5 mg tablet Take 1 tablet(s ) by mouth daily 09/07 completed RxNorm: 184201;A llow Substitu tion: True Not Available Not Available Not Available omeprazol e 40 mg capsule,d elayed release TAKE ONE CAPSULE BY MOUTH ONCE DAILY 2016 active Appt within 3 mos Not Available Not Available Not Available meloxicam 7.5 mg tablet Take 1 tab twice daily 10/09 completed RxNorm: 503725;A llow Substitu tion: True Not Available Not Available Not Available levothyro xine 100 mcg tablet TAKE ONE TABLET BY MOUTH ONCE DAILY IN THE MORNING ON AN EMPTY STOMACH. 2016 active Appt in 6 mos Not Available Not Available Not Available Cipro 500 mg tablet Take 1 tablet(s ) by mouth q12h for 7 days 07/02 completed RxNorm: 260044;A llow Substitu tion: True Not Available Not Available Not Available ranitidin e 300 mg capsule Take 1 capsule every day by oral route. active Not Available Not Available No t Available lisinopri l 10 mg tablet Take 1 tab daily 09/22 completed RxNorm: 565282;A llow Substitu tion: True Not Available Not Available Not Available ibuprofen 400 mg tablet Take bid 2012 active RxNorm: 126110;A llow Substitu tion: True Not Available Not Available Not Available hydrochlo rothiazid e 12.5 mg capsule Take 1 capsule( s) by mouth daily 09/08 completed RxNorm: 191759;A llow Substitu tion: True Not Available Not Available Not Available hydrochlo rothiazid e 25 mg tablet one po daily 06/01 completed RxNorm: 196976;A llow Substitu tion: True Not Available Not Available Not Available fluticaso ne propionat e 50 mcg/actua tion nasal spray,rosa pension 2 spray(s) in each nostril daily 2015 active RxNorm: 715848;A llow Substitu tion: True Not Available Not Available Not Available naproxen 500 mg tablet Take 1 tablet twice a day by oral route. 2015 active Not Available Not Available Not Avai lable levothyro xine 112 mcg tablet Take 1 tablet(s ) by mouth daily 11/26 completed RxNorm: 481594;A llow Substitu tion: True Not Available Not Available Not Available Cozaar 50 mg tablet Take 1 tablet(s ) by mouth daily 04/24 completed RxNorm: 989550;A llow Substitu tion: True Not Available Not Available Not Available cyclobenz aprine 5 mg tablet TAKE ONE TABLET BY MOUTH ONCE DAILY AT BEDTIME NEEDED 2015 active Not Available Not Available Not Avai lable Zyrtec 10 mg chewable tablet I tab daily prn 10/09 completed RxNorm: 787949;A llow Substitu tion: True Not Available Not Available Not Available Pentasa 500 mg capsule,c ontrolled release Take 2 capsule( s) by mouth qid 06/01 completed RxNorm: 352083;A llow Substitu tion: True Not Available Not [...] Address Organization Details Last Updated DateTime 6 00269.7 9 g 162.56 cm 24.6 kg/m2 104 [...] free, adsorbed 2 completed Not Available [facility] 03/20/2016 05:55:53 Influenza, split virus, trivalent, preservative 8 completed Not Available [facility] 03/20/2016 05:55:53 Past Encounters Encounter ID Performer Location Encounter Start Date Encounter Closed Date Diagnosis/Indication Diagnosis SNOMED-CT Code Diagnosis ICD10 Code Diagnosis Note [id number] [facility] [address] [place] [address] 01/17/2016 11:20:52 01/22/2016 16:36:42 Hypothyroidism 36032827 E03.9 Chronic back pain 425174 002 M54.9 Health Concerns Section Related Observation LastModified by Organization Detai ls LastModified Time None Recorded Concern Status LastModified by Organization Details LastModified Time None Recorded Advance Directives Directive None Recorded Payers Encounter Date Sequence Insurance Name Policy Number Policy Heart Covered Member ID Heart Member ID Guarantor Name 01/17/2016 1 [employer] - DOS PRIOR TO 20 - [facility] [employer] [facility] [id number]as [id number] Notes Date Note Type Note Provider Name [...] it with omeprazole and ranitidine Hillary carroll, [place] - [facility] 01/17/2016 12:22:22 OBGyn Episode No OBEpisode recorded.
--- OUTSIDE RECORDS SUMMARY | 2024-06-29 17:09 | XMS_ITS | Continuity of Care Document ---
Author Organization [facility] Address [address] [place] [address] Phone Care Team Providers Care Claim Service Representative Name Role Phone Brooke OD, Del Unavailable Unavailable Procedures Procedure Date Eye Exam & Treatment Refraction SV Plastic Sphcyl [place] +/-4d, .12-2d Miscellaneous Vision Service - Supplies Tax - Medical SV Poly Carb Sph +/- 7.12 To +/- 20 D Miscellaneous Vision Service - Supplies Tax - Medical Advance Directives Directive Yes / No Effective Date File Name No Information Encounters Encounter Description Practice Location Reason(s) For Visit Diagnoses Date Provider Providers Copied on Encounter [facility], [address] [place] [address] [address], [place], [place], [id number], tel:[phone] [facility] No Information 1-201 0 Brooke OD Del. [address] , [address], [place], [address], [place]. tel:[phone] [facility], [address], [place], [place], [id number], [place] tel:[phone] [facility] No Information 3-200 7 [facility] . [address], [address], [place], [place], [address], [place]. tel:[phone] Referring Provider: Attila Menjivar [address] [place] [address] [address], [place], [address]. tel:[phone] hernandez Provider: Fay Francisco [facility], [place], [address]. tel:[phone] [facility], [address], [place], [place], [id number], [place] tel:[phone] [facility] No Information 7 [facility] . [address], [address], [place], [place], [address], [place]. tel:[phone] Referring Provider: Attila Menjivar [address] [place] [address] [address], [place], [address]. tel:[phone] hernandez Provider: Fay Francisco [facility], [place], [address]. tel:[phone] Family History Family Member Type Diagnosis Age [...]
--- OUTSIDE RECORDS SUMMARY | 2024-06-29 17:09 | XMS_ITS | Clinical Summary ---
Author Organization [facility] [address] Address [address] [place] [address] Care Team Providers Care Family Resource Coordinator Name Role Phone Fidel Krueger DO Primary Care Provider [phone] Allergies Active Allergy Reactions Criticality Noted Date [...] 1 tablet (88 mcg total) by mouth business development representative before breakfast Active metoprolol tartrate (LOPRESSOR) 25 mg immediate release tablet TAKE 1 AND 1/2 TABLETS BY MOUTH TWICE DAILY 270 tablet 3 4 Active Active Problems Problem Noted Date Diagnosed Date Mixed hyperlipidemia 06/13/2023 Medication side effects 07/29/2022 BMI 25.0-25.9,adult 04/28/2019 Assessment & Plan (04/28/2019 11:40 AM [employer]): Weight/BMI is in healthy range. Continue healthy lifestyle to maintain. Chronic low back pain 02/12/2019 Assessment & Plan (02/12/2019 5:57 PM [employer]IGH[employer]): Encouraged stretching, ice/heat and NSAIDs. Start PT. Monitor closely and if sxs persist she is to followup. Colon cancer screening 02/12/2019 Assessment & Plan (02/12/2019 5:56 PM [employer]IGH[employer]): Refer to GI for colonoscopy Otalgia 02/12/2019 Assessment & Plan (02/12/2019 5:55 PM [employer]IGH[employer]): Monitor this area behind her left ear. [...] Has some wheezing possible bronchitis. 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 Has failed multiple antibiotics. STOP smoking. [...] options for assistance with cessation. 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 Pt declines assistance at this time but may contact the office at anytime for further help as they desire. States she quit a few days ago. Encouraged to continue the cessation effort Assessment & Plan (02/12/2019 5:55 PM [employer] WEIGH[employer]): Encouraged smoking cessation. Discussed 3 minutes. Reviewed options for assistance with cessation. 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
--- OUTSIDE RECORDS SUMMARY | 2024-06-29 17:09 | XMS_ITS | Referral Summary ---
Author Organization [facility] [address] Address [address] [place] [address] Care Team Providers Care Sociology Research Assistant Name Role Phone Fidel Krueger DO Primary Care Provider [phone] Allergies Active Allergy Reactions Criticality Noted Date [...] 1 tablet (88 mcg total) by mouth accounts payable professional before breakfast Active metoprolol tartrate (LOPRESSOR) 25 mg immediate release tablet TAKE 1 AND 1/2 TABLETS BY MOUTH TWICE DAILY 270 tablet 3 4 Active Active Problems Problem Noted Date Diagnosed Date Mixed hyperlipidemia 06/13/2023 Medication side effects 07/29/2022 BMI 25.0-25.9,adult 04/28/2019 Assessment & Plan (04/28/2019 11:40 AM [employer]AT[employer] BUCKER): Weight/BMI is in healthy range. Continue healthy lifestyle to maintain. Chronic low back pain 02/12/2019 Assessment & Plan (02/12/2019 5:57 PM POTATO BUCKER): Encouraged stretching, ice/heat and NSAIDs. Start PT. Monitor closely and if sxs persist she is to followup. Colon cancer screening 02/12/2019 Assessment & Plan (02/12/2019 5:56 PM POTATO BUCKER): Refer to GI for colonoscopy Otalgia 02/12/2019 Assessment & Plan (02/12/2019 5:55 PM POTATO BUCKER): Monitor this area behind her left ear. [...] Has some wheezing possible bronchitis. 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 Has failed multiple antibiotics. STOP [...] effort Assessment & Plan (02/12/2019 5:55 PM POTATO BUCKER): Encouraged smoking cessation. Discussed 3 minutes. 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
[2024-06-29 17:40] LABS: Anion Gap 9 mmol/L (4-12); Blood Urea Nitrogen 15 mg/dL (7-17); Calcium 9.5 mg/dL (8.4-10.2); Carbon Dioxide 27 mmol/L (22-30); Chloride 99 mmol/L (98-107); Estimated Glomerular Filt Rate 57; Glucose 107 mg/dL (65-110); Potassium 4.3 mmol/L (3.4-5.0); Sodium 135 mmol/L (137-145)
== END 2024-06-29 16:58 | disposition home or self-care (01) ==
LOC: ANHLAB 17:00
PROVIDERS: PCP Clinical Nurse Specialist; Visit Provider Clinical Nurse Specialist
DX: R94.4 Abnormal results of kidney function studies (principal)
CPT/HCPCS: 36415; 80048

== ENCOUNTER 2024-08-26 15:51 | Outpatient (CLI) | payer OTHER, SELFPAY ==
--- OUTSIDE RECORDS SUMMARY | 2024-08-26 16:03 | XMS_ITS | Continuity of Care Document ---
Author Organization [facility] Address [address] [place] [address] Phone Care Team Providers Care Teletypesetter Name Role Phone Brooke OD, Del Unavailable Unavailable Procedures Procedure Date Eye Exam & Treatment Refraction SV Plastic Sphcyl N[place]on +/-4d, .12-2d Miscellaneous Vision Service - Supplies Tax - Medical SV Poly Carb Sph +/- 7.12 To +/- 20 D Miscellaneous Vision Service - Supplies Tax - Medical Advance Directives Directive Yes / No Effective Date File Name No Information Encounters Encounter Description Practice Location Reason(s) For Visit Diagnoses Date Provider Providers Copied on Encounter [facility], [address] [place] [address] [address], [place], [place], [id number], tel:[phone] SEC [facility] No Information 1-201 0 Brooke OD Del. [address] , [address], [place], [address], [place]. tel:[phone] [facility], [address], [place], [place], [id number], [place] tel:[phone] SEC [facility] No Information 3-200 7 [facility] . [address] [facility], [address], [place], [place], [address], [place]. tel:[phone] Referring Provider: Attila Menjivar [address] [place] [address] [address], [place], [address]. tel:[phone] hernandez Provider: Fay Francisco [facility], [place], [address]. tel:[phone] [facility], [address], [place], [place], [id number], [place] tel:[phone] SEC [facility] No Information 7 [facility] . [address] [facility], [address], [place], [place], [address], [place]. tel:[phone] Referring Provider: Attila Menjivar [address] [place] [address] [address], [place], [address]. tel:[phone] hernandez Provider: Fay Francisco [facility], [place], [address]. tel:[phone] Family History Family Member Type Diagnosis Age At Onset No Information Payers Payer name Insurance type Covered democrat ID Authoriza tion(s) No Information Social History [...]
--- OUTSIDE RECORDS SUMMARY | 2024-08-26 16:04 | XMS_ITS | Data Portability ---
Author Organization [facility] Address [address] [place] [address] Assessment No assessment recorded. Plan of Treatment Reminders Order Date Submit Date Provider Last Modified By Organization Details Last Modified Time Details Appointments None recorded. Lab TSH + free T4, serum 2015 016 [facility], [address] [place] [address], [id number], 6 04:30:57 Referral None recorded. Procedures None recorded. Surgeries None recorded. Imaging None recorded. Medication Orders naproxen 500 mg tablet [address] [facility] [place], [address], 6 04:31:12 Patient TargetsNo targets recorded. Patient InstructionsNo instructions recorded. Reason for Referral None Reported. Results Created Date Observation Date Name Description Value Unit Range Abnormal Flag Note LastModifiedBy Organization Detail LastModifiedTime 01/17/20 16 01/18/2016 TSH + free T4, serum TSH 0.510 uIU/m L 0.450- 4.500 Not Available [facility] ([facility]) [address] [place], [address], 01/18/2016 06:12:42 01/17/20 16 01/18/2016 TSH + free T4, serum T4,free(dire ct) 1.64 NG/dL 0.82-1 .77 Not Available [facility] ([facility]) [address] [place], [address], 01/18/2016 06:12:42 01/17/20 16 01/17/2016 nayeli javier note please note COMMEN T THE DATE AND/O R TIME OF COLLE CTION WAS NOT INDIC ATED ON THE REQUI SITIO N REQUI RED BY STATE AND [place] LAW. THE DATE OF RECEI PT OF THE SPECI MEN WAS USED THE COLLE CTION DATE IF NOT SUPPL IED. Not Available [facility] ([facility]) [address] [facility], [place], [address], 01/18/2016 06:12:42 01/12/20 16 01/07/2016 XR, chest , 2 view No observ ation record ed. [email or web address] Not Available 2015 16:31:43 Result Notes None recorded. Problems Name Problem SNOMED Code Status Onset Date Resolution Date Notes Provider Name and Address Organization Details Recorded Time Crohn's disease of large bowel 0884015 Active 2011 Location : None;Sev erity: Moderate ;Progres s: Stable;A dded By: Brennen Beaver;Add to Current Problems : NO Not Available [facility] 7 08:03:24 Allergic rhinitis caused by pollen 59032442 Completed 201110/24/2011 Location : None;Sev erity: Moderate ;Progres s: Stable;A dded By: Brennen Beaver;Add to Current Problems : NO Not Available [facility] 7 08:03:24 Displace ment of lumbar interver tebral disc without myelopat hy 18620827 Active 2011 Location : None;Sev erity: Moderate ;Progres s: Stable;A dded By: Brennen Beaver;Add to Current Problems : NO Not Available [facility] 7 08:03:24 Acute upper respirat ory infectio n of multiple sites Completed 201507/27/2015 Location : None;Sev erity: Moderate ;Progres s: Stable;A dded By: Sandhya Kaur;Add to Current Problems : YES Not Available [facility] 7 08:03:24 Eruption [id number] Completed 201111/15/2011 Location : None;Sev erity: Moderate ;Progres s: Stable;A dded By: Sydney Knight;Add to Current Problems : NO Not Available [facility] 7 08:03:24 Contact dermatit is 36520038 Completed 201111/15/2011 Location : None;Sev erity: Moderate ;Progres s: Stable;A dded By: Sydney Knight;Add to Current Problems : NO Not Available [facility] 7 08:03:24 Elevated blood-pr essure reading without diagnosi s of hyperten oanh 580605496 Completed 201309/11/2013 Location : None;Sev erity: Moderate ;Progres s: Stable;A dded By: Sydney Knight;Add to Current Problems : NO Not Available [facility] 7 08:03:24 Anal fissure 32383119 Completed 201112/27/2011 Location : None;Sev erity: Moderate ;Progres s: Stable;A dded By: Brennen Beaver;Add to Current Problems : NO Not Available [facility] 7 08:03:25 Acute upper respirat ory infectio n 15022305 Completed 201212/26/2012 Location : None;Sev erity: Moderate ;Progres s: Stable;A dded By: Brennen Beaver;Add to Current Problems : NO Not Available [facility] 7 08:03:25 Palpitat ions 78521108 Completed 201212/26/2012 Location : None;Sev erity: Moderate ;Progres s: Stable;A dded By: Brennen Beaver;Add to Current Problems : NO Not Available [facility] 7 08:03:25 Screenin g for malignan t neoplasm of colon Active 2014 Location : None;Sev erity: Moderate ;Progres s: Stable;A dded By: Brennen Beaver;Add to Current Problems : YES Not Available [facility] 7 08:03:25 Viral screenin g Completed 201407/31/2014 Location : None;Sev erity: Moderate ;Progres s: Stable;A dded By: Brennen Beaver;Add to Current Problems : YES Not Available [facility] 7 08:03:25 Hypothyr oidism 76336135 Active 2015 Location : None;Sev erity: Moderate ;Progres s: Stable;A dded By: Brennen Beaver;Add to Current Problems : YES Not Available [facility] 7 08:03:25 Tobacco dependen ce syndrome 73379431 Completed 201508/25/2015 Location : None;Sev erity: Moderate ;Progres s: Stable;A dded By: Brennen Beaver;Add to Current Problems : YES Not Available [facility] 7 08:03:25 Cough 71997345 Completed 201508/25/2015 Location : None;Sev erity: Moderate ;Progres s: Stable;A dded By: Brennen Beaver;Add to Current Problems : YES Not Available [facility] 7 08:03:25 Precordi al pain 85695254 Completed 201508/25/2015 Location : None;Sev erity: Moderate ;Progres s: Stable;A dded By: Brennen Beaver;Add to Current Problems : YES Not Available [facility] 7 08:03:25 Acute frontal sinusiti s 11188229 Completed 201508/25/2015 Location : None;Sev erity: Moderate ;Progres s: Stable;A dded By: Brennen Beaver;Add to Current Problems : YES Not Available [facility] 7 08:03:25 Precordi al pain 57112423 Completed 201212/26/2012 Location : None;Sev erity: Moderate ;Progres s: Stable;A dded By: Hillary Seth; Add to Current Problems : NO Not Available [facility] 7 08:03:26 Benign essentia l hyperten oanh 6710875 Active 2015 Location : None;Sev erity: Moderate ;Progres s: Stable;A dded By: Trina Torres i;Otto dd to Current Problems : NO Not Available [facility] 7 08:03:26 Pain of multiple joints 48180669 Active 2011 Location : None;Sev erity: Moderate ;Progres s: Stable;A dded By: Trina Torres i;A dd to Current Problems : YES Not Available [facility] 7 08:03:26 Chronic ulcerati ve enteroco litis 37931501 Active 2011 Location : None;Sev erity: Moderate ;Progres s: Stable;A dded By: Karma Palencia;Add to Current Problems : NO Not Available [facility] 7 08:03:26 Hypo-osm olality and or hyponatr emia 434786788 Completed 201410/28/2014 Location : None;Sev erity: Moderate ;Progres s: Stable;A dded By: Karma Palencia;Add to Current Problems : YES Not Available [facility] 7 08:03:26 Pain in thoracic spine 888465711 Completed 201411/06/2014 Location : None;Sev erity: Moderate ;Progres s: Stable;A dded By: Karma Palencia;Add to Current Problems : YES Not Available [facility] 7 08:03:26 Tobacco dependen ce syndrome 96372364 Completed 201411/06/2014 Location : None;Sev erity: Moderate ;Progres s: Stable;A dded By: Karma Palencia;Add to Current Problems : YES Not Available [facility] 7 08:03:26 Essentia l hyperten oanh 72354353 Active 2014 Location : None;Sev erity: Moderate ;Progres s: Stable;A dded By: aKrma Palencia;Add to Current Problems : YES Not Available [facility] 7 08:03:26 Gastroes ophageal reflux disease 659324157 Active 2011 Location : None;Sev erity: Moderate ;Progres s: Stable;A dded By: Karma Palencia;Add to Current Problems : YES Not Available [facility] 7 08:03:26 Dysuria 02533206 Completed 201206/26/2012 Location : None;Sev erity: Moderate ;Progres s: Stable;A dded By: Sandhya Gaming;Add to Current Problems : NO Not Available [facility] 7 08:03:27 Elevated blood-pr essure reading without diagnosi s of hyperten oanh 699669998 Active 2012 Location : None;Sev erity: Moderate ;Progres s: Stable;A dded By: Sandhya Gaming;Add to Current Problems : NO Not Available [facility] 7 08:03:27 Ra hematuri a 408582335 Active 2012 Location : None;Sev erity: Moderate ;Progres s: Stable;A dded By: Nabila Salmeron;Add to Current Problems : NO Not Available [facility] 7 08:03:27 Knee pain Completed 201211/09/2012 Location : None;Sev erity: Moderate ;Progres s: Stable;A dded By: Nabila Salmeron;Add to Current Problems : NO Not Available [facility] 7 08:03:27 Problem Notes None recorded. Procedures Surgical History Date Name Laterality Status Provider Name and Address Organization Details Recorded Time Knee Surgery completed Hillary Reed[place] [facility] 01/17/2016 11:29:04 Tubal Ligation completed [place] [facility] F 01/17/2016 11:29:25 delivery completed [facility] [place] [facility] 01/17/2016 11:29:33 Imaging Results None recorded. Procedure Notes None recorded. Medical Equipment None Reported. Allergies Allergen ID Allergen Name Allergen Category Reaction Reaction Severity Criticality Documentation Date Start Date Code Code System Note Provider Name and Address Organization Details Recorded Time 20812 cephalexi n monohydra te medicatio n Not available Not available Not available 03/20/20162011 44531 8 RxNorm Sever ity: Moder ate; Comme nt: Aller gy Type: Aller gy; Not Available [facility] 7 03:47:40 54906 tetracycl ine hydrochlo ride medicatio n Not available Not available Not available 03/20/20162011 26544 6 RxNorm Sever ity: Moder ate; Comme nt: Aller gy Type: Aller gy; Not Available [facility] 7 03:47:40 23049 Feldene medicatio n Not available Not available Not available 03/20/20162011 70149 8 RxNorm Sever ity: Moder ate; Comme nt: Aller gy Type: Aller gy; Not Available [facility] 7 03:47:40 98959 Wellbutri n medicatio n Not available Not available Not available 03/20/20162011 25601 RxNorm Sever ity: Moder ate; Comme nt: Aller gy Type: Aller gy; Not Available [facility] 7 03:47:40 11743 Effexor medicatio n Not available Not available Not available 03/20/20162011 13231 2 RxNorm Sever ity: Moder ate; Comme nt: Aller gy Type: Adver se React ion; Not Available [facility] 7 03:47:40 99691 clindamyc in hydrochlo ride medicatio n Not available Not available Not available 03/20/20162011 04218 RxNorm Sever ity: Moder ate; Comme nt: Aller gy Type: Aller gy; Not Available [facility] 7 03:47:40 48064 iodine medicatio n Not available Not available Not available 03/20/20162011 5933 RxNorm Sever ity: Moder ate; Comme nt: Aller gy Type: Aller gy; Not Available [facility] 7 03:47:40 44844 Product containin g penicilli n (product) medicatio n Not available Not available Not available 03/20/20162012 75816 8001 SNOMED Sever ity: Moder ate; Comme nt: Aller gy Type: Aller gy; Not Available [facility] 7 03:47:40 96029 lisinopri l medicatio n cough rash moderate moderate Not available 03/20/20162014 13857 RxNorm React ion: cough ;Geneva rity: Moder ate; Comme nt: Aller gy Type: Adver se React ion; Not Available [facility] 7 03:47:40 78907 Norvasc medicatio n Not available Not available Not available 03/20/20162014 48591 RxNorm React ion: nause a, vomit ing;S everi ty: Moder ate; Comme nt: Aller gy Type: Aller gy; Not Available [facility] 7 03:47:40 75169 ampicilli n trihydrat e medicatio n Not available Not available Not available 03/20/20162011 07177 5 RxNorm Sever ity: Moder ate; Comme nt: Aller gy Type: Aller gy; Not Available [facility] 7 03:47:43 Medications Name Sig Start Date Stop Date Status Note LastModified by Organization Details LastModified Time hydrochlo rothiazid e 50 mg tablet Take 1 tablet(s ) by mouth daily 09/01 completed RxNorm: 706950;A llow Substitu tion: True Not Available Not Available Not Available ranitidin e 300 mg tablet TAKE ONE TABLET BY MOUTH TWICE DAILY 2015 active Not Available Not Available Not Avai lable lisinopri l 20 mg tablet ONE DAILY 10/27 completed RxNorm: 940129;A llow Substitu tion: True Not Available Not [...] ) by mouth once 07/25 completed RxNorm: 535349;A llow Substitu tion: True Not Available Not Available Not Available nifedipin e ER 30 mg tablet,ex tended release TAKE ONE TABLET BY MOUTH ONCE DAILY 2017 active Routine appt and ok Not Available Not Available Not Available amlodipin e 5 mg tablet Take 1 tablet(s ) by mouth daily 09/07 completed RxNorm: 852322;A llow Substitu tion: True Not Available Not Available Not Available omeprazol e 40 mg capsule,d elayed release TAKE ONE CAPSULE BY MOUTH ONCE DAILY 2016 active Appt within 3 mos Not Available Not Available Not Available meloxicam 7.5 mg tablet Take 1 tab twice daily 10/09 completed RxNorm: 511699;A llow Substitu tion: True Not Available Not Available Not Available levothyro xine 100 mcg tablet TAKE ONE TABLET BY MOUTH ONCE DAILY IN THE MORNING ON AN EMPTY STOMACH. 2016 active Appt in 6 mos Not Available Not Available Not Available Cipro 500 mg tablet Take 1 tablet(s ) by mouth q12h for 7 days 07/02 completed RxNorm: 193414;A llow Substitu tion: True Not Available Not Available Not Available ranitidin e 300 mg capsule Take 1 capsule every day by oral route. active Not Available Not Available No t Available lisinopri l 10 mg tablet Take 1 tab daily 09/22 completed RxNorm: 570655;A llow Substitu tion: True Not Available Not Available Not Available ibuprofen 400 mg tablet Take bid 2012 active RxNorm: 380779;A llow Substitu tion: True Not Available Not Available Not Available hydrochlo rothiazid e 12.5 mg capsule Take 1 capsule( s) by mouth daily 09/08 completed RxNorm: 458755;A llow Substitu tion: True Not Available Not Available Not Available hydrochlo rothiazid e 25 mg tablet one po daily 06/01 completed RxNorm: 180279;A llow Substitu tion: True Not Available Not Available Not Available fluticaso ne propionat e 50 mcg/actua tion nasal spray,rosa pension 2 spray(s) in each nostril daily 2015 active RxNorm: 436551;A llow Substitu tion: True Not Available Not Available Not Available naproxen 500 mg tablet Take 1 tablet twice a day by oral route. 2015 active Not Available Not Available Not Avai lable levothyro xine 112 mcg tablet Take 1 tablet(s ) by mouth daily 11/26 completed RxNorm: 696398;A llow Substitu tion: True Not Available Not Available Not Available Cozaar 50 mg tablet Take 1 tablet(s ) by mouth daily 04/24 completed RxNorm: 575368;A llow Substitu tion: True Not Available Not Available Not Available cyclobenz aprine 5 mg tablet TAKE ONE TABLET BY MOUTH ONCE DAILY AT BEDTIME NEEDED 2015 active Not Available Not Available Not Avai lable Zyrtec 10 mg chewable tablet I tab daily prn 10/09 completed RxNorm: 102474;A llow Substitu tion: True Not Available Not Available Not Available Pentasa 500 mg capsule,c ontrolled release Take 2 capsule( s) by mouth qid 06/01 completed RxNorm: 899583;A llow Substitu tion: True Not Available Not [...] Address Organization Details Last Updated DateTime 6 48254.7 9 g 162.56 cm 24.6 kg/m2 104 /min 130 mm[Hg] 80 mm[Hg] Hillary Perez [place] - [facility] 6 11:33:24 Social History None [...] preservative free, adsorbed 2 completed Not Available [facility] 03/20/2016 05:55:53 Influenza, split virus, trivalent, preservative 8 completed Not Available [facility] 03/20/2016 05:55:53 Past Encounters Encounter ID Performer Location Encounter Start Date Encounter Closed Date Diagnosis/Indication Diagnosis SNOMED-CT Code Diagnosis ICD10 Code Diagnosis Note [id number] Manuel Beaver MD [facility] [address] [place] [address] 01/17/2016 11:20:52 01/22/2016 16:36:42 Hypothyroidism 99195743 E03.9 Chronic back pain 405224 002 M54.9 Health Concerns Section Related Observation LastModified by Organization Detai ls LastModified Time None Recorded Concern Status LastModified by Organization Details LastModified Time None Recorded Advance Directives Directive None Recorded Payers Insurance Date Sequence Insurance Name Policy Number Policy Heart Covered Member ID Heart Member ID Guarantor Name 08/14/2023 1 [employer] - DOS PRIOR TO 20 - [facility] [employer] [id number] Zayas [id number] Notes Date Note Type Note Provider Name [...] it with omeprazole and ranitidine Hillary carroll, [place] - [facility] 01/17/2016 12:22:22 OBGyn Episode No OBEpisode recorded.
--- OUTSIDE RECORDS SUMMARY | 2024-08-26 16:04 | XMS_ITS | Encounter Summary ---
Author Organization [facility] Care Team Providers Care Consultative Sales Associate Name Role Phone Marisol Caban Primary Care Provider [phone] Fidel Krueger DO Primary Care Provider [phone] Encounter Details Date Type Department Care Team (Latest Contact Info) Description 07/07/2017 Orders Only [facility]INCON[facility] ProviderJaren MD [address] [place] [address] Social History Tobacco Use Types Packs/Day Years Used Date Smoking Tobacco: Every Day Cigarettes Smokeless Tobacco: Never Alcohol Use Standard Drinks/Week Comments Yes 0 (1 standard drink = 0.6 oz pur e alcohol) socially Comments Unknown Sex and Gender Information Value Date Recorded Sex Assigned at Not on file Legal 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
--- OUTSIDE RECORDS SUMMARY | 2024-08-26 16:04 | XMS_ITS | Clinical Summary ---
Author Organization [facility] Address [address] [place] [address] Phone Care Team Providers Care Color Separation Photographer Name Role Phone LeeFidel cifuentes Primary Care Provider [phone] Allergies Active Allergy Reactions Criticality Noted Date [...] Reviewed options for assistance with cessation. Reviewed correction sequela associated with smoking. Pt declines assistance [...] 10:12 AM CDT Height 157.5 cm (5' 2) 12/10/2021 10:12 AM CDT Body Mass Index 23.78 12/10/2021 10:12 AM CDT Plan of Treatment Health Maintenance Due Date Last Done Comments Influenza Vaccine (Season Ended) 2024 12/30/19, 03/17/2007 Insurance [facility] Care Teams Color Separation Photographer Relationship Specialty Start Date End Date Fidel Krueger DO [address] [place] [address] PCP - General Internal Medicine 08/20/21
--- OUTSIDE RECORDS SUMMARY | 2024-08-26 16:04 | XMS_ITS | Continuity of Care Document ---
Author Organization [employer] Address [address] [place] [address] Phone Care Team Providers Care Business Excellence Leader Name Role Phone González Garcia MD Unavailable [...] Diagnoses Date Provider Providers Copied on Encounter [facility], [address], [place], [place], [address], [place] tel:[phone] [facility] No Information Jose Claudio. [address], [id number], [place]. tel:[phone] [facility], [address], [place], [place], [address], [place] tel:[phone] [facility] Other specified urticaria Jose Claudio. [address] [facility] [address], [place], [place], [address], [place]. tel:[phone] Referring Provider: Domingo Beaevr, [address] [facility] [address], [place], [address]. tel:[phone] Family History Family Member Type Diagnosis Age At Onset Mother Problem (finding) Allergies Payers Payer name Insurance type Covered green party ID Authoriza tion(s) [facility] [id number] Social History Type Description Quantity Date Captured [...]
--- OUTSIDE RECORDS SUMMARY | 2024-08-26 16:04 | XMS_ITS | Referral Summary ---
Author Organization [facility] [address] Address [address] [place] [address] Care Team Providers Care Log Manager Name Role Phone Fidel Krueger DO Primary Care Provider +1- [phone] Encounters Date Type Department Care Team Description 07/15/2024 3:30 PM CDT Office Visit [facility] Medical [facility] Cardiology [address] [place] [address] Vito Antunez MD Essential hypertension (Primary Dx); Mixed hyperlipidemia; Palpitations from Last 3 Months Allergies Active Allergy Reactions Criticality Noted Date [...] not swallow. 3 Inhaler 1 0 Active Additional Information Patient not taking.Reported on 07/15/2024 omeprazole (PriLOSEC) 40 mg capsule Take 1 capsule (40 mg total) by mouth daily 90 capsule 3 0 Active levothyroxine (SYNTHROID) 88 mcg tablet Take 1 tablet (88 mcg total) by mouth tele marketing executive before breakfast Active metoprolol tartrate (LOPRESSOR) 25 mg immediate release tablet TAKE 1 AND 1/2 TABLETS BY MOUTH TWICE DAILY 270 tablet 3 4 Active amLODIPine (NORVASC) 2.5 mg tablet Take 1 tablet (2.5 mg total) by mouth daily 5 Active Active Problems Problem Noted Date Diagnosed Date Mixed hyperlipidemia 06/13/2023 Medication side effects 07/29/2022 BMI 25.0-25.9,adult 04/28/2019 Assessment & Plan (04/28/2019 11:40 AM WARDROBE STYLIST): Weight/BMI is in healthy range. Continue healthy lifestyle to maintain. Chronic low back pain 02/12/2019 Assessment & Plan (02/12/2019 5:57 PM WARDROBE STYLIST): Encouraged stretching, ice/heat and NSAIDs. Start PT. Monitor closely and if sxs persist she is to followup. Colon cancer screening 02/12/2019 Assessment & Plan (02/12/2019 5:56 PM WARDROBE STYLIST): Refer to GI for colonoscopy Otalgia 02/12/2019 Assessment & Plan (02/12/2019 5:55 PM WARDROBE STYLIST): Monitor this area behind her left ear. [...] Has some wheezing possible bronchitis. Is a residential smoker. Has failed multiple antibiotics. STOP smoking. [...] Reviewed options for assistance with cessation. Reviewed residential sequela associated with smoking. Pt declines assistance at this time but may contact the office at anytime for further help as they desire. States she quit a few days ago. Encouraged to continue the cessation effort Assessment & Plan (02/12/2019 5:55 PM WARDROBE STYLIST): Encouraged smoking cessation. Discussed 3 minutes. Reviewed options for assistance with cessation. Reviewed residential sequela associated with smoking. 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 file Not on file Not on file Last Filed Vital Signs Vital Sign Reading Time Taken Comments Blood Pressure 140/82 07/15/2024 3:27 PM CDT Pulse 86 07/15/2024 3:27 PM CDT Temperature 36.8 C (98.3 F) 04/28/2019 11:35 AM WARDROBE STYLIST Respiratory Rate 18 01/06/2019 1:39 PM CDT Oxygen Saturation 99% 07/15/2024 3:27 PM CDT Inhaled Oxygen Concentration - - Weight 65.3 kg (144 lb) 07/15/2024 3:27 PM CDT Height 160 cm (5' 3) 07/15/2024 3:27 PM CDT Body Mass Index 25.51 07/15/2024 3:27 PM CDT Plan of Treatment Not on file Procedures Procedure Name Priority Date/Time Associated Diagnosis Comments POCT LIPID PANEL Routine 07/15/2024 3:20 PM CDT Mixed hyperlipidemia MAMMOGRAPHY Routine 06/06/2018 PAP SMEAR WITH HPV Routine 11/26/2011 from Last 3 Months or Most Recently Relevant to Health Maintenance Results * (ABNORMAL) POCT lipid panel (07/15/2024 3:20 PM CDT) Cholesterol, POC 201 <200 MG/DL HDL, POC 90 >=40 mg/dL Triglycerides, POC 147 <=149 mg/dL LDL Cholesterol POC 82 <=129 mg/dL Chol/HDL Ratio, POC 0.9 NONE Non-HDL Cholesterol, POC 111 NONE mg/dL Cholesterol Total, POC 201(A) 30 - 199 mg/dL Capillary blood 07/15/2024 3 :20 PM CDT [facility] Chiki Antunez MD POINT OF CARE TEST ORDE RABLES Final Result * MAMMOGRAPHY (06/06/2018) Mammogram Normal Comment:Trevor Cabrera -- Bir ads 1 Historical Provider HEALTH MAINTENANCE Final Result * PAP SMEAR WITH HPV (11/26/2011) Pap smear Normal Historical Provider HEALTH MAINTENANCE Final Result from Last 3 Months or Most Recently Relevant to Health Maintenance Insurance [facility] CHOICE PLUS [facility] HMO/PPO Address: [address] [place] [address] IDPA [facility] CHOICE PLUS [facility] HMO/PPO Address: [address] [address] [place] [address] Care Teams Log Manager Relationship Specialty Start Date End Date Fidel Krueger DO PCP - General Internal Medicine 04/10/20
--- OUTSIDE RECORDS SUMMARY | 2024-08-26 16:04 | XMS_ITS | Data Portability ---
Author Organization [facility] Address [address] [place] [address] Care Team Providers Care Bakery Machine Mechanic Supervisor Name Role Phone OSIRIS RAMIREZSEY Primary Care Provider Assessment No assessment recorded. Plan of Treatment Reminders Order Date Submit Date Provider Last Modified By Organization Details Last Modified Time Details Appointments None recorded. Lab None recorded. Referral None recorded. Procedures None recorded. Surgeries None recorded. Imaging None recorded. Medication Orders Imvexxy Maintenance Pack 10 mcg vaginal insert 2023 024 [id number], [address], [place], [place], [id number], 4 16:16:34 Patient TargetsNo targets recorded. Patient [...] patie nt consi derat ions. Not Available [facility] (Lab) [address], [place], [address], 07/23/2023 14:32:52 07/18/19 24 07/18/2023 TRICH OMONA S VAGIN FATOUMATA (RRNA ) trichomonas vaginalis ribosomal RNA (rrna) Negati ve negati ve Not Available [facility] (Lab) [address], [place], [address], 07/23/2023 14:32:53 07/18/19 24 07/18/2023 CT/GC (ANUPAM) , THINP REP VIAL chlamydia trachomatis, PCR Negati ve negati ve Not Available [facility] (Lab) [address], [place], [address], 07/23/2023 14:32:54 07/18/19 24 07/18/2023 CT/GC (ANUPAM) , THINP REP VIAL neisseria gonorrhoeae, PCR Negati ve negati ve Not Available [facility] (Lab) [address], [place], [address], 07/23/2023 14:32:54 Result Notes None recorded. Procedures Surgical History Date Name Laterality Status Provider Name and Address Organization Details Recorded Time 4 Date of Last Mammogram completed [facility] 07/18/2023 12:06:52 4 Most Recent Bone Density completed , [facility] 07/18/2023 12:06:52 3 completed , [facility] 07/18/2023 12:06:52 3 Date of Last Colonoscopy completed , [facility] 07/18/2023 12:06:52 2 Date of Last Pap Smear completed , [facility] 07/18/2023 12:06:52 5 Caesarean Section completed , [facility] 07/18/2023 12:07:20 Colposcopy completed , [facility] 07/18/2023 12:07:20 tonsilectomy/ad enoids completed , [facility] 07/18/2023 12:07:20 Imaging Results None recorded. Procedure Notes None recorded. Medical Equipment None Reported. Allergies Allergen ID Allergen Name Allergen Category Reaction Reaction Severity Criticality Documentation Date Start Date Code Code System Note Provider Name and Address Organization Details Recorded Time 09891 ampicilli n medicatio n rash Not available Not available 07/18/2023 733 RxNorm Augustina Swayne [facility] 4 12:05:54 68443 cephalexi n medicatio n rash Not available Not available 07/18/2023 2231 RxNorm Augustina Swayne [facility] 4 12:05:54 12463 nitrofura ntoin medicatio n anaphylax is Not available Not available 07/18/2023 7454 RxNorm Augustina Swayne [facility] 4 12:05:54 47345 Bactrim medicatio n rash Not available Not available 07/18/2023 08054 9 RxNorm Augustina Swayne [facility] 4 12:05:54 33643 Macrobid medicatio n anaphylax is Not available Not available 07/18/2023 55596 1 RxNorm Augustina Swayne [facility] 4 12:07:42 Medications Name Sig [...] Not Available Not Available Not Available Acid [employer] Service (omeprazole ) active Not Available Not Available Not Available Adult One Daily Multivitami n active Not Available Not Available Not Available Imvexxy Maintenance Pack 10 mcg vaginal insert active Not Available Not Available Not Available Vitals Date Recorded Body height Body weight Systolic blood pressure Diastolic blood pressure Provider Name and Address Organization Details Last Updated DateTime 07/18/2023 156.21 cm 58292.41 g 133 mm[Hg] 84 mm[Hg] Augustina Yen [facility] 07/18/2023 12:05:44 Social History Question Answer Notes LastModified by Organizat ion Details LastModified Time Are You Blind Or Do You Have Difficulty Seeing? No Information not available 07/18/2023 What Is Your Level Of Caffeine Consumption? Moderate Information not available 07/18/2023 How Much Tobacco Do You Chew? None Information not available 07/18/2023 In The 14 Days Before Symptom Onset, Have You Had Close Contact With A Laboratory-confirme d COVID-19 While That Case Was Ill? No [...] Or The Highest Degree You Have Received? [id number] Information not available 07/18/2023 Are There Any [...] PPD Information not available 07/18/2023 Do You Use Sunscreen Routinely? Yes Information not available 07/18/2023 How Many Years Have You Smoked Tobacco? 28 Information not available 07/18/2023 Have You Used IV Drugs? No Information not available 07/18/2023 Sex: Unknown Functional Status Question Answer Note LastModified by Organizat ion Details LastModified Time Do you use any illicit or recreational drugs? No Information not available 07/18/2023 What is your level of alcohol consumption? Occasional Information not available 07/18/2023 Are you able to walk? 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 Moderate Information not available 07/18/2023 Mental Status Question Answer Note LastModified by Organization D etails LastModified Time Do you feel stressed (tense, restless, nervous, or anxious, or unable to sleep at night)? [id number] Information not available 07/18/2023 Family History Relationship Description Onset Age of [...] (Food, seasonal, environmental ) N Other N Drug/Latex Allergies/Reactions N Blood Transfusion N Breast Cancer N Dermatologic Disorders N Lung Disease N Defects or Inherited Disease N Breast Problem N Gestational Diabetes N Hematologic disorders N Anesthesia Complications N History of STI N Deep Vein Thrombosis N Polycystic ovary syndrome N Anxiety Disorder N Autoimmune disease N Arthritis N Polyps N Infertility N Acid Reflux (GERD) N History of abnormal pap N Cancer N Varicosities N Stroke N [...] SNOMED-CT Code Diagnosis ICD10 Code Diagnosis Note [id number] MARVIN MEADE MD [place] [address] [address] 07/18/2023 11:27:06 07/21/2023 06:38:43 Postmenopausal osteopenia 124038717 M85.80 - DEXA stable 04/2023- discussed Ca supplement and weight bearing exercise- repeat in 2 years Vaginal dryness 73723604 N89.8 - normal atrophy on exam- continue Imvexxy suppositor ies Gynecologi c examination 45082840 Z01.419 Z11.51 Well woman care- Cervical cancer [...] Heart Member ID Guarantor Name 07/18/2023 1 [place] [id number] Claire Chana [id number] Claire Zayas 07/18/2023 2 [place] [facility] Claire Zayas [id number] Claire Zayas Notes Date Note Type Note [...] time. MARVIN MEADE MD [address], [place], [address], [facility] 07/18/2023 16:16:41 OBGyn Episode Ob Episode Information Episode Created Date Number of Fetuses Patient Bloodtype Patient rh Status Prepregnancy Weight lbs Domestic Partner Domestic Partner Phone Father Name Rolling Machine Operator Status 07/18/19 24 1 CLOSED Fetus Data First Name Last Name Admitted to NICU Weight (g) Sex Living Outcome Pediatric Complications Fetus ID Race Codes Race Delivery Type F Full Term [id number] Primary Elia Calculation Initial Elia Date Initial [...] Domestic Partner Domestic Partner Phone Father Name Rolling Machine Operator Status 07/18/19 24 1 CLOSED Fetus Data First Name Last Name Admitted to NICU Weight (g) Sex Living Outcome Pediatric Complications Fetus ID Race Codes Race Delivery Type F Full Term 23134 Repeat Elia Calculation Initial Elia Date Initial [...] Domestic Partner Domestic Partner Phone Father Name Rolling Machine Operator Status 07/18/19 24 1 CLOSED Fetus Data First Name Last Name Admitted to NICU Weight (g) Sex Living Outcome Pediatric Complications Fetus ID Race Codes Race Delivery Type M Full Term 90633 Repeat Elia Calculation Initial Elia Date Initial [...]
--- OUTSIDE RECORDS SUMMARY | 2024-08-26 16:04 | XMS_ITS | Clinical Summary ---
Author Organization [facility] [address] Address [address] [place] [address] Care Team Providers Care Laboratory Coordinator Name Role Phone Fidel Krueger DO Primary Care Provider +1- [phone] Allergies Active Allergy Reactions Criticality Noted Date [...] 1 tablet (88 mcg total) by mouth kersey department supervisor before breakfast Active metoprolol tartrate (LOPRESSOR) 25 [...] 04/28/2019 Assessment & Plan (04/28/2019 11:40 AM ANGIOGRAPHER): Weight/BMI is in healthy range. Continue healthy lifestyle to maintain. Chronic low back pain 02/12/2019 Assessment & Plan (02/12/2019 5:57 PM ANGIOGRAPHER): Encouraged stretching, ice/heat and NSAIDs. Start PT. Monitor closely and if sxs persist she is to followup. Colon cancer screening 02/12/2019 Assessment & Plan (02/12/2019 5:56 PM ANGIOGRAPHER): Refer to GI for colonoscopy Otalgia 02/12/2019 Assessment & Plan (02/12/2019 5:55 PM ANGIOGRAPHER): Monitor this area behind her left ear. [...] Has some wheezing possible bronchitis. Is a [facility] sm[facility]. Has failed multiple antibiotics. STOP smoking. [...] Reviewed options for assistance with cessation. Reviewed double end tenon operator sequela associated with smoking. Pt declines assistance at this time but may contact the office at anytime for further help as they desire. States she quit a few days ago. Encouraged to continue the cessation effort Assessment & Plan (02/12/2019 5:55 PM ANGIOGRAPHER): Encouraged smoking cessation. Discussed 3 minutes. Reviewed options for assistance with cessation. Reviewed double end tenon operator sequela associated with smoking. Pt declines assistance [...] age appropirate screenings. 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 file Not on file Not on file Obstetrics History Last Filed Vital Signs Vital Sign Reading Time Taken Comments Blood Pressure 140/82 07/15/2024 3:27 PM CDT Pulse 86 07/15/2024 3:27 PM CDT Temperature 36.8 C (98.3 F) 04/28/2019 11:35 AM ANGIOGRAPHER Respiratory Rate 18 01/06/2019 1:39 PM CDT Oxygen Saturation 99% 07/15/2024 3:27 PM CDT Inhaled Oxygen Concentration - - Weight 65.3 kg (144 lb) 07/15/2024 3:27 PM CDT Height 160 cm (5' 3) 07/15/2024 3:27 PM CDT Body Mass Index 25.51 07/15/2024 3:27 PM CDT Plan of Treatment Health Maintenance Due [...] Capillary blood 07/15/2024 3 :20 PM CDT [facility] Chiki Antunez MD POINT OF CARE TEST LU HILLIARD Final Result * MAMMOGRAPHY (06/06/2018) Mammogram Normal Comment:Trevor Img -- Bir ads 1 Historical Provider HEALTH MAINTENANCE Final Result * PAP SMEAR WITH HPV (11/26/2011) Pap smear Normal Historical Provider HEALTH MAINTENANCE Final Result from Last 3 Months or Most Recently Relevant to Health Maintenance Insurance [facility] CHOICE PLUS IDPA [facility] CHOICE PLUS Care Teams Laboratory Coordinator Relationship Specialty Start Date End Date Fidel Krueger DO PCP - General Internal Medicine 04/10/20
--- OUTSIDE RECORDS SUMMARY | 2024-08-26 16:04 | XMS_ITS | Encounter Summary ---
Author Organization [facility] Address [address] [place] [address] Care Team Providers Care Drilling Inspector Name Role Phone Marisol Caban Primary Care Provider +1- [phone] Fidel Krueger DO Primary Care Provider +1- [phone] Encounter Details Date Type Department Care Team (Late st Contact Info) Description 12/16/2012 Orders Only [facility] Information Management [address] [place] [address] Scanning, Provider Social History Tobacco Use Types Packs/Day Years Used Date Smoking Tobacco: Never Assessed Comments Unknown Sex and Gender Information Value Date Recorded Sex Assigned at Not on file Legal Sex Female 12:39 AM EMBEDDED SOFTWARE ARCHITECT Gender Identity Not on file Sexual Orientation [...] on filedocumented in this encounter Care Teams Drilling Inspector Relationship Specialty Start Date End Date Marisol Caban PA [address] [place] [address] PCP - General Internal Medicine 08/04/18 01/31/20 Fidel Krueger DO [address] [place] [address] PCP - General Internal Medicine 04/10/20 documented as of this encounter
--- OUTSIDE RECORDS SUMMARY | 2024-08-26 16:04 | XMS_ITS | Encounter Summary ---
Author Organization [facility] Care Team Providers Care Superintendent Fish Hatchery Name Role Phone Marisol Caban Primary Care Provider +1- [phone] Fidel Krueger DO Primary Care Provider +1- [phone] Encounter Details Date Type Department Care Team (Latest Contact Info) Description 12/22/2017 Orders Only [facility] ProviderJaren MD [address] [place] [address] Social History Tobacco Use Types Packs/Day Years Used Date Smoking Tobacco: Every Day Cigarettes Smokeless Tobacco: Never Alcohol Use Standard Drinks/Week Comments Yes 0 (1 standard drink = 0.6 oz pur e alcohol) socially Comments Unknown Sex and Gender Information Value Date Recorded Sex Assigned at Not on file Legal Sex Female 12:39 AM GROUP MANAGER Gender Identity Not on file Sexual [...] AM CDT Ordered by an unspecified provider. us Historical Provider [facility] NE[facility] AVERY Final Result documented in this encounter Visit Diagnoses Not on filedocumented in this encounter Care Teams Superintendent Fish Hatchery Relationship Specialty Start Date End Date Marisol Caban PA [address] [place] [address] PCP - General Internal Medicine 08/04/18 01/31/20 Fdiel Krueger DO [address] [place] [address] PCP - General Internal Medicine 04/10/20 documented as of this encounter
--- OUTSIDE RECORDS SUMMARY | 2024-08-26 16:04 | XMS_ITS | Clinical Summary ---
Author Organization [facility] Eloise da silva Patrick Address [address] [facility] [place] [address] Care Team Providers Care Travel Manager Name Role Phone Unavailable Primary Care Provider [...] Encounters Date Type Department Care Team Description 08/10/2024 External Device Data STL ABSTRACTION Provider, Abstract 08/05/2024 External Device Data STL ABSTRACTION Provider, Abstract 08/04/2024 External Device Data STL ABSTRACTION Provider, Abstract 08/03/2024 External Device Data STL ABSTRACTION Provider, Abstract 07/23/2024 1:15 PM CDT Office Visit [facility] Oncology and Hematology - [address] [place] [address] Onur Benton MD Chronic anemia (Primary Dx) 06/25/2024 Orders Only [facility] Oncology and Hematology [address] [place] [address] Onur Benton MD 06/22/2024 External Device Data STL ABSTRACTION Provider, Abstract 06/22/2024 External Device Data STL ABSTRACTION Provider, Abstract 06/22/2024 External Device Data STL ABSTRACTION Provider, Abstract 06/22/2024 Orders Only [facility] Oncology and Hematology [address] [place] [address] Onur Benton MD 06/21/2024 3:00 PM CDT Office Visit [facility] Oncology and Hematology [facility] [address] [place] [address] Onur Benton MD Chronic anemia (Primary Dx) [...] Smoking Tobacco: Former Cigarettes Smokeless Tobacco: Never Tobacco Cessation:Counseling Given: Not Answered Alcohol Use Standard Drinks/Week Comments Yes 0 (1 standard drink = 0.6 oz pur e alcohol) Everyday Comments Unknown Sex and Gender Information Value Date Recorded Sex Assigned at Not on file Legal Sex Female 11:48 AM CLINICAL DATA ASSISTANT Gender Identity Not on file Sexual Orientation Not on file Last Filed Vital Signs Vital Sign Reading Time Taken Comments Blood Pressure 133/81 07/23/2024 1:22 PM CDT Pulse 86 07/23/2024 1:20 PM CDT Temperature 36.2 C (97.1 F) 07/23/2024 1:20 PM CDT Respiratory Rate 15 07/23/2024 1:20 PM CDT Oxygen Saturation 95% 07/23/2024 1:20 PM CDT Inhaled Oxygen Concentration - - Weight 63.8 kg (140 lb 9.6 oz) 07/23/2024 1:20 P M CDT Height 157.5 cm (5' 2) 06/21/2024 2:53 PM CDT Body Mass Index 25.72 06/21/2024 2:53 PM CDT Plan of Treatment Upcoming Encounters Date Type Department Care Team (Late st Contact Info) Description 01/28/2025 9:45 AM CLINICAL DATA ASSISTANT Office Visit [facility] Oncology and Hematology - [place] [address] [place] [address] Onur Benton MD [address] [place] [address] Health Maintenance Due Date Last Done Comments Pre-Diabetes and Diabetes Screening 1965 HPV/Cotest (21-29) 11/22/1984 HPV/Cotest (30-65) 11/22/1993 BREAST CANCER SCREENING 2003 FIT-DNA Q 3 years 11/22/2008 FIT/FOBT Q 1 year 11/22/2008 Flex Sig/CT Colonography Q 5 years 11/22/2008 ZOSTER VACCINE (1 of 2) 11/22/2013 INFLUENZA VACCINE (#1) 2023 7, 03/17/2007 CERVICAL CANCER SCREENING 07/17/2026 PAP SMEAR 07/17/2026 07/18/2023 DTAP/TDAP/TD VACCINES (2 - T d or Tdap) 08/07/2028 08/07/2018 COLORECTAL SCREENING 03/17/2032 03/17/2022 Colorectal Cancer Screening 03/17/2032 RSV VACCINE (60+ or ) (1 - [...] Resu lt from Last 3 Months Insurance [facility] CHOICE [id number] MEDICAID [place]
[2024-08-26 16:14] LABS: Anion Gap 9 mmol/L (4-12); Blood Urea Nitrogen 17 mg/dL (7-17); Calcium 9.7 mg/dL (8.4-10.2); Carbon Dioxide 25 mmol/L (22-30); Chloride 94 mmol/L (98-107); Estimated Glomerular Filt Rate > 60; Glucose 93 mg/dL (65-110); Potassium 4.6 mmol/L (3.4-5.0); Sodium 128 mmol/L (137-145)
== END 2024-08-26 15:52 | disposition home or self-care (01) ==
PROVIDERS: PCP Internal Medicine; Visit Provider Clinical Nurse Specialist
DX: I10 Essential (primary) hypertension (principal)
CPT/HCPCS: 36415; 80048

== ENCOUNTER 2024-08-30 17:14 | Outpatient (CLI) | payer OTHER, SELFPAY ==
--- OUTSIDE RECORDS SUMMARY | 2024-08-30 17:22 | XMS_ITS | Continuity of Care Document ---
Author Organization [facility] Address [address] [place] [address] Phone Care Team Providers Care Department Chairperson Name Role Phone Brooke OD, Del Unavailable Unavailable Procedures Procedure Date Eye Exam & Treatment Refraction SV Plastic Sphcyl [place] +/-4d, .12-2d Miscellaneous Vision Service - Supplies Tax - Medical SV Poly Carb Sph +/- 7.12 To +/- 20 D Miscellaneous Vision Service - Supplies Tax - Medical Advance Directives Directive Yes / No Effective Date File Name No Information Encounters Encounter Description Practice Location Reason(s) For Visit Diagnoses Date Provider Providers Copied on Encounter [facility], [address] [place] [address] [address], [place], [place], [id number], tel:[phone] SEC [facility] No Information 1-201 0 Brooke OD Del. [address] , [address], [place], [address], [place]. tel:[phone] [facility], [address], [place], [place], [id number], [place] tel:[phone] SEC [facility] No Information 3-200 7 [facility] . [address], [address], [place], [place], [address], [place]. tel:[phone] Referring Provider: Attila Menjivar [address] [place] [address] [address], [place], [address]. tel:[phone] hernandez Provider: Fay Francisco [facility], [place], [address]. tel:[phone] [facility], [address], [place], [place], [address], [place] tel:[phone] [facility] No Information 7 [facility] . [address], [address], [place], [place], [address], [place]. tel:[phone] Referring Provider: Attila Menjivar [address] [place] [address] [address], [place], [address]. tel:[phone] hernandez Provider: Fay Francisco [facility], [place], [address]. tel:[phone] Family History Family Member Type Diagnosis Age [...]
--- OUTSIDE RECORDS SUMMARY | 2024-08-30 17:22 | XMS_ITS | Data Portability ---
Author Organization [facility] Address [address] [place] [address] Assessment No assessment recorded. Plan of Treatment Reminders Order Date Submit Date Provider Last Modified By Organization Details Last Modified Time Details Appointments None recorded. Lab TSH + free T4, serum 2015 016 [facility], [address] [place] [address], [id number], 6 04:30:57 Referral None recorded. Procedures None recorded. Surgeries None recorded. Imaging None recorded. Medication Orders naproxen 500 mg tablet 2015 016 [facility] [place], [address], 6 04:31:12 Patient TargetsNo targets recorded. Patient InstructionsNo instructions recorded. Reason for Referral None Reported. Results Created Date Observation Date Name Description Value Unit Range Abnormal Flag Note LastModifiedBy Organization Detail LastModifiedTime 01/17/20 16 01/18/2016 TSH + free T4, serum TSH 0.510 uIU/m L 0.450- 4.500 Not Available [facility] ([facility]) [address] [place], [address], 01/18/2016 06:12:42 01/17/20 16 01/18/2016 TSH + free T4, serum T4,free(dire ct) 1.64 NG/dL 0.82-1 .77 Not Available [facility] ([facility]) [address] [place], [address], 01/18/2016 06:12:42 01/17/20 16 01/17/2016 nayeli javier note please note COMMEN T THE DATE AND/O R TIME OF COLLE CTION WAS NOT INDIC ATED ON THE REQUI SITIO N REQUI RED BY STATE AND [place] LAW. THE DATE OF RECEI PT OF THE SPECI MEN WAS USED THE COLLE CTION DATE IF NOT SUPPL IED. Not Available [facility] ([facility]) [address] [facility], [place], [address], 01/18/2016 06:12:42 01/12/20 16 01/07/2016 XR, chest , 2 view No observ ation record ed. [email or web address] Not Available 2015 16:31:43 Result Notes None recorded. Problems Name Problem SNOMED Code Status Onset Date Resolution Date Notes Provider Name and Address Organization Details Recorded Time Crohn's disease of large bowel 6983690 Active 2011 Location : None;Sev erity: Moderate ;Progres s: Stable;A dded By: Brennen Beaver;Add to Current Problems : NO Not Available [facility] 7 08:03:24 Allergic rhinitis caused by pollen 11276207 Completed 201110/24/2011 Location : None;Sev erity: Moderate ;Progres s: Stable;A dded By: Brennen Beaver;Add to Current Problems : NO Not Available [facility] 7 08:03:24 Displace ment of lumbar interver tebral disc without myelopat hy 80557615 Active 2011 Location : None;Sev erity: Moderate ;Progres s: Stable;A dded By: Brennen Beaver;Add to Current Problems : NO Not Available [facility] 7 08:03:24 Acute upper respirat ory infectio n of multiple sites Completed 201507/27/2015 Location : None;Sev erity: Moderate ;Progres s: Stable;A dded By: Sandhya Kaur;Add to Current Problems : YES Not Available [facility] 7 08:03:24 Eruption [id number] Completed 201111/15/2011 Location : None;Sev erity: Moderate ;Progres s: Stable;A dded By: Sydney Knight;Add to Current Problems : NO Not Available [facility] 7 08:03:24 Contact dermatit is 85483266 Completed 201111/15/2011 Location : None;Sev erity: Moderate ;Progres s: Stable;A dded By: Sydney Knight;Add to Current Problems : NO Not Available [facility] 7 08:03:24 Elevated blood-pr essure reading without diagnosi s of hyperten oanh 211826583 Completed 201309/11/2013 Location : None;Sev erity: Moderate ;Progres s: Stable;A dded By: Sydney Knight;Add to Current Problems : NO Not Available [facility] 7 08:03:24 Anal fissure [id number] Completed 201112/27/2011 Location : None;Sev erity: Moderate ;Progres s: Stable;A dded By: Brennen Beaver;Add to Current Problems : NO Not Available [facility] 7 08:03:25 Acute upper respirat ory infectio n 70747232 Completed 201212/26/2012 Location : None;Sev erity: Moderate ;Progres s: Stable;A dded By: Brennen Beaver;Add to Current Problems : NO Not Available [facility] 7 08:03:25 Palpitat ions 14348432 Completed 201212/26/2012 Location : None;Sev erity: Moderate ;Progres s: Stable;A dded By: Brennen Beaver;Add to Current Problems : NO Not Available [facility] 7 08:03:25 Screenin g for malignan t neoplasm of colon Active 2014 Location : None;Sev erity: Moderate ;Progres s: Stable;A dded By: Brennen Beaver;Add to Current Problems : YES Not Available [facility] 7 08:03:25 Viral screenin g Completed 201407/31/2014 Location : None;Sev erity: Moderate ;Progres s: Stable;A dded By: Brennen Beaver;Add to Current Problems : YES Not Available [facility] 7 08:03:25 Hypothyr oidism 73828588 Active 2015 Location : None;Sev erity: Moderate ;Progres s: Stable;A dded By: Brennen Beaver;Add to Current Problems : YES Not Available [facility] 7 08:03:25 Tobacco dependen ce syndrome 38559440 Completed 201508/25/2015 Location : None;Sev erity: Moderate ;Progres s: Stable;A dded By: Brennen Beaver;Add to Current Problems : YES Not Available [facility] 7 08:03:25 Cough 01121089 Completed 201508/25/2015 Location : None;Sev erity: Moderate ;Progres s: Stable;A dded By: Brennen Beaver;Add to Current Problems : YES Not Available [facility] 7 08:03:25 Precordi al pain 14349464 Completed 201508/25/2015 Location : None;Sev erity: Moderate ;Progres s: Stable;A dded By: Brennen Beaver;Add to Current Problems : YES Not Available [facility] 7 08:03:25 Acute frontal sinusiti s 16768758 Completed 201508/25/2015 Location : None;Sev erity: Moderate ;Progres s: Stable;A dded By: Brennen Beaver;Add to Current Problems : YES Not Available [facility] 7 08:03:25 Precordi al pain 93749569 Completed 201212/26/2012 Location : None;Sev erity: Moderate ;Progres s: Stable;A dded By: Hillary Seth; Add to Current Problems : NO Not Available [facility] 7 08:03:26 Benign essentia l hyperten oanh 7516589 Active 2015 Location : None;Sev erity: Moderate ;Progres s: Stable;A dded By: Trina Torres i;Otto dd to Current Problems : NO Not Available [facility] 7 08:03:26 Pain of multiple joints 77744011 Active 2011 Location : None;Sev erity: Moderate ;Progres s: Stable;A dded By: Trina Torres i;A dd to Current Problems : YES Not Available [facility] 7 08:03:26 Chronic ulcerati ve enteroco litis 77126201 Active 2011 Location : None;Sev erity: Moderate ;Progres s: Stable;A dded By: Karma Palencia;Add to Current Problems : NO Not Available [facility] 7 08:03:26 Hypo-osm olality and or hyponatr emia 754764984 Completed 201410/28/2014 Location : None;Sev erity: Moderate ;Progres s: Stable;A dded By: Karma Palencia;Add to Current Problems : YES Not Available [facility] 7 08:03:26 Pain in thoracic spine 405120021 Completed 201411/06/2014 Location : None;Sev erity: Moderate ;Progres s: Stable;A dded By: Karma Palencia;Add to Current Problems : YES Not Available [facility] 7 08:03:26 Tobacco dependen ce syndrome 90090399 Completed 201411/06/2014 Location : None;Sev erity: Moderate ;Progres s: Stable;A dded By: Karma Palencia;Add to Current Problems : YES Not Available [facility] 7 08:03:26 Essentia l hyperten oanh 82627056 Active 2014 Location : None;Sev erity: Moderate ;Progres s: Stable;A dded By: Karma Palencia;Add to Current Problems : YES Not Available [facility] 7 08:03:26 Gastroes ophageal reflux disease 647169697 Active 2011 Location : None;Sev erity: Moderate ;Progres s: Stable;A dded By: Karma Palencia;Add to Current Problems : YES Not Available [facility] 7 08:03:26 Dysuria 72166266 Completed 201206/26/2012 Location : None;Sev erity: Moderate ;Progres s: Stable;A dded By: Sandhya Gaming;Add to Current Problems : NO Not Available [facility] 7 08:03:27 Elevated blood-pr essure reading without diagnosi s of hyperten oanh 765239420 Active 2012 Location : None;Sev erity: Moderate ;Progres s: Stable;A dded By: Sandhya Gaming;Add to Current Problems : NO Not Available [facility] 7 08:03:27 Ra hematuri a 678992289 Active 2012 Location : None;Sev erity: Moderate ;Progres s: Stable;A dded By: Nabila Salmeron;Add to Current Problems : NO Not Available [facility] 7 08:03:27 Knee pain Completed 201211/09/2012 Location : None;Sev erity: Moderate ;Progres s: Stable;A dded By: Nabila Salmeron;Add to Current Problems : NO Not Available [facility] 7 08:03:27 Problem Notes None recorded. Procedures Surgical History Date Name Laterality Status Provider Name and Address Organization Details Recorded Time Knee Surgery completed Hillary [place] [facility] 01/17/2016 11:29:04 Tubal Ligation completed [place] [facility] F 01/17/2016 11:29:25 delivery completed [facility] [place] [facility] 01/17/2016 11:29:33 Imaging Results None recorded. Procedure Notes None recorded. Medical Equipment None Reported. Allergies Allergen ID Allergen Name Allergen Category Reaction Reaction Severity Criticality Documentation Date Start Date Code Code System Note Provider Name and Address Organization Details Recorded Time 36229 cephalexi n monohydra te medicatio n Not available Not available Not available 03/20/20162011 06857 8 RxNorm Sever ity: Moder ate; Comme nt: Aller gy Type: Aller gy; Not Available [facility] 7 03:47:40 26278 tetracycl ine hydrochlo ride medicatio n Not available Not available Not available 03/20/20162011 15213 6 RxNorm Sever ity: Moder ate; Comme nt: Aller gy Type: Aller gy; Not Available [facility] 7 03:47:40 32209 Feldene medicatio n Not available Not available Not available 03/20/20162011 27492 8 RxNorm Sever ity: Moder ate; Comme nt: Aller gy Type: Aller gy; Not Available [facility] 7 03:47:40 93424 Wellbutri n medicatio n Not available Not available Not available 03/20/20162011 99991 RxNorm Sever ity: Moder ate; Comme nt: Aller gy Type: Aller gy; Not Available [facility] 7 03:47:40 73658 Effexor medicatio n Not available Not available Not available 03/20/20162011 02364 2 RxNorm Sever ity: Moder ate; Comme nt: Aller gy Type: Adver se React ion; Not Available [facility] 7 03:47:40 54130 clindamyc in hydrochlo ride medicatio n Not available Not available Not available 03/20/20162011 21778 RxNorm Sever ity: Moder ate; Comme nt: Aller gy Type: Aller gy; Not Available [facility] 7 03:47:40 87861 iodine medicatio n Not available Not available Not available 03/20/20162011 5933 RxNorm Sever ity: Moder ate; Comme nt: Aller gy Type: Aller gy; Not Available [facility] 7 03:47:40 82419 Product containin g penicilli n (product) medicatio n Not available Not available Not available 03/20/20162012 66012 8001 SNOMED Sever ity: Moder ate; Comme nt: Aller gy Type: Aller gy; Not Available [facility] 7 03:47:40 74954 lisinopri l medicatio n cough rash moderate moderate Not available 03/20/20162014 08454 RxNorm React ion: cough ;Geneva rity: Moder ate; Comme nt: Aller gy Type: Adver se React ion; Not Available [facility] 7 03:47:40 49380 Norvasc medicatio n Not available Not available Not available 03/20/20162014 68774 RxNorm React ion: nause a, vomit ing;S everi ty: Moder ate; Comme nt: Aller gy Type: Aller gy; Not Available [facility] 7 03:47:40 60568 ampicilli n trihydrat e medicatio n Not available Not available Not available 03/20/20162011 49213 5 RxNorm Sever ity: Moder ate; Comme nt: Aller gy Type: Aller gy; Not Available [facility] 7 03:47:43 Medications Name Sig Start Date Stop Date Status Note LastModified by Organization Details LastModified Time hydrochlo rothiazid e 50 mg tablet Take 1 tablet(s ) by mouth daily 09/01 completed RxNorm: 611926;A llow Substitu tion: True Not Available Not Available Not Available ranitidin e 300 mg tablet TAKE ONE TABLET BY MOUTH TWICE DAILY 2015 active Not Available Not Available Not Avai lable lisinopri l 20 mg tablet ONE DAILY 10/27 completed RxNorm: 032487;A llow Substitu tion: True Not Available Not [...] ) by mouth once 07/25 completed RxNorm: 735401;A llow Substitu tion: True Not Available Not Available Not Available nifedipin e ER 30 mg tablet,ex tended release TAKE ONE TABLET BY MOUTH ONCE DAILY 2017 active Routine appt and ok Not Available Not Available Not Available amlodipin e 5 mg tablet Take 1 tablet(s ) by mouth daily 09/07 completed RxNorm: 155577;A llow Substitu tion: True Not Available Not Available Not Available omeprazol e 40 mg capsule,d elayed release TAKE ONE CAPSULE BY MOUTH ONCE DAILY 2016 active Appt within 3 mos Not Available Not Available Not Available meloxicam 7.5 mg tablet Take 1 tab twice daily 10/09 completed RxNorm: 862762;A llow Substitu tion: True Not Available Not Available Not Available levothyro xine 100 mcg tablet TAKE ONE TABLET BY MOUTH ONCE DAILY IN THE MORNING ON AN EMPTY STOMACH. 2016 active Appt in 6 mos Not Available Not Available Not Available Cipro 500 mg tablet Take 1 tablet(s ) by mouth q12h for 7 days 07/02 completed RxNorm: 973794;A llow Substitu tion: True Not Available Not Available Not Available ranitidin e 300 mg capsule Take 1 capsule every day by oral route. active Not Available Not Available No t Available lisinopri l 10 mg tablet Take 1 tab daily 09/22 completed RxNorm: 671135;A llow Substitu tion: True Not Available Not Available Not Available ibuprofen 400 mg tablet Take bid 2012 active RxNorm: 250362;A llow Substitu tion: True Not Available Not Available Not Available hydrochlo rothiazid e 12.5 mg capsule Take 1 capsule( s) by mouth daily 09/08 completed RxNorm: 545875;A llow Substitu tion: True Not Available Not Available Not Available hydrochlo rothiazid e 25 mg tablet one po daily 06/01 completed RxNorm: 880136;A llow Substitu tion: True Not Available Not Available Not Available fluticaso ne propionat e 50 mcg/actua tion nasal spray,rosa pension 2 spray(s) in each nostril daily 2015 active RxNorm: 274136;A llow Substitu tion: True Not Available Not Available Not Available naproxen 500 mg tablet Take 1 tablet twice a day by oral route. 2015 active Not Available Not Available Not Avai lable levothyro xine 112 mcg tablet Take 1 tablet(s ) by mouth daily 11/26 completed RxNorm: 523340;A llow Substitu tion: True Not Available Not Available Not Available Cozaar 50 mg tablet Take 1 tablet(s ) by mouth daily 04/24 completed RxNorm: 945002;A llow Substitu tion: True Not Available Not Available Not Available cyclobenz aprine 5 mg tablet TAKE ONE TABLET BY MOUTH ONCE DAILY AT BEDTIME NEEDED 2015 active Not Available Not Available Not Avai lable Zyrtec 10 mg chewable tablet I tab daily prn 10/09 completed RxNorm: 582516;A llow Substitu tion: True Not Available Not Available Not Available Pentasa 500 mg capsule,c ontrolled release Take 2 capsule( s) by mouth qid 06/01 completed RxNorm: 012650;A llow Substitu tion: True Not Available Not [...] Address Organization Details Last Updated DateTime 6 99087.7 9 g 162.56 cm 24.6 kg/m2 104 /min 130 mm[Hg] 80 mm[Hg] Hillary Perez [place] [facility] 6 11:33:24 Social History None recorded. Functional Status None recorded. Mental Status None recorded. Family History Relationship Description Onset Age of this Age Resolved Age Notes LastModified by Organization Details LastModified Time Brother Hypertensive disorder hreedma Not available 2015 11:30:17 Father Hypertensive disorder hreedma Not available 2015 11:30:17 Medical History Condition Response High Blood Pressure Y Acid Reflux (GERD) Y Thyroid Problems Y Gynecological HistoryNo gynecological history recorded. Obstetrics History GPAL:G 0 P 0 0 0 0 Immunizations Vaccine Type Date Status Note Provider Nam e and Address Organization Details Recorded Time Td (adult), 2 Lf tetanus toxoid, preservative free, adsorbed 2 completed Not Available [facility] 03/20/2016 05:55:53 Influenza, split virus, trivalent, preservative 8 completed Not Available [facility] 03/20/2016 05:55:53 Past Encounters Encounter ID Performer Location Encounter Start Date Encounter Closed Date Diagnosis/Indication Diagnosis SNOMED-CT Code Diagnosis ICD10 Code Diagnosis Note [id number] Manuel Beaver MD [facility] [address] [place] [address] 01/17/2016 11:20:52 01/22/2016 16:36:42 Hypothyroidism 65696097 E03.9 Chronic back pain 369560 002 M54.9 Health Concerns Section Related Observation LastModified by Organization Detai ls LastModified Time None Recorded Concern Status LastModified by Organization Details LastModified Time None Recorded Advance Directives Directive None Recorded Payers Insurance Date Sequence Insurance Name Policy Number Policy Heart Covered Member ID Heart Member ID Guarantor Name 08/14/2023 1 [employer] - DOS PRIOR TO 20 - [facility] [employer] [id number] Claire Zayas [id number] Notes Date Note Type Note Provider Name [...] it with omeprazole and ranitidine Hillary carroll, [place] - [facility] 01/17/2016 12:22:22 OBGyn Episode No OBEpisode recorded.
--- OUTSIDE RECORDS SUMMARY | 2024-08-30 17:22 | XMS_ITS | Encounter Summary ---
Author Organization [facility] Facility Care Team Providers Care Moving Picture Operator Name Role Phone Marisol Caban Primary Care Provider +1- [phone] Fidel Krueger DO Primary Care Provider +1- [phone] Encounter Details Date Type Department Care Team (Latest Contact Info) Description 07/07/2017 Orders Only [facility] ProviderJaren MD [address] [place] [address] Social History Tobacco Use Types Packs/Day Years Used Date Smoking Tobacco: Every Day Cigarettes Smokeless Tobacco: Never Alcohol Use Standard Drinks/Week Comments Yes 0 (1 standard drink = 0.6 oz pur e alcohol) socially Comments Unknown Sex and Gender Information Value Date Recorded Sex Assigned at Not on file Legal Sex Female 12:39 AM PATTERN[employer] Gender Identity Not on file Sexual Orientation [...] on filedocumented in this encounter Care Teams Moving Picture Operator Relationship Specialty Start Date End Date Marisol Caban PA [address] [place] [address] PCP - General Internal Medicine 08/04/18 01/31/20 Fidel Krueger DO [address] [place] [address] PCP - General Internal Medicine 04/10/20 documented as of this encounter
--- OUTSIDE RECORDS SUMMARY | 2024-08-30 17:22 | XMS_ITS | Encounter Summary ---
Author Organization [facility] Facility Care Team Providers Care Parts Fabricator Name Role Phone Marisol Caban Primary Care Provider +1- [phone] Fidel Krueger DO Primary Care Provider +1- [phone] Encounter Details Date Type Department Care Team (Latest Contact Info) Description 12/22/2017 Orders Only [facility]INCON[facility] ProviderJaren MD [address] [place] [address] Social History Tobacco Use Types Packs/Day Years Used Date Smoking Tobacco: Every Day Cigarettes Smokeless Tobacco: Never Alcohol Use Standard Drinks/Week Comments Yes 0 (1 standard drink = 0.6 oz pur e alcohol) socially Comments Unknown Sex and Gender Information Value Date Recorded Sex Assigned at Not on file Legal Sex Female 12:39 AM 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 [place] [address] PCP - General Internal Medicine 04/10/20 documented as of this encounter
--- OUTSIDE RECORDS SUMMARY | 2024-08-30 17:22 | XMS_ITS | Clinical Summary ---
Author Organization [facility] [address] Address [address] [place] [address] Care Team Providers Care Farmworker [employer] Name Role Phone Fidel Krueger DO Primary Care Provider +1- [phone] Allergies Active Allergy Reactions Criticality Noted Date [...] 1 tablet (88 mcg total) by mouth auth specialist before breakfast Active metoprolol tartrate (LOPRESSOR) 25 [...] 04/28/2019 Assessment & Plan (04/28/2019 11:40 AM RIPSAWYER): Weight/BMI is in healthy range. Continue healthy lifestyle to maintain. Chronic low back pain 02/12/2019 Assessment & Plan (02/12/2019 5:57 PM RIPSAWYER): Encouraged stretching, ice/heat and NSAIDs. Start PT. Monitor closely and if sxs persist she is to followup. Colon cancer screening 02/12/2019 Assessment & Plan (02/12/2019 5:56 PM RIPSAWYER): Refer to GI for colonoscopy Otalgia 02/12/2019 Assessment & Plan (02/12/2019 5:55 PM RIPSAWYER): Monitor this area behind her left ear. [...] Has some wheezing possible bronchitis. Is a longterm smoker. Has failed multiple antibiotics. STOP smoking. [...] Reviewed options for assistance with cessation. 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 Pt declines assistance at this time but may contact the office at anytime for further help as they desire. States she quit a few days ago. Encouraged to continue the cessation effort Assessment & Plan (02/12/2019 5:55 PM RIPSAWYER): Encouraged smoking cessation. Discussed 3 minutes. Reviewed options for assistance with cessation. 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 file Not on file Not on file Obstetrics History Last Filed Vital Signs Vital Sign Reading Time Taken Comments Blood Pressure 140/82 07/15/2024 3:27 PM CDT Pulse 86 07/15/2024 3:27 PM CDT Temperature 36.8 C (98.3 F) 04/28/2019 11:35 AM RIPSAWYER Respiratory Rate 18 01/06/2019 1:39 PM CDT [...] Capillary blood 07/15/2024 3 :20 PM CDT [facility] Chiki Antunez MD POINT OF CARE TEST LU HILLIARD Final Result * MAMMOGRAPHY (06/06/2018) Mammogram Normal Comment:Trevor Img -- Bir ads 1 Historical Provider HEALTH MAINTENANCE Final Result * PAP SMEAR WITH HPV (11/26/2011) Pap smear Normal Historical Provider HEALTH MAINTENANCE Final Result from Last 3 Months or Most Recently Relevant to Health Maintenance Insurance [facility] CHOICE PLUS IDPA [facility] CHOICE PLUS Care Teams Farmworker [employer] Relationship Specialty Start Date End Date Fidel Krueger DO PCP - General Internal Medicine 04/10/20
--- OUTSIDE RECORDS SUMMARY | 2024-08-30 17:22 | XMS_ITS | Clinical Summary ---
Author Organization [facility] Eloise da silva Patrick Address [address] [facility] [place] [address] Care Team Providers Care Foundation Director Name Role Phone Unavailable Primary Care Provider [...] Abstract 07/23/2024 1:15 PM CDT Office Visit [facility] Oncology and Hematology - [place] [address] [place] [address] Onur Benton MD Chronic anemia (Primary Dx) 06/25/2024 Orders Only [facility] [address] [place] [address] Onur Benton MD 06/22/2024 External Device Data STL ABSTRACTION Provider, Abstract 06/22/2024 External Device Data STL ABSTRACTION Provider, Abstract 06/22/2024 External Device Data STL ABSTRACTION Provider, Abstract 06/22/2024 Orders Only [facility] Oncology and Hematology [address] [place] [address] Onur Benton MD 06/21/2024 3:00 PM CDT Office Visit [facility] Oncology and Hemat[facility] [address] [place] [address] Onur Benton MD Chronic anemia (Primary Dx) [...] file Legal Sex Female 11:48 AM CLINICAL PROGRAM MANAGER Gender Identity Not on file [...] Contact Info) Description 01/28/2025 9:45 AM CLINICAL PROGRAM MANAGER Office Visit [facility] Oncology and Hematology - [place] [address] [place] [address] Onur Benton MD [address] [place] [address] Health Maintenance Due Date Last [...] Resu lt from Last 3 Months Insurance [facility] CHOICE [id number] MEDICAID [place]
--- OUTSIDE RECORDS SUMMARY | 2024-08-30 17:22 | XMS_ITS | Data Portability ---
Author Organization [facility] Address [address] [place] [address] Care Team Providers Care Supply Requirements Officer Name Role Phone OSIRIS RAMIREZSEY Primary Care Provider Assessment No assessment recorded. Plan of Treatment Reminders Order Date Submit Date Provider Last Modified By Organization Details Last Modified Time Details Appointments None recorded. Lab None recorded. Referral None recorded. Procedures None recorded. Surgeries None recorded. Imaging None recorded. Medication Orders Imvexxy Maintenance Pack 10 mcg vaginal insert 2023 024 [id number], [address], [place], [place], [id number], 4 16:16:34 Patient TargetsNo targets recorded. Patient [...] patie nt consi derat ions. Not Available [facility] (Lab) [address], [place], [address], 07/23/2023 14:32:52 07/18/19 24 07/18/2023 TRICH OMONA S VAGIN FATOUMATA (RRNA ) trichomonas vaginalis ribosomal RNA (rrna) Negati ve negati ve Not Available [facility] (Lab) [address], [place], [address], 07/23/2023 14:32:53 07/18/19 24 07/18/2023 CT/GC (ANUPAM) , THINP REP VIAL chlamydia trachomatis, PCR Negati ve negati ve Not Available [facility] (Lab) [address] [facility] [address], [place], [address], 07/23/2023 14:32:54 07/18/19 24 07/18/2023 CT/GC (ANUPAM) , THINP REP VIAL neisseria gonorrhoeae, PCR Negati ve negati ve Not Available [facility] (Lab) [address], [place], [address], 07/23/2023 14:32:54 Result Notes None recorded. Procedures Surgical History Date Name Laterality Status Provider Name and Address Organization Details Recorded Time 4 Date of Last Mammogram completed [facility] 07/18/2023 12:06:52 4 Most Recent Bone Density completed [facility] 07/18/2023 12:06:52 3 completed [facility] 07/18/2023 12:06:52 3 Date of Last Colonoscopy completed [facility] 07/18/2023 12:06:52 2 Date of Last Pap Smear completed [facility] 07/18/2023 12:06:52 5 Caesarean Section completed [facility] 07/18/2023 12:07:20 Colposcopy completed [facility] 07/18/2023 12:07:20 tonsilectomy/ad enoids completed [facility] 07/18/2023 12:07:20 Imaging Results None recorded. Procedure Notes None recorded. Medical Equipment None Reported. Allergies Allergen ID Allergen Name Allergen Category Reaction Reaction Severity Criticality Documentation Date Start Date Code Code System Note Provider Name and Address Organization Details Recorded Time 85513 ampicilli n medicatio n rash Not available Not available 07/18/2023 733 RxNorm Augustina Swayne [facility] 4 12:05:54 14541 cephalexi n medicatio n rash Not available Not available 07/18/2023 2231 RxNorm Augustina Swayne [facility] 4 12:05:54 38106 nitrofura ntoin medicatio n anaphylax is Not available Not available 07/18/2023 7454 RxNorm Augustina Swayne [facility] 4 12:05:54 69202 Bactrim medicatio n rash Not available Not available 07/18/2023 85337 9 RxNorm Augustina Swayne [facility] 4 12:05:54 58698 Macrobid medicatio n anaphylax is Not available Not available 07/18/2023 45294 1 RxNorm Augustina Swayne [facility] 4 12:07:42 Medications Name Sig Start [...] Not Available Not Available Not Available Acid Lining Stuffer (omeprazole ) active Not Available Not Available Not Available Adult One Daily Multivitami n active Not Available Not Available Not Available Imvexxy Maintenance Pack 10 mcg vaginal insert active Not Available Not Available Not Available Vitals Date Recorded Body height Body weight Systolic blood pressure Diastolic blood pressure Provider Name and Address Organization Details Last Updated DateTime 07/18/2023 156.21 cm 04598.41 g 133 mm[Hg] 84 mm[Hg] Augustina Yen [facility] 07/18/2023 12:05:44 Social History Question Answer [...] Or The Highest Degree You Have Received? CM96094-9 Information not available 07/18/2023 Are There Any [...] anxious, or unable to sleep at night)? NJ5692-7 Information not available 07/18/2023 Family History Relationship [...] ) N Other N Blood Transfusion N Drug/Latex Allergies/Reactions N Breast Cancer N Dermatologic Disorders N [...] SNOMED-CT Code Diagnosis ICD10 Code Diagnosis Note [id number] MARVIN MEADE MD [place] [address] [address] 07/18/2023 11:27:06 07/21/2023 06:38:43 Postmenopausal osteopenia 651833679 M85.80 - DEXA stable 04/2023- discussed Ca supplement and weight bearing exercise- repeat in 2 years Vaginal dryness 61137332 N89.8 - normal atrophy on exam- continue Imvexxy suppositor ies Gynecologi c examination 14736730 Z01.419 Z11.51 Well woman care- Cervical cancer [...] Heart Member ID Guarantor Name 07/18/2023 1 [place] [id number] Claire Chana [id number] Claire Zayas 07/18/2023 2 [place] [facility] DEPARTMENT OF PUBLIC AID Claire Zayas [id number] Claire Zayas Notes Date Note Type Note [...] time. MARVIN MEADE MD [address], [place], [address], [facility] 07/18/2023 16:16:41 OBGyn Episode Ob Episode Information Episode Created Date Number of Fetuses Patient Bloodtype Patient rh Status Prepregnancy Weight lbs Domestic Partner Domestic Partner Phone Father Name Terrazzo Grinder Status 07/18/19 24 1 CLOSED Fetus Data First Name Last Name Admitted to NICU Weight (g) Sex Living Outcome Pediatric Complications Fetus ID Race Codes Race Delivery Type F Full Term 29275 Primary Elia Calculation Initial Elia Date Initial [...] Domestic Partner Domestic Partner Phone Father Name Terrazzo Grinder Status 07/18/19 24 1 CLOSED Fetus Data First Name Last Name Admitted to NICU Weight (g) Sex Living Outcome Pediatric Complications Fetus ID Race Codes Race Delivery Type F Full Term 45417 Repeat Elia Calculation Initial Elia Date Initial [...] Domestic Partner Domestic Partner Phone Father Name Terrazzo Grinder Status 07/18/19 24 1 CLOSED Fetus Data First Name Last Name Admitted to NICU Weight (g) Sex Living Outcome Pediatric Complications Fetus ID Race Codes Race Delivery Type M Full Term 52711 Repeat Elia Calculation Initial Elia Date Initial [...]
--- OUTSIDE RECORDS SUMMARY | 2024-08-30 17:22 | XMS_ITS | Encounter Summary ---
Author Organization [facility] Address [address] [place] [address] Care Team Providers Care Farm Helper Name Role Phone Marisol Caban Primary Care Provider [phone]- [phone] Fidel Krueger DO Primary Care Provider [phone]- [phone] Encounter Details Date Type Department Care Team (Late st Contact Info) Description 12/16/2012 Orders Only [facility] [address] [place] [address] Scanning, Provider Social History Tobacco Use Types Packs/Day Years Used Date Smoking Tobacco: Never Assessed Comments Unknown Sex and Gender Information Value Date Recorded Sex Assigned at Not on file Legal Sex Female 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
--- OUTSIDE RECORDS SUMMARY | 2024-08-30 17:22 | XMS_ITS | Continuity of Care Document ---
Author Organization [facility] Address [address] [place] [address] Phone Care Team Providers Care Die Mechanic Name Role Phone González Garcia MD Unavailable [...] Diagnoses Date Provider Providers Copied on Encounter [facility], [address], [place], [place], [address], [place] tel:[phone] [facility] No Information Jose Claudio. [address], [id number], [place]. tel:[phone] [employer] [facility], [address], [place], [place], [address], [place] tel:[phone] [facility] Other specified urticaria Jose Claudio. [address] [facility] [address], [place], [place], [address], [place]. tel:[phone] Referring Provider: Domingo Beaver, [address] [facility] [address], [place], [address]. tel:[phone] Family History Family Member Type Diagnosis Age At Onset Mother Problem (finding) Allergies Payers Payer name Insurance type Covered green party ID Authoriza tion(s) [facility] [id number] Social History Type Description Quantity Date Captured [...]
--- OUTSIDE RECORDS SUMMARY | 2024-08-30 17:22 | XMS_ITS | Clinical Summary ---
Author Organization [facility] Address [address] [place] [address] Phone Care Team Providers Care Spray Gun Operator Name Role Phone LeeFidel cifuentes Primary Care Provider [phone] Allergies Active Allergy Reactions Criticality Noted Date [...] Reviewed options for assistance with cessation. Reviewed [facility] sequela associated with smoking. Pt declines assistance [...] Vaccine (Season Ended) 2024 12/30/19, 03/17/2007 Insurance [facility] Care Teams Spray Gun Operator Relationship Specialty Start Date End Date Fidel Krueger DO [address] [place] [address] PCP - General Internal Medicine 08/20/21
--- OUTSIDE RECORDS SUMMARY | 2024-08-30 17:22 | XMS_ITS | Referral Summary ---
Author Organization [facility] [address] Address [address] [place] [address] Care Team Providers Care Film Writer Name Role Phone Fidel Krueger DO Primary Care Provider [phone] Encounters Date Type Department Care Team Description 07/15/2024 3:30 PM CDT Office Visit [facility] Cardiology [address] [place] [address] Vito Antunez MD Essential hypertension [...] 1 tablet (88 mcg total) by mouth bus repair supervisor before breakfast Active metoprolol tartrate (LOPRESSOR) [...] 04/28/2019 Assessment & Plan (04/28/2019 11:40 AM PRE K TEACHER): Weight/BMI is in healthy range. Continue healthy lifestyle to maintain. Chronic low back pain 02/12/2019 Assessment & Plan (02/12/2019 5:57 PM PRE K TEACHER): Encouraged stretching, ice/heat and NSAIDs. Start PT. Monitor closely and if sxs persist she is to followup. Colon cancer screening 02/12/2019 Assessment & Plan (02/12/2019 5:56 PM PRE K TEACHER): Refer to GI for colonoscopy Otalgia 02/12/2019 Assessment & Plan (02/12/2019 5:55 PM PRE K TEACHER): Monitor this area behind her left [...] Has some wheezing possible bronchitis. Is a snf smoker. Has failed multiple antibiotics. STOP smoking. [...] Reviewed options for assistance with cessation. Reviewed snf sequela associated with smoking. Pt declines assistance at this time but may contact the office at anytime for further help as they desire. States she quit a few days ago. Encouraged to continue the cessation effort Assessment & Plan (02/12/2019 5:55 PM PRE K TEACHER): Encouraged smoking cessation. Discussed 3 minutes. Reviewed options for assistance with cessation. Reviewed snf sequela associated with smoking. 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 file Not on file Not on file Last Filed Vital Signs Vital Sign Reading Time Taken Comments Blood Pressure 140/82 07/15/2024 3:27 PM CDT Pulse 86 07/15/2024 3:27 PM CDT Temperature 36.8 C (98.3 F) 04/28/2019 11:35 AM PRE K TEACHER Respiratory Rate 18 01/06/2019 1:39 PM [...] Capillary blood 07/15/2024 3 :20 PM CDT [facility] Chiki Antunez MD POINT OF CARE TEST ORDE RABLES Final Result * MAMMOGRAPHY (06/06/2018) Mammogram Normal Comment:Trevor Cabrera -- Bir ads 1 Historical Provider HEALTH MAINTENANCE Final Result * PAP SMEAR WITH HPV (11/26/2011) Pap smear Normal Historical Provider HEALTH MAINTENANCE Final Result from Last 3 Months or Most Recently Relevant to Health Maintenance Insurance [facility] CHOICE PLUS IDPA [facility] CHOICE PLUS Care Teams Film Writer Relationship Specialty Start Date End Date Fidel Krueger DO PCP - General Internal Medicine 04/10/20
[2024-08-30 17:59] LABS: Anion Gap 8 mmol/L (4-12); Blood Urea Nitrogen 21 mg/dL (7-17); Calcium 10.2 mg/dL (8.4-10.2); Carbon Dioxide 26 mmol/L (22-30); Chloride 94 mmol/L (98-107); Estimated Glomerular Filt Rate 45; Glucose 99 mg/dL (65-110); Potassium 4.6 mmol/L (3.4-5.0); Sodium 128 mmol/L (137-145)
== END 2024-08-30 17:15 | disposition home or self-care (01) ==
LOC: ANHLAB 17:14
PROVIDERS: PCP Internal Medicine; Visit Provider Nurse Practitioner
DX: E87.1 Hypo-osmolality and hyponatremia (principal)
CPT/HCPCS: 36415; 80048

== ENCOUNTER 2024-08-31 06:39 | Emergency (ER) | payer OTHER, SELFPAY ==
--- OUTSIDE RECORDS SUMMARY | 2024-08-31 06:42 | XMS_ITS | Continuity of Care Document ---
Author Organization [facility] Address [address] [place] [address] Phone Care Team Providers Care Automatic Winder Operator Name Role Phone Brooke OD, Del Unavailable Unavailable Procedures Procedure Date Eye Exam & Treatment Refraction SV Plastic Sphcyl [place] +/-4d, .12-2d Miscellaneous Vision Service - Supplies Tax - Medical SV Poly Carb Sph +/- 7.12 To +/- 20 D Miscellaneous Vision Service - Supplies Tax - Medical Advance Directives Directive Yes / No Effective Date File Name No Information Encounters Encounter Description Practice Location Reason(s) For Visit Diagnoses Date Provider Providers Copied on Encounter Merged with [facility], [address] [place] [address] [address], [place], [place], [id number], tel:[phone] [facility] No Information 1-201 0 Brooke OD Del. [address], [place], [address], [place]. tel:[phone] Merged with [facility], [address], [place], [place], [address], [place] tel:[phone] [facility] No Information [address] [employer] [facility] [employer] . [address] [facility] [facility], [address], [place], [place], [address], [place]. tel:[phone] Referring Provider: Attila Menjivar [address] [place] [address] [address], [place], [address]. tel:[phone] hernandez Provider: [facility], [place], [address]. tel:[phone] [facility], [address], [place], [place], [address], [place] tel:[phone] [facility] No Information [address] [employer] . [address] [facility], [address], [place], [place], [address], [place]. tel:[phone] Referring Provider: Attila Menjivar [address] [place] [address] [address], [place], [address]. tel:[phone] hernandez Provider: [facility], [place], [address]. tel:[phone] Family History Family Member Type Diagnosis Age [...]
--- OUTSIDE RECORDS SUMMARY | 2024-08-31 06:42 | XMS_ITS | Clinical Summary ---
Author Organization [facility] [address] Address [address] [place] [address] Care Team Providers Care Tester [employer] Name Role Phone Fidel Krueger DO Primary Care Provider [phone] Allergies Active Allergy Reactions Criticality Noted Date [...] 1 tablet (88 mcg total) by mouth hack saw operator before breakfast Active metoprolol tartrate (LOPRESSOR) [...] 04/28/2019 Assessment & Plan (04/28/2019 11:40 AM TECHNICAL PROJECT MANAGER): Weight/BMI is in healthy range. Continue healthy lifestyle to maintain. Chronic low back pain 02/12/2019 Assessment & Plan (02/12/2019 5:57 PM TECHNICAL PROJECT MANAGER): Encouraged stretching, ice/heat and NSAIDs. Start PT. Monitor closely and if sxs persist she is to followup. Colon cancer screening 02/12/2019 Assessment & Plan (02/12/2019 5:56 PM TECHNICAL PROJECT MANAGER): Refer to GI for colonoscopy Otalgia 02/12/2019 Assessment & Plan (02/12/2019 5:55 PM TECHNICAL PROJECT MANAGER): Monitor this area behind her left [...] Reviewed options for assistance with cessation. Reviewed managing supervisor sequela associated with smoking. Pt declines assistance at this time but may contact the office at anytime for further help as they desire. States she quit a few days ago. Encouraged to continue the cessation effort Assessment & Plan (02/12/2019 5:55 PM TECHNICAL PROJECT MANAGER): Encouraged smoking cessation. Discussed 3 minutes. Reviewed options for assistance with cessation. Reviewed managing supervisor sequela associated with smoking. 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 file Not on file Not on file Obstetrics History Last Filed Vital Signs Vital Sign Reading Time Taken Comments Blood Pressure 140/82 07/15/2024 3:27 PM CDT Pulse 86 07/15/2024 3:27 PM CDT Temperature 36.8 C (98.3 F) 04/28/2019 11:35 AM TECHNICAL PROJECT MANAGER Respiratory Rate 18 01/06/2019 1:39 PM [...] Capillary blood 07/15/2024 3 :20 PM CDT [facility] Chiki Antunez MD POINT OF CARE TEST LU HILLIARD Final Result * MAMMOGRAPHY (06/06/2018) Mammogram Normal Comment:Trevor Img -- Bir ads 1 Historical Provider HEALTH MAINTENANCE Final Result * PAP SMEAR WITH HPV (11/26/2011) Pap smear Normal Historical Provider HEALTH MAINTENANCE Final Result from Last 3 Months or Most Recently Relevant to Health Maintenance Insurance [facility] CHOICE PLUS IDPA [facility] CHOICE PLUS Care Teams Tester [employer]iconductor Packages Relationship Specialty Start Date End Date Fidel Krueger DO PCP - General Internal Medicine 04/10/20
--- OUTSIDE RECORDS SUMMARY | 2024-08-31 06:42 | XMS_ITS | Referral Summary ---
Author Organization [facility] [address] Address [address] [place] [address] Care Team Providers Care After School Driver Name Role Phone Fidel Krueger DO Primary Care Provider +1- [phone] Encounters Date Type Department Care Team Description 07/15/2024 3:30 PM CDT Office Visit [facility] Cardiology [address] [place] [address] Vito Antunez MD Essential hypertension [...] 1 tablet (88 mcg total) by mouth millwright before breakfast Active metoprolol tartrate (LOPRESSOR) 25 [...] 04/28/2019 Assessment & Plan (04/28/2019 11:40 AM STRIKE OPERATIONS OFFICER): Weight/BMI is in healthy range. Continue healthy lifestyle to maintain. Chronic low back pain 02/12/2019 Assessment & Plan (02/12/2019 5:57 PM STRIKE OPERATIONS OFFICER): Encouraged stretching, ice/heat and NSAIDs. Start PT. Monitor closely and if sxs persist she is to followup. Colon cancer screening 02/12/2019 Assessment & Plan (02/12/2019 5:56 PM STRIKE OPERATIONS OFFICER): Refer to GI for colonoscopy Otalgia 02/12/2019 Assessment & Plan (02/12/2019 5:55 PM STRIKE OPERATIONS OFFICER): Monitor this area behind her left ear. [...] effort Assessment & Plan (02/12/2019 5:55 PM STRIKE OPERATIONS OFFICER): Encouraged smoking cessation. Discussed 3 minutes. 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 Chiki Antunez MD POINT OF CARE TEST ORDE RABLES Final Result * MAMMOGRAPHY (06/06/2018) Mammogram Normal Comment:Trevor Cabrera -- Bir ads 1 Historical Provider HEALTH MAINTENANCE Final Result * PAP SMEAR WITH HPV (11/26/2011) Pap smear Normal Historical Provider HEALTH MAINTENANCE Final Result from Last 3 Months or Most Recently Relevant to Health Maintenance Insurance [facility] Address: [address] [place] [address] [employer] [facility] H[facility]/PPO Address: [address] [address] [place] [address] Care Teams After School Driver Relationship Specialty Start Date End Date Fidel Krueger DO PCP - General Internal Medicine 04/10/20
--- OUTSIDE RECORDS SUMMARY | 2024-08-31 06:42 | XMS_ITS | Encounter Summary ---
Author Organization [facility] Facility Care Team Providers Care Distresser Name Role Phone Marisol Caban Primary Care Provider +1- [phone] Fidel Krueger DO Primary Care Provider +1- [phone] Encounter Details Date Type Department Care Team (Latest Contact Info) Description 07/07/2017 Orders Only [facility] CLINCONV ProviderJaren MD [address] [place] [address] Social History Tobacco Use Types Packs/Day Years Used Date Smoking Tobacco: Every Day Cigarettes Smokeless Tobacco: Never Alcohol Use Standard Drinks/Week Comments Yes 0 (1 standard drink = 0.6 oz pur e alcohol) socially Comments Unknown Sex and Gender Information Value Date Recorded Sex Assigned at Not on file Legal Sex Female 12:39 AM 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
--- OUTSIDE RECORDS SUMMARY | 2024-08-31 06:42 | XMS_ITS | Continuity of Care Document ---
Author Organization [facility] Address [address] [place] [address] Phone Care Team Providers Care Publishing Agent Name Role Phone González Garcia MD Unavailable [...] Diagnoses Date Provider Providers Copied on Encounter [facility], [address], [place], [place], [address], [place] tel:[phone] [facility] No Information Jose Claudio. [address], [id number], [place]. tel:[phone] [facility], [address], [place], [place], [address], [place] tel:[phone] [facility] Other specified urticaria Jose Claudio. [address] [facility] [address], [place], [place], [address], [place]. tel:[phone] Referring Provider: Domingo Beaver, [address] [facility] [address], [place], [address]. tel:[phone] Family History Family Member Type Diagnosis Age At Onset Mother Problem (finding) Allergies Payers Payer name Insurance type Covered green party ID Authoriza tion(s) [facility] [id number] Social History Type Description Quantity Date Captured [...]
--- OUTSIDE RECORDS SUMMARY | 2024-08-31 06:42 | XMS_ITS | Clinical Summary ---
Author Organization [facility] Eloise da silva Patrick Address [address] [facility] [address] Care Team Providers Care Trackmobile Operator Name Role Phone Unavailable Primary Care Provider [...] Abstract 07/23/2024 1:15 PM CDT Office Visit [facility] Oncology and Hematology - [place] [address] [place] [address] Onur Benton MD Chronic anemia (Primary Dx) 06/25/2024 Orders Only [facility] Oncology and Hematology [address] [place] [address] Onur Benton MD 06/22/2024 External Device Data ST[facility] ABSTRACTION Provider, Abstract 06/22/2024 External Device Data STL ABSTRACTION Provider, Abstract 06/22/2024 External Device Data STL ABSTRACTION Provider, Abstract 06/22/2024 Orders Only [facility] Oncology and Hematology [address] [place] [address] Onur Benton MD 06/21/2024 3:00 PM CDT Office Visit [facility] Oncology and Hematology [facility] [address] [place] [address] Onur Benton MD Chronic anemia (Primary Dx) [...] on file Legal Sex Female 11:48 AM HUMAN RESOURCE OFFICER Gender Identity Not on file Sexual [...] st Contact Info) Description 01/28/2025 9:45 AM HUMAN RESOURCE OFFICER Office Visit [facility] Oncology and Hematology - [place] [address] [facility] [address] [place] [address] Onur Benton MD [address] [facility] [address] [place] [address] Health Maintenance Due Date Last [...] Resu lt from Last 3 Months Insurance [facility] CHOICE [id number] [place]
--- OUTSIDE RECORDS SUMMARY | 2024-08-31 06:42 | XMS_ITS | Encounter Summary ---
Author Organization [facility] Facility Care Team Providers Care Continuous Improvement Analyst Name Role Phone Marisol Caban Primary Care Provider [phone]- [phone] Fidel Krueger DO Primary Care Provider [phone]- [phone] Encounter Details Date Type Department Care Team (Latest Contact Info) Description 12/22/2017 Orders Only [facility] CLINCONV ProviderJaren MD [address] [place] [address] Social History Tobacco Use Types Packs/Day Years Used Date Smoking Tobacco: Every Day Cigarettes Smokeless Tobacco: Never Alcohol Use Standard Drinks/Week Comments Yes 0 (1 standard drink = 0.6 oz pur e alcohol) socially Comments Unknown Sex and Gender Information Value Date Recorded Sex Assigned at Not on file Legal Sex Female 12:39 AM DENTAL OFFICER Gender Identity Not on file Sexual [...] on filedocumented in this encounter Care Teams Continuous Improvement Analyst Relationship Specialty Start Date End Date Marisol Caban PA [address] [place] [address] PCP - General Internal Medicine 08/04/18 01/31/20 Fidel Krueger DO [address] [facility] [address] [place] [address] PCP - General Internal Medicine 04/10/20 documented as of this encounter
--- OUTSIDE RECORDS SUMMARY | 2024-08-31 06:42 | XMS_ITS | Clinical Summary ---
Author Organization [facility] Address [address] [place] [address] Phone Care Team Providers Care Coal Hauler Name Role Phone LeeFidel cifuentes Primary Care Provider [phone] Allergies Active Allergy Reactions Criticality Noted Date [...] Vaccine (Season Ended) 2024 12/30/19, 03/17/2007 Insurance [facility] Care Teams Coal Hauler Relationship Specialty Start Date End Date Fidel Krueger DO [address] [place] [address] PCP - General Internal Medicine 08/20/21
--- OUTSIDE RECORDS SUMMARY | 2024-08-31 06:42 | XMS_ITS | Encounter Summary ---
Author Organization [facility] Address [address] [facility] [address] [place] [address] Care Team Providers Care Laser/Electro Optics Technician Name Role Phone Marisol Caban Primary Care Provider [phone]- [phone] Fidel Krueger DO Primary Care Provider [phone]- [phone] Encounter Details Date Type Department Care Team (Late st Contact Info) Description 12/16/2012 Orders Only [facility] Health Information Management [address] [place] [address] Scanning, Provider Social History Tobacco Use Types Packs/Day Years Used Date Smoking Tobacco: Never Assessed Comments Unknown Sex and Gender Information Value Date Recorded Sex Assigned at Not on file Legal Sex Female 12:39 AM CLINICAL NURSING COORDINATOR Gender Identity Not on file Sexual [...] on filedocumented in this encounter Care Teams Laser/Electro Optics Technician Relationship Specialty Start Date End Date Marisol Caban PA [address] [facility] [address] [place] [address] PCP - General Internal Medicine 08/04/18 01/31/20 Fidel Krueger DO [address] [facility] [address] [place] [address] PCP - General Internal Medicine 04/10/20 documented as of this encounter
[2024-08-31 06:43] VITALS: BP 182/104; PULSE 88; RESP 18; TEMP 36.6; O2SAT 99
--- NOTE | 2024-08-31 06:45 | ECG_ITS ---
Test Date: 2024-08-31 06:47:42 Measurements Intervals [place] Rate: 87 P: 49 MO: 157 QRS: 52 QRSD: 81 T: 63 QT: 375 QTc: 452 Interpretive Statements SINUS RHYTHM CANNOT R/O SEPTAL INFARCT, AGE INDETERMINATE BORDERLINE ST ABNORMALITY- ANTEROLAT/INF LEADS ABNORMAL ECG BASELINE ARTIFACT- I, II, AVR, AVL, AVF No previous ECG available for comparison Electronically Signed On 08-31-2024 07:10:00 CDT by Chance Shepard D.O.
--- NOTE | 2024-08-31 06:56 | ED.RECABL ---
HPI - Recheck/Abnormal Lab/Rx General Chief Complaint: Recheck/Abnormal Lab/Rx Stated Complaint: sodium is low nausea Time Seen by Provider: 08/31/24 06:54 History of Present Illness HPI narrative: Patient had restarted fluoxetine and had her labs checked and her sodium was found to be low, it was rechecked a few days later and was still low and her creatinine was slightly high and she was told to go to the emergency room. She had been feeling completely fine without any symptoms but earlier this morning woke up feeling out of sorts, slightly lightheaded and nauseous, so came in to the hospital. Related Data Home Medications ?Medication ?Instructions ?Recorded ?Confirmed ?Last Taken ?Type tpqveamn-rmt-oqxgo ac 400 tablet PO 12/15/23 07/23/24 Unknown History mcg-calcium carb 500 mg-vit K1 20 mcg tablet (Women's 50 Plus Multivitamin) ibuprofen 800 mg tablet 800 mg PO TID 01/23/24 07/23/24 Unknown History budesonide 3 mg See Rx Instructions .Route 03/26/24 07/23/24 Unknown History capsule,delayed,extended release .COMPLEX PRN Allergies Allergy/AdvReac Type Severity Reaction Status Date / Time ampicillin Allergy Unknown Hives Verified 08/31/24 06:53 bupropion Allergy Unknown Hives Verified 08/31/24 06:53 cephalexin Allergy Unknown Hives Verified 08/31/24 06:53 clindamycin Allergy Unknown Anaphylaxis Verified 08/31/24 06:53 codeine Allergy Unknown Swelling Verified 08/31/24 06:53 Penicillins Allergy Unknown Hives Verified 08/31/24 06:53 Sulfa (Sulfonamide Allergy Unknown Hives Verified 08/31/24 06:53 Antibiotics) tetracycline Allergy Unknown Hives Verified 08/31/24 06:53 Tetracyclines Allergy Unknown Hives Verified 08/31/24 06:53 amlodipine AdvReac Intermediate joint pain Verified 08/31/24 06:53 lisinopril AdvReac Intermediate Cough Verified 08/31/24 06:53 losartan AdvReac Intermediate Joint pain Verified 08/31/24 06:53 nitrofurantoin (From AdvReac Joint Pain Verified 08/31/24 06:53 Macrobid) Review of Systems Review of Systems: All systems reviewed & are unremarkable except as noted in HPI and below PMFSH Past Medical History Medical History Contusion of knee, left Patellofemoral arthritis of right knee Patellofemoral arthritis of left knee NSAID long-term use Adrenal insufficiency Tobacco abuse Smoking Post-traumatic osteoarthritis of right knee Other chronic pain Lung nodule Heart palpitations Essential hypertension Chondromalacia Bloating Microscopic colitis Tachycardia Colon cancer screening GERD with esophagitis Anxiety Arthritis Inflammatory arthritis Colitis Thyroid disorder IBS (irritable bowel syndrome) Allergies History of open fracture Right patella. History of chronic bronchitis Acid reflux Hypothyroidism Hypertension Surgical History Surgical History History of tubal ligation History of endometrial ablation [place] teeth removed History of placement of ear tubes History of adenoidectomy History of tonsillectomy H/O knee surgery Right knee x 2 H/O section x 3 1984, 1986, 1990 Family History Family History Father Family history of Parkinson's disease Lewy body dementia Hypertension Mother Family history of lupus erythematosus, Onset Age: 54 Sjogren-Tabatha syndrome Aneurysm Hypothyroidism Grandparent Acute myocardial infarction Family history of cardiac disorder Cervical cancer HIV (human immunodeficiency virus infection) Heart disease Hypertension Rheumatoid arthritis Sibling Diabetes mellitus Hypertension Daughter Sjogren-Tabatha syndrome Rheumatoid arthritis Other Crohn disease Other Family history of arthritis Family history of cardiovascular disease Family history of rheumatoid arthritis Social History Social History Smoking packs per day: 0.5 Smoking cigarettes per day: 10.0 Years smoked: 30 Smoking pack-years: 15.00 Smoking status: Former smoker Tobacco type: cigarettes Alcohol intake: current Drinks per week: 28 Alcohol use details: 3-4 a day. Beer Substance use: never Substance use type: does not use Lack of Transportation: No Lack of Food: Never True Current Housing: I Have Housing Concerned About Future Housing: No Difficulty Paying Gas/Electric Bills: No Difficulty Paying for Meds: No Currently Unemployed: No Education: Trade/Vocational Certificate Difficulty w/ Childcare or Family Care: No Living arrangements: alone Gender identity (if verbalized by the patient): Female Spiritual care concerns: No Exam Narrative: EXAMINATION OF ORGAN SYSTEMS/BODY AREAS: Constitutional: Vital signs per nursing GENERAL:[No acute distress, non-toxic appearing.] HEAD: Normal with no signs of head trauma. EYES: EOMI, conjunctiva normal ENT: Hearing grossly intact LUNGS: Nonlabored breathing. HEART: [Regular rate and rhythm] ABD: [Soft], [nontender to palpation] EXT: Normal range of motion SKIN: [No rashes or lesions.] NEURO: [Alert and oriented x 3. No gross focal sensory or strength deficits.] PSYCH: Normal affect Course Vital Signs Vital signs: Vital Signs Temperature 97.8 F 08/31/24 06:43 Pulse Rate 88 08/31/24 06:43 Respiratory Rate 18 08/31/24 06:43 Blood Pressure 182/104 H 08/31/24 06:43 Pulse Oximetry 99 08/31/24 06:43 Oxygen Delivery Room Air 08/31/24 06:43 Temperature 97.8 F 08/31/24 06:43 Pulse Rate 88 08/31/24 06:43 Respiratory Rate 18 08/31/24 06:43 Blood Pressure 182/104 H 08/31/24 06:43 Pulse Oximetry 99 08/31/24 06:43 Oxygen Delivery Room Air 08/31/24 06:43 MDM - Recheck/Abnormal Lab/Rx MDM Narrative Medical decision making narrative: Patient had restarted fluoxetine and routine lab recheck found her sodium to be low in creatinine to be high She had been feeling completely fine without any symptoms but earlier this morning woke up feeling out of sorts, slightly lightheaded and nauseous, so came in to the hospital. I did review EMR and noted that she generally has low sodium, this is slightly lower than her usual, her creatinine is also slightly higher than her usual. On exam she is very well-appearing, in no distress, normal neurologic exam speaking in complete full sentences and alert and oriented x4. I did order fluids and nausea medicine. Patient signed out to the oncoming ER physician. Lab Data 08/31/24 06:49 08/31/24 06:49 Labs: Lab Results 08/31/24 Range/Units 06:49 WBC Pending RBC Pending Hgb Pending Hct Pending MCV Pending MCH Pending MCHC Pending RDW Pending Plt Count Pending MPV Pending Immature Gran % (Auto) Pending Neut % (Auto) Pending Lymph % (Auto) Pending [place] % (Auto) Pending Eos % (Auto) Pending Baso % (Auto) Pending Lymph # (Auto) Pending [place] # (Auto) Pending Eos # (Auto) Pending Baso # (Auto) Pending Abs Immat Gran (auto) Pending Absolute Neuts (auto) Pending Absolute Nucleated RBC Pending Nucleated RBC % Pending Sodium Pending Potassium Pending Chloride Pending Carbon Dioxide Pending Anion Gap Pending BUN Pending Creatinine Pending Estim Creat Clear Calc Pending Estimated GFR Pending Glucose Pending Calcium Pending Total Bilirubin Pending AST Pending ALT Pending Alkaline Phosphatase Pending Total Protein Pending Albumin Pending Lipase Pending Critical Care Time Critical Care Time Critical Care Time: Yes Total Critical Care Time: 31 Discharge Plan Discharge Clinical Impression: Hyponatremia Patient Disposition: Still a Patient Condition: Stable Patient Language: Tunisian Prescriptions: No Action ibuprofen 800 mg tablet 800 mg PO TID levothyroxine 88 mcg tablet 88 mcg PO DAILY Qty: 90 3RF budesonide 3 mg capsule,delayed,extend.release See Rx Instructions .ROUTE .COMPLEX PRN Dose Instruction: TAKE ONE CAPLET BY MOUTH EVERY DAY Rx Instructions: TAKE ONE CAPLET BY MOUTH EVERY DAY PRN; fluticasone propionate 50 mcg/actuation spray,suspension See Rx Instructions .ROUTE .COMPLEX Qty: 48 0RF Dose Instruction: INSTILL 1 SPRAY INTRANASALLY EVERY 12 HRS INTO EACH NOSTRIL Rx Instructions: INSTILL 1 SPRAY INTRANASALLY EVERY 12 HRS INTO EACH NOSTRIL Women's 50 Plus Multivitamin 400 mcg-500 mg calcium-20 mcg tablet PO amlodipine 2.5 mg tablet 2.5 mg PO DAILY Qty: 90 0RF metoprolol tartrate 25 mg tablet 37.5 mg PO BID Qty: 270 0RF omeprazole 40 mg capsule,delayed release(DR/EC) See Rx Instructions .ROUTE .COMPLEX Qty: 90 3RF Dose Instruction: TAKE 1 CAPSULE BY MOUTH DAILY Rx Instructions: TAKE 1 CAPSULE BY MOUTH DAILY albuterol sulfate 90 mcg/actuation HFA aerosol inhaler See Rx Instructions .ROUTE .COMPLEX Qty: 8.5 3RF Dose Instruction: INHALE 1 PUFF BY INHALATION ROUTE EVERY 4 HOURS NEEDED FOR SHORTNESS OF BREATH OR WHEEZING Rx Instructions: INHALE 1 PUFF BY INHALATION ROUTE EVERY 4 HOURS NEEDED FOR SHORTNESS OF BREATH OR WHEEZING cyclobenzaprine 10 mg tablet 10 mg PO BID PRN (Reason: muscle spasm) Qty: 20 0RF fluoxetine 20 mg capsule 20 mg PO DAILY Qty: 90 0RF Follow-up/Referrals: Fidel Krueger DO [Primary Care Provider] -
[2024-08-31 07:02] VITALS: BP 160/95; PULSE 74; RESP 18; O2SAT 98
[2024-08-31] MEDS: SODIUM CHLORIDE 0.9% IV 1,000 ML 999 ML IV CONT (07:03)
[2024-08-31 07:05] LABS: Basophils Absolute Auto 0.1 K/mm3 (0.0-0.1); Basophils Percent Auto 1.6 % (0.2-1.2); Eosinophils Absolute Auto 0.2 K/mm3 (0-0.3); Eosinophils Percent Auto 3.2 % (0-4.4); Hematocrit 34.7 % (37.0-47.0); Hemoglobin 11.5 g/dL (12.0-15.0); Immature Granulocyte Absolute 0.01 K/mm3 (0.00-0.031); Immature Granulocyte Percent A 0.2 % (0-0.5); Lymphocytes Absolute Auto 2.76 K/mm3 (0.9-3.2); Lymphocytes Percent Auto 44.8 % (18.3-44.2); Mean Corpuscular HGB Conc 33.1 g/dl (32-36); Mean Corpuscular Hemoglobin 31.7 pg (26-34); Mean Corpuscular Volume 95.6 fl (80-100); Mean Platelet Volume 8.8 fl (7.4-10.4); Monocytes Absolute Auto 0.6 K/mm3 (0.1-0.6); Monocytes Percent Auto 10.4 % (2.6-8.5); Neutrophils Absolute Auto 2.5 K/mm3 (1.3-6.7); Neutrophils Percent Auto 39.8 % (45.5-73.1); Platelet Count Result 395 k/mm3 (150-375); Red Blood Count 3.63 M/mm3 (4.2-5.4); Red Cell Distribution Width 12.1 % (11.5-14.5); White Blood Count 6.2 K/mm3 (4.5-10.0)
[2024-08-31 07:12] LABS: Alanine Aminotransferase 35 U/L (6-35); Albumin Level 4.7 g/dL (3.5-5.1); Alkaline Phosphatase 73 U/L (38-126); Anion Gap 11 mmol/L (4-12); Aspartate Amino Transferase 49 U/L (14-36); Bilirubin,Total 0.7 mg/dL (0.2-1.3); Blood Urea Nitrogen 14 mg/dL (7-17); Calcium 9.8 mg/dL (8.4-10.2); Carbon Dioxide 25 mmol/L (22-30); Chloride 96 mmol/L (98-107); Estimated CRCL calculation 43 ml/min; Estimated Glomerular Filt Rate 55; Glucose 110 mg/dL (65-110); Lipase 92 U/L (23-300); Potassium 3.9 mmol/L (3.4-5.0); Sodium 132 mmol/L (137-145); Total Protein 8.7 g/dL (6.3-8.2)
[2024-08-31 07:36] LABS: Add Urine Microscopic? NO; Appearance Urine Clear (Clear); Bilirubin Urine Negative (Negative); Blood Urine Negative (Negative); Color Urine Yellow (Yellow); Glucose Urine UA Negative (Negative); Ketones Urine Negative (Negative); Leukocyte Esterase Ur Negative LEU/UL (Negative); Nitrate Urine Negative (Negative); Protein Urine Negative (Negative); Urobilinogen Urine 0.2 mg/dL (<2.0)
--- OUTSIDE RECORDS SUMMARY | 2024-08-31 08:16 | XMS_ITS | Clinical Summary ---
Author Organization [facility] Eloise da silva Patrick Address [address] [facility] [address] Care Team Providers Care Logging Shovel Operator Name Role Phone Unavailable Primary Care [...] Abstract 07/23/2024 1:15 PM CDT Office Visit [facility] Oncology and Hematology - [address] [place] [address] Onur Benton MD Chronic anemia (Primary Dx) 06/25/2024 Orders Only [facility] Oncology and Hematology [address] [place] [address] Onur Benton MD 06/22/2024 External Device Data STL ABSTRACTION Provider, Abstract 06/22/2024 External Device Data STL ABSTRACTION Provider, Abstract 06/22/2024 External Device Data STL ABSTRACTION Provider, Abstract 06/22/2024 Orders Only [facility] Oncology and Hematology [address] [place] [address] Onur Benton MD 06/21/2024 3:00 PM CDT Office Visit [facility] Oncology and Hematology [facility] [address] [place] [address] Onur Benton MD Chronic anemia (Primary Dx) [...] Legal Sex Female 11:48 AM HEAD OF HUMAN RESOURCES Gender Identity Not on file Sexual Orientation [...] st Contact Info) Description 01/28/2025 9:45 AM HEAD OF HUMAN RESOURCES Office Visit [facility] Oncology and Hematology - [place] [address] [facility] [address] [place] [address] Onur Benton MD [address] [facility] [address] [place] [address] Health Maintenance Due Date Last [...] Resu lt from Last 3 Months Insurance [facility] CHOICE [id number] MEDICAID [place]
--- OUTSIDE RECORDS SUMMARY | 2024-08-31 08:16 | XMS_ITS | Continuity of Care Document ---
Author Organization [facility] Address [address] [place] [address] Phone Care Team Providers Care Pharmacy Graduate Intern Name Role Phone Brooke OD, Del Unavailable Unavailable Procedures Procedure Date Eye Exam & Treatment Refraction SV Plastic Sphcyl [place] +/-4d, .12-2d Miscellaneous Vision Service - Supplies Tax - Medical SV Poly Carb Sph +/- 7.12 To +/- 20 D Miscellaneous Vision Service - Supplies Tax - Medical Advance Directives Directive Yes / No Effective Date File Name No Information Encounters Encounter Description Practice Location Reason(s) For Visit Diagnoses Date Provider Providers Copied on Encounter [facility], [address] [place] [address] [address], [place], [place], [id number], tel:[phone] SEC [facility] No Information 1-201 0 Brooke OD Del. [address], [place], [address], [place]. tel:[phone] [facility], [address], [place], [place], [id number], [place] tel:[phone] SEC [facility] No Information 3-200 7 [facility] . [address] [facility], [address], [place], [place], [id number], [place]. tel:[phone] Referring Provider: Attila Menjivar [address] [place] [address] [address], [place], [address]. tel:[phone] hernandez Provider: Fay Francisco [facility], [place], [address]. tel:[phone] [facility], [address], [place], [place], [id number], [place] tel:[phone] SEC [facility] No Information 7 [facility] . [address] [facility], [address], [place], [place], [address], [place]. tel:[phone] Referring Provider: Attila Menjivar [address] [place] [address] [address], [place], [address]. tel:[phone] hernandez Provider: Fay Francisco [facility], [place], [address]. tel:[phone] Family History Family Member Type Diagnosis Age [...]
--- OUTSIDE RECORDS SUMMARY | 2024-08-31 08:17 | XMS_ITS | Clinical Summary ---
Author Organization [facility] Address [address] [place] [phone] Phone Care Team Providers Care Furniture Shampooer Name Role Phone LeeFidel cifuentes Primary Care Provider [phone] Allergies Active Allergy Reactions Criticality Noted Date [...] Reviewed options for assistance with cessation. Reviewed half-way sequela associated with smoking. Pt declines assistance [...] Vaccine (Season Ended) 2024 12/30/19, 03/17/2007 Insurance [facility] Care Teams Furniture Shampooer Relationship Specialty Start Date End Date Fidel Krueger DO [address] [place] [id number] PCP - General Internal Medicine 08/20/21
--- OUTSIDE RECORDS SUMMARY | 2024-08-31 08:17 | XMS_ITS | Continuity of Care Document ---
Author Organization [facility] Address [address] [place] [address] Phone Care Team Providers Care Filter Operator Name Role Phone González Garcia MD Unavailable [...] Diagnoses Date Provider Providers Copied on Encounter [facility], [address], [place], [place], [address], [place] tel:[phone] [facility] No Information Jose Claudio. [address], [id number], [place]. tel:[phone] [facility], [address], [place], [place], [address], [place] tel:[phone] [facility] Other specified urticaria Jose Claudio. [address] [facility], [place], [place], [id number], [place]. tel:[phone] Referring Provider: Domingo Beaver, [address] [facility] [address], [place], [address]. tel:[phone] Family History Family Member Type Diagnosis Age At Onset Mother Problem (finding) Allergies Payers Payer name Insurance type Covered alliance party ID Authoriza tion(s) [facility] [id number] Social History Type Description Quantity Date Captured [...]
[2024-08-31 08:39] VITALS: BP 165/94; PULSE 63; RESP 13; O2SAT 100
[2024-08-31 09:32] LABS: Anion Gap 10 mmol/L (4-12); Blood Urea Nitrogen 13 mg/dL (7-17); Calcium 9.1 mg/dL (8.4-10.2); Carbon Dioxide 23 mmol/L (22-30); Chloride 100 mmol/L (98-107); Estimated CRCL calculation 47 ml/min; Estimated Glomerular Filt Rate > 60; Glucose 86 mg/dL (65-110); Potassium 3.7 mmol/L (3.4-5.0); Sodium 133 mmol/L (137-145)
[2024-08-31 10:29] VITALS: BP 162/88; PULSE 66; RESP 18; O2SAT 98
== END 2024-08-31 10:30 | disposition home or self-care (01) ==
PROVIDERS: Emergency Medicine; Emergency Provider Emergency Medicine; PCP Internal Medicine
DX: E87.1 Hypo-osmolality and hyponatremia (principal); I10 Essential (primary) hypertension; J42 Unspecified chronic bronchitis; E27.40 Unspecified adrenocortical insufficiency; E03.9 Hypothyroidism, unspecified; M17.31 Unilateral post-traumatic osteoarthritis, right knee; M17.12 Unilateral primary osteoarthritis, left knee; K21.00 Gastro-esophageal reflux disease with esophagitis, without bleeding; F41.9 Anxiety disorder, unspecified; Z87.891 Personal history of nicotine dependence; Z79.899 Other long term (current) drug therapy
CPT/HCPCS: 36415; 80048; 80053; 81003; 83690; 85025; 93005; 96360; 99283; J7030

== ENCOUNTER 2025-02-18 10:53 | Outpatient (CLI) | payer OTHER, SELFPAY ==
[2025-02-18 11:20] LABS: Hematocrit 33.4 % (37.0-47.0); Hemoglobin 11.2 g/dL (12.0-15.0); Immature Granulocyte Percent A 0.1 % (0-0.5); Lymphocytes Absolute Auto 2.17 K/mm3 (0.9-3.2); Mean Corpuscular HGB Conc 33.5 g/dl (32-36); Mean Corpuscular Hemoglobin 31.9 pg (26-34); Mean Corpuscular Volume 95.2 fl (80-100); Nucleated Red Blood Cells Absolute Auto 0.000 K/mm3 (0.0-0.012); Nucleated Red Blood Cells Perc 0.0 % (0.0-0.2); Platelet Count Result 326 k/mm3 (150-375); Red Blood Count 3.51 M/mm3 (4.2-5.4); White Blood Count 6.7 K/mm3 (4.5-10.0)
[2025-02-18 13:18] LABS: Anion Gap 6 mmol/L (4-12); Blood Urea Nitrogen 12 mg/dL (7-17); Calcium 9.7 mg/dL (8.4-10.2); Carbon Dioxide 30 mmol/L (22-30); Chloride 98 mmol/L (98-107); Estimated Glomerular Filt Rate 56; Glucose 100 mg/dL (65-110); Iron 141 ug/dL (37-170); Potassium 4.6 mmol/L (3.4-5.0); Sodium 134 mmol/L (137-145)
[2025-02-18 13:27] LABS: Percent Iron Saturation 39 % (20-50)
[2025-02-18 14:01] LABS: Ferritin 98.80 ng/mL (11.1-264)
[2025-02-18 14:29] LABS: Vitamin B12 656.0 pg/mL (239-931)
== END 2025-02-18 10:54 | disposition home or self-care (01) ==
LOC: ANHLAB 10:53
PROVIDERS: PCP Internal Medicine; Visit Provider Internal Medicine Hematology & Oncology
DX: D64.9 Anemia, unspecified (principal)
CPT/HCPCS: 36415; 80048; 82607; 82728; 82746; 83540; 83550; 85025